=== PATIENT | female | born 1955 | race Caucasian/White ===

== ENCOUNTER 2018-01-21 17:24 | Outpatient (REF) | payer OTHER, SELFPAY ==
[2018-01-21 18:05] LABS: Abs Immature Grans 0.02 k/cumm (0.0-0.09); Absolute Basophil Count 0.03 k/cumm (0.0-0.2); Absolute Eosinophil Count 0.48 k/cumm (0.0-0.7); Absolute Lymphocyte Count 2.14 k/cumm (1.2-3.4); Absolute Monocyte Count 0.67 k/cumm (0.11-0.7); Absolute Neutrophil Count 4.22 k/cumm (1.2-6.7); Basophils % 0.4; Eosinophils % 6.3; HGB 13.6 g/dL (12.0-15.5); Immature Grans % 0.3; Lymphocytes % 28.3; Mean Corp. HGB Concentration 32.4 g/dL (32.0-36.0); Mean Corpuscular Hemoglobin 29.4 pg (27.0-33.0); Mean Corpuscular Volume 90.7 fL (80-95); Mean Platelet Volume 12.5 fL (8.0-11.0); Monocytes % 8.9; Neutrophils % 55.8; Platelet Count 335 x1000/uL (130-400); RBC 4.63 m/cumm (4.00-5.20); RBC Distribution Width 15.7 % (11.7-14.6); White Blood Cell Count 7.56 k/cumm (4.4-10.8)
[2018-01-21 18:38] LABS: ALT 24 U/L (12-78); AST 22 U/L (15-37); Albumin 3.6 g/dL (3.4-5.0); Alkaline Phosphatase 137 U/L (46-116); Anion Gap 9.3 mmol/L (3-11); BUN 13 mg/dL (7-18); Bilirubin, Total 0.4 mg/dL (0.2-1.0); CO2 26.7 mmol/L (21.0-32.0); Calcium 8.8 mg/dL (8.5-10.1); Chloride 105 mmol/L (98-107); Estimated GFR 56.37 (mL/min/1.73m2); Glucose 105 mg/dL (70-100); Potassium 4.5 mmol/L (3.5-5.1); Sodium 141 mmol/L (136-145); Total Protein 7.7 g/dL (6.4-8.2)
[2018-01-21 18:40] LABS: D-Dimer 698 ng/mlFEU (<500)
[2018-01-21 18:43] LABS: Bilirubin Negative (Negative); Blood Negative (Negative); Clarity Clear; Glucose Negative (Negative); Ketones Negative (Negative); Leukocyte Esterase Negative (Negative); Nitrite Negative (Negative); Specific Gravity 1.015 (1.005-1.025); pH 6.5 (5-8)
== END 2018-01-21 17:44 ==
LOC: NCHCO 17:24
PROVIDERS: PCP Family Medicine; Visit Provider Family Medicine
DX: R07.89 Other chest pain (principal)
CPT/HCPCS: 80053; 81003; 85025; 85379

== ENCOUNTER 2018-01-21 19:38 | Emergency (ER) | payer OTHER, SELFPAY ==
[2018-01-21 19:54] VITALS: BP 137/77; PULSE 77; RESP 18; TEMP 36.6; O2SAT 93
--- NOTE | 2018-01-21 20:39 | DI.CT_ITS ---
SYMPTOMS/DIAGNOSIS: SHORTNESS OF BREATH, RIGHT-SIDED PLEURITIC PAIN, RECENT TRAUMA PE CT OF THE CHEST: CT angiography was performed with multi slice acquisition and multi planar and 3D reconstruction. The study was carried out with intravenous administration of 85 cc of Omnipaque 350. 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 There are degenerative changes and scoliosis in the spine. Note is made of fractures of the 5th, 6th and 7th lateral ribs. The fractures are not displaced. Hypoventilation of the lungs is demonstrated. There is scarring and atelectasis involving the lung bases. There is no focal consolidation. There is no pleural effusion or pneumothorax. There are no suspicious pulmonary nodules. The central airways appear patent and of normal caliber. The thyroid gland is unremarkable. There is no evident axillary adenopathy. There is no mediastinal adenopathy or hilar adenopathy. Evaluation of the pulmonary arteries in multiple planes shows no evidence of PE. The aorta is of normal caliber with no evidence of an aneurysm or dissection. There is no evidence for an aortic injury. The heart is normal. There is a small hiatus hernia. 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 SUMMARY: Nondisplaced fractures of the right 5th, 6th and 7th ribs. No evidence of a pulmonary contusion or pneumothorax. No evidence of PE.
--- NOTE | 2018-01-21 20:40 | W.ED.GENAD ---
Discharge Plan Disposition Patient Disposition: HOME Condition: Fair Discharge Details Chief Complaint: Trauma Clinical Impression: Rib fractures Primary Care Provider: Yariel Hackett ED Provider: Sraa Echeverria Home Meds and New Rx's Prescriptions: New oxycodone 5 mg capsule 5 mg PO Q6H Qty: 7 RF: 0 Continue omeprazole [Prilosec] 40 MG capsule,delayed release(DR/EC) 40 mg PO DAILY RF: 0 clotrimazole-betamethasone [Lotrisone] 45 GM cream 1 raymundo Topical BID Qty: 1 RF: 1 ibuprofen 800 MG tablet 800 mg PO TID RF: 0 folic acid 1 MG tablet 1 mg PO DAILY RF: 0 citalopram 20 MG tablet 20 mg PO DAILY RF: 0 cholecalciferol (vitamin D3) [Vitamin D3] 2,000 UNIT capsule 2 cap PO DAILY RF: 0 cyanocobalamin (vitamin B-12) [Vitamin B-12] 500 MCG tablet 500 mcg PO DAILY RF: 0 indomethacin 25 MG capsule 25 mg PO PRN PRNRF: 0 Discharge Instructions Instructions: Rib Fracture (ED) Additional Instructions: Encourage hydration. Tylenol and/or ibuprofen as needed for discomfort. You may augment with the oxycodone as prescribed. Please take this only as prescribed keep this in a safe place. Do not take the Tylenol 3. Please use incentive spirometer as advised by Dr. Hackett, and routinely encourage deep breathing to help prevent pneumonia. If you develop shortness of breath, difficulty breathing, fever/chills or other new/worsening symptoms please seek care urgently once again. Otherwise, please follow-up with primary care next week Referrals: Yariel Hackett [Primary Care Provider] - Medical Decision Making Patient 62-year-old female presenting today with chief complaint of right anterior chest wall pain. I was contacted by Dr. Hackett prior to her arrival. He advised that the patient had fallen from a bread Saturday night. When she woke on the floor she had severe right anterior chest wall discomfort. She was evaluated at that time in [facility] emergency department at which time chest x-ray was obtained advised no acute abnormalities were noted. Reports the patient followed up with him today in the office. He was concerned, as the patient has history of DVT, that her shortness of breath and pleuritic chest pain may have been secondary to PE not simply from her fall. He obtain baseline laboratory evaluation including a d-dimer which was noted to be elevated at 698. Patient is endorsing shortness of breath. Reports that this primarily associated with pain with any type of inspiration. She denies any fevers or chills. Reports that she had a mild cough that began prior to her fall. This been nonproductive. Was given an incentive spirometer by primary care as well as a prescription for Tylenol 3. States she took a Tylenol with codeine this evening and is not yet had resolution of her discomfort. She appears comfortable on exam. Lungs are clear. No acute distress. O2 slightly low at 93%. She is not tachycardic. Kidney function allows for CT with contrast, will obtain imaging to evaluate for possible PE. CT reviewed by radiologist. Significant for degenerative change and scoliosis of the spine. There are fractures to the fifth, sixth and seventh lateral ribs. They are not significantly displaced. No other definite rib fracture seen. Lung lomeli are hypoinflated. There is scarring and atelectasis at the lung bases. No focal area of consolidation. No pleural effusion. No pneumothorax. No suspicious pulmonary nodule is central airways are normal caliber. Thyroid gland is unremarkable. No axillary adenopathy. No mediastinal adenopathy. No hilar adenopathy. Interrogation of the pulmonary arteries in multiple planes showed no evidence of pulmonary embolism. Aorta is normal caliber with no evidence of aneurysm or dissection. No evidence of aortic injury. Heart is normal size. There is a small hiatal hernia. There are changes of gastric bypass procedure. Discussed findings with the patient. We discussed the risks associated with rib fractures and, in particular discussed risk associated with continued shallow breathing and risk of developing pneumonia. She was given an incentive spirometer and instruction on how to use this by her primary care. Encouraged that she begin using this. Patient reports that the Tylenol 3 is not been working well for her. We will transition her to oxycodone. Advised that she not take this with the Tylenol No. 3. Advised that she may take Tylenol and/or ibuprofen in addition to the oxycodone. Discussed safety usage with patient and her , she signed narcotic form. Encourage hydration. Advised follow-up with primary care. She was given strict return precautions. All of her questions and concerns were addressed, she is in agreement with this plan. HPI General Mode of arrival: ambulatory. Date/Time Provider Initiated Documentation: 01/21/18 20:00. Information obtained by: patient and family. History of Present Illness 62 year old F presents to the emergency department with the chief complaint of right sided anterior rib pain, described as severe, with intensity rated at 10. Quality is described as sharp, and is localized to the chest. Patient reports no radiation. Patient started experiencing this hour(s) (3) and it has been constant. Immobilization improves symptom(s), Movement worsens symptoms (coughing much worse) . Patient notes cough (states that she had mild nonproductive cough prior to her fall), rash (has rash under the right breast which she reports waxes and wanes, responds well to Lotrisone) and shortness of breath; denies fever/chills, headaches, loss of appetite, nausea/vomiting, syncope and weakness. Patient did receive the following treatments prior to arrival, other (tylenol #3) Related Data Home Medications Medication Instructions Recorded Confirmed clotrimazole-betamethasone 1 raymundo TOPICAL BID #1 tube 09/02/13 [Lotrisone] omeprazole [Prilosec] 40 mg PO DAILY 09/02/13 09/11/14 citalopram 20 mg PO DAILY 10/26/13 09/11/14 folic acid 1 mg PO DAILY 10/26/13 09/11/14 ibuprofen 800 mg PO TID 10/26/13 09/11/14 cholecalciferol (vitamin D3) 2 cap PO DAILY 10/30/13 09/11/14 [Vitamin D3] cyanocobalamin (vitamin B-12) 500 mcg PO DAILY 09/11/14 09/11/14 [Vitamin B-12] indomethacin 25 mg PO PRN PRN 09/11/14 09/11/14 oxycodone 5 mg PO Q6H #7 cap 01/21/18 Previous Rx's Medication Instructions Recorded oxycodone 5 mg PO Q6H #7 cap 01/21/18 Allergies Allergy/AdvReac Type Severity Reaction Status Date / Time [facility] And Derivatives Allergy Intermediate Rash, Unverified 09/11/14 14:02 blister diazepam [From Valium] AdvReac Intermediate Increased Unverified 09/11/14 14:02 anxiety General Stated Complaint: Trauma RONNA: 3 Review of Systems Constitutional Reports as per HPI, Denies chills, Denies fever(s), Denies headache(s), Denies poor appetite and Denies weakness Eyes Denies change in vision ENT Denies headache(s) Cardiovascular Reports as per HPI, Reports chest pain (right anterior CP, pleuritic in nature), Denies claudication, Reports dyspnea and Reports dyspnea on exertion Respiratory Reports as per HPI, Reports cough, Denies hemoptysis, Reports pain on inspiration, Reports pain with cough, Reports dyspnea, Reports dyspnea on exertion, Denies stridor and Denies wheezing Gastrointestinal Denies abdominal pain, Denies nausea and Denies vomiting Musculoskeletal Reports as per HPI Integumentary/Breasts Reports as per HPI and Reports rash (under right breast) Neurologic Denies headache(s) and Denies weakness Allergic/Immunologic Denies wheezing PFSH Family History Other Diabetes Heart disease Medical History Acid reflux disease Anxiety disorder Deep vein blood clot of right lower extremity Fx wrist Gall stones Kidney calculi Morbid obesity Social History Smoking/Tobacco Use Status: Never Surgical History Cholecystectomy Gastric Bypass Reduction mammoplasty Rotator Cuff Repair Exam Const General: cooperative, healthy appearing, uncomfortable (patient appears uncomfortable, is on her left side), no acute distress, well developed and well groomed Nutritional Appearance: well nourished and overweight Orientation: alert and awake [facility] Head: normal to inspection and normocephalic Ears: hearing grossly normal bilaterally Mouth: oral mucosae normal Eyes General: appearance normal, both eyes and all related structures Chest Chest: no crepitus, localized rib tenderness with anteroposterior compression (right anterior rib pain with palpation under the right breast), no masses and tenderness rib Resp Effort & Inspection: normal respiratory effort, able to speak in complete sentences and no respiratory distress Auscultation: clear to auscultation bilaterally, no rales, no rhonchi and no wheezes Cardio Rate: regular rate Rhythm: regular rhythm Heart Sounds: S1 normal and S2 normal GI Inspection: normal to inspection Palpation: soft, not rigid and nontender Auscultation: normal bowel sounds Skin General skin exam: no ecchymosis Rashes: rashes noted (erythematous rash consistent with tinea under the right breast) Trauma: no lacerations or abrasions Wounds: no wounds Neuro General: alert, awake and oriented x3 Cranial Nerves: CN's II-XI intact bilaterally Cognition: normal cognition Speech: speech normal Gait: normal gait Extrem General: no pedal edema, no calf tenderness and normal gait Psych Appearance: grossly normal and well kempt Mental Status: mental status grossly normal Speech and Movement: speech and movement normal Course Vital Signs Temperature 36.6 C 01/21/18 19:54 Pulse 77 01/21/18 19:54 Respiratory Rate 18 01/21/18 19:54 Blood Pressure 137/77 01/21/18 19:54 Pulse Oximetry 93 L 01/21/18 19:54 Temperature 36.6 C 01/21/18 19:54 Temperature Source Temporal Artery Scan 01/21/18 19:54 Pulse 77 01/21/18 19:54 Respiratory Rate 18 01/21/18 19:54 Respiratory Effort 01/21/18 19:58 Respiratory Depth Normal 01/21/18 19:58 Blood Pressure 137/77 01/21/18 19:54 Blood Pressure Position Sitting 01/21/18 19:54 Pulse Oximetry 93 L 01/21/18 19:54 Oxygen Delivery Method Room Air 01/21/18 19:54 Oxygen Flow Rate 0 01/21/18 19:54 Pain Level 10 01/21/18 19:54
[2018-01-21] MEDS: Normal Saline 1,000 ML 1000 ML IV (20:48)
[2018-01-21] MEDS: Omnipaque 350 MG/ML 100 ML BTL IV (20:56)
--- NOTE | 2018-01-21 21:48 | DI.VRAD_ITS ---
EXAM: CT Angiography Chest With Intravenous Contrast EXAM DATE/TIME: 01/21/2018 8:40 PM CLINICAL HISTORY: 62 years old, female; Signs and symptoms; Other: SOB, right sided pleuritic pain, recent trauma, ; patient HX: PT stated fall of bed and landed on the right anterior . TECHNIQUE: Axial computed tomographic angiography images of the chest with intravenous contrast using CT angiography protocol. All CT scans at this facility use at least one of these dose optimization techniques: automated exposure control; mA and/or kV adjustment per patient size (includes targeted exams where dose is matched to clinical indication); or iterative reconstruction. Coronal and sagittal reformatted images were created and reviewed. MIP reconstructed images were created and reviewed. CONTRAST: 85 ml of omnipaque 350 administered intravenously. COMPARISON: No relevant prior studies available. FINDINGS: There is artifact from patient's shoulder replacement. There are degenerative changes and scoliosis of the spine. There are fractures of the fifth, sixth and seventh lateral ribs. They are not significantly displaced. No other definite rib fractures are seen. Please note the reconstructed images are MIPs which makes evaluation more difficult. The lung lomeli are hypoventilated. There is scarring and atelectasis within the lung bases. There is no focal consolidation. There is no pleural effusion. There is no pneumothorax. There are no suspicious pulmonary nodules. The central airways are normal in caliber. The thyroid gland is unremarkable. There is no axillary adenopathy. There is no mediastinal adenopathy. There is no hilar adenopathy. Interrogation of the pulmonary arteries in multiple planes shows no evidence for pulmonary embolism. The aorta is normal in caliber with no evidence for aneurysm or dissection. There is no evidence for aortic injury. The heart is normal in size. There is a small hiatal. There are changes of gastric bypass procedure. IMPRESSION: 1. Nondisplaced fractures involving the right fifth, sixth and seventh lateral ribs. 2. No evidence for pulmonary contusion. No pneumothorax. 3. No evidence for pulmonary embolism. Dictated and Authenticated by: Bobo Estrada MD. Ordering:BISHOP PARRY MD
--- NOTE | 2018-01-21 22:05 | ED.GENADUL_ITS ---
Discharge Plan Disposition Patient Disposition: HOME Condition: Fair Discharge Details Chief Complaint: Trauma Clinical Impression: Rib fractures Primary Care Provider: Yariel Hackett ED Provider: Sara Echeverria Home Meds and New Rx's Prescriptions: New oxycodone 5 mg capsule 5 mg PO Q6H Qty: 7 RF: 0 Continue omeprazole [Prilosec] 40 MG capsule,delayed release(DR/EC) 40 mg PO DAILY RF: 0 clotrimazole-betamethasone [Lotrisone] 45 GM cream 1 raymundo Topical BID Qty: 1 RF: 1 ibuprofen 800 MG tablet 800 mg PO TID RF: 0 folic acid 1 MG tablet 1 mg PO DAILY RF: 0 citalopram 20 MG tablet 20 mg PO DAILY RF: 0 cholecalciferol (vitamin D3) [Vitamin D3] 2,000 UNIT capsule 2 cap PO DAILY RF: 0 cyanocobalamin (vitamin B-12) [Vitamin B-12] 500 MCG tablet 500 mcg PO DAILY RF: 0 indomethacin 25 MG capsule 25 mg PO PRN PRNRF: 0 Discharge Instructions Instructions: Rib Fracture (ED) Additional Instructions: Encourage hydration. Tylenol and/or ibuprofen as needed for discomfort. You may augment with the oxycodone as prescribed. Please take this only as prescribed keep this in a safe place. Do not take the Tylenol 3. Please use incentive spirometer as advised by Dr. Hackett, and routinely encourage deep breathing to help prevent pneumonia. If you develop shortness of breath, difficulty breathing, fever/chills or other new/worsening symptoms please seek care urgently once again. Otherwise, please follow-up with primary care next week Referrals: Yariel Hackett [Primary Care Provider] - Medical Decision Making Patient 62-year-old female presenting today with chief complaint of right anterior chest wall pain. I was contacted by Dr. Hackett prior to her arrival. He advised that the patient had fallen from a bread Saturday night. When she woke on the floor she had severe right anterior chest wall discomfort. She was evaluated at that time in [place] emergency department at which time chest x- ray was obtained advised no acute abnormalities were noted. Reports the patient followed up with him today in the office. He was concerned, as the patient has history of DVT, that her shortness of breath and pleuritic chest pain may have been secondary to PE not simply from her fall. He obtain baseline laboratory evaluation including a d-dimer which was noted to be elevated at 698. Patient is endorsing shortness of breath. Reports that this primarily associated with pain with any type of inspiration. She denies any fevers or chills. Reports that she had a mild cough that began prior to her fall. This been nonproductive. Was given an incentive spirometer by primary care as well as a prescription for Tylenol 3. States she took a Tylenol with codeine this evening and is not yet had resolution of her discomfort. She appears comfortable on exam. Lungs are clear. No acute distress. O2 slightly low at 93%. She is not tachycardic. Kidney function allows for CT with contrast, will obtain imaging to evaluate for possible PE. CT reviewed by radiologist. Significant for degenerative change and scoliosis of the spine. There are fractures to the fifth, sixth and seventh lateral ribs. They are not significantly displaced. No other definite rib fracture seen. Lung lomeli are hypoinflated. There is scarring and atelectasis at the lung bases. No focal area of consolidation. No pleural effusion. No pneumothorax. No suspicious pulmonary nodule is central airways are normal caliber. Thyroid gland is unremarkable. No axillary adenopathy. No mediastinal adenopathy. No hilar adenopathy. Interrogation of the pulmonary arteries in multiple planes showed no evidence of pulmonary embolism. Aorta is normal caliber with no evidence of aneurysm or dissection. No evidence of aortic injury. Heart is normal size. There is a small hiatal hernia. There are changes of gastric bypass procedure. Discussed findings with the patient. We discussed the risks associated with rib fractures and, in particular discussed risk associated with continued shallow breathing and risk of developing pneumonia. She was given an incentive spirometer and instruction on how to use this by her primary care. Encouraged that she begin using this. Patient reports that the Tylenol 3 is not been working well for her. We will transition her to oxycodone. Advised that she not take this with the Tylenol No. 3. Advised that she may take Tylenol and/or ibuprofen in addition to the oxycodone. Discussed safety usage with patient and her , she signed narcotic form. Encourage hydration. Advised follow-up with primary care. She was given strict return precautions. All of her questions and concerns were addressed, she is in agreement with this plan. HPI General Mode of arrival: ambulatory . Date/Time Provider Initiated Documentation: 01/21/18 20:00 . Information obtained by: patient and family . History of Present Illness 62 year old F presents to the emergency department with the chief complaint of right sided anterior rib pain, described as severe, with intensity rated at 10. Quality is described as sharp, and is localized to the chest. Patient reports no radiation. Patient started experiencing this hour(s) (3) and it has been constant. Immobilization improves symptom(s), Movement worsens symptoms (coughing much worse) . Patient notes cough (states that she had mild nonproductive cough prior to her fall), rash (has rash under the right breast which she reports waxes and wanes, responds well to Lotrisone) and shortness of breath; denies fever/chills, headaches, loss of appetite, nausea/ vomiting, syncope and weakness. Patient did receive the following treatments prior to arrival, other (tylenol #3) Related Data Home Medications Medication Instructions Recorded Confirmed clotrimazole-betamethasone 1 raymundo TOPICAL BID #1 tube 09/02/13 [Lotrisone] omeprazole [Prilosec] 40 mg PO DAILY 09/02/13 09/11/14 citalopram 20 mg PO DAILY 10/26/13 09/11/14 folic acid 1 mg PO DAILY 10/26/13 09/11/14 ibuprofen 800 mg PO TID 10/26/13 09/11/14 cholecalciferol (vitamin D3) 2 cap PO DAILY 10/30/13 09/11/14 [Vitamin D3] cyanocobalamin (vitamin B-12) 500 mcg PO DAILY 09/11/14 09/11/14 [Vitamin B-12] indomethacin 25 mg PO PRN PRN 09/11/14 09/11/14 oxycodone 5 mg PO Q6H #7 cap 01/21/18 Previous Rx's Medication Instructions Recorded oxycodone 5 mg PO Q6H #7 cap 01/21/18 Allergies Allergy/AdvReac Type Severity Reaction Status Date / Time [facility] And Derivatives Allergy Intermediate Rash, Unverified 09/11/14 14:02 blister diazepam [From Valium] AdvReac Intermediate Increased Unverified 09/11/14 14:02 anxiety General Stated Complaint: Trauma RONNA: 3 Review of Systems Constitutional Reports as per HPI, Denies chills, Denies fever(s), Denies headache(s), Denies poor appetite and Denies weakness Eyes Denies change in vision ENT Denies headache(s) Cardiovascular Reports as per HPI, Reports chest pain (right anterior CP, pleuritic in nature) , Denies claudication, Reports dyspnea and Reports dyspnea on exertion Respiratory Reports as per HPI, Reports cough, Denies hemoptysis, Reports pain on inspiration, Reports pain with cough, Reports dyspnea, Reports dyspnea on exertion, Denies stridor and Denies wheezing Gastrointestinal Denies abdominal pain, Denies nausea and Denies vomiting Musculoskeletal Reports as per HPI Integumentary/Breasts Reports as per HPI and Reports rash (under right breast) Neurologic Denies headache(s) and Denies weakness Allergic/Immunologic Denies wheezing PFSH Family History Other Diabetes Heart disease Medical History Acid reflux disease Anxiety disorder Deep vein blood clot of right lower extremity Fx wrist Gall stones Kidney calculi Morbid obesity Social History Smoking/Tobacco Use Status: Never Surgical History Cholecystectomy Gastric Bypass Reduction mammoplasty Rotator Cuff Repair Exam Const General: cooperative, healthy appearing, uncomfortable (patient appears uncomfortable, is on her left side), no acute distress, well developed and well groomed Nutritional Appearance: well nourished and overweight Orientation: alert and awake [facility] Head: normal to inspection and normocephalic Ears: hearing grossly normal bilaterally Mouth: oral mucosae normal Eyes General: appearance normal, both eyes and all related structures Chest Chest: no crepitus, localized rib tenderness with anteroposterior compression ( right anterior rib pain with palpation under the right breast), no masses and tenderness rib Resp Effort & Inspection: normal respiratory effort, able to speak in complete sentences and no respiratory distress Auscultation: clear to auscultation bilaterally, no rales, no rhonchi and no wheezes Cardio Rate: regular rate Rhythm: regular rhythm Heart Sounds: S1 normal and S2 normal GI Inspection: normal to inspection Palpation: soft, not rigid and nontender Auscultation: normal bowel sounds Skin General skin exam: no ecchymosis Rashes: rashes noted (erythematous rash consistent with tinea under the right breast) Trauma: no lacerations or abrasions Wounds: no wounds Neuro General: alert, awake and oriented x3 Cranial Nerves: CN's II-XI intact bilaterally Cognition: normal cognition Speech: speech normal Gait: normal gait Extrem General: no pedal edema, no calf tenderness and normal gait Psych Appearance: grossly normal and well kempt Mental Status: mental status grossly normal Speech and Movement: speech and movement normal Course Vital Signs Temperature 36.6 C 01/21/18 19:54 Pulse 77 01/21/18 19:54 Respiratory Rate 18 01/21/18 19:54 Blood Pressure 137/77 01/21/18 19:54 Pulse Oximetry 93 L 01/21/18 19:54 Temperature 36.6 C 01/21/18 19:54 Temperature Source Temporal Artery Scan 01/21/18 19:54 Pulse 77 01/21/18 19:54 Respiratory Rate 18 01/21/18 19:54 Respiratory Effort 01/21/18 19:58 Respiratory Depth Normal 01/21/18 19:58 Blood Pressure 137/77 01/21/18 19:54 Blood Pressure Position Sitting 01/21/18 19:54 Pulse Oximetry 93 L 01/21/18 19:54 Oxygen Delivery Method Room Air 01/21/18 19:54 Oxygen Flow Rate 0 01/21/18 19:54 Pain Level 10 01/21/18 19:54
[2018-01-21] MEDS: oxyCODONE 5 MG TAB PO (22:24)
[2018-01-21] MEDS: oxyCODONE 5 MG TAB 15 MG PO (22:24)
[2018-01-21 22:30] VITALS: BP 137/77; PULSE 77; RESP 18; TEMP 36.6; O2SAT 93
== END 2018-01-21 22:39 | disposition home or self-care (01) ==
PROVIDERS: Emergency Provider Physician Assistant; PCP Family Medicine
DX: S22.41XA Multiple fractures of ribs, right side, initial encounter for closed fracture (principal); W06.XXXA Fall from bed, initial encounter
CPT/HCPCS: 71275; 96360; 99285; 99284; J3490

== ENCOUNTER 2018-06-11 10:40 | Outpatient (CLI) | payer OTHER, SELFPAY ==
[2018-06-11 13:08] LABS: Anion Gap 7.3 mmol/L (3-11); BUN 14 mg/dL (7-18); CO2 28.7 mmol/L (21.0-32.0); CREATININE 0.91 mg/dL (0.55-1.02); Calcium 9.2 mg/dL (8.5-10.1); Chloride 106 mmol/L (98-107); Glucose 89 mg/dL (70-100); Magnesium 2.1 mg/dL (1.8-2.4); Potassium 4.8 mmol/L (3.5-5.1); Sodium 142 mmol/L (136-145); Vitamin B12 166 pg/mL (193-986)
== END 2018-06-11 11:00 ==
PROVIDERS: PCP Family Medicine; Visit Provider Family Medicine
DX: I10 Essential (primary) hypertension (principal); E61.9 Deficiency of nutrient element, unspecified
CPT/HCPCS: 36415; 80048; 82607; 83735

== ENCOUNTER 2018-11-24 18:49 | Outpatient (REF) | payer OTHER, SELFPAY ==
[2018-11-24 19:17] LABS: Iron 76 ug/dL (50-175); Total Iron Binding Capacity 312 ug/dL (250-450); Transferrin Sat 24 % (15-50)
[2018-11-24 19:45] LABS: Vitamin D 25 Total 32.8 ng/ml (30-100)
[2018-11-24 19:48] LABS: TSH (W/Ref FT4) 1.43 uIU/mL (0.36-3.74); Vitamin B12 1857 pg/mL (193-986)
== END 2018-11-24 19:09 ==
LOC: NCHCN 18:49
PROVIDERS: PCP Family Medicine; Visit Provider Family Medicine
DX: E53.8 Deficiency of other specified B group vitamins (principal); E03.9 Hypothyroidism, unspecified; E61.9 Deficiency of nutrient element, unspecified; E55.9 Vitamin D deficiency, unspecified
CPT/HCPCS: 82306; 82607; 83540; 83550; 84443

== ENCOUNTER 2018-12-30 00:48 | Outpatient (CLI) | payer OTHER, SELFPAY ==
--- NOTE | 2018-12-30 13:00 | DI.MAMMO_ITS ---
EXAM: MG MAMMO SCREENING CLINICAL HISTORY: SCREENING Z12.39. TECHNIQUE: Mammograms were interpreted according to the usual protocol including computer analysis w [employer] CAD system, tomosynthesis and C-view imaging. COMPARISON: No exams were available for comparison FINDINGS: The breast tissue is of moderate radiodensity. There is no mass. There are no suspicious calcificatio ns and there has been no significant interval change when compared with prior images. IMPRESSION: No evidence of malignancy, category 1, yearly screening mammography is recommended. BI-RADS category B. BI-RADS Cat 1 - Negative Breast Density - Category B - Scattered areas of fibroglandular density
== END 2018-12-30 01:08 ==
PROVIDERS: PCP Family Medicine; Visit Provider Family Medicine
DX: Z12.31 Encounter for screening mammogram for malignant neoplasm of breast (principal)
CPT/HCPCS: 77063; 77067

== ENCOUNTER 2019-03-13 11:52 | Outpatient (CLI) | payer OTHER, SELFPAY ==
--- NOTE | 2019-03-13 12:01 | DI.RAD_ITS ---
EXAM: XR WRIST RT COMPLETE INDICATION: RT WRIST PAIN, M25.531. COMPARISON: No exams were available for comparison TECHNIQUE: 2D digital imaging was performed. FINDINGS: No acute fracture or dislocation is present. There are degenerative changes seen at the 1st carpomet acarpal joint. The soft tissues are unremarkable. There is atherosclerosis present. IMPRESSION: No acute fracture or dislocation.
== END 2019-03-13 12:12 ==
PROVIDERS: PCP Family Medicine; Visit Provider Nurse Practitioner Family
DX: M25.531 Pain in right wrist (principal); M18.11 Unilateral primary osteoarthritis of first carpometacarpal joint, right hand
CPT/HCPCS: 73110

== ENCOUNTER 2019-06-01 08:40 | Outpatient (REF) | payer OTHER, SELFPAY ==
[2019-06-01 12:04] LABS: ALT 20 U/L (14-59); AST 17 U/L (15-37); Albumin 3.6 g/dL (3.4-5.0); Alkaline Phosphatase 113 U/L (46-116); Anion Gap 10.2 mmol/L (3-11); BUN 15 mg/dL (7-18); Bilirubin, Total 0.5 mg/dL (0.2-1.0); CO2 24.8 mmol/L (21.0-32.0); CREATININE 0.86 mg/dL (0.55-1.02); Chloride 109 mmol/L (98-107); Glucose 96 mg/dL (74-106); Potassium 4.6 mmol/L (3.5-5.1); Sodium 144 mmol/L (136-145); Total Protein 6.5 g/dL (6.4-8.2); Vitamin B12 343 pg/mL (193-986)
== END 2019-06-01 09:00 ==
LOC: NCHCN 08:40
PROVIDERS: PCP Family Medicine; Visit Provider Family Medicine
DX: I10 Essential (primary) hypertension (principal); E53.8 Deficiency of other specified B group vitamins; R74.8 Abnormal levels of other serum enzymes
CPT/HCPCS: 80053; 82607

== ENCOUNTER 2019-08-11 14:09 | Outpatient (REF) | payer OTHER, SELFPAY ==
[2019-08-12 13:11] LABS: COVID-19 RT-PCR UVMMC Result Negative (Negative)
== END 2019-08-11 14:29 ==
LOC: NCHCN 14:09
PROVIDERS: PCP Family Medicine; Visit Provider Physician Assistant
DX: R05 Cough (principal)
CPT/HCPCS: U0003

== ENCOUNTER 2019-11-16 11:06 | Day surgery (SDC) | payer OTHER, SELFPAY ==
--- NOTE | 2019-11-16 06:55 | W.COLOREPORT ---
Date of service: 11/16/19 Time of Service: 14:15 Colonoscopy Report Date of procedure: 11/16/19 Pre-op diagnosis general: Colon Cancer Screening Post-op diagnosis procedure note: same Procedure: Colonoscopy Surgeon: Jadyn Najera Anesthesia proc note operative: other (General/ ASA 2/ Camilo Sparks, SUGAR) Estimated blood loss (mL): 0 Pathology: none sent Complications: None Disposition: same day Indications: 64-year-old female who is seen today for a colonoscopy. Her last colonoscopy was in 2012. Unfortunately I do not have the report. She has a PMHx significant for Gastric bypass and mild aortic stenosis. She is active hunting, fishing, walking and has no chest pain or SOB. Risks, benefits and complications have been reviewed. Complications include but are not limited to bleeding, pain, perforation, missed small lesion/polyp, sore throat, aspiration and adverse reaction to the medications. Questions were entertained and answered to their satisfaction and they wished to proceed. No guarantees were given or implied. Prep: Miralax/Dulcolax Procedure Start Time: 14:15 Procedure End Time: 14:35 Retraction Time: 13 minutes Findings: Normal colon Procedure Description: After informed consent was obtained the patient was taken to the procedure room and placed in a left decubitous position. Monitors were applied and a time out was done. The patients name, date of , procedure, allergies to medications and metal in their body was reviewed. The patient was then sedated. Once sedated and comfortable a rectal exam was done. External exam was normal. Internal exam revealed a normal sphincter tone and no palpable masses. The scope was then introduced and retro-flexed. No internal hemorrhoids were identified. The scope was then advanced to the cecum without difficulty. The ileocecal valve and appendiceal orifice were identified. The prep was adequate. The scope was then slowly retracted over 13 minutes back into the rectum. There were no polyps and no diverticula. The scope was removed and the patient was woken up and taken back to Same day surgery in stable condition. The patient tolerated the procedure well and there were no immediate complications. Follow up: The patient should follow up in 10 years unless they develop changes in bowel habits or other new gastrointestinal complaints.
--- NOTE | 2019-11-16 06:56 | W.PM.DSUDISC ---
Discharge Plan Disposition Patient Disposition: HOME Condition: Good Discharge Details Reason For Visit: Colonoscopy Attending Provider: Jadyn Najera Primary Care Provider: Yariel Hackett Home Meds and New Rx's Prescriptions: Continued omeprazole [Prilosec] 40 MG capsule,delayed release(DR/EC) 40 mg PO DAILY RF: 0 clotrimazole-betamethasone [Lotrisone] 45 GM cream 1 raymundo Topical BID Qty: 1 RF: 1 ferrous sulfate 325 mg (65 mg iron) tablet 325 mg PO DAILY RF: 0 ketoconazole 2 % cream 1 applic TP BID RF: 0 melatonin 5 mg capsule 5 mg PO HS PRNRF: 0 clotrimazole-betamethasone 1-0.05 % cream 1 applic TP BID RF: 0 levothyroxine 75 mcg capsule 75 mcg PO DAILY RF: 0 escitalopram oxalate 20 mg tablet 20 mg PO DAILY RF: 0 nystatin 100,000 unit/gram powder 1 applic TP TID RF: 0 ibuprofen 800 MG tablet 800 mg PO TID RF: 0 cholecalciferol (vitamin D3) [Vitamin D3] 2,000 UNIT capsule 2 cap PO DAILY RF: 0 cyanocobalamin (vitamin B-12) [Vitamin B-12] 500 MCG tablet 500 mcg PO DAILY RF: 0 Discontinued bisacodyl [Dulcolax (bisacodyl)] 5 mg tablet,delayed release (DR/EC) 5 mg PO ONCE Qty: 4 RF: 0 polyethylene glycol 3350 17 gram powder in packet 255 g PO DAILY Qty: 15 RF: 0 Discharge Instructions Additional Instructions: Findings: Normal colon Follow up: 10 years Please call if you develop: fevers >101.5 Nausea or Vomiting Abdominal pain that is not transient DAY SURGERY UNIT POST ENDOSCOPY INSTRUCTIONS 1. Because there will be medication in your system for the next 24 hours, you may feel a little sleepy. Your coordination will be affected. Therefore: a. Do not drive or operate dangerous equipment for 24 hours. b. Do not drink alcohol beverages for 24 hours (not even beer). c. Plan to go home and rest for the day. 2. Generally there are no restrictions on your activity after a day or so has gone by, but you may feel a bit fatigued for a few days. 3 After you arrive home you may have a light meal and return to a normal diet as you can tolerate it without feeling sick to your stomach. 4. After surgery, you may feel pain or discomfort. This should be only transient, but if it persists please contact your doctor. 5. If there are any questions regarding the findings of your procedure, please feel free to contact your doctor. 6. If you are unable to contact your doctor with a problem, contact the hospital at [phone]. 7. Continue all your regular medications unless directed otherwise. I understand the above instructions and have no questions. Signature of Patient or Responsible Adult Escort Date/Time Name of Responsible Adult Escort Signature of Nurse Date/Time Activity:: Activity as Tolerated Diet:: As Tolerated Discharge Orders Discharge Orders: Discharge Order (Routine); Ordered 11/16/19 Ordered By: Jadyn Najera
[2019-11-16 11:20] VITALS: BP 156/86; PULSE 62; RESP 18; TEMP 36.3; O2SAT 98
[2019-11-16] MEDS: Lactated Ringers 1,000 ML 80 ML IV (11:59)
[2019-11-16 15:10] VITALS: BP 129/76; PULSE 68; RESP 18; TEMP 36.5; O2SAT 96
== END 2019-11-16 16:02 | disposition home or self-care (01) ==
PROVIDERS: PCP Family Medicine; Visit Provider Surgery
PROC: 0DJD8ZZ Inspection of Lower Intestinal Tract, Via Natural or Artificial Opening Endoscopic (ICD-10-PCS; CPT 45378; principal; 2019-11-16 12:45)
DX: Z12.11 Encounter for screening for malignant neoplasm of colon (principal); Z98.84 Bariatric surgery status; I35.0 Nonrheumatic aortic (valve) stenosis
CPT/HCPCS: 45378; J2001

== ENCOUNTER 2019-12-15 13:07 | Outpatient (REF) | payer OTHER, SELFPAY ==
[2019-12-15 15:38] LABS: HCT 38.8 % (36.0-46.0); HGB 12.4 g/dL (11.2-15.7); MCH 30.6 pg (27.0-33.0); MCV 95.8 fL (80-95); MPV 14.2 fL (8.0-11.0); Platelet Count 271 10^3/uL (130-400); RBC 4.05 10^6/uL (3.93-5.22); RDW 13.2 % (11.7-14.6); RDW-SD 47.1 fL; WBC 6.73 10^3/uL (4.4-10.8)
[2019-12-15 16:26] LABS: Iron 101 ug/dL (50-170); Total Iron Binding Capacity 291 ug/dL (250-450); Transferrin Sat 35 % (15-50)
[2019-12-15 16:36] LABS: Hemoglobin A1C 5.6 % (<5.7)
[2019-12-15 16:43] LABS: ALT 35 U/L (14-59); AST 19 U/L (15-37); Albumin 3.5 g/dL (3.4-5.0); Alkaline Phosphatase 112 U/L (46-116); Anion Gap 9.5 mmol/L (3-11); BUN 14 mg/dL (7-18); Bilirubin, Total 0.4 mg/dL (0.2-1.0); CO2 25.5 mmol/L (21.0-32.0); CREATININE 1.04 mg/dL (0.55-1.02); Calcium 8.8 mg/dL (8.5-10.1); Chloride 102 mmol/L (98-107); Estimated GFR 53.52 (mL/min/1.73m2); Glucose 87 mg/dL (74-106); Potassium 5.1 mmol/L (3.5-5.1); Sodium 137 mmol/L (136-145); TSH (W/Ref FT4) 0.66 uIU/mL (0.36-3.74); Total Protein 6.4 g/dL (6.4-8.2)
[2019-12-15 17:20] LABS: Calculated LDL 181 mg/dL (<100); Cholesterol 279 mg/dL (<200); HDL Cholesterol 69 mg/dL (40-60); Triglyceride 149 mg/dL (<150); Vitamin B12 346 pg/mL (193-986)
[2019-12-17 07:06] LABS: Vitamin D 25 Total 26.5 ng/ml (30-100)
== END 2019-12-15 13:27 ==
LOC: NCHCN 13:07
PROVIDERS: PCP Family Medicine; Visit Provider Family Medicine
DX: E55.9 Vitamin D deficiency, unspecified (principal); E53.8 Deficiency of other specified B group vitamins; E03.9 Hypothyroidism, unspecified; R73.09 Other abnormal glucose; E61.9 Deficiency of nutrient element, unspecified; R74.8 Abnormal levels of other serum enzymes; I10 Essential (primary) hypertension; Z00.00 Encounter for general adult medical examination without abnormal findings
CPT/HCPCS: 80053; 80061; 82306; 85027; 82607; 83036; 83540; 83550; 84443

== ENCOUNTER 2020-01-04 09:24 | Outpatient (REF) | payer OTHER, SELFPAY ==
--- NOTE | 2020-01-04 08:45 | PAPFT_PTH ---
PATIENT: Tamia Casarez LOC: [facility] U#:[id number] AGE/SX: 64/F ROOM: RE01/04/[address]: Izabella Saucedo NP : [id number] BED: DIS: 01/04/2020 SPEC #: [id number] RECD: 01/04/20 13:06 STATUS: BUNNY RESarah #: [id number] TONY: 01/04/20 08:[address]: Izabella Saucedo NP DEPT: [facility] Cytology RECD BY: Jenelle Bennett ENTERED: 01/04/20 13:06 SP TYPE: PAPFT OTHR DR: Yariel Hackett Tissues: 1 - CX/ENDOCX FOR PAP SMEARS Procedures: PAP THIN PREP/UVM Screening HPV DNA PROBE Comments: [id number]
== END 2020-01-04 09:44 ==
LOC: LBN 09:24
PROVIDERS: PCP Family Medicine; Visit Provider Nurse Practitioner Women's Health
DX: R87.616 Satisfactory cervical smear but lacking transformation zone (principal); Z11.51 Encounter for screening for human papillomavirus (HPV)
CPT/HCPCS: 88142; 87624

== ENCOUNTER 2020-04-05 02:34 | Outpatient (CLI) | payer OTHER, SELFPAY ==
--- NOTE | 2020-04-05 08:17 | DI.MAMMO_ITS ---
EXAM: MAMMO SCREENING CLINICAL HISTORY: screening, H/O BREAST REDUCTION SURGERY BILSARAH,Z12.39 TECHNIQUE: Mammograms were interpreted according to the usual protocol including computer analysis w [employer] CAD system, tomosynthesis and C-view imaging. COMPARISON: 2013 through 2018 FINDINGS: The breasts are composed of scattered fibroglandular densities, Breast Density category B. No suspicious masses or suspicious microcalcifications are seen. Vascular calcifications are inciden tally noted. No skin thickening or abnormal axillary lymph nodes are seen. There has been no significant change from prior exams. IMPRESSION: BI-RADS Category 1, Negative mammogram Yearly screening mammography is recommended. Breast Density - Category B, scattered fibroglandular densities. A negative radiographic report should not delay biopsy if a dominant or clinically suspicious mass is present. Up to ten percent of cancers are not identified on mammography. A negative report may reinforce clinical impression. Adenosis and dense breasts may obscure an underlying neoplasm. False positive reports average 6 to 10%. Patient will receive a letter notifying them of these results.
== END 2020-04-05 02:54 ==
PROVIDERS: PCP Family Medicine; Visit Provider Nurse Practitioner Women's Health
DX: Z12.31 Encounter for screening mammogram for malignant neoplasm of breast (principal)
CPT/HCPCS: 77063; 77067

== ENCOUNTER 2020-06-11 22:12 | Emergency (ER) | payer OTHER, SELFPAY ==
--- NOTE | 2020-06-11 21:57 | ED.GENADUL_ITS ---
Discharge Plan Disposition Patient Disposition: HOME Condition: Good Discharge Details Clinical Impression: Contusion of multiple sites, Closed head injury, Fall at home Primary Care Provider: Yariel Hackett ED Provider: Ilan Patrick Harbinger Meds and New Rx's Prescriptions: Continued estradiol 0.01 % (0.1 mg/gram) cream 1 g vaginal DAILY Qty: 42.5 RF: 3 omeprazole [Prilosec] 40 MG capsule,delayed release(DR/EC) 40 mg PO DAILY RF: 0 ferrous sulfate 325 mg (65 mg iron) tablet 325 mg PO DAILY RF: 0 ketoconazole 2 % cream 1 applic TP BID RF: 0 melatonin 5 mg capsule 5 mg PO HS PRNRF: 0 clotrimazole-betamethasone 1-0.05 % cream 1 applic TP BID RF: 0 levothyroxine 75 mcg capsule 75 mcg PO DAILY RF: 0 escitalopram oxalate 20 mg tablet 20 mg PO DAILY RF: 0 nystatin 100,000 unit/gram powder 1 applic TP TID RF: 0 ibuprofen 800 MG tablet 800 mg PO TID RF: 0 cholecalciferol (vitamin D3) [Vitamin D3] 2,000 UNIT capsule 2 cap PO DAILY RF: 0 Discharge Instructions Instructions: Head Injury (ED), Contusion in Adults (ED) Additional Instructions: Imaging tonight negative for traumatic injury or fractures. Take it easy the rest of the weekend, activity as tolerated. Tylenol as needed for pain. Ice on and off to the extremity areas that were injured. Follow-up with primary care 1 to 2 weeks if not doing better. Return to ED if worsening headache, neurologic change, difficulty breathing, persistent vomiting, other concerns. Referrals: Yariel Hackett [Primary Care Provider] - Medical Decision Making Patient status post fall at home. Injury to left side of her body. Loss of consciousness after the event. GCS of 15 with normal neurologic exam now. No midline cervical spine tenderness but complains of left neck pain. Vital signs are good. Plan CT head and neck. X-ray left forearm, left hip/pelvis, left knee. CT head and cervical spine negative for traumatic injury. X-ray is also negative for traumatic injury/fracture. Collar removed. Patient given Tylenol. She will be discharged home to continue Tylenol or Motrin as needed for pain. Activity as tolerated over the weekend. Follow-up with primary care 1 to 2 weeks if not getting better. Return to ED if any significant changes, specifically worsening headache, mental status change, other concerns. HPI General Mode of arrival: EMS . Date/Time Provider Initiated Documentation: 06/11/20 22:12 . Limitations to Documentation: no limitations . Information obtained by: patient, EMS and RN notes reviewed . HPI Narrative: Patient presents to ED by ambulance status post fall at home. Patient tripped on an uneven step in her house falling and striking left side of her head on the door jam. She had a brief loss of consciousness after striking her head. She is awake and alert now. She complains of left head and neck pain as well as left forearm, left hip, left knee pain. She denies any difficulty breathing. She denies chest pain, back pain, abdominal pain. She denies any nausea vomiting. It was a mechanical trip and fall with loss of consciousness after the event. There was no syncope. She has no numbness or weakness currently. She is transported in a collar. Related Data Home Medications Medication Instructions Recorded Confirmed omeprazole [Prilosec] 40 mg PO DAILY 09/02/13 06/11/20 ibuprofen 800 mg PO TID 10/26/13 06/11/20 cholecalciferol (vitamin D3) 2 cap PO DAILY 10/30/13 06/11/20 [Vitamin D3] clotrimazole-betamethasone 1 1 applic TP BID 10/05/19 03/14/20 %-0.05 % topical cream escitalopram oxalate 20 mg tablet 20 mg PO DAILY 10/05/19 03/14/20 ferrous sulfate 325 mg (65 mg 325 mg PO DAILY 10/05/19 06/11/20 iron) tablet ketoconazole 2 % topical cream 1 applic TP BID 10/05/19 03/14/20 levothyroxine 75 mcg capsule 75 mcg PO DAILY 10/05/19 06/11/20 melatonin 5 mg capsule 5 mg PO HS PRN cap 10/05/19 06/11/20 nystatin 100,000 unit/gram topical 1 applic TP TID 10/05/19 03/14/20 powder estradiol 1 g VAGINAL DAILY #42.5 g 01/04/20 06/11/20 Previous Rx's Medication Instructions Recorded estradiol 1 g VAGINAL DAILY #42.5 g 01/04/20 Allergies Allergy/AdvReac Type Severity Reaction Status Date / Time Brecon And Derivatives Allergy Intermediate Rash, Unverified 03/14/20 09:58 blister diazepam [From Valium] AdvReac Intermediate Increased Unverified 03/14/20 09:58 anxiety General RONNA: 3 Review of Systems Narrative: As documented in HPI otherwise negative as below. Const: no fever, chills, weakness Resp: no cough, SOB, pleuritic pain CV: no CP, diaphoresis, edema, syncope GI: no abdominal pain, nausea, vomiting, diarrhea Neuro: no numbness, focal weakness, confusion PFSH Medical History Acid reflux disease Anemia Anxiety disorder Aortic stenosis Atrophic vaginitis Chest pain Pt. states this was due to anxiety Deep vein blood clot of right lower extremity 2008 following R leg trauma Dermatitis Elevated alkaline phosphatase level Fx wrist R x 2 2012 and 2013 Gall stones surgery 1999 HTN (hypertension) Hypothyroidism Kidney calculi passed 2009 Left eye pain Morbid obesity lifelong with surgery Prediabetes pt. denies this Shingles September 2019, had occular weeping, and pain. Upper respiratory infection Vitamin B12 deficiency Surgical History Cholecystectomy 2000 Gastric Bypass 2009 and 2012 (revision for stricture) History of knee replacement procedure of right knee Reduction mammoplasty Bilateral 2013 Rotator Cuff Repair Bilateral 2008/2009/2011 S/P colonoscopy 2013- ? polyp Family History Other Diabetes Heart disease Social History Smoking/Tobacco Use Status: Never Smoking risk assessment performed?: Yes Alcohol Intake: never Drug use: Never Substance use type: does not use Do you feel safe at home: Yes Do you feel safe in your relationship?: Yes Female Reproductive History Menstrual Menopause type: natural (2012) History History 2 Para 2 Hx # Term Pregnancies Multiple births Hx # Pregnancies Ectopic pregnancies AB induced Hx Number of Living Children AB spontaneous Exam Narrative Exam Narrative: Const: Obese female in NAD. HEENT: NC/AT. Normal facial exam. Eyes: PERRL and EOMI. Neck: Trachea midline. Collar on. No midline tenderness. Lungs: Normal respiratory effort. Lungs are clear. No chest wall tenderness. Cor: RRR with murmur. Good distal pulses. GI: Soft. NT/ND. No guarding or rebound. Back: No midline spine tenderness. Pelvis: Stable no tenderness. Neuro: GCS 15. A+O x 3. Normal speech, mentation. Cranial nerves II - XII grossly intact. No gross motor or sensory deficit. Ext: Bruising noted left mid forearm and left lateral knee. No obvious deformity. Some discomfort with range of motion of left knee. Mild tenderness left forearm, left hip, left knee. Skin: Warm and dry with abrasions but no lacs.
--- NOTE | 2020-06-11 22:00 | DI.RAD_ITS ---
EXAM: XR KNEE LT 1V CLINICAL HISTORY: trauma. TECHNIQUE: 2D digital imaging was performed. COMPARISON: No exams were available for comparison FINDINGS: This is a limited examination of the left knee with a single AP view. BONES: No acute fracture is present. No bony destructive lesion is seen. JOINTS: There is a left total knee replacement. The patella appears laterally located and a dislocat ion cannot be excluded on this limited examination. SOFT TISSUE: Normal. IMPRESSION: Cannot exclude lateral dislocation of the patella on this single limited examination. DATA REPOSITORY: RADIATION DOSE DELIVERED:
--- NOTE | 2020-06-11 22:00 | DI.RAD_ITS ---
EXAM: XR HIP LT COMPLETE AP PELVIS CLINICAL HISTORY: trauma. TECHNIQUE: 2D digital imaging was performed. COMPARISON: No exams were available for comparison FINDINGS: BONES: No acute fracture is present. No bony destructive lesion is seen. JOINTS: No dislocation present. SOFT TISSUE: Normal. IMPRESSION: No acute fracture or dislocation. DATA REPOSITORY: RADIATION DOSE DELIVERED:
--- NOTE | 2020-06-11 22:00 | DI.RAD_ITS ---
EXAM: XR FOREARM LT CLINICAL HISTORY: trauma. TECHNIQUE: 2D digital imaging was performed. COMPARISON: No exams were available for comparison FINDINGS: BONES: No acute fracture is present. No bony destructive lesion is seen. Visualized portion of elbow and wrist joints are unremarkable. SOFT TISSUE: Normal. IMPRESSION: No acute fracture or dislocation. DATA REPOSITORY: RADIATION DOSE DELIVERED:
--- NOTE | 2020-06-11 22:00 | DI.CT_ITS ---
EXAM: CT HEAD CERVICAL SPINE WO CLINICAL HISTORY: trauma. TECHNIQUE: Imaging Protocol: Axial computed tomography images with coronal and sagittal reformatted images were created and reviewed COMPARISON: No exams were available for comparison FINDINGS: CT Head: Ventricles and Extra axial spaces: Normal in size and morphology for the patient's age. Hemorrhage: None. Cerebral parenchyma: No acute territorial infarct. Unremarkable white matter. Midline shift: None. Brainstem/Cerebellum: Normal. Calvarium: Normal. Visualized Paranasal sinuses/Mastoids: Clear. Soft Tissues: Unremarkable. CT Cervical Spine: Bones: No acute fracture or subluxation. Multilevel degenerative changes are seen in the cervical spi ne. Soft Tissues: Unremarkable. Lung Apices: Clear. IMPRESSION: 1. No acute intracranial process. 2. No acute fracture or subluxation in the cervical spine. RADIATION DOSE DELIVERED: 1,505.79mGy.cm Total DLP DATA REPOSITORY: All CT scans at this facility are submitted to the National Radiology Data Registry (NRDR) Dose Index Registry (DIR) with the [employer] (A[employer]). RADIATION OPTIMIZATION: All CT scans at this facility use at least one of these dose optimization te chniques: automated exposure control; mA and/or kV adjustment per patient size (includes targeted exa ms where dose is matched to clinical indication); or iterative reconstruction.
[2020-06-11 22:08] VITALS: BP 117/57; PULSE 65; RESP 18; TEMP 36.5; O2SAT 99
--- NOTE | 2020-06-11 23:15 | DI.RAD_ITS ---
EXAM: XR KNEE LT 3V AP,LAT,KRZYSZTOF CLINICAL HISTORY: trauma. TECHNIQUE: 2D digital imaging was performed. COMPARISON: CR,XR XR KNEE LT 1V from 06/11/2020 FINDINGS: BONES: No acute fracture is present. No bony destructive lesion is seen. JOINTS: There is a left total knee replacement which appears unremarkable. No joint effusion is seen . No dislocation. SOFT TISSUE: Vascular calcifications are seen in the soft tissues. IMPRESSION: No acute abnormality. DATA REPOSITORY: RADIATION DOSE DELIVERED:
--- NOTE | 2020-06-11 23:20 | DI.VRAD_ITS ---
PROCEDURE INFORMATION: Exam: CT Head Without Contrast Exam date and time: 06/11/2020 10:15 PM Age: 65 years old Clinical indication: Injury or trauma; Fall TECHNIQUE: Imaging protocol: Computed tomography of the head without contrast. COMPARISON: No relevant prior studies available. FINDINGS: Brain: Normal. No hemorrhage. Unremarkable white matter. No mass effect. Cerebral ventricles: No ventriculomegaly. Bones/joints: Unremarkable. No acute fracture. Paranasal sinuses: Visualized sinuses are unremarkable. No fluid levels. Mastoid air cells: Visualized mastoid air cells are well aerated. Soft tissues: Unremarkable. IMPRESSION: No acute intracranial abnormality. PROCEDURE INFORMATION: Exam: CT Cervical Spine Without Contrast Exam date and time: 06/11/2020 10:15 PM Age: 65 years old Clinical indication: Injury or trauma; Fall TECHNIQUE: Imaging protocol: Computed tomography images of the cervical spine without contrast. COMPARISON: No relevant prior studies available. FINDINGS: Vertebrae: No acute fracture. Normal alignment. Multilevel degenerative disk disease and facet arthropathy with neuroforaminal and canal stenosis.. Soft tissues: Unremarkable. Lungs: Lung apices are normal. IMPRESSION: No acute findings. Dictated and Authenticated by: Venkat Marroquin MD. Ordering:KARYN Talavera MD
--- NOTE | 2020-06-11 23:23 | DI.VRAD_ITS ---
PROCEDURE INFORMATION: Exam: XR Left Hip with Pelvis when Performed Exam date and time: 06/11/2020 10:15 PM Age: 65 years old Clinical indication: Injury or trauma; Fall; Blunt trauma (contusions or hematomas); Left; Hip TECHNIQUE: Imaging protocol: XR Left hip with pelvis when performed. Views: 2 or 3 views. COMPARISON: No relevant prior studies available. FINDINGS: Bones/joints: Unremarkable. No acute fracture. Soft tissues: Unremarkable. IMPRESSION: No acute findings. Dictated and Authenticated by: Venkat Marroquin MD. Ordering:KARYN Talavera MD
--- NOTE | 2020-06-11 23:24 | DI.VRAD_ITS ---
PROCEDURE INFORMATION: Exam: XR Left Knee Exam date and time: 06/11/2020 10:15 PM Age: 65 years old Clinical indication: Injury or trauma; Fall; Blunt trauma; Knee; Left; Prior surgery TECHNIQUE: Imaging protocol: XR Left knee. Views: 1 or 2 views. COMPARISON: No relevant prior studies available. FINDINGS: Bones/joints: Total knee replacement with intact hardware. Cannot exclude lateral dislocation of the patella on limited single view. No acute fracture. Soft tissues: Normal. IMPRESSION: Cannot exclude lateral dislocation of the patella on limited single view. Dictated and Authenticated by: Venkat Marroquin MD. Ordering:KARYN Talavera MD
--- NOTE | 2020-06-11 23:24 | DI.VRAD_ITS ---
PROCEDURE INFORMATION: Exam: XR Left Forearm Exam date and time: 06/11/2020 11:12 PM Age: 65 years old Clinical indication: Injury or trauma; Fall; Blunt trauma (contusions or hematomas); Arm, lower; Left TECHNIQUE: Imaging protocol: XR Left forearm. Views: 2 views. COMPARISON: No relevant prior studies available. FINDINGS: Bones/joints: Normal. Soft tissues: Normal. IMPRESSION: No acute findings. Dictated and Authenticated by: Venkat Marroquin MD. Ordering:KARYN Talavera MD
--- NOTE | 2020-06-11 23:40 | DI.VRAD_ITS ---
PROCEDURE INFORMATION: Exam: XR Left Knee Exam date and time: 06/11/2020 11:34 PM Age: 65 years old Clinical indication: Injury or trauma; Fall; Blunt trauma; Knee; Left; Prior surgery TECHNIQUE: Imaging protocol: XR Left knee. Views: 3 views. COMPARISON: CR XR KNEE LT 1V 06/11/2020 11:04 PM FINDINGS: Bones/joints: Total knee replacement with intact hardware. No acute fracture. Soft tissues: Normal. Vasculature: Atherosclerotic calcifications. IMPRESSION: No acute finding. Dictated and Authenticated by: Venkat Marroquin MD. Ordering:KARYN Talavera MD
[2020-06-11] MEDS: Acetaminophen 500 MG TAB 1000 MG PO (23:54)
[2020-06-12 00:37] VITALS: BP 117/57; PULSE 65; RESP 18; TEMP 36.5; O2SAT 99
== END 2020-06-12 00:40 | disposition home or self-care (01) ==
PROVIDERS: Emergency Provider Emergency Medicine; PCP Family Medicine
DX: S06.899A Other specified intracranial injury with loss of consciousness of unspecified duration, initial encounter (principal); S50.12XA Contusion of left forearm, initial encounter; S80.02XA Contusion of left knee, initial encounter; S70.02XA Contusion of left hip, initial encounter; S30.0XXA Contusion of lower back and pelvis, initial encounter; M54.2 Cervicalgia; W10.8XXA Fall (on) (from) other stairs and steps, initial encounter; R40.2412 Glasgow coma scale score 13-15, at arrival to emergency department
CPT/HCPCS: 73562; 99284; 70450; 72125; 73090; 73502; 73560

== ENCOUNTER 2020-11-04 18:37 | Outpatient (CLI) | payer OTHER, SELFPAY ==
--- NOTE | 2020-11-04 19:14 | DI.RAD_ITS ---
Exam(s) XR HIP LT COMPLETE AP PELVIS EXAM: XR HIP LT COMPLETE AP PELVIS CLINICAL HISTORY: HIP PAIN, LEFT TECHNIQUE: COMPARISON: CR,XR XR HIP LT COMPLETE AP PELVIS from 06/11/2020 CR,XR XR LUMBAR SPINE COMPLETE from 11/04/2020 FINDINGS: Three views were obtained. No evidence of acute fracture or dislocation. Mild degenerative changes of both hips noted. IMPRESSION: RADIATION DOSE DELIVERED: Total DLP
--- NOTE | 2020-11-04 19:17 | DI.RAD_ITS ---
Exam(s) XR LUMBAR SPINE COMPLETE EXAM: XR LUMBAR SPINE COMPLETE CLINICAL HISTORY: LOW BACK PAIN TECHNIQUE: COMPARISON: No exams were available for comparison FINDINGS: Five views were obtained. There is a moderate left convex lumbar scoliosis. There are moderate dege nerative changes of the SI joints bilaterally. There is mild loss of disc height in the lower lumbar spine and moderate loss of disc height in the lower thoracic and upper lumbar spine. There are prom inent hypertrophic facet joint changes and endplate changes. There is a mild pseudo spondylolisthesi s of L4 on L5. There is no evidence of compression fracture. No spondylolysis or spondylolisthesis. IMPRESSION: Degenerative changes as described above. RADIATION DOSE DELIVERED: Total DLP
--- NOTE | 2020-11-04 19:49 | DI.VRAD_ITS ---
PROCEDURE INFORMATION: Exam: XR Left Hip Exam date and time: 11/04/2020 7:14 PM Age: 65 years old Clinical indication: Other: Hip pain, left TECHNIQUE: Imaging protocol: XR Left hip. Views: 2 or 3 views hip with pelvis when performed. COMPARISON: CR XR HIP LT COMPLETE AP PELVIS 06/11/2020 11:02 PM FINDINGS: Bones/joints: Unremarkable. No acute fracture. Mild degenerative changes in the hips, SI joints, and lower lumbar spine. Soft tissues: Unremarkable. IMPRESSION: No acute findings. Dictated and Authenticated by: Garrett Ho MD. Ordering:MILY Flores MD
--- NOTE | 2020-11-04 19:50 | DI.VRAD_ITS ---
PROCEDURE INFORMATION: Exam: XR Lumbosacral Spine Exam date and time: 11/04/2020 7:04 PM Age: 65 years old Clinical indication: Other: Low back pain TECHNIQUE: Imaging protocol: XR of the lumbosacral spine. Views: 4 or 5 views. COMPARISON: CR XR HIP LT COMPLETE AP PELVIS 11/04/2020 7:07 PM FINDINGS: Bones/joints: Mild left apex scoliosis. Vertebral body heights are maintained. Mild anterolisthesis of L4 on L5. Slight posterior offset at L1-L2. [id number] multilevel degenerative disc changes are seen and moderate lower lumbar facet arthropathy is seen on the oblique and lateral views. Mild degenerative changes in the bilateral SI joints. Soft tissues: Unremarkable. IMPRESSION: Moderate multilevel degenerative spondylopathy Dictated and Authenticated by: Garrett Ho MD. Ordering:MILY Flores MD
== END 2020-11-04 18:57 ==
PROVIDERS: PCP Family Medicine; Visit Provider Physician Assistant Medical
DX: M48.8X7 Other specified spondylopathies, lumbosacral region (principal); M25.552 Pain in left hip; M47.816 Spondylosis without myelopathy or radiculopathy, lumbar region
CPT/HCPCS: 72110; 73502

== ENCOUNTER 2020-12-27 12:22 | Outpatient (REF) | payer OTHER, SELFPAY ==
[2020-12-27 15:19] LABS: HCT 40.7 % (36.0-46.0); HGB 12.8 g/dL (11.2-15.7); MCH 29.4 pg (27.0-33.0); MCHC 31.4 % (32.0-36.0); MCV 93.3 fL (80-95); Platelet Count 322 10^3/uL (130-400); RBC 4.36 10^6/uL (3.93-5.22); RDW 13.2 % (11.7-14.6); RDW-SD 45.1 fL; WBC 5.32 10^3/uL (4.4-10.8)
[2020-12-27 17:34] LABS: Iron 82 ug/dL (50-170); Total Iron Binding Capacity 322 ug/dL (250-450); Transferrin Sat 25 % (15-50)
[2020-12-27 18:01] LABS: ALT 33 U/L (14-59); AST 27 U/L (15-37); Albumin 3.8 g/dL (3.4-5.0); Alkaline Phosphatase 128 U/L (46-116); Anion Gap 8.6 mmol/L (3-11); BUN 18 mg/dL (7-18); Bilirubin, Total 0.4 mg/dL (0.2-1.0); CO2 27.4 mmol/L (21.0-32.0); CREATININE 1.2 mg/dL (0.55-1.02); Calcium 9.1 mg/dL (8.5-10.1); Calculated LDL 172 mg/dL (<100); Chloride 104 mmol/L (98-107); Cholesterol 272 mg/dL (<200); Estimated GFR 45.23 (mL/min/1.73m2); Glucose 89 mg/dL (74-106); HDL Cholesterol 84 mg/dL (40-60); Potassium 4.9 mmol/L (3.5-5.1); Sodium 140 mmol/L (136-145); TSH (W/Ref FT4) 3.54 uIU/mL (0.36-3.74); Total Protein 7.3 g/dL (6.4-8.2); Triglyceride 82 mg/dL (<150); Vitamin B12 245 pg/mL (193-986)
[2020-12-27 20:45] LABS: Vitamin D 25 Total 31.2 ng/mL (30-100)
== END 2020-12-27 12:23 | disposition home or self-care (01) ==
LOC: LBN 12:22
PROVIDERS: PCP Family Medicine; Visit Provider Family Medicine
DX: I10 Essential (primary) hypertension (principal); R74.8 Abnormal levels of other serum enzymes; Z98.84 Bariatric surgery status; E53.8 Deficiency of other specified B group vitamins; E03.9 Hypothyroidism, unspecified; E55.9 Vitamin D deficiency, unspecified; Z00.00 Encounter for general adult medical examination without abnormal findings
CPT/HCPCS: 80053; 80061; 82306; 85027; 82607; 83540; 83550; 84443

== ENCOUNTER 2021-02-14 13:10 | Emergency (ER) | payer MEDICARE, OTHER, SELFPAY ==
[2021-02-14] VITALS (40 sets, daily range): BP systolic 97–146; BP diastolic 43–74; PULSE 70–78; RESP 11–21; TEMP 36.8; O2SAT 95–100
--- NOTE | 2021-02-14 13:00 | RT.EKG_ITS ---
APPROVED REPORT Exam: Resting ECG Reason for Exam: dizzy Patient Location: E HR:75 bpm ECG Measurements Heart Rate 75 AXIS NV 159 P 31 QRSd 85 QRS 13 QT 397 T 34 QTc 443 Conclusion Sinus rhythm...normal P axis, V-rate 60- 99
--- NOTE | 2021-02-14 13:22 | ED.GENADUL_ITS ---
Discharge Plan Disposition Patient Disposition: HOME Condition: Stable Discharge Details Clinical Impression: Dizziness, Lightheadedness, Shortness of breath Primary Care Provider: Yariel Hackett ED Provider: Venkat Saucedo Home Meds and New Rx's Prescriptions: New meclizine 25 mg tablet 25 mg PO TID PRN (Reason: dizziness) Qty: 30 RF: 0 Continued omeprazole [Prilosec] 40 MG capsule,delayed release(DR/EC) 40 mg PO DAILY RF: 0 ferrous sulfate 325 mg (65 mg iron) tablet 325 mg PO DAILY RF: 0 ketoconazole 2 % cream 1 applic TP BID RF: 0 melatonin 5 mg capsule 5 mg PO HS PRNRF: 0 clotrimazole-betamethasone 1-0.05 % cream 1 applic TP BID RF: 0 levothyroxine 75 mcg capsule 75 mcg PO DAILY RF: 0 escitalopram oxalate 20 mg tablet 20 mg PO DAILY RF: 0 nystatin 100,000 unit/gram powder 1 applic TP TID RF: 0 ibuprofen 800 MG tablet 800 mg PO TID RF: 0 cholecalciferol (vitamin D3) [Vitamin D3] 2,000 UNIT capsule 2 cap PO DAILY RF: 0 amitriptyline 50 mg tablet RF: 0 Discharge Instructions Instructions: Vertigo (ED), Dizziness (ED) Additional Instructions: your blood work and xray did not show concerning findings, this was likely vertigo or possible orthostatic hypotension follow up with your primary care provider within 1 week if you feel more ill, have worsening difficulty breathing or chest pain return to the emergency department Medical Decision Making 66 yo female comes in with feeling dizzy and lightheaded. She states she had been feeling well when around 1230 and felt both lightheaded and the room was spinning. Denies falling or loc, sat back down and symptoms improved but still states she feels lightheaded. She denies chest pain, headache, fevers, chills, abdominal pain. She has noted some shortness of breath when she takes deep breaths in. She is in no distress on exam. She has normal tm's, eomi, perrl, soft nontender abdomen. SHe has no focal motor or sensation deficits, and does have reassuring hints exam with very mild horizontal nystagmus in both eyes when looking to the left. Her symptoms seem most consistent with peripheral vertigo and no findings to suggest central vertigo. She is in sinus rhythm, and given her symptoms occurred when standing up could have orthostasis. Will evaluate for anemia, electrolyte abnormalities and reassess. Will also treat with meclizine. No hypoxia or tachycardia or evidence of dvt on exam so doubt PE. pt feels much better and is asymptomatic now which makes me feel this was likely peripheral vertigo and likely bppv. Labs and cxr unremarkable, will obtain delta troponin pt stable and repeat troponin unremarkable, she feels well enough for d/c and discussed following up with pcp and return precautions given Differential Diagnosis Differential Diagnosis: orthostasis, bppv, anemia, electrolyte abnormality Medical Records Medical records reviewed: Yes I reviewed the patient's medical records. Imaging Data Radiologic Study: Attestation: I personally reviewed and interpreted this imaging study as follows: Imaging: X-Ray Radiologist's impression: Patient Name: Tamia Casarez #: [id number]: ER Ordering Provider: Venkat Saucedo M.D. : [facility] ER Primary Care Provider: Guille Hackett of Exam: 02/14/21Sex: F Admission Date: 02/14/21 : 1955 Age: 66 Exam(s) XR CHEST 2V PA LATERAL EXAM: XR CHEST 2V PA LATERAL CLINICAL HISTORY: shortness of breath TECHNIQUE: 2D digital imaging was performed of the chest. Two images were obtained. PA and lateral views were obtained. COMPARISON: No exams were available for comparison FINDINGS: Low lung volumes. MEDIASTINUM: Normal. HEART: Normal. PULMONARY VASCULATURE: Atherosclerosis. LUNGS: Scarring or atelectasis in the left lung base. No focal consolidating infiltrates. PLEURAL SPACE: No pleural effusion or pneumothorax. BONE:Within normal limits for the patient's age. Total reverse right shoulder replacement. OTHER FINDINGS:Normal. IMPRESSION: No acute pulmonary findings. Lab Data Lab results reviewed: Yes I reviewed the patient's lab results. ECG Data Attestation: I personally reviewed and interpreted this ECG (s) as follows: Prior ECG tracings: not available for review Interpretation: sinus rhythm, rate of75, no acute st t wave ischemic findings HPI General Mode of arrival: wheelchair . Date/Time Provider Initiated Documentation: 02/14/21 13:13 . Limitations to Documentation: no limitations . Information obtained by: patient . History of Present Illness 66 year old F presents to the emergency department with the chief complaint of dizzy, described as moderate, Patient started experiencing this hour(s) (1) and it has been constant. No relieving factors improve symptom(s), No exacerbating factors reported . Patient notes shortness of breath. Patient did receive the following treatments prior to arrival, none Related Data Home Medications Medication Instructions Recorded Confirmed omeprazole [Prilosec] 40 mg PO DAILY 09/02/13 02/14/21 ibuprofen 800 mg PO TID 10/26/13 02/14/21 cholecalciferol (vitamin D3) 2 cap PO DAILY 10/30/13 02/14/21 [Vitamin D3] clotrimazole-betamethasone 1 1 applic TP BID 10/05/19 02/14/21 %-0.05 % topical cream escitalopram oxalate 20 mg tablet 20 mg PO DAILY 10/05/19 02/14/21 ferrous sulfate 325 mg (65 mg 325 mg PO DAILY 10/05/19 02/14/21 iron) tablet ketoconazole 2 % topical cream 1 applic TP BID 10/05/19 02/14/21 levothyroxine 75 mcg capsule 75 mcg PO DAILY 10/05/19 02/14/21 melatonin 5 mg capsule 5 mg PO HS PRN cap 10/05/19 02/14/21 nystatin 100,000 unit/gram topical 1 applic TP TID 10/05/19 02/14/21 powder amitriptyline 02/14/21 meclizine 25 mg PO TID PRN #30 tab 02/14/21 Previous Rx's Medication Instructions Recorded meclizine 25 mg PO TID PRN #30 tab 02/14/21 Allergies Allergy/AdvReac Type Severity Reaction Status Date / Time Mccone And Derivatives Allergy Intermediate Rash, Unverified 02/14/21 13:21 blister diazepam [From Valium] AdvReac Intermediate Increased Unverified 02/14/21 13:21 anxiety General Stated Complaint: Dizzy/Sync RONNA: 2 Review of Systems All systems reviewed & are unremarkable except as noted in HPI and below Constitutional Constitutional: Denies chills, Denies fever(s) and Denies weakness Cardiovascular Cardiovascular: Denies chest pain Respiratory Respiratory: Denies cough Gastrointestinal Gastrointestinal: Denies abdominal pain, Denies nausea and Denies vomiting Musculoskeletal Musculoskeletal: Denies joint swelling Neurologic Neurologic: Denies weakness Psychiatric Psychiatric: Denies depression [facility] Medical History Acid reflux disease Anemia Anxiety disorder Aortic stenosis Atrophic vaginitis Chest pain Pt. states this was due to anxiety Deep vein blood clot of right lower extremity 2008 following R leg trauma Dermatitis Elevated alkaline phosphatase level Fx wrist R x 2 2012 and 2013 Gall stones surgery 1999 HTN (hypertension) Hypothyroidism Kidney calculi passed 2009 Left eye pain Morbid obesity lifelong with surgery Prediabetes pt. denies this Shingles September 2019, had occular weeping, and pain. Upper respiratory infection Vitamin B12 deficiency Surgical History Cholecystectomy 2000 Gastric Bypass 2009 and 2012 (revision for stricture) History of knee replacement procedure of right knee Reduction mammoplasty Bilateral 2013 Rotator Cuff Repair Bilateral S/P colonoscopy 2012- ? polyp Family History Other Diabetes Heart disease Social History Smoking/Tobacco Use Status: Never Smoking risk assessment performed?: Yes Alcohol Intake: never Drug use: Never Substance use type: does not use Do you feel safe at home: Yes Do you feel safe in your relationship?: Yes Female Reproductive History Menstrual Menopause type: natural (2012) History History 2 Para 2 Hx # Term Pregnancies Multiple births Hx # Pregnancies Ectopic pregnancies AB induced Hx Number of Living Children AB spontaneous Exam Const General: no acute distress Orientation: alert HENMT Head: normal to inspection Ears: external ears normal General nose exam: external nose normal Mouth: moist mucous membranes Eyes General: appearance normal, both eyes and all related structures Neck Neck: normal visual inspection Resp Effort & Inspection: normal respiratory effort and able to speak in complete sentences Cardio Rate: regular rate Skin General skin exam: no rashes or lesions noted Neuro General: patient alert and patient oriented x3 Extrem General: normal to inspection Psych Mental Status: mental status grossly normal Course Vital Signs Vital signs: Vital Signs Temperature 36.8 C 02/14/21 13:15 Pulse 77 02/14/21 13:15 Respiratory Rate 16 02/14/21 13:15 Blood Pressure 107/53 L 02/14/21 13:15 Pulse Oximetry 97 02/14/21 13:15 Temperature 36.8 C 02/14/21 13:15 Temperature Source Temporal Artery Scan 02/14/21 13:15 Pulse 77 02/14/21 13:15 Respiratory Rate 16 02/14/21 13:15 Respiratory Effort Non-Labored 02/14/21 13:19 Blood Pressure 107/53 L 02/14/21 13:15 Pulse Oximetry 97 02/14/21 13:15 Oxygen Delivery Method Room Air 02/14/21 13:15 Oxygen Flow Rate 0 02/14/21 13:15 Pain Level 0 02/14/21 13:15
--- NOTE | 2021-02-14 13:30 | DI.RAD_ITS ---
Exam(s) XR CHEST 2V PA LATERAL EXAM: XR CHEST 2V PA LATERAL CLINICAL HISTORY: shortness of breath TECHNIQUE: 2D digital imaging was performed of the chest. Two images were obtained. PA and lateral views were obtained. COMPARISON: No exams were available for comparison FINDINGS: Low lung volumes. MEDIASTINUM: Normal. HEART: Normal. PULMONARY VASCULATURE: Atherosclerosis. LUNGS: Scarring or atelectasis in the left lung base. No focal consolidating infiltrates. PLEURAL SPACE: No pleural effusion or pneumothorax. BONE:Within normal limits for the patient's age. Total reverse right shoulder replacement. OTHER FINDINGS:Normal. IMPRESSION: No acute pulmonary findings. DATA REPOSITORY: RADIATION DOSE DELIVERED:
[2021-02-14] MEDS: Normal Saline 1,000 ML 1000 ML IV (13:31)
[2021-02-14] MEDS: Meclizine 25 MG TAB PO (13:34)
[2021-02-14 13:46] LABS: Abs Immature Grans 0.02 10^3/uL (0.0-0.06); Absolute Basophil Count 0.04 10^3/uL (0.0-0.2); Absolute Eosinophil Count 0.43 10^3/uL (0.0-0.7); Absolute Lymphocyte Count 2.14 10^3/uL (1.2-3.4); Absolute Monocyte Count 0.74 10^3/uL (0.1-0.8); Absolute Neutrophil Count 3.45 10^3/uL (1.2-6.7); BE (Venous) 1 mmol/L (-2-3); Basophils % 0.6; Eosinophils % 6.3; HCO3 (Venous) 26 mmol/L (23-28); HCT 40.1 % (36.0-46.0); HGB 12.7 g/dL (11.2-15.7); Immature Grans % 0.3; Lymphocytes % 31.4; MCH 29.9 pg (27.0-33.0); MCHC 31.7 % (32.0-36.0); MCV 94.4 fL (80-95); MPV 12.5 fL (8.0-11.0); Monocytes % 10.9; Neutrophils % 50.5; Nucleated RBC 0 %; O2 Sat (Venous) 81 %; Platelet Count 321 10^3/uL (130-400); RBC 4.25 10^6/uL (3.93-5.22); RDW 13.3 % (11.7-14.6); RDW-SD 46.5 fL; TCO2 (Venous) 23 mmol/L (24-29); WBC 6.82 10^3/uL (4.4-10.8); pCO2 (Venous) 43 mmHg (41-51); pH (Venous) 7.39 (7.31-7.41); pO2 (Venous) 44 mmHg
[2021-02-14 14:12] LABS: AST 22 U/L (15-37); Albumin 3.5 g/dL (3.4-5.0); Alkaline Phosphatase 127 U/L (46-116); Anion Gap 6.9 mmol/L (3-11); BUN 18 mg/dL (7-18); Bilirubin, Total 0.4 mg/dL (0.2-1.0); CO2 28.1 mmol/L (21.0-32.0); Calcium 8.8 mg/dL (8.5-10.1); Chloride 107 mmol/L (98-107); Estimated GFR 55.64 (mL/min/1.73m2); Glucose 78 mg/dL (74-106); Potassium 4.4 mmol/L (3.5-5.1); Sodium 142 mmol/L (136-145); Total Protein 7.1 g/dL (6.4-8.2)
[2021-02-14 14:13] LABS: ALT 28 U/L (14-59)
[2021-02-14 14:25] LABS: Magnesium 2.6 mg/dL (1.8-2.4); NT-proBNP 43 pg/mL (<300); TSH (W/Ref FT4) 3.49 uIU/mL (0.36-3.74); Troponin I < 0.05 ng/mL (<0.06)
[2021-02-14 17:12] LABS: Troponin I < 0.05 ng/mL (<0.06)
== END 2021-02-14 18:05 | disposition home or self-care (01) ==
PROVIDERS: Emergency Provider Emergency Medicine; PCP Family Medicine
DX: R42 Dizziness and giddiness (principal); R06.02 Shortness of breath; E03.9 Hypothyroidism, unspecified
CPT/HCPCS: 36415; 80053; 82805; 93005; 96360; 99284; 71046; 81003; 81015; 83735; 83880; 84443; 84484; 85025; 93010

== ENCOUNTER 2021-03-01 01:35 | Outpatient (CLI) | payer MEDICARE, OTHER, SELFPAY ==
--- NOTE | 2021-03-01 15:01 | DI.US_ITS ---
APPROVED REPORT EXAM: Comprehensive 2D, Doppler, and color-flow Echocardiogram Patient Location: [facility] Boss: Charlotte Gerard RDCS (AE) Indications: Aortic stenosis, SANTIAGO Other Information Study Quality: Fair. Technically limited study due to body habitus. Conclusion Mild concentric left ventricular hypertrophy. Normal left ventricular chamber size. Estimated eject ion fraction is 55 to 60%. Wall motion is normal Normal right ventricular size and systolic function Both atria are normal in size Aortic valve is trileaflet and sclerotic. There is mild aortic stenosis with a peak gradient of 31, mean of 18 mmHg. Calculated aortic valve area is 1.35 cm??. There is no aortic regurgitation Structurally normal mitral valve with mild regurgitation Normal tricuspid valve with trace regurgitation. Estimated right ventricular systolic pressure is 26 mmHg Wall motion Left Ventricle The left ventricle is normal size. The left ventricular systolic function is normal. The left ventric ular ejection fraction is within the normal range. Mild concentric left ventricular hypertrophy. Ther e is normal LV segmental wall motion. There is no ventricular septal defect visualized. LVEF is 57%. Right Ventricle The right ventricle is normal size. The right ventricular systolic function is normal. The RVSP is 26 .2_ mmHg. Atria The left atrium size is normal. The right atrium size is normal. The interatrial septum is intact wit h no evidence for an atrial septal defect. Aortic Valve Aortic valve is calcified. Mild aortic stenosis. Peak aortic valve gradient is 31.6mmHg. Highest mean aortic valve gradient is 18.0mmHg. Calculated ELIZABETH by the continuity equation is 1.36_cm2. No aortic regurgitation is present. Mitral Valve The mitral valve is normal in structure. No evidence of mitral valve stenosis. Mild mitral regurgitat ion. Tricuspid Valve The tricuspid valve is normal in structure. There is no tricuspid valve stenosis. Trace tricuspid reg urgitation. Pulmonic Valve Pulmonic valve is not well visualized. There is no pulmonic valvular stenosis. There is no pulmonic v alvular regurgitation. Great Vessels The aortic root is normal in size. The ascending aorta is normal in size. Aortic arch is normal in ca liber. IVC is normal in size and collapses >50% with inspiration. Pericardium There is no pericardial effusion. 2D Dimensions IVSD d PLAX 1.20 cm F: 0.6-1.0 LV Vol A2C d MOD 88.0 mL LVPW d PLAX 1.20 cm F: 0.6 - 1.0 LV Vol A4C d MOD 88.9 mL LVID d PLAX 4.10 cm F: 3.8 - 5.2 LA vol/ BSA A2C s A-L 30.9 mL/m2 LVDs 2.80 cm F: 2.2 - 3.5 LA vol/ BSA A4C s A-L 29.7 mL/m2 Ao Root d 2.76 cm F: 2.7 - 3.3 LA Vol/ BSA Biplane s A-L 30.6 mL/m2 RA Area A4C 8.90 cm2 LA Area A4C s MOD 18.49 cm2 RA Vol/ BSA A4C s A-L 11.2 mL/m2 LA Area A2C s MOD 19.08 cm2 Ao Asc Diam d 3.33 cm F: 2.3 - 3.1 LV EF A4C MOD 57.2 % LV EF Teichholz 59.7 % LV EF A2C MOD 56.8 % LVEF (Cadena's) 57.36 % F: 54 - 74 LV EF Biplane MOD 57.4 % LV Volume 69.51 mL F: 46 - 106 SV 51.93 mL LV Volume Index 37.37 mL/m2 F: 29 - 61 SV Index 27.82 mL/m2 LV Vol Biplane MOD 90.5 mL FS 31.35 % M-Mode TAPSE 2.16 cm (M/F) >1.7 LV Diastology MV E' medial 0.073 (>0.07 m/s) E/A Ratio 1.1 LV E/e MED 13.85 (<14) MV E Vmax 1.02 (0.4-1.3 m/s) MV E' lateral 0.075 (>0.1 m/s) MV A Vmax 0.95 (0.4-1.3 m/s) LV E/e LAT 13.50 (<14) MV E/A Ratio 1.06 MV E/E' medial 13.87 MV E/E' lateral 13.51 Aortic Valve LVOT Area 3.72 cm2 AoV Area Vmax 1.36 cm2 LVOT Vmax 1.03 m/s AoV Area/ BSA (Vmax) 0.73 cm2/m2 LVOT Mean Christian. 0.63 m/s ELIZABETH Mean Christian. 1.19 cm2 LVOT Peak Grad 4.2 mmHg ELIZABETH Mean Christian. Index 0.64 cm2/m2 LVOT Mean Grad 1.9 mmHg LVOT VTI 0.223 m LVOT Diam s 2.15 cm AoV Vmax 2.81 m/s Velocity Ratio 0.36 AoV Mean Christian. 1.96 m/s AoV Peak Grad 31.6 mmHg LVOT SV 82.88 mL AoV Mean Grad 18.0 mmHg AoV VTI 0.675 m AoV Area VTI 1.23 cm2 AoV Area/ BSA (VTI) 0.66 cm/m2 Mitral Valve MV DT 202 (160-240 msec) MV PHT 58 msec MV Area PHT 3.76 cm2 MV VTI 0.373 m MV Area VTI 2.22 (4.0-6.0 cm2) Pulmonary Valve PV Vmax 0.90 (0.5-1.5 m/s) RVOT Peak Gr. 2.16 mmHg PV Peak Grad 3.2 mmHg RVOT Mean Gr. 0.95 mmHg PV Mean Grad 1.7 mmHg RVOT VTI 0.152 m PV VTI 0.190 m RVOT Vmax 0.73 m/s Tricuspid Valve TR Peak Grad 23.1 mmHg TR Vmax 2.41 m/s RA Pressure 3.00 mmHg RVSP (TR) 26.2 mmHg
== END 2021-03-01 01:55 ==
PROVIDERS: PCP Family Medicine; Visit Provider Family Medicine
DX: R06.09 Other forms of dyspnea (principal); R93.9 Diagnostic imaging inconclusive due to excess body fat of patient; I08.0 Rheumatic disorders of both mitral and aortic valves
CPT/HCPCS: 93306

== ENCOUNTER 2021-04-06 02:08 | Outpatient (CLI) | payer MEDICARE, OTHER, SELFPAY ==
--- NOTE | 2021-04-06 09:32 | DI.MAMMO_ITS ---
Exam(s) MAMMO SCREENING EXAM: MAMMO SCREENING CLINICAL HISTORY: SCREENING, ADULT PREVENTATIVE CARE,Z00.00. TECHNIQUE: Bilateral full field digital CC and MLO mammographic images were obtained with 3D tomosyn thesis and utilizing computer aided detection (CAD). COMPARISON: Prior mammograms dating back to 2013, the most recent being March 2020. FINDINGS: There are no new spiculated masses nor malignant appearing microcalcification groups. There is no significant architectural distortion nor skin thickening-retraction. IMPRESSION: No radiographic evidence of malignancy. BI-RADS Category 1 - Negative Breast Density - Category B - Scattered areas of fibroglandular density Breast density Category C or D implies that the patient has dense breast tissue. Dense breast tissue can make it harder to find cancer on a mammogram. Dense breast tissue is also associated with an incr eased risk of breast cancer. This information about the result of the mammogram report was provided to the patient to raise their awareness. Use this report when you speak with the patient about their risks for breast cancer, which includes their family history. At that time, you may recommend additional screening tests (Ultrasoun d or MRI) as these tests may add significant information. A negative radiographic report should not delay biopsy if a dominant or clinically suspicious mass is present. Up to ten percent of cancers are not identified on mammography. A negative report may reinforce clinical impression. Adenosis and dense breasts may obscure an underlying neoplasm. False positive reports average 6 to 10%. Patient will receive a letter notifying them of these results.
--- NOTE | 2021-04-06 09:58 | DI.DEXA_ITS ---
Exam(s) XR DEXA BONE DENSITY W/WO HAILEY EXAM: XR DEXA BONE DENSITY W/WO HAILEY CLINICAL HISTORY: OSTEOPOROSIS, M81.0 TECHNIQUE: Routine DEXA evaluation of the lumbar spine, hip, or forearm. COMPARISON: Prior DEXA scan 2013 FINDINGS: Performed on a [facility] unit. Lateral image: No compression fracture evident. Lumbar Spine total T-score: -2.2. Prior 2014 reading was -1.5 Hip total T-score:-3.7. Prior 2014 reading was -3.1 Independent reading at the level of the femoral neck yields at T-score of -4.1. Forearm total T-score: -3.8 IMPRESSION: Bone mineral density measures in the osteoporosis range. Fracture risk is high. Note: Any spine fracture indicates 5x risk for subsequent spine fracture and 2x risk for subsequent h ip fracture. World Health Organization criteria for BMD interpretation classify patients: Normal...... T- Score at or above -1.0 Osteopenic... T- Score between -1.0 and -2.5 Osteoporosis... T-Score at or below -2.5
== END 2021-04-06 02:28 ==
PROVIDERS: PCP Family Medicine; Visit Provider Family Medicine
DX: M81.0 Age-related osteoporosis without current pathological fracture (principal); Z12.31 Encounter for screening mammogram for malignant neoplasm of breast; Z13.820 Encounter for screening for osteoporosis
CPT/HCPCS: 77063; 77067; 77080

== ENCOUNTER 2021-05-17 00:45 | Outpatient (RCR) | payer MEDICARE, OTHER, SELFPAY ==
[2021-05-17] MEDS: ZOLEDRONIC ACID/MANNITOL/WATER 5 MG/100 ML BTL 300 MG IVPB (07:45)
[2021-05-17] MEDS: Normal Saline Flush 10 ML SYR IVP (07:45)
== END 2021-06-05 23:59 | disposition home or self-care (01) ==
LOC: INF 00:45
PROVIDERS: PCP Family Medicine; Visit Provider Nurse Practitioner Acute Care
DX: M81.0 Age-related osteoporosis without current pathological fracture (principal); M19.011 Primary osteoarthritis, right shoulder
CPT/HCPCS: 96365; J3489

== ENCOUNTER 2021-06-10 09:31 | Emergency (ER) | payer MEDICARE, OTHER, SELFPAY ==
[2021-06-10 09:34] VITALS: BP 148/83; PULSE 79; TEMP 36.5; O2SAT 99
--- NOTE | 2021-06-10 09:45 | DI.RAD_ITS ---
Exam(s) XR FOREARM LT EXAM: XR FOREARM LT CLINICAL HISTORY: dog bite TECHNIQUE: COMPARISON: CR XR DEXA BONE DENSITY W/WO HAILEY from 04/06/2021 FINDINGS: Two views were obtained. There is a soft tissue defect over the mid forearm. There is no underlying fracture or foreign body. IMPRESSION: RADIATION DOSE DELIVERED: Total DLP
--- NOTE | 2021-06-10 09:50 | ED.GENADUL_ITS ---
Discharge Plan Disposition Patient Disposition: HOME Condition: Stable Discharge Details Clinical Impression: Dog bite of arm Primary Care Provider: Yariel Hackett ED Provider: Jose F Palafox Home Meds and New Rx's Prescriptions: New amoxicillin-pot clavulanate 875-125 mg tablet 1 tab PO BID Qty: 10 0RF Continued omeprazole [Prilosec] 40 MG capsule,delayed release(DR/EC) 40 mg PO DAILY 0RF ferrous sulfate 325 mg (65 mg iron) tablet 325 mg PO DAILY 0RF ketoconazole 2 % cream 1 applic TP BID 0RF melatonin 5 mg capsule 5 mg PO HS PRN0RF clotrimazole-betamethasone 1-0.05 % cream 1 applic TP BID 0RF levothyroxine 75 mcg capsule 75 mcg PO DAILY 0RF escitalopram oxalate 20 mg tablet 20 mg PO DAILY 0RF nystatin 100,000 unit/gram powder 1 applic TP TID 0RF ibuprofen 800 MG tablet 800 mg PO TID 0RF cholecalciferol (vitamin D3) [Vitamin D3] 2,000 UNIT capsule 2 cap PO DAILY 0RF amitriptyline 50 mg tablet 50 mg PO DAILY 0RF Label Comments: TAKE 1 TABLET BY MOUTH AT BEDTIME FOR PAIN OR SLEEP meclizine 25 mg tablet 25 mg PO TID PRN (Reason: dizziness) Qty: 30 0RF Discharge Instructions Instructions: Animal Bite (ED) Additional Instructions: Please continue to monitor your wounds and return immediately for any signs of infection. Please take [id number] acetaminophen or ibuprofen as needed for discomfort if you have any new or worsening symptoms feel free to return to emergency department for reassessment otherwise follow-up with your primary care provider if not improving in the next week. Referrals: Yariel Hackett [Primary Care Provider] - (If not improving please call primary care provider's office for reassessment of your forearm pain.) Discharge Data Discharge Date/Time-TO BE ENTERED AT DEPARTURE: 06/10/21 11:25 Medical Decision Making Patient presenting the emergency department for chief complaint of dog bite to the left upper extremity. She reports that she was attempting to break her dog from fighting with another dog when it bit her left forearm. Patient denies any other injury or trauma. Physical exam shows 3 puncture wounds to left proximal forearm. Patient does have limited movement of forearm specifically in rotational movement so plan to perform radiological imaging for evaluation of acute fracture. Patient is extremely tearful and upset about the event with having significant amount of pain so we will treat pain pending imaging results. Tetanus was updated given last tetanus was 8 years ago and given deep puncture wounds will start patient on Augmentin. Radiological imaging negative for any acute fracture. Steri-Strip was placed over largest puncture with loose approximation. After discussion of diagnosis and plan of care patient has no further needs, questions, or concerns and states clear understanding to return to the emergency department for any worsening symptoms. Patient was given a sling for comfort did discuss range of motion activities and removal of sling multiple times daily to prevent complications of over use of sling. HPI General Mode of arrival: ambulatory . Date/Time Provider Initiated Documentation: 06/10/21 09:39 . Limitations to Documentation: no limitations . Information obtained by: patient . History of Present Illness 66 year old F presents to the emergency department with the chief complaint of Dog bite, described as severe, with intensity rated at 10. Quality is described as aching and sharp, and is localized to the left and upper extremity. Patient reports no radiation. Patient started experiencing this minute(s) (30) and it has been constant. improves with No relieving factors improve symptom(s), Movement worsens symptoms . Patient notes no other symptoms.. Patient did receive the following treatments prior to arrival, none Related Data Home Medications Medication Instructions Recorded Confirmed omeprazole 40 mg capsule,delayed 40 mg PO DAILY 09/02/13 06/10/21 release (Prilosec) ibuprofen 800 mg tablet 800 mg PO TID 10/26/13 06/10/21 cholecalciferol (vitamin D3) 50 2 cap PO DAILY 10/30/13 06/10/21 mcg (2,000 unit) capsule (Vitamin D3) clotrimazole-betamethasone 1 1 applic TP BID 10/05/19 06/10/21 %-0.05 % topical cream escitalopram oxalate 20 mg tablet 20 mg PO DAILY 10/05/19 06/10/21 ferrous sulfate 325 mg (65 mg 325 mg PO DAILY 10/05/19 06/10/21 iron) tablet ketoconazole 2 % topical cream 1 applic TP BID 10/05/19 06/10/21 levothyroxine 75 mcg capsule 75 mcg PO DAILY 10/05/19 06/10/21 melatonin 5 mg capsule 5 mg PO HS PRN cap 10/05/19 06/10/21 nystatin 100,000 unit/gram topical 1 applic TP TID 10/05/19 06/10/21 powder amitriptyline 50 mg tablet 50 mg PO DAILY 02/14/21 06/10/21 meclizine 25 mg tablet 25 mg PO TID PRN #30 tab 02/14/21 06/10/21 amoxicillin 875 mg-potassium 1 tab PO BID #10 tab 06/10/21 clavulanate 125 mg tablet Previous Rx's Medication Instructions Recorded meclizine 25 mg tablet 25 mg PO TID PRN #30 tab 02/14/21 amoxicillin 875 mg-potassium 1 tab PO BID #10 tab 06/10/21 clavulanate 125 mg tablet Allergies Allergy/AdvReac Type Severity Reaction Status Date / Time [place] And Derivatives Allergy Intermediate Rash, Unverified 06/10/21 09:38 blister diazepam [From Valium] AdvReac Intermediate Increased Unverified 06/10/21 09:38 anxiety General Stated Complaint: AnimalBite RONNA: 3 Review of Systems Narrative: 6 systems reviewed and are negative except as documented below Musculoskeletal Musculoskeletal: Reports as per HPI and Reports limited range of motion (Left forearm) Integumentary/Breasts Skin/Breast: Reports as per HPI and Reports wounds (To left forearm) PFSH All Active Problems (Updated 06/10/21 @ 11:01 by Jose F Palafox NP) Contusion of multiple sites (Acute) Closed head injury (Acute) Fall at home (Acute) Dizziness (Acute) Lightheadedness (Acute) Shortness of breath (Acute) Dog bite of arm (Acute) Atrophic vaginitis (Acute) Screening for colon cancer (Acute) Elevated alkaline phosphatase level (Acute) Dermatitis (Acute) HTN (hypertension) (Chronic) Aortic stenosis (Chronic) Vitamin B12 deficiency (Acute) Prediabetes (Acute) pt. denies this Left eye pain (Acute) Chest pain (Acute) Pt. states this was due to anxiety Medical History Acid reflux disease Anemia Anxiety disorder Deep vein blood clot of right lower extremity 2008 following R leg trauma Fx wrist R x 2 2012 and 2013 Gall stones surgery 1999 Hypothyroidism Kidney calculi passed 2009 Morbid obesity lifelong with surgery Shingles September 2019, had occular weeping, and pain. Upper respiratory infection Surgical History Cholecystectomy 2000 Gastric Bypass 2009 and 2012 (revision for stricture) History of knee replacement procedure of right knee Reduction mammoplasty Bilateral 2013 Rotator Cuff Repair Bilateral /2011 S/P colonoscopy 2013- ? polyp Family History Other Diabetes Heart disease Social History Smoking/Tobacco Use Status: Never Smoking risk assessment performed?: Yes Alcohol Intake: never Drug use: Never Substance use type: does not use Do you feel safe at home: Yes Do you feel safe in your relationship?: Yes Female Reproductive History Menstrual Menopause type: natural (2012) History History 2 Para 2 Hx # Term Pregnancies Multiple births Hx # Pregnancies Ectopic pregnancies AB induced Hx Number of Living Children AB spontaneous Exam Const General: cooperative and no acute distress Orientation: alert, awake and oriented x3 Limitations: mental status not altered Resp Effort & Inspection: normal respiratory effort and able to speak in complete se ntences Cardio Rate: regular rate Rhythm: regular rhythm Pulses: radial pulses present Neuro General: patient alert, patient awake, patient oriented x3, gait normal, tone normal, moves all extremities and normal light touch, pain and propioception Extrem General: normal exam except as noted Left upper extremity: elbow/forearm Details: abnormal ROM Details: pain with active ROM, pain with passive ROM and with range as follows (Limited rotation), penetrating wound (3 puncture wounds to proximal forearm) and distal pulses intact Elbow/forearm/wrist images: 1. puncture wound 2. puncture wound 3. puncture wound Course Vital Signs Vital signs: Vital Signs Temperature 36.5 C 06/10/21 09:34 Pulse 79 06/10/21 09:34 Blood Pressure 148/83 H 06/10/21 09:34 Pulse Oximetry 99 06/10/21 09:34 Temperature 36.5 C 06/10/21 09:34 Temperature Source Oral 06/10/21 09:34 Pulse 79 06/10/21 09:34 Respiratory Effort 06/10/21 09:40 Blood Pressure 148/83 H 06/10/21 09:34 Blood Pressure Position Supine 06/10/21 09:34 Pulse Oximetry 99 06/10/21 09:34 Oxygen Delivery Method Room Air 06/10/21 09:34 Oxygen Flow Rate 0 06/10/21 09:34 Pain Level 10 06/10/21 09:34
[2021-06-10] MEDS: Tetanus & Diphtheria Tox,ADULT 0.5 ML VIAL IM (09:58)
[2021-06-10] MEDS: Amoxicillin 875/Clav. 125 TAB PO (09:58)
[2021-06-10] MEDS: HYDROcodone 5/Acetaminophen 325 TAB PO (09:58)
--- NOTE | 2021-06-10 10:13 | NUR.NOTE ---
Nursing Note: 1012 Spoke with [facility] officer Emre Tilley, he was given the pt phone number and will contact today. Form faxed to [facility] Clenelly Molina
--- NOTE | 2021-06-10 10:35 | DI.VRAD_ITS ---
PROCEDURE INFORMATION: Exam: XR Left Forearm Exam date and time: 06/10/2021 9:50 AM Age: 66 years old Clinical indication: Pain and injury or trauma; Other: Dog bite; Puncture; Arm, lower; Left; Lower or forearm; Injury date: Today TECHNIQUE: Imaging protocol: XR Left forearm. Views: 2 views. COMPARISON: CR XR FOREARM LT 06/11/2020 11:11 PM FINDINGS: Bones/joints: No fracture is identified in the left radius or ulna. Soft tissues: Foci of soft tissue emphysema are noted along the dorsal medial aspect of the mid forearm consistent with the given history of puncture injury. There is no radiopaque foreign body. IMPRESSION: No fracture or radiopaque foreign body in the left forearm. Dictated and Authenticated by: Floridalma Rodriguez MD. Ordering:DAMARI Kohler MD
== END 2021-06-10 11:25 | disposition home or self-care (01) ==
PROVIDERS: Emergency Provider Nurse Practitioner Family; PCP Family Medicine
DX: S51.852A Open bite of left forearm, initial encounter (principal); W54.0XXA Bitten by dog, initial encounter
CPT/HCPCS: 90471; 99284; 73090; 99283

== ENCOUNTER 2021-09-08 11:40 | Inpatient (IN) | payer MEDICARE, OTHER, SELFPAY ==
[2021-09-08] VITALS (140 sets, daily range): BP systolic 83–128; BP diastolic 52–78; PULSE 70–113; RESP 12–25; TEMP 35.9–36.7; O2SAT 80–100
--- NOTE | 2021-09-08 11:30 | RT.EKG_ITS ---
APPROVED REPORT Exam: Resting ECG Reason for Exam: overdose Patient Location: E HR:107 bpm ECG Measurements Heart Rate 107 AXIS AK 149 P 21 QRSd 102 QRS 3 QT 366 T 28 QTc 489 Conclusion Sinus tachycardia...rate> 99 Low voltage, precordial leads...precordial leads <1.0mV
[2021-09-08 12:00] LABS: Source Nasal/Nares
--- NOTE | 2021-09-08 12:08 | W.ED.GENAD ---
Discharge Plan Disposition Patient Disposition: [facility] INPATIENT Condition: Critical Discharge Details Chief Complaint: OD/Poison Clinical Impression: Overdose Primary Care Provider: Yariel Hackett ED Provider: Venkat Saucedo Home Meds and New Rx's Prescriptions: No Action omeprazole [Prilosec] 40 MG capsule,delayed release(DR/EC) 40 mg PO DAILY ferrous sulfate 325 mg (65 mg iron) tablet 325 mg PO DAILY ketoconazole 2 % cream 1 applic TP BID melatonin 5 mg capsule 5 mg PO HS PRN clotrimazole-betamethasone 1-0.05 % cream 1 applic TP BID levothyroxine 75 mcg capsule 75 mcg PO DAILY escitalopram oxalate 20 mg tablet 20 mg PO DAILY nystatin 100,000 unit/gram powder 1 applic TP TID ibuprofen 800 MG tablet 800 mg PO TID cholecalciferol (vitamin D3) [Vitamin D3] 2,000 UNIT capsule 2 cap PO DAILY amitriptyline 50 mg tablet 50 mg PO DAILY Label Comments: TAKE 1 TABLET BY MOUTH AT BEDTIME FOR PAIN OR SLEEP meclizine 25 mg tablet 25 mg PO TID PRN (Reason: dizziness) Qty: 30 0RF amoxicillin-pot clavulanate 875-125 mg tablet 1 tab PO BID Qty: 10 0RF Medical Decision Making 66 yo female comes in with ems after ingesting an unknown amount of her amitriptyline. Her daughter apparently called ems when she found she had taken medicaitons to try and harm herself. It is unclear how much of the medicine and which medicine she took though per ems daughter is concerned she took over 40 of her amitriptyline. She arrives hypoxic and drowsy, 80% on room air and on 4L NC increases to the mid 90's. She will awaken to voice but can only answer yes or no to most questions and has slurred speech. Does not answer when asked what she took, and when asked if she was trying to kill herself she shrugs her shoulders. She is moving all extremities, no signs of trauma. Her ekg shows a qrs of 102 so will provide sodium bicarb and evaluate for coingestants. sHe is too drowsy to safely take activated charcoal and it is unclear if she has taken the medicine within an hour. She is currently protecting her airway so do not feel intubation currently indicated. shortly after initial assessment patient became more drowsy and eventually had a gcs of 3 and had snoring respirations. Given concern for maintaining airway she was intubated (no sedation given with paraytic given how sedate she already was). No complications, grade 1 view with size 4 cmac blade. pt's at bedside and he was the one with her not her daughter. HE states they have had unfortunate life events in the past year. They lost a daughter in February and then became homeless 3 days ago and have been living out of their car. HE states she has been depressed then took a bunch of medicine to try and harm herself. Pt still stable on the vent, awaiting call back from hospitalist about admission. Did review the case with poison control who agreed with sodium bicarb and no other formal recs. Differential Diagnosis Differential Diagnosis: overdose, tca overdose Imaging Data Radiologic Study: Attestation: I personally reviewed and interpreted this imaging study as follows: Imaging: X-Ray My impression: no acute findings first xray Radiologic Study #2: Attestation: I personally reviewed and interpreted this imaging study as follows: Imaging: X-Ray My impression: 2nd xray other than ET tube and OG tube no changes Radiologist's impression: Exam(s) XR PORTABLE CHEST AP EXAM:? XR PORTABLE CHEST AP CLINICAL HISTORY:? post intubation TECHNIQUE:? 2D digital imaging was performed of the chest. One image was obtained.? An AP view was obtained. COMPARISON:? CR XR PORTABLE CHEST AP from 09/08/2021 FINDINGS: There are low lung volumes.? MEDIASTINUM: Normal.? HEART: Normal. PULMONARY VASCULATURE: Normal. LUNGS: There has been an improvement in the atelectasis in the lung bases.? No focal consolidating infiltrates. ? PLEURAL SPACE: No pleural effusion or pneumothorax. BONE:Within normal limits for the patient's age. OTHER FINDINGS:There has been interval placement of a endotracheal tube.? The tip is 1.4 cm above the dominga.? The nasogastric tube tip is seen below the hemidiaphragms in the stomach. ? IMPRESSION: 1. Interval placement of an ET tube.? The tip is 1.4 cm above the dominga.? Consider retraction of the ET tube. 2. The nasogastric tube tip is seen below the hemidiaphragms in the stomach.? It is in good position. Lab Data Lab results reviewed: Yes I reviewed the patient's lab results. ECG Data Attestation: I personally reviewed and interpreted this ECG (s) as follows: Prior ECG tracings: not available for review Interpretation: sinus tachycardia, rate of 107, qrs 102 2nd ekg sinus tachycardia rate of 100, qrs 98 HPI General Mode of arrival: EMS. Date/Time Provider Initiated Documentation: 09/08/21 11:48. Information obtained by: patient and EMS. History of Present Illness 66 year old F presents to the emergency department with the chief complaint of overdose, described as moderate, Patient started experiencing this unknown and it has been constant. No relieving factors improve symptom(s), No exacerbating factors reported . Patient did receive the following treatments prior to arrival, none Related Data Home Medications Medication Instructions Recorded Confirmed omeprazole 40 mg capsule,delayed 40 mg PO DAILY 09/02/13 06/10/21 release (Prilosec) ibuprofen 800 mg tablet 800 mg PO TID 10/26/13 06/10/21 cholecalciferol (vitamin D3) 50 2 cap PO DAILY 10/30/13 06/10/21 mcg (2,000 unit) capsule (Vitamin D3) clotrimazole-betamethasone 1 1 applic topical BID 10/05/19 06/10/21 %-0.05 % topical cream escitalopram oxalate 20 mg tablet 20 mg PO DAILY 10/05/19 06/10/21 ferrous sulfate 325 mg (65 mg 325 mg PO DAILY 10/05/19 06/10/21 iron) tablet ketoconazole 2 % topical cream 1 applic topical BID 10/05/19 06/10/21 levothyroxine 75 mcg capsule 75 mcg PO DAILY 10/05/19 06/10/21 melatonin 5 mg capsule 5 mg PO HS PRN 10/05/19 06/10/21 nystatin 100,000 unit/gram topical 1 applic topical TID 10/05/19 06/10/21 powder amitriptyline 50 mg tablet 50 mg PO DAILY 02/14/21 06/10/21 meclizine 25 mg tablet 25 mg PO TID PRN dizziness #30 tabs 02/14/21 06/10/21 amoxicillin 875 mg-potassium 1 tab PO BID #10 tabs 06/10/21 clavulanate 125 mg tablet Previous Rx's Medication Instructions Recorded meclizine 25 mg tablet 25 mg PO TID PRN dizziness #30 tabs 02/14/21 amoxicillin 875 mg-potassium 1 tab PO BID #10 tabs 06/10/21 clavulanate 125 mg tablet Allergies Allergy/AdvReac Type Severity Reaction Status Date / Time [place] And Derivatives Allergy Intermediate Rash, Unverified 06/10/21 09:38 blister diazepam [From Valium] AdvReac Intermediate Increased Unverified 06/10/21 09:38 anxiety General Stated Complaint: OD/Poison RONNA: 2 Review of Systems All systems reviewed & are unremarkable except as noted in HPI and below Constitutional Constitutional: Denies chills and Denies fever(s) Cardiovascular Cardiovascular: Denies chest pain and Denies dyspnea Respiratory Respiratory: Denies cough and Denies dyspnea Gastrointestinal Gastrointestinal: Denies abdominal pain and Denies vomiting Psychiatric Psychiatric: Denies depression Allergic/Immunologic Allergic/Immunologic: Denies urticaria PFSH All Active Problems (Updated 09/08/21 @ 14:27 by Venkat Saucedo MD) Contusion of multiple sites (Acute) Closed head injury (Acute) Fall at home (Acute) Dizziness (Acute) Lightheadedness (Acute) Shortness of breath (Acute) Overdose (Acute) Atrophic vaginitis (Acute) Screening for colon cancer (Acute) Elevated alkaline phosphatase level (Acute) Dermatitis (Acute) HTN (hypertension) (Chronic) Aortic stenosis (Chronic) Vitamin B12 deficiency (Acute) Prediabetes (Acute) pt. denies this Left eye pain (Acute) Chest pain (Acute) Pt. states this was due to anxiety Medical History Acid reflux disease Anemia Anxiety disorder Deep vein blood clot of right lower extremity 2008 following R leg trauma Fx wrist R x 2 2012 and 2013 Gall stones surgery 1999 Hypothyroidism Kidney calculi passed 2009 Morbid obesity lifelong with surgery Shingles September 2019, had occular weeping, and pain. Upper respiratory infection Surgical History Cholecystectomy 2000 Gastric Bypass 2009 and 2012 (revision for stricture) History of knee replacement procedure of right knee Reduction mammoplasty Bilateral 2013 Rotator Cuff Repair Bilateral 2008/2009/2011 S/P colonoscopy 2013- ? polyp Family History Other Diabetes Heart disease Social History Smoking/Tobacco Use Status: Never Smoking risk assessment performed?: Yes Alcohol Intake: never Drug use: Never Substance use type: does not use Do you feel safe at home: Yes Do you feel safe in your relationship?: Yes Female Reproductive History Menstrual Menopause type: natural (2012) History History 2 Para 2 Hx # Term Pregnancies Multiple births Hx # Pregnancies Ectopic pregnancies AB induced Hx Number of Living Children AB spontaneous Exam Const General: other (patient drowsy, will awaken to voice ahs slurred speech) HENMT Head: normal to inspection Ears: external ears normal General nose exam: external nose normal Mouth: moist mucous membranes Eyes General: appearance normal, both eyes and all related structures Neck Neck: normal visual inspection Resp Effort & Inspection: normal respiratory effort and able to speak in complete sentences Cardio Rate: regular rate Skin General skin exam: no rashes or lesions noted Neuro General: patient oriented x3 Extrem General: normal to inspection Course Vital Signs Vital signs: Vital Signs Temperature 36.7 C 09/08/21 11:45 Pulse 107 H 09/08/21 11:45 Respiratory Rate 22 09/08/21 11:45 Blood Pressure 122/72 09/08/21 11:45 Pulse Oximetry 80 L 09/08/21 11:45 Temperature 36.7 C 09/08/21 11:45 Temperature Source Tympanic 09/08/21 11:45 Pulse 107 H 09/08/21 11:45 Respiratory Rate 22 09/08/21 11:45 Respiratory Effort 09/08/21 11:45 Blood Pressure 122/72 09/08/21 11:45 Blood Pressure Position Supine 09/08/21 11:45 Pulse Oximetry 80 L 09/08/21 11:45 Oxygen Delivery Method Room Air 09/08/21 11:45 Oxygen Flow Rate 0 09/08/21 11:45 Pain Level 0 09/08/21 11:45 Lab/Test Results Lab/Test Results: Laboratory Tests Range/Units 09/08/21 11:55 COVID-19 Source Nasal/Nares Procedures Intubation Time out performed: Yes sedative: none (patient sedated with meds she overdosed on) paralytic: Rocuronium Mg Given: 120 Laryngoscope: other (size 4 cmac) ET Tube Size: 7.5 ET Tube Uncuffed: No Tube Secured Depth (cm): 22 Tube Secured Location: lips Critical Care Time Critical Care Time Critical Care Time: Yes Total Critical Care Time: 60 (minuntes) Attestation: time spent on lab review, frequent reassessmentts and hemodynamic monitoring in a patient with overdose requiring intubation and potential to deteriorate at any time
[2021-09-08] MEDS: Sodium Bicarbonate 50 MEQ/50 ML SYR 100 MEQ IVP (12:11)
--- NOTE | 2021-09-08 12:15 | DI.RAD_ITS ---
Exam(s) XR PORTABLE CHEST AP EXAM: XR PORTABLE CHEST AP CLINICAL HISTORY: overdose, hypoxia TECHNIQUE: 2D digital imaging was performed of the chest. One image was obtained. An AP view was ob tained. COMPARISON: CR XR CHEST 2V PA LATERAL from 02/14/2021 FINDINGS: There are low lung volumes. MEDIASTINUM: Normal. HEART: Normal. PULMONARY VASCULATURE: There is crowding of the pulmonary vasculature which may be due to low lung vo lumes. LUNGS: Linear atelectasis is seen in the lung bases, left greater than right. No focal consolidating infiltrates are seen. PLEURAL SPACE: No pleural effusion or pneumothorax. BONE:Within normal limits for the patient's age. Patient has a right shoulder replacement. OTHER FINDINGS:Normal. IMPRESSION: 1. Exam limited by low lung volumes. 2. Plate atelectasis in the lung bases. DATA REPOSITORY: RADIATION DOSE DELIVERED:
--- NOTE | 2021-09-08 12:15 | RT.EKG_ITS ---
APPROVED REPORT Exam: Resting ECG Reason for Exam: overdose Patient Location: E HR:100 bpm ECG Measurements Heart Rate 100 AXIS AR 162 P 52 QRSd 98 QRS 3 QT 388 T 28 QTc 499 Conclusion Sinus tachycardia...rate> 99 Low voltage, precordial leads...precordial leads <1.0mV
[2021-09-08 12:18] LABS: Abs Immature Grans 0.03 10^3/uL (0.0-0.06); Absolute Basophil Count 0.02 10^3/uL (0.0-0.2); Absolute Eosinophil Count 0.37 10^3/uL (0.0-0.7); Absolute Monocyte Count 0.48 10^3/uL (0.1-0.8); Absolute Neutrophil Count 3.48 10^3/uL (1.2-6.7); Basophils % 0.3; Eosinophils % 6.4; HCT 37.1 % (36.0-46.0); HGB 11.8 g/dL (11.2-15.7); Immature Grans % 0.5; Lymphocytes % 24.2; MCH 29.7 pg (27.0-33.0); MCHC 31.8 % (32.0-36.0); MCV 94 fL (80-95); MPV 12.8 fL (8.0-11.0); Monocytes % 8.3; Neutrophils % 60.3; Platelet Count 245 10^3/uL (130-400); RBC 3.97 10^6/uL (3.93-5.22); RDW 13.2 % (11.7-14.6); RDW-SD 45.2 fL; WBC 5.78 10^3/uL (4.4-10.8)
[2021-09-08 12:46] LABS: Salicylate < 2.8 mg/dL (<2.8)
[2021-09-08] MEDS: Rocuronium 50 MG/5 ML SYR 120 MG IVP (12:46)
[2021-09-08 12:47] LABS: Bilirubin Small (Negative); Blood Negative (Negative); Clarity Clear (Clear); Glucose Negative (Negative); Ketones Trace mg/dL (Negative); Leukocyte Esterase Negative (Negative); Nitrite Negative (Negative); Specific Gravity >= 1.030 (1.005-1.025)
[2021-09-08 12:49] LABS: Acetaminophen < 2 ug/mL (10-30)
[2021-09-08 12:50] LABS: ALT 24 U/L (14-59); AST 27 U/L (15-37); Albumin 3.3 g/dL (3.4-5.0); Alkaline Phosphatase 91 U/L (46-116); Anion Gap 7.6 mmol/L (3-11); BUN 19 mg/dL (7-18); Bilirubin, Total 0.7 mg/dL (0.2-1.0); CO2 25.4 mmol/L (21.0-32.0); Calcium 8.4 mg/dL (8.5-10.1); Chloride 107 mmol/L (98-107); Estimated GFR 55.64 (mL/min/1.73m2); Glucose 109 mg/dL (74-106); Potassium 3.5 mmol/L (3.5-5.1); Sodium 140 mmol/L (136-145); TSH (W/Ref FT4) 3.02 uIU/mL (0.36-3.74); Total Protein 6.8 g/dL (6.4-8.2)
[2021-09-08] MEDS: SODIUM BICARBONATE 150 MEQ in DEXTROSE 5%-WATER 850 ML 250 MEQ IV ×3 (12:51→22:49)
[2021-09-08 12:53] LABS: COVID-19 PCR Negative (Negative)
[2021-09-08 12:53] LABS: ETHANOL BLOOD < 3.0 mg/dL (<10)
[2021-09-08] MEDS: PROPOFOL 1,000 MG/100 ML BTL 2.958 MG IVPB (12:59)
--- NOTE | 2021-09-08 13:00 | DI.RAD_ITS ---
Exam(s) XR PORTABLE CHEST AP EXAM: XR PORTABLE CHEST AP CLINICAL HISTORY: post intubation TECHNIQUE: 2D digital imaging was performed of the chest. One image was obtained. An AP view was ob tained. COMPARISON: CR XR PORTABLE CHEST AP from 09/08/2021 FINDINGS: There are low lung volumes. MEDIASTINUM: Normal. HEART: Normal. PULMONARY VASCULATURE: Normal. LUNGS: There has been an improvement in the atelectasis in the lung bases. No focal consolidating in filtrates. PLEURAL SPACE: No pleural effusion or pneumothorax. BONE:Within normal limits for the patient's age. OTHER FINDINGS:There has been interval placement of a endotracheal tube. The tip is 1.4 cm above the dominga. The nasogastric tube tip is seen below the hemidiaphragms in the stomach. IMPRESSION: 1. Interval placement of an ET tube. The tip is 1.4 cm above the dominga. Consider retraction of the ET tube. 2. The nasogastric tube tip is seen below the hemidiaphragms in the stomach. It is in good position. DATA REPOSITORY: RADIATION DOSE DELIVERED:
--- OUTSIDE RECORDS SUMMARY | 2021-09-08 13:16 | XMS_ITS ---
:1955 Author Care Team Providers Name Role Phone DR. JAGRUTI BADILLO Primary Care Provider [phone] DR. JAGRUTI BADILLO Referring Provider [phone] Allergies Code Code System Name Reaction Severity Status Onset 3322 RxNorm Diazepam ? ? Active ? 20231008 RxNorm Valium ? ? Active ? Medications Name Status Start Date Stop Date ? ? Calcium 500 Completed ? 01/12/2019 ONE CAPSULE PO TWICE DAILY Centrum Silver Women 8 mg iron-400 mcg-300 mcg tablet Completed ? 01/12/2019 Take 1 tablet every day by oral route. cephalexin 500 mg capsule Completed ? 2016 Take 1 capsule 3 times a day by oral route with meals. citalopram 40 mg tablet Completed ? 10/18/19 18 escitalopram 20 mg tablet Active ? Not av ailable Take 1 tablet every day by oral route. ferrous gluconate 325 mg (27 mg iron) tablet Active ? Not available Take 1 tablet every day by oral route. furosemide 20 mg tablet Active ? Not avai lable Take 1 tablet every day by oral route. ibuprofen 200 mg capsule Completed ? 019 Take 2 capsules every day by oral route as needed. ketoconazole 2 % topical cream Active ? N ot available APPLY TO THE AFFECTED AREA(S) BY TOPICAL ROUTE ONCE DAILY levothyroxine 100 mcg tablet Completed ? Take 1 tablet every day by oral route. levothyroxine 75 mcg tablet Active ? Not available Take 1 tablet every day by oral route. Lotrisone 1 %-0.05 % topical cream Active ? Not available APPLY TO THE AFFECTED AND SURROUNDING A REAS OF SKIN BY TOPICAL ROUTE 2 TIMES PER DAY IN THE MORNING AND EVENING FOR 2 WEEKS MaxFe (folate-docusate) Completed ? 01/13/20 19 one tab po daily melatonin 5 mg tablet Completed ? 01/12/2019 Take 1 tablet every day by oral route at bedtime. morphine ER 30 mg tablet,extended release Completed ? 01/12/2019 outside provider nystatin Active ? Not available POWDER APPLY THREE TIMES DAILY omeprazole 40 mg capsule,delayed release Active ? Not available Take 1 capsule every day by oral route. oxycodone 5 mg tablet Completed ? 01/12/2019 outside provider tramadol 50 mg tablet Completed ? 01/12/2019 outside provider Tylenol-Codeine Completed ? 01/12/2019 outside provider Vitamin B-12 1,000 mcg tablet Completed ? Take 1 tablet every day by oral route. Vitamin C 500 mg chewable tablet Completed ? 01/12/2019 Take 1 tablet every day by oral route. Vitamin D3 Completed ? 10/17/2017 one tab po twice daily Vitamin D3 50 mcg (2,000 unit) capsule Active ? Not available Take 1 capsule every day by oral route. Problems Name Status Onset Date Source ? Hypothyroidism Active 12/15/2015 ? Vitamin D Deficiency Active 12/15/2015 ? Deficiency of Micronutrients Active 12/15/2015 ? Morbid Obesity Active 12/15/2015 ? Anemia Active 12/15/2015 ? Anxiety Active 12/15/2015 ? Depressive Disorder Active 12/15/2015 ? Gastroesophageal Reflux Disease Active 12/15/2015 ? Kidney Stone Active 12/15/2015 ? Arthritis Active 12/15/2015 ? Chronic Back Pain Active 12/15/2015 ? Foot Pain Active 12/15/2015 ? Pain in Toe Active 12/15/2015 ? Osteoporosis Active 12/15/2015 ? Pain Active 12/15/2015 ? Heartburn Active 12/15/2015 ? Bunion Active 12/15/2015 ? Dermal Cellular Nevus Active 04/30/2018 ? Hypertensive Disorder Active 04/30/2018 ? Aortic Valve Stenosis Active 04/30/2018 ? Chronic Dermatitis Active 04/30/2018 ? Osteoarthritis Active 04/30/2018 ? Tailor's Bunion Active 04/30/2018 ? Plantar Fasciitis Active 04/30/2018 ? Lightheadedness Active 04/30/2018 ? Osteophyte of Bone Active 04/30/2018 ? Knee Pain Active 04/30/2018 ? Notes: blood clots Procedures Date Name Performed by ? ? Foot Surgery Information not avai lable Notes: bunion ? Shoulder Surgery Information not avai lable Notes: rotator cuff ? Gastric Bypass for Obesity Information n ot available 05/20/2018 XR, Foot, 3 or More View [facility] (Internal) [address] [place] [address] (Work Place) Results Lab Results None recorded. Past Encounters None recorded. Social History Tobacco Smoking Status Never Smoker Vaccine List Vaccine Type influenza, injectable, quadrivalent 12/06/2014 Tdap 10/06/2013 zoster, unspecified formulation 01/26/2016 Plan of Care Reminders Provider Appointments None recorded. ? ? Lab None recorded. ? ? Referral None recorded. ? ? Procedures None recorded. ? ? Surgeries None recorded. ? ? Imaging None recorded. ? ? Vitals 03/11/2019 01:15PM ACUTE Height Weight BMI Blood Pressure 152.4 cm 86.18 kg 37.1 kg/m2 124/62 mm[Hg] 02/09/2019 01:45PM FOLLOW UP Height Weight BMI Blood Pressure 152.4 cm 86.18 kg 37.1 kg/m2 126/68 mm[Hg] 01/26/2019 02:30PM PODIATRY IN-OFFICE PROCEDURE Height Weight BMI Blood Pressure 152.4 cm 86.18 kg 37.1 kg/m2 132/70 mm[Hg] 01/12/2019 01:00PM Foot Care Height Weight BMI Blood Pressure 152.4 cm 86.18 kg 37.1 kg/m2 128/68 mm[Hg] 05/20/2018 02:00PM FOLLOW UP Height Weight BMI Blood Pressure 152.4 cm 86.18 kg 37.1 kg/m2 124/76 mm[Hg] 12/03/2017 09:30AM FOLLOW UP Height Weight BMI Blood Pressure 152.4 cm 86.18 kg 37.1 kg/m2 128/72 mm[Hg] 10/17/2017 01:45PM ACUTE Height Weight BMI Blood Pressure 152.4 cm 86.18 kg 37.1 kg/m2 136/74 mm[Hg] 07/05/2016 02:00PM FOLLOW UP Height Weight BMI Blood Pressure 152.4 cm 96.16 kg 41.4 kg/m2 138/70 mm[Hg] 05/28/2016 01:45PM FOLLOW UP Height Weight BMI Blood Pressure 152.4 cm 96.16 kg 41.4 kg/m2 140/80 mm[Hg] 05/10/2016 10:45AM FOLLOW UP Weight Blood Pressure 97.52 kg 118/62 mm[Hg] 12/15/2015 03:15PM FOLLOW UP Weight Blood Pressure 97.52 kg 122/72 mm[Hg]
[2021-09-08] MEDS: fentaNYL 1,000 MCG in Normal Saline 80 ML 9.86 MCG IV (13:22)
[2021-09-08 14:08] LABS: BE 2 mmol/L (-2-3); HCO3 28 mmol/L (22-26); pCO2 50 mmHg (35-45); pH 7.36 (7.35-7.45); pO2 97 mmHg (80-105); sO2 97 % (95-98); tCO2 26 mmol/L (23-27)
[2021-09-08 14:12] LABS: Site Right Radial
[2021-09-08 14:13] LABS: FIO2 40 %
[2021-09-08] MEDS: Normal Saline 1,000 ML 1000 ML IV (14:26)
[2021-09-08 15:11] LABS: BE (Venous) 5 mmol/L (-2-3); HCO3 (Venous) 30 mmol/L (23-28); O2 Sat (Venous) 90 %; TCO2 (Venous) 28 mmol/L (24-29); pCO2 (Venous) 50 mmHg (41-51); pH (Venous) 7.38 (7.31-7.41); pO2 (Venous) 58 mmHg
[2021-09-08 15:26] LABS: BE 4 mmol/L (-2-3); HCO3 29 mmol/L (22-26); pCO2 48 mmHg (35-45); pH 7.39 (7.35-7.45); pO2 98 mmHg (80-105); sO2 98 % (95-98); tCO2 27 mmol/L (23-27)
[2021-09-08 15:32] LABS: FIO2 40 %; Site Right Radial
--- NOTE | 2021-09-08 16:18 | HPE_ITS ---
Date of service: 09/08/21 Time of Service: 15:19 Assessment and Plan Assessment and plan (1) Poisoning by tricyclic antidepressant, intentional self-harm: Status: Acute Assessment and plan: Exact quantity of her Elavil is unknown. Apparently the bottle was for 90 tablets and it was estimated that she took about half the bottle and they were 50 mg tablets. Poison control has been notified and is assisting in management of the case. Patient will be monitored for seizures and cardiac arrhythmias. We will monitor for prolongation of her QRS interval. As the patient presented too late for gastric charcoal lavage the patient is now being alkalinized to enhance elimination and prevent complications. Patient's airway will be protected with intubation and mechanical ventilation. We will monitor her ABG every 1-2 hours with a goal to get her pH between 7.45 and 7.50 and repeat serial EKGs and telemetry monitoring. Once she has been alkalinized for few hours we will start to wean a bicarbonate drip by 25% every hour watching for any worsening of her QRS interval or development of any cardiac arrhythmias or seizures. Seizure should be managed with benzodiazepines. For this reason prop ofol was changed to midazolam. I have written for as needed IV Ativan. If she has no seizures or any arrhythmias overnight then we will plan for extubation in the morning as long as she is hemodynamically stable and stable from a respiratory standpoint. As her intubation was uncomplicated there was no antecedent history of emesis I am not anticipating a prolonged course on the ventilator and expect an uneventful extubation tomorrow morning. Critical care time spent interviewing and examining the patient, reviewing studies, discussing case with patient's nurse and consulting physicians was 60 minutes (2) Drug overdose, intentional: Status: Acute Assessment and plan: Her indicated that she may have also ingested several of his gabapentin along with her Elavil which probably contributed to her sedation on arrival. (3) Suicidal behavior with attempted self-injury: Status: Acute Assessment and plan: When patient is extubated and medically stable we will request mental health consultation (4) Acute respiratory failure with hypoxemia: Status: Acute Assessment and plan: Intubation mechanical ventilatory support as listed above. Monitor pH and PCO2 and SPO2 (5) Metabolic encephalopathy: Status: Acute Assessment and plan: Secondary to polypharmacy overdose. No history of head trauma although does give a history of the she has had problems with orthostatic dizziness prior to the overdose and has had history of falls but no head injuries or episodes of loss of consciousness. (6) Depression: Status: Chronic Assessment and plan: Mental health consultation once she is medically stable History of Present Illness History of Present Illness Chief Complaint: depression, suicide attempt, TCA overdose, resp failure Narrative: 66 female with a history of depression was brought in via EMS after an ingestion of an unknown amount of amitriptyline. It was estimated that she took over 40 tablets of amitriptyline 50 mg each. The patient and her recently were evicted from her property where they were staying. They previously had been renting with her landlord raise the rent to the point where they could no longer afford it. Patient has been depressed lately since losing her stepchild to heart attack last February. Patient and her have been trying to get some of their possessions from the property where they were evicted including pets. She and her were driving to meet the [employer] equipment operator at the property to retrieve some of their belongings when the patient became despondent and took a handful of her pills. called EMS and on arrival she present emergency department lethargic with slurred speech and was hypoxic with O2 saturation of 80% on room air which came up into the mid 90s on 4 L nasal cannula. She was only able to answer yes or no to the ER physician's questions and while in the emergency department she became more somnolent and eventually was unresponsive with sonorous respirations with a Stefany Coma Scale of 3. He did not find a visible trauma on her and then promptly intubated her with paralytics but no sedation as the patient was already sedated. He indicated that there was no complications with intubation. EKG on admission showed a QRS interval of 102 ms and therefore she was given sodium bicarb and at 100 mill equivalents IV push and started on a bicarbonate drip at 37.5 mill equivalents an hour. He reviewed the case with poison control who agreed with administration of sodium bicarbonate and supportive care with airway management and ventilation. Per her she has had no previous attempts at suicide although she has been depressed for the last several months and is talked about not wanting to live. Her comorbidities include obesity (BMI 41.9), depression, hypothyroidism, orthostatic hypotension, essential hypertension, prediabetes, her denies any history of coronary artery disease or stroke or myocardial infarction or CHF or chronic respiratory issues such as COPD or asthma. In the emergency room the patient was mildly hypotensive with systolic blood pressures running in the mid 80s to above 90s and diastolic readings in the mid 50s to high 50s. Patient was given a bolus of IV fluids at 1000 cc of normal saline in the emergency department. After intubation she was put on a propofol and fentanyl drip and came up to the intensive care unit on a fentanyl drip at 1 mcg/kg/min and a propofol drip has been started in the emergency department at 5 mcg/kg/min. However the propofol drip was discontinued per my orders prior to arrival to the intensive care unit. Shortly after arriving to the intensive care unit she developed hypotension with systolic pressures in the 70s and diastolic pressures in the 40s necessitating discontinuation of the fentanyl drip and another bolus of normal saline 1000 mL. She was also given an additional bolus of sodium bicarb at 150 mill equivalents IV push. After the fluid bolus and the bicarbonate and discontinuation of the fentanyl her blood p ressures came up into the 110s to 120s. I had been prepared to put in a central line and start her on norepinephrine drip but this was not necessary after the above measures were taken. ABG had been obtained after intubation and her pH was 7.36 and her PCO2 was 50 and her PO2 was 97. That was on assist-control at a rate of 16 breaths/min and tidal volume of 300 mL and 5 cm of PEEP. After I received her in the intensive care unit we got another blood gas at 1515 this afternoon her pH to come up to 7.39 and her PCO2 was 48 and her PO2 was 98. About 1/2-hour after the additional bicarbonate bolus no ABG was obtained and her pH was up to 7.44 and her PCO2 was 56 and her PO2 was 76 however it was felt this was a mixed venous and arterial gas as a sample was contaminated. Patient will be maintained on mechanical ventilatory support overnight and we will continue to alkalinize her blood with a goal of pH of 7.45-7.50 we will continue to monitor her QRS interval. Once she has been adequately alkalinized and the QRS remains normalized we can begin to cut down her bicarbonate drip by 25% each hour over 4-hour period and monitor her QRS interval and her blood pressures. If she has no widening of her QRS interval with discontinuation of the bicarbonate drip and I think we can wean her sedation and extubate her in the morning. Review of Systems Unobtainable due to endotracheal tube and Unobtainable due to mental status PFSH All Active Problems (Updated 09/08/21 @ 19:47 by Km Gupta) Poisoning by tricyclic antidepressant, intentional self-harm (Acute) Depression (Chronic) Metabolic encephalopathy (Acute) Acute respiratory failure with hypoxemia (Acute) Drug overdose, intentional (Acute) Suicidal behavior with attempted self-injury (Acute) Contusion of multiple sites (Acute) Closed head injury (Acute) Fall at home (Acute) Dizziness (Acute) Lightheadedness (Acute) Shortness of breath (Acute) Overdose (Acute) Atrophic vaginitis (Acute) Screening for colon cancer (Acute) Elevated alkaline phosphatase level (Acute) Dermatitis (Acute) HTN (hypertension) (Chronic) Aortic stenosis (Chronic) Vitamin B12 deficiency (Acute) Prediabetes (Acute) pt. denies this Left eye pain (Acute) Chest pain (Acute) Pt. states this was due to anxiety Medical History (Updated 09/08/21 @ 19:47 by Km Gupta) Acid reflux disease Anemia Anxiety disorder Deep vein blood clot of right lower extremity 2008 following R leg trauma Fx wrist R x 2 2012 and 2013 Gall stones surgery 1999 Hypothyroidism Kidney calculi passed 2009 Morbid obesity lifelong with surgery Shingles September 2019, had occular weeping, and pain. Surgical History (Updated 09/08/21 @ 19:34 by Km Gupta) Cholecystectomy 2000 Gastric Bypass 2009 and 2012 (revision for stricture) History of total knee arthroplasty bilateral Reduction mammoplasty Bilateral 2013 Rotator Cuff Repair Bilateral 2008/2009/2011 S/P colonoscopy 2012- ? polyp Family History Other Diabetes Heart disease Social History Smoking/Tobacco Use Status: Never Smoking risk assessment performed?: Yes Alcohol Intake: never Drug use: Never Substance use type: does not use Do you feel safe at home: Yes Do you feel safe in your relationship?: Yes Female Reproductive History Menstrual Menopause type: natural (2013) History History 2 Para 2 Hx # Term Pregnancies Multiple births Hx # Pregnancies Ectopic pregnancies AB induced Hx Number of Living Children AB spontaneous Meds Allergies and Home Medications Allergies Allergy/AdvReac Type Severity Reaction Status Date / Time [place] And Derivatives Allergy Intermediate Rash, Unverified 09/08/21 14:47 blister diazepam [From Valium] AdvReac Intermediate Increased Unverified 09/08/21 14:47 anxiety Home Medications Medication Instructions Recorded Confirmed Type omeprazole 40 mg capsule,delayed 40 mg PO DAILY 09/02/13 09/08/21 History release (Prilosec) cholecalciferol (vitamin D3) 50 1 cap PO DAILY 10/30/13 09/08/21 History mcg (2,000 unit) capsule (Vitamin D3) clotrimazole-betamethasone 1 1 applic topical TID PRN 10/05/19 09/08/21 History %-0.05 % topical cream escitalopram oxalate 20 mg tablet 20 mg PO DAILY 10/05/19 09/08/21 History ferrous sulfate 325 mg (65 mg 325 mg PO DAILY 10/05/19 09/08/21 History iron) tablet ketoconazole 2 % topical cream 1 applic topical BID 10/05/19 09/08/21 History levothyroxine 75 mcg capsule 75 mcg PO DAILY 10/05/19 09/08/21 History melatonin 5 mg capsule 5 mg PO HS PRN 10/05/19 09/08/21 History nystatin 100,000 unit/gram topical 1 applic topical TID 10/05/19 09/08/21 History powder amitriptyline 50 mg tablet 50 mg PO DAILY 02/14/21 09/08/21 History meclizine 25 mg tablet 25 mg PO TID PRN dizziness #30 tabs 02/14/21 09/08/21 Rx amoxicillin 875 mg-potassium 1 tab PO BID #10 tabs 06/10/21 09/08/21 Rx clavulanate 125 mg tablet Exam Narrative Exam Narrative: Morbidly obese white female who is sedated intubated and on mechanical ventilation. HEENT there is no facial asymmetry pupils are midpoint with mild reaction to direct and consensual light. No epistaxis no facial trauma. Limited exam of her oropharynx is obscured by her endotracheal tube and I do not see any lacerations of her tongue or lips. Neck is supple no overt JVD normal carotid pulses no thyromegaly no surgical scars. Lungs are clear to auscultation Heart is regular rate and rhythm with a soft systolic murmur at the left lower sternal border no thrill heave gallop or rub. Murmur is grade 2/6 Abdomen is obese soft and nontender nondistended she has surgical scars from previous gastric bypass no palpable masses or bruits Extremities she has an abrasion over her left kneecap with scabbing and skin but no open sores no discharge. Otherwise her legs look symmetrical there is no Swelling she has normal pedal pulses good capillary refill. Neuro exam she is sedated but after we discontinue the fentanyl drip she started grimacing and alarming the ventilator. She is not following commands but she is withdrawing her arms to stimulation. After removal sedation she was a GCS 7. Results Imaging Chest x-ray: image reviewed (ET tube was pulled back to 21 cm at the teeth after review of her chest x-ray.) EKG: image reviewed (ECG from 11:52 AM demonstrates sinus tachycardia rate 107 bpm QTC 489 ms, QRS interval in some leads appears to be almost 100 ms, either leads appears to be 80 ms) Labs Result diagrams: 09/08/21 12:10 09/08/21 12:10 Labs: Laboratory Results - last 24 hr 09/08/21 09/08/21 09/08/21 11:55 12:10 12:10 WBC RBC Hgb Hct MCV MCH MCHC RDW Plt Count MPV Immature Gran % Neutrophils % Lymphocytes % Monocytes % Eosinophils % Basophils % Nucleated RBC % Absolute Neutrophils Absolute Lymphocytes Absolute Monocytes Absolute Eosinophils Absolute Basophils ABG Sample Site ABG pH ABG pCO2 ABG pO2 ABG HCO3 ABG Total CO2 ABG O2 Saturation ABG Base Excess VBG pH VBG pCO2 VBG pO2 VBG HCO3 VBG Total CO2 VBG O2 Saturation VBG Base Excess Oxygen Liter Flow FiO2 Sodium 140 Potassium 3.5 Chloride 107 Carbon Dioxide 25.4 Anion Gap 7.6 BUN 19 H Creatinine 1.0 Estimated GFR/1.73 m2 55.64 Glucose 109 H Calcium 8.4 L Total Bilirubin 0.7 AST 27 ALT 24 Alkaline Phosphatase 91 Total Protein 6.8 Albumin 3.3 L TSH 3.02 Urine Color Urine Clarity Urine pH Ur Specific [place] Urine Protein Urine Ketones Urine Blood Urine Nitrite Urine Bilirubin Urine Urobilinogen Ur Leukocyte Esterase Urine Glucose Salicylates < 2.8 Acetaminophen Cancelled < 2 Ethyl Alcohol < 3.0 COVID-19 Source Nasal/Nares SARS-CoV-2 (PCR) Negative 09/08/21 09/08/21 09/08/21 12:10 12:10 12:35 WBC 5.78 RBC 3.97 Hgb 11.8 Hct 37.1 MCV 94 MCH 29.7 MCHC 31.8 L RDW 13.2 Plt Count 245 MPV 12.8 H Immature Gran % 0.5 Neutrophils % 60.3 Lymphocytes % 24.2 Monocytes % 8.3 Eosinophils % 6.4 Basophils % 0.3 Nucleated RBC % 0.0 Absolute Neutrophils 3.48 Absolute Lymphocytes 1.40 Absolute Monocytes 0.48 Absolute Eosinophils 0.37 Absolute Basophils 0.02 ABG Sample Site ABG pH ABG pCO2 ABG pO2 ABG HCO3 ABG Total CO2 ABG O2 Saturation ABG Base Excess VBG pH VBG pCO2 VBG pO2 VBG HCO3 VBG Total CO2 VBG O2 Saturation VBG Base Excess Oxygen Liter Flow FiO2 Sodium Potassium Chloride Carbon Dioxide Anion Gap BUN Creatinine Estimated GFR/1.73 m2 Glucose Calcium Total Bilirubin AST ALT Alkaline Phosphatase Total Protein Albumin TSH Cancelled Urine Color Yellow Urine Clarity Clear Urine pH 6.0 Ur Specific [place] >= 1.030 H Urine Protein Negative Urine Ketones Trace H Urine Blood Negative Urine Nitrite Negative Urine Bilirubin Small H Urine Urobilinogen 1.0 H Ur Leukocyte Esterase Negative Urine Glucose Negative Salicylates Acetaminophen Ethyl Alcohol COVID-19 Source SARS-CoV-2 (PCR) 09/08/21 09/08/21 09/08/21 14:05 15:01 15:15 WBC RBC Hgb Hct MCV MCH MCHC RDW Plt Count MPV Immature Gran % Neutrophils % Lymphocytes % Monocytes % Eosinophils % Basophils % Nucleated RBC % Absolute Neutrophils Absolute Lymphocytes Absolute Monocytes Absolute Eosinophils Absolute Basophils ABG Sample Site Right Radial Right Radial ABG pH 7.36 7.39 ABG pCO2 50 H 48 H ABG pO2 97 98 ABG HCO3 28 H 29 H ABG Total CO2 26 27 ABG O2 Saturation 97 98 ABG Base Excess 2 4 H VBG pH 7.38 VBG pCO2 50 VBG pO2 58 VBG HCO3 30 H VBG Total CO2 28 VBG O2 Saturation 90 VBG Base Excess 5 H Oxygen Liter Flow VC/AC/VT300/R16/P5 FiO2 40 40 Sodium Potassium Chloride Carbon Dioxide Anion Gap BUN Creatinine Estimated GFR/1.73 m2 Glucose Calcium Total Bilirubin AST ALT Alkaline Phosphatase Total Protein Albumin TSH Urine Color Urine Clarity Urine pH Ur Specific [place] Urine Protein Urine Ketones Urine Blood Urine Nitrite Urine Bilirubin Urine Urobilinogen Ur Leukocyte Esterase Urine Glucose Salicylates Acetaminophen Ethyl Alcohol COVID-19 Source SARS-CoV-2 (PCR) Last Vital Signs Temp 36.0 C L 09/08/21 15:35 Pulse 73 09/08/21 15:35 Resp 16 09/08/21 15:35 BP 102/62 09/08/21 15:35 Pulse Ox 97 09/08/21 15:35
[2021-09-08] MEDS: Sodium Bicarbonate 50 MEQ/50 ML SYR 150 MEQ IVP (16:58)
[2021-09-08] MEDS: Pantoprazole 40 MG VIAL IVP (17:10)
[2021-09-08] MEDS: Enoxaparin 40 MG/0.4 ML SYR SC (17:11)
[2021-09-08] MEDS: MIDAZOLAM 50 MG in Normal Saline 90 ML IV (17:18)
[2021-09-08] MEDS: Normal Saline Flush 10 ML SYR IVP (17:38)
[2021-09-08 17:42] LABS: BE 14 mmol/L (-2-3); HCO3 38 mmol/L (22-26); pCO2 56 mmHg (35-45); pH 7.44 (7.35-7.45); pO2 76 mmHg (80-105); sO2 96 % (95-98); tCO2 35 mmol/L (23-27)
[2021-09-08 17:46] LABS: FIO2 35 %; Site Right Radial
--- NOTE | 2021-09-08 18:15 | RT.EKG_ITS ---
APPROVED REPORT Exam: Resting ECG Reason for Exam: elavil overdose Patient Location: I HR:74 bpm ECG Measurements Heart Rate 74 AXIS WY 187 P 24 QRSd 99 QRS 6 QT 454 T 46 QTc 504 Conclusion Sinus rhythm...normal P axis, V-rate 50- 99 Borderline T abnormalities, anterior leads...T flat or neg, V2-V4 Prolonged QT interval...QTc >500mS
--- NOTE | 2021-09-08 19:56 | NUR.NOTE ---
Nursing Note: paged RT for outstanding EKG order that was scheduled at 1825. and new pending order for ABG for 1999.
[2021-09-08 20:12] LABS: Anion Gap 2.1 mmol/L (3-11); BUN 16 mg/dL (7-18); CO2 36.9 mmol/L (21.0-32.0); CREATININE 0.8 mg/dL (0.55-1.02); Chloride 108 mmol/L (98-107); Glucose 127 mg/dL (74-106); Sodium 147 mmol/L (136-145)
[2021-09-08 20:15] LABS: Potassium 2.7 mmol/L (3.5-5.1)
[2021-09-08] MEDS: POTASSIUM CHLORIDE/0.45% NACL 1,000 ML 100 MEQ IV (20:25)
[2021-09-08] MEDS: POTASSIUM CHLORIDE 10 MEQ/100 ML BAG 100 MEQ IVPB (20:59)
[2021-09-08 21:00] LABS: Magnesium 2.1 mg/dL (1.8-2.4)
--- NOTE | 2021-09-08 21:13 | NUR.NOTE ---
paged RT for the 2nd time for ABG. Nursing Note:
[2021-09-08 21:50] LABS: BE (Venous) 14 mmol/L (-2-3); HCO3 (Venous) 39 mmol/L (23-28); O2 Sat (Venous) 83 %; TCO2 (Venous) 36 mmol/L (24-29); pCO2 (Venous) 59 mmHg (41-51); pH (Venous) 7.43 (7.31-7.41); pO2 (Venous) 47 mmHg
--- NOTE | 2021-09-08 21:50 | NUR.NOTE ---
This RN was unable to reach RT. Order for ABG was changed to VBG. MD is notified.Nursing Note:
[2021-09-09] VITALS (163 sets, daily range): BP systolic 79–132; BP diastolic 42–86; PULSE 59–96; RESP 12–23; TEMP 36.5–36.6; O2SAT 94–99
--- NOTE | 2021-09-09 | RT.EKG_ITS ---
APPROVED REPORT Exam: Resting ECG Reason for Exam: QRS Patient Location: I HR:69 bpm ECG Measurements Heart Rate 69 AXIS MT 176 P 2 QRSd 93 QRS 11 QT 464 T 53 QTc 497 Conclusion Sinus rhythm...normal P axis, V-rate 50- 99 Low voltage, precordial leads...precordial leads <1.0mV Borderline prolonged QT interval...QTc >485mS
[2021-09-09 00:27] LABS: BE (Venous) 13 mmol/L (-2-3); HCO3 (Venous) 38 mmol/L (23-28); O2 Sat (Venous) 85 %; TCO2 (Venous) 35 mmol/L (24-29); pCO2 (Venous) 60 mmHg (41-51); pH (Venous) 7.41 (7.31-7.41); pO2 (Venous) 48 mmHg
[2021-09-09 00:38] LABS: Anion Gap 3.6 mmol/L (3-11); BUN 16 mg/dL (7-18); CO2 36.4 mmol/L (21.0-32.0); CREATININE 0.8 mg/dL (0.55-1.02); Calcium 6.8 mg/dL (8.5-10.1); Chloride 106 mmol/L (98-107); Glucose 107 mg/dL (74-106); Sodium 146 mmol/L (136-145)
[2021-09-09 00:43] LABS: Potassium 2.7 mmol/L (3.5-5.1)
[2021-09-09] MEDS: POTASSIUM CHLORIDE 10 MEQ/100 ML BAG 100 MEQ IVPB ×4 (01:19→05:42)
--- NOTE | 2021-09-09 02:01 | NUR.NOTE ---
Levophed started at 0200. Pt's BP has been steadily trending down. Monitoring closely.Nursing Note:
[2021-09-09] MEDS: SODIUM BICARBONATE 150 MEQ in DEXTROSE 5%-WATER 850 ML 250 MEQ IV (03:00)
[2021-09-09 03:22] LABS: BE (Venous) 14 mmol/L (-2-3); HCO3 (Venous) 39 mmol/L (23-28); O2 Sat (Venous) 78 %; TCO2 (Venous) 36 mmol/L (24-29); pCO2 (Venous) 60 mmHg (41-51); pH (Venous) 7.42 (7.31-7.41); pO2 (Venous) 42 mmHg
[2021-09-09 03:33] LABS: Anion Gap 2.3 mmol/L (3-11); BUN 14 mg/dL (7-18); CO2 37.7 mmol/L (21.0-32.0); CREATININE 0.8 mg/dL (0.55-1.02); Calcium 6.8 mg/dL (8.5-10.1); Chloride 105 mmol/L (98-107); Glucose 122 mg/dL (74-106); Sodium 145 mmol/L (136-145)
[2021-09-09 03:36] LABS: Potassium 2.9 mmol/L (3.5-5.1)
[2021-09-09 05:44] LABS: HCO3 (Venous) 39 mmol/L (23-28); O2 Sat (Venous) 89 %; TCO2 (Venous) 35 mmol/L (24-29); pCO2 (Venous) 52 mmHg (41-51); pH (Venous) 7.48 (7.31-7.41); pO2 (Venous) 51 mmHg
[2021-09-09 05:58] LABS: BE (Venous) > 15 mmol/L (-2-3)
[2021-09-09 06:07] LABS: Abs Immature Grans 0.02 10^3/uL (0.0-0.06); Absolute Basophil Count 0.02 10^3/uL (0.0-0.2); Absolute Eosinophil Count 0.15 10^3/uL (0.0-0.7); Absolute Lymphocyte Count 0.86 10^3/uL (1.2-3.4); Absolute Monocyte Count 0.61 10^3/uL (0.1-0.8); Absolute Neutrophil Count 4.76 10^3/uL (1.2-6.7); Basophils % 0.3; Eosinophils % 2.3; HCT 33.1 % (36.0-46.0); HGB 10.7 g/dL (11.2-15.7); Immature Grans % 0.3; Lymphocytes % 13.4; MCH 30.1 pg (27.0-33.0); MCHC 32.3 % (32.0-36.0); MCV 93 fL (80-95); Monocytes % 9.5; Neutrophils % 74.2; RBC 3.56 10^6/uL (3.93-5.22); RDW 13.3 % (11.7-14.6); RDW-SD 45.6 fL; WBC 6.42 10^3/uL (4.4-10.8)
[2021-09-09 06:08] LABS: Anion Gap 4.8 mmol/L (3-11); BUN 13 mg/dL (7-18); CO2 35.2 mmol/L (21.0-32.0); CREATININE 0.8 mg/dL (0.55-1.02); Calcium 6.9 mg/dL (8.5-10.1); Chloride 103 mmol/L (98-107); Glucose 138 mg/dL (74-106); Sodium 143 mmol/L (136-145)
[2021-09-09 06:12] LABS: ALT 24 U/L (14-59); AST 35 U/L (15-37); Albumin 2.6 g/dL (3.4-5.0); Alkaline Phosphatase 76 U/L (46-116); Anion Gap 3.6 mmol/L (3-11); BUN 12 mg/dL (7-18); Bilirubin, Total 0.5 mg/dL (0.2-1.0); CO2 36.4 mmol/L (21.0-32.0); CREATININE 0.8 mg/dL (0.55-1.02); Calcium 6.8 mg/dL (8.5-10.1); Chloride 103 mmol/L (98-107); Glucose 136 mg/dL (74-106); Potassium 3.1 mmol/L (3.5-5.1); Sodium 143 mmol/L (136-145); Total Protein 5.5 g/dL (6.4-8.2)
[2021-09-09] MEDS: POTASSIUM CHLORIDE/0.45% NACL 1,000 ML 100 MEQ IV (06:25)
--- NOTE | 2021-09-09 07:15 | RT.EKG_ITS ---
APPROVED REPORT Exam: Resting ECG Reason for Exam: evaluate for QRS Patient Location: I HR:71 bpm ECG Measurements Heart Rate 71 AXIS DE 176 P -2 QRSd 95 QRS 7 QT 445 T 36 QTc 484 Conclusion Sinus rhythm...normal P axis, V-rate 50- 99 Low voltage, precordial leads...precordial leads <1.0mV
[2021-09-09] MEDS: SODIUM BICARBONATE 150 MEQ in DEXTROSE 5%-WATER 850 ML 188 MEQ IV (07:40)
[2021-09-09] MEDS: dexmedeTOMidine IN 0.9 % NACL 400 MCG/100 ML BTL 11.375 MCG IVPB (07:59)
[2021-09-09] MEDS: POTASSIUM CHLORIDE 20 MEQ/100 ML BAG 50 MEQ IVPB ×2 (08:16→11:13)
--- NOTE | 2021-09-09 08:22 | PDOC.CMIN ---
- If Service Date Differs Date of service: 09/09/21 Time of Service: 08:22 Care Management Initial Assess REASON FOR HOSPITALIZATION:: Overedose PAST MEDICAL HISTORY/PAST SURGICAL HISTORY:: Medical History (Updated 09/08/21 @ 19:47 by Km Gupta). Acid reflux disease. Anemia. Anxiety disorder. Deep vein blood clot of right lower extremity. 2008 following R leg trauma. Fx wrist. R x 2 2012 and 2013. Gall stones. surgery 1999. Hypothyroidism. Kidney calculi. passed 2009. Morbid obesity. lifelong with surgery . Shingles. September 2019, had occular weeping, and pain. Surgical History (Updated 09/08/21 @ 19:34 by Km Gupta). Cholecystectomy. 2000. Gastric Bypass. 2009 and 2012 (revision for stricture). History of total knee arthroplasty. bilateral. Reduction mammoplasty. Bilateral 2012. Rotator Cuff Repair. Bilateral . S/P colonoscopy. 2013- ? polyp PREVIOUS FUNCTIONAL STATUS/SOCIAL/FAMILY SUPPORTS:: Patient and recently evicted from their home (rental) and are currently homeless.They have been living in a car with their 5 dogs for the past 3 days. 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 Tamia is independent at baseline. CURRENT FUNCTIONAL STATUS:: Tamia took an intentional overdose of Elavil and Gabapentin yesterday. This was witnessed by her . She was brought to the ED by EMS and was intubated in the ED. She was extubated this morning and is now alert and oriented and verbalizing that she wishes to leave the hospital. She was seen by Gracie [facility] crisis screener, and refuses inpatient psychiatric admission. Dr. Gupta is completing Emergence Evaluation paperwork and a CPSO has been ordered. ADVANCE DIRECTIVES:: none on file Has patient been provided with info about the portal/API?: Yes Did the patient sign up for the portal?: Yes (previously) CODE STATUS:: Full Code INSURANCE COVERAGE / FINANCIAL ISSUES:: Medicare CURRENT HOME/COMMUNITY SERVICES/EQUIPMENT:: none PRIMARY CARE PHYSICIAN:: Yariel Hackett POTENTIAL DISCHARGE NEEDS:: follow up with PCP and Mental health PATIENT/FAMILY EDUCATION NEEDS:: Review of discharge instructions, medications, limitations, follow up plan; discuss Ask Me Three TRANSPORTATION:: to be determined by disposition PLAN:: Tamia will likely require inpatient psychiatric treatment following an intentional overdose of medication. She was extubated this mornming and is now alert and oriented and verbalizing that she wants to leave. She was seen by [facility] crisis screener Gracie and has refused voluntary psychiatric hospitalization.Paperwork is being completed for Emergency Evaluation and a CPSO has been ordered.
--- NOTE | 2021-09-09 08:30 | DI.RAD_ITS ---
Exam(s) XR PORTABLE CHEST AP EXAM: XR PORTABLE CHEST AP CLINICAL HISTORY: resp. failure. TECHNIQUE: 2D digital imaging was performed. COMPARISON: CR XR PORTABLE CHEST AP from 09/08/2021 FINDINGS: Single AP portable view. The patient has been extubated. Poor inspiration effort. There are persistent infiltrates in both lung bases. Elevation left hemidi aphragm is again noted. Heart size unchanged in the mediastinum is not widened. A reverse right chaparro ulder prosthesis is again noted. IMPRESSION: Patient extubated poor lung volumes. Persistent infiltrates in both lung bases. DATA REPOSITORY: RADIATION DOSE DELIVERED: All CT scans at this facility use at least one of these dose optimization techniques: automated exposure control; mA and/or kV adjustment per patient size (includes targeted e xams where dose is matched to clinical indication); or iterative reconstruction.
--- NOTE | 2021-09-09 08:32 | PGE_ITS ---
Date of Service Date of service: 09/09/21 Time of Service: 07:32 Assessment and Plan Assessment and plan (1) Acute respiratory failure with hypoxemia: Status: Acute Assessment and plan: patient was emergently intubated while in the ER yesterday after presenting w/ OD of elavil approximately 2 gm (40 x 50 mg) and several gabapentin. She has been stable from respiratory standpoint overnight and I expect that once her sedation has worn off she will be able to be extubated later this morning. Precedex was added earlier this morning at request of ICU nurse d/t patient was becoming more agitated while on midazolam and the goal was to wean and dc her midazolam. However w/ her BP running low and still on norepinephrine, I am asking nursing to wean off all sedatives and see if her BP and alertness improve enough to allow extubation. Critical care time spent interviewing and examining the patient, reviewing studies, discussing case with patient's nurse and consulting physicians was 30 minutes (2) Poisoning by tricyclic antidepressant, intentional self-harm: Status: Acute Assessment and plan: patient remains on sodium bicarbonate drip although the rate has been cut in half and she has had no arrhythmias overnight and EKG appears normal. I will have them dc the bicarbonate drip and monitor her QRS. (3) Drug overdose, intentional: Status: Acute (4) Suicidal behavior with attempted self-injury: Status: Acute Assessment and plan: consult mental health once she is extubated and medically stable (5) Metabolic encephalopathy: Status: Acute Assessment and plan: secondary to polypharmacy OD. no lateralizing signs of acute CVA (6) Depression: Status: Chronic Assessment and plan: needs mental health consult Subjective Subjective Interval history since last seen: Patient remains intubated and mechanically ventilated. She was started on norepinephrine drip last night for persistently low blood pressure readings in the low 80s. She remains on midazolam and sodium bicarbonate drip. Her blood finally alkalinized w/ VBG pH of 7.48 this morining. Her repeat EKG this morning QRS is 80 msec. QTC is 484. She is responsive and opens her eyes to her name. Exam Narrative Exam Narrative: Tamia is lightly sedated on midazolam and precedex. she opens her eyes to her name but not following commands Lungs: clear anteriorly although bases are diminished Heart: regular (tele: sinus rhythm; no reported arrhythmias overnight) Abdomen: obese, soft, nontender Extremities: warm, no edema or cyanosis. good capillary refill Neuro: still sedated but GCS 9 (E3,V1, M5) Objective Last Vital Signs Temp 36.6 C 09/09/21 08:21 Pulse 68 09/09/21 08:21 Resp 16 09/09/21 08:21 BP 108/66 09/09/21 08:21 Pulse Ox 99 09/09/21 08:21 Laboratory Results - last 24 hr 09/08/21 09/08/21 09/08/21 11:55 12:10 12:10 WBC RBC Hgb Hct MCV MCH MCHC RDW Plt Count MPV Immature Gran % Neutrophils % Lymphocytes % Monocytes % Eosinophils % Basophils % Nucleated RBC % Absolute Neutrophils Absolute Lymphocytes Absolute Monocytes Absolute Eosinophils Absolute Basophils ABG Sample Site ABG pH ABG pCO2 ABG pO2 ABG HCO3 ABG Total CO2 ABG O2 Saturation ABG Base Excess VBG pH VBG pCO2 VBG pO2 VBG HCO3 VBG Total CO2 VBG O2 Saturation VBG Base Excess Oxygen Liter Flow FiO2 Sodium 140 Potassium 3.5 Chloride 107 Carbon Dioxide 25.4 Anion Gap 7.6 BUN 19 H Creatinine 1.0 Estimated GFR/1.73 m2 55.64 Glucose 109 H Calcium 8.4 L Magnesium Total Bilirubin 0.7 AST 27 ALT 24 Alkaline Phosphatase 91 Total Protein 6.8 Albumin 3.3 L TSH 3.02 Urine Color Urine Clarity Urine pH Ur Specific [place] Urine Protein Urine Ketones Urine Blood Urine Nitrite Urine Bilirubin Urine Urobilinogen Ur Leukocyte Esterase Urine Glucose Salicylates < 2.8 Acetaminophen Cancelled < 2 Ethyl Alcohol < 3.0 COVID-19 Source Nasal/Nares SARS-CoV-2 (PCR) Negative 09/08/21 09/08/21 09/08/21 12:10 12:10 12:35 WBC 5.78 RBC 3.97 Hgb 11.8 Hct 37.1 MCV 94 MCH 29.7 MCHC 31.8 L RDW 13.2 Plt Count 245 MPV 12.8 H Immature Gran % 0.5 Neutrophils % 60.3 Lymphocytes % 24.2 Monocytes % 8.3 Eosinophils % 6.4 Basophils % 0.3 Nucleated RBC % 0.0 Absolute Neutrophils 3.48 Absolute Lymphocytes 1.40 Absolute Monocytes 0.48 Absolute Eosinophils 0.37 Absolute Basophils 0.02 ABG Sample Site ABG pH ABG pCO2 ABG pO2 ABG HCO3 ABG Total CO2 ABG O2 Saturation ABG Base Excess VBG pH VBG pCO2 VBG pO2 VBG HCO3 VBG Total CO2 VBG O2 Saturation VBG Base Excess Oxygen Liter Flow FiO2 Sodium Potassium Chloride Carbon Dioxide Anion Gap BUN Creatinine Estimated GFR/1.73 m2 Glucose Calcium Magnesium Total Bilirubin AST ALT Alkaline Phosphatase Total Protein Albumin TSH Cancelled Urine Color Yellow Urine Clarity Clear Urine pH 6.0 Ur Specific [place] >= 1.030 H Urine Protein Negative Urine Ketones Trace H Urine Blood Negative Urine Nitrite Negative Urine Bilirubin Small H Urine Urobilinogen 1.0 H Ur Leukocyte Esterase Negative Urine Glucose Negative Salicylates Acetaminophen Ethyl Alcohol COVID-19 Source SARS-CoV-2 (PCR) 09/08/21 09/08/21 09/08/21 14:05 15:01 15:15 WBC RBC Hgb Hct MCV MCH MCHC RDW Plt Count MPV Immature Gran % Neutrophils % Lymphocytes % Monocytes % Eosinophils % Basophils % Nucleated RBC % Absolute Neutrophils Absolute Lymphocytes Absolute Monocytes Absolute Eosinophils Absolute Basophils ABG Sample Site Right Radial Right Radial ABG pH 7.36 7.39 ABG pCO2 50 H 48 H ABG pO2 97 98 ABG HCO3 28 H 29 H ABG Total CO2 26 27 ABG O2 Saturation 97 98 ABG Base Excess 2 4 H VBG pH 7.38 VBG pCO2 50 VBG pO2 58 VBG HCO3 30 H VBG Total CO2 28 VBG O2 Saturation 90 VBG Base Excess 5 H Oxygen Liter Flow VC/AC/VT300/R16/P5 FiO2 40 40 Sodium Potassium Chloride Carbon Dioxide Anion Gap BUN Creatinine Estimated GFR/1.73 m2 Glucose Calcium Magnesium Total Bilirubin AST ALT Alkaline Phosphatase Total Protein Albumin TSH Urine Color Urine Clarity Urine pH Ur Specific [place] Urine Protein Urine Ketones Urine Blood Urine Nitrite Urine Bilirubin Urine Urobilinogen Ur Leukocyte Esterase Urine Glucose Salicylates Acetaminophen Ethyl Alcohol COVID-19 Source SARS-CoV-2 (PCR) 09/08/21 09/08/21 09/08/21 17:40 19:50 19:56 WBC RBC Hgb Hct MCV MCH MCHC RDW Plt Count MPV Immature Gran % Neutrophils % Lymphocytes % Monocytes % Eosinophils % Basophils % Nucleated RBC % Absolute Neutrophils Absolute Lymphocytes Absolute Monocytes Absolute Eosinophils Absolute Basophils ABG Sample Site Right Radial ABG pH 7.44 ABG pCO2 56 H ABG pO2 76 L ABG HCO3 38 H ABG Total CO2 35 H ABG O2 Saturation 96 ABG Base Excess 14 H VBG pH VBG pCO2 VBG pO2 VBG HCO3 VBG Total CO2 VBG O2 Saturation VBG Base Excess Oxygen Liter Flow VT300/R16/P5 FiO2 35 Sodium 147 H Potassium 2.7 L* Chloride 108 H Carbon Dioxide 36.9 H Anion Gap 2.1 L BUN 16 Creatinine 0.8 Estimated GFR/1.73 m2 >= 60.00 Glucose 127 H Calcium 7.0 L Magnesium 2.1 Total Bilirubin AST ALT Alkaline Phosphatase Total Protein Albumin TSH Urine Color Urine Clarity Urine pH Ur Specific [place] Urine Protein Urine Ketones Urine Blood Urine Nitrite Urine Bilirubin Urine Urobilinogen Ur Leukocyte Esterase Urine Glucose Salicylates Acetaminophen Ethyl Alcohol COVID-19 Source SARS-CoV-2 (PCR) 09/08/21 09/08/21 09/09/21 20:00 21:40 00:00 WBC RBC Hgb Hct MCV MCH MCHC RDW Plt Count MPV Immature Gran % Neutrophils % Lymphocytes % Monocytes % Eosinophils % Basophils % Nucleated RBC % Absolute Neutrophils Absolute Lymphocytes Absolute Monocytes Absolute Eosinophils Absolute Basophils ABG Sample Site Cancelled ABG pH Cancelled ABG pCO2 Cancelled ABG pO2 Cancelled ABG HCO3 Cancelled ABG Total CO2 Cancelled ABG O2 Saturation Cancelled ABG Base Excess Cancelled VBG pH 7.43 H VBG pCO2 59 H VBG pO2 47 VBG HCO3 39 H VBG Total CO2 36 H VBG O2 Saturation 83 VBG Base Excess 14 H Oxygen Liter Flow Cancelled FiO2 Cancelled Sodium Cancelled Potassium Cancelled Chloride Cancelled Carbon Dioxide Cancelled Anion Gap Cancelled BUN Cancelled Creatinine Cancelled Estimated GFR/1.73 m2 Cancelled Glucose Cancelled Calcium Cancelled Magnesium Total Bilirubin AST ALT Alkaline Phosphatase Total Protein Albumin TSH Urine Color Urine Clarity Urine pH Ur Specific [place] Urine Protein Urine Ketones Urine Blood Urine Nitrite Urine Bilirubin Urine Urobilinogen Ur Leukocyte Esterase Urine Glucose Salicylates Acetaminophen Ethyl Alcohol COVID-19 Source SARS-CoV-2 (PCR) 09/09/21 09/09/21 09/09/21 00:18 00:18 03:15 WBC RBC Hgb Hct MCV MCH MCHC RDW Plt Count MPV Immature Gran % Neutrophils % Lymphocytes % Monocytes % Eosinophils % Basophils % Nucleated RBC % Absolute Neutrophils Absolute Lymphocytes Absolute Monocytes Absolute Eosinophils Absolute Basophils ABG Sample Site ABG pH ABG pCO2 ABG pO2 ABG HCO3 ABG Total CO2 ABG O2 Saturation ABG Base Excess VBG pH 7.41 VBG pCO2 60 H VBG pO2 48 VBG HCO3 38 H VBG Total CO2 35 H VBG O2 Saturation 85 VBG Base Excess 13 H Oxygen Liter Flow FiO2 Sodium 146 H 145 Potassium 2.7 L* 2.9 L Chloride 106 105 Carbon Dioxide 36.4 H 37.7 H Anion Gap 3.6 2.3 L BUN 16 14 Creatinine 0.8 0.8 Estimated GFR/1.73 m2 >= 60.00 >= 60.00 Glucose 107 H 122 H Calcium 6.8 L 6.8 L Magnesium Total Bilirubin AST ALT Alkaline Phosphatase Total Protein Albumin TSH Urine Color Urine Clarity Urine pH Ur Specific [place] Urine Protein Urine Ketones Urine Blood Urine Nitrite Urine Bilirubin Urine Urobilinogen Ur Leukocyte Esterase Urine Glucose Salicylates Acetaminophen Ethyl Alcohol COVID-19 Source SARS-CoV-2 (PCR) 09/09/21 09/09/21 09/09/21 03:15 05:33 05:33 WBC RBC Hgb Hct MCV MCH MCHC RDW Plt Count MPV Immature Gran % Neutrophils % Lymphocytes % Monocytes % Eosinophils % Basophils % Nucleated RBC % Absolute Neutrophils Absolute Lymphocytes Absolute Monocytes Absolute Eosinophils Absolute Basophils ABG Sample Site ABG pH ABG pCO2 ABG pO2 ABG HCO3 ABG Total CO2 ABG O2 Saturation ABG Base Excess VBG pH 7.42 H VBG pCO2 60 H VBG pO2 42 VBG HCO3 39 H VBG Total CO2 36 H VBG O2 Saturation 78 VBG Base Excess 14 H Oxygen Liter Flow FiO2 Sodium 143 143 Potassium 3.0 L 3.1 L Chloride 103 103 Carbon Dioxide 35.2 H 36.4 H Anion Gap 4.8 3.6 BUN 13 12 Creatinine 0.8 0.8 Estimated GFR/1.73 m2 >= 60.00 >= 60.00 Glucose 138 H 136 H Calcium 6.9 L 6.8 L Magnesium Total Bilirubin 0.5 AST 35 ALT 24 Alkaline Phosphatase 76 Total Protein 5.5 L Albumin 2.6 L TSH Urine Color Urine Clarity Urine pH Ur Specific [place] Urine Protein Urine Ketones Urine Blood Urine Nitrite Urine Bilirubin Urine Urobilinogen Ur Leukocyte Esterase Urine Glucose Salicylates Acetaminophen Ethyl Alcohol COVID-19 Source SARS-CoV-2 (PCR) 09/09/21 09/09/21 05:33 05:33 WBC 6.42 RBC 3.56 L Hgb 10.7 L Hct 33.1 L MCV 93 MCH 30.1 MCHC 32.3 RDW 13.3 Plt Count MPV Immature Gran % 0.3 Neutrophils % 74.2 Lymphocytes % 13.4 Monocytes % 9.5 Eosinophils % 2.3 Basophils % 0.3 Nucleated RBC % 0.0 Absolute Neutrophils 4.76 Absolute Lymphocytes 0.86 L Absolute Monocytes 0.61 Absolute Eosinophils 0.15 Absolute Basophils 0.02 ABG Sample Site ABG pH ABG pCO2 ABG pO2 ABG HCO3 ABG Total CO2 ABG O2 Saturation ABG Base Excess VBG pH 7.48 H VBG pCO2 52 H VBG pO2 51 VBG HCO3 39 H VBG Total CO2 35 H VBG O2 Saturation 89 VBG Base Excess > 15 H Oxygen Liter Flow FiO2 Sodium Potassium Chloride Carbon Dioxide Anion Gap BUN Creatinine Estimated GFR/1.73 m2 Glucose Calcium Magnesium Total Bilirubin AST ALT Alkaline Phosphatase Total Protein Albumin TSH Urine Color Urine Clarity Urine pH Ur Specific [place] Urine Protein Urine Ketones Urine Blood Urine Nitrite Urine Bilirubin Urine Urobilinogen Ur Leukocyte Esterase Urine Glucose Salicylates Acetaminophen Ethyl Alcohol COVID-19 Source SARS-CoV-2 (PCR)
--- NOTE | 2021-09-09 11:46 | DI.VRAD_ITS ---
PROCEDURE INFORMATION: Exam: XR Chest Exam date and time: 09/09/2021 11:16 AM Age: 66 years old Clinical indication: Other: Respiratory failure TECHNIQUE: Imaging protocol: XR of the chest. Views: 1 view. COMPARISON: CR XR PORTABLE CHEST AP 09/08/2021 12:48 PM FINDINGS: Tubes, catheters and devices: Endotracheal tube and orogastric tube have been removed. Lungs: Reduced lung volumes bilaterally. Bibasilar atelectasis versus consolidation. Pleural spaces: Small bilateral pleural effusions. Heart/Mediastinum: The cardiac silhouette is enlarged. Bones/joints: Right shoulder arthroplasty. IMPRESSION: 1. Reduced lung volumes bilaterally, with persistent bibasilar atelectasis versus consolidation. 2. Support devices have been removed. Dictated and Authenticated by: Kuldip Erwin MD. Ordering:[facility] Candy Barbour MD
[2021-09-09 13:59] LABS: Anion Gap 3.3 mmol/L (3-11); BUN 8 mg/dL (7-18); CO2 34.7 mmol/L (21.0-32.0); CREATININE 0.7 mg/dL (0.55-1.02); Calcium 6.8 mg/dL (8.5-10.1); Chloride 104 mmol/L (98-107); Glucose 115 mg/dL (74-106); Potassium 3.3 mmol/L (3.5-5.1); Sodium 142 mmol/L (136-145)
--- NOTE | 2021-09-09 14:09 | PDOC.CMSAFE ---
- If Service Date Differs Date of service: 09/09/21 Time of Service: 14:09 Care Management Safety Plan Status: Interim - Reason for Wait Reason for Wait: Assessment/Screening Chief Complaint: Tamia is a 66 year old woman brought to the ED by EMS after taking an overdose of Elavil and Gabapentin, witnessed by her . Tamia has been depressed for some time. Her step daughter in February and she and her were evicted from their mobile home which was a rental property, 3 days ago. She and her have been living in a car with their 5 dogs. CM will respond to assess patient after patient has been medically cleared and assessed by screener. If screener deems patient meets criteria for psychiatric stabilization CM will facilitate interdepartmental huddle with [facility] screener for safety planning considerations and meet with patient to review [facility] policy and safety plan, establish individual wishes for treatment and maintain patient rights. In the interim; please note safety plan below to guide patient care while awaiting further assessment. SAFETY PLAN: 1. Will remain on suicide precautions and in paper clothes. 2. Will remain in room under direct supervision of one-on-one staff at all times provided by JULIA, COMPENSATION SPECIALIST climate change risk assessor. 3. May have paper cups, plates, finger foods as well as a cardboard spoon with which to eat meals. 4. Follow [facility] Management of the Admitted Behavioral Health Patient policy. 5. Personal care: Comfort bath system only at this time. 6. Bathroom privileges: in room without limitation on Med/Surg.and in ICU. 6. No personal belongings at this time; per RN discretion. 7. and children may visit. at nursing discretion. 8. Phone contact limited to legal contact, and children at this time. 9. Activities: Med/Surg: Television and remote available at RN discretion. May have soft items from activity cart. 10. Due to VOLUNTARY status, if patient wishes to leave [facility], staff will contact [facility] Crisis Screener ([phone]) and On-Call Granite Setter ([phone]) as soon as possible. In the event of elopement, notify [facility] Police ([phone]). If deemed appropriate for inpatient psychiatric care, safety plan will be established with patient, and care team, to adhere to patient goals, identify restrictions based on behavioral status, address nutrition, and determine allowed personal belongings, tools for hygiene and personal care. As well plan will
--- NOTE | 2021-09-09 15:50 | PDOC.MHCN ---
Date of service: 09/09/21 Time of Service: 15:00 Mental Health Crisis Note Presenting Issue How did you arrive at the ED and why did you come: Client was brought via [facility] after intentional overdose. Precipitating Factors Client denies SI/HI. Disposition BEHAVIOR: Hostile, agressive. EYE CONTACT: Minimal. MOOD: Client appears to be agitated. AFFECT: Congruent with mood. APPETITE: No changes. SLEEP(trouble falling/staying asleep: No changes. Plan Per Manisha, the physician will be filling out EE paperwork to keep the client on an involuntary hold as she presents a risk to self. Please page NK if you need assistance with EE paperwork. Please page once EE has been submitted, for an update. Signature Clinician's Name/Title: Mary Mckeon ESC
--- NOTE | 2021-09-09 17:18 | CMSP_ITS ---
- If Service Date Differs Date of service: 09/09/21 Time of Service: 17:18 Care Management Safety Plan Status: Involuntary Safety plan has been established to meet the needs of the patient, and consideration of the care team, to adhere to patient goals, identify restrictions based on behavioral status, address nutrition, and determine allowed personal belongings, tools for hygiene and personal care. Determine level of activity including ambulation, level of supervision, visitors, and determine privileges based on behaviors and level of engagement by pt. SAFETY PLAN: 1. Will remain on SI/HI precautions. In Paper Clothes if available. 2. Will remain in room under direct supervision of one-on-one staff at all times provided by CPSO; JULIA, SWITCHMAN SUPERVISOR corporate recruiter. 3. May have paper cups, plates, finger foods as well as a cardboard spoon 4. Follow [facility] Management of the Admitted Behavioral Health Patient policy. 5. Comfort bath system only. 6. No personal belongings 7. Visitors: none at this time 8. Activities: may watch tv and have coloring materials, word search and other puzzle books. 9. Bathroom privileges with supervision 10. Phone: None at this time 11. Due to INVOLUNTARY status, patient is being held at [facility] by the Department of Mental Health ([facility]) until 2nd certification by [facility] Psychiatrist can be performed (within 24 hours). Staff will provide de-escalation support (CPI) as needed. If patient wishes to leave [facility], staff will contact [facility] Crisis Screener ([phone]) and On-Call Poultry Barn Manager ([phone]) as soon as possible. In the event of elopement, notify [facility] Police ([phone]). Patient is currently involuntarily at [facility]. [facility] Frontline Cabinet Maker will continue seeking placement. Please contact the School Cleaner Poultry Barn Manager ([phone]) for any needed changes to Safety Plan. Safety plan has been provided to interdepartmental care team. Patient will be transported by [facility] at time of discharge.
[2021-09-09] MEDS: Normal Saline Flush 10 ML SYR IVP (17:39)
--- NOTE | 2021-09-09 20:50 | PDOC.MHCN ---
Date of service: 09/09/21 Time of Service: 19:45 Mental Health Crisis Note Presenting Issue How did you arrive at the ED and why did you come: The patient was admitted to [facility] ICU 09.08.21 for acute hypoxic respiratory failuer after suicide attempt involving intentional overdose of amytryptaline and her 's gabapentic. She is seen for [facility] screening today. Precipitating Factors Patient appeared lying down on hospital bed. Engagement was minimal, eye contact poor, speech abrupt with irriated tone. Mood reported as I'm stupid with depressed and blunted affect. No apparent delusions, hallucinations, or psychotic thought process noted. She reported feeling suicidal with initial plan of overdose which she followed through with on 09.08.21. She admitted to overdosing in order to end her life and stated Because everyone reminded me I'm a stupid asshole and that everything is my fault. No reported HI, intent or plan. Disposition BEHAVIOR: Cooperative but minimally engaged EYE CONTACT: Poor MOOD: I'm stupid. AFFECT: Depressed / blunted APPETITE: N/A SLEEP(trouble falling/staying asleep: N/A Plan The patient will be placed on involuntary status and be referred for psychiatric in-patient level of care pending psychiatrist consultation. She will be assessed twice per day until placement is secured or acuity level has decreased to where a safety plan for discharge can be considered. Physician certification and exhibit B (Completed by Dr. Gupta) has been faxed to [facility] and EE / [facility] paperwork has been forwarded. contract associate manager Manisha Pino has been updated and ICU charge nurse notified. Signature Clinician's Name/Title: Nemesio Quintero [facility] clinician / [facility]
[2021-09-10 05:00] VITALS: BP 121/60; PULSE 85; RESP 15; TEMP 36.6; O2SAT 92
[2021-09-10] MEDS: Levothyroxine 75 MCG TAB PO (06:14)
[2021-09-10 06:31] VITALS: BP 150/60; PULSE 85
[2021-09-10 06:32] VITALS: BP 121/60; PULSE 86
[2021-09-10] MEDS: Omeprazole 20 MG CAPCR 40 MG PO (07:44)
[2021-09-10] MEDS: Escitalopram 20 MG TAB PO (07:44)
[2021-09-10] MEDS: LORazepam 1 MG TAB 2 MG PO (08:16)
--- NOTE | 2021-09-10 09:35 | W.PM.PROGNOT ---
Date of Service Date of service: 09/10/21 Time of Service: 08:35 Assessment and Plan Assessment and plan (1) Poisoning by tricyclic antidepressant, intentional self-harm: Status: Acute Assessment and plan: she is medically stable and no longer needing medical treatment for her overdose but she does need an acute inpatient psychiatric stay and examination and initiation of antidepressants and possibly mood stabilizers. She is very reactive in her behavior. (2) Suicidal behavior with attempted self-injury: Status: Acute Assessment and plan: await results of secondary psychiatric certification (3) Depression: Status: Chronic Assessment and plan: needs mental health consult. I have not started any antidepressants yet. Subjective Subjective Interval history since last seen: Patient continues to expect that she is going home tomorrow. I explained to her that d/t her suicidal behavior, she has been placed on involuntary emergency psychiatric hospital stay and that a follow up psychiatric exam will determine when she can be released. I explained to her that her behavior was life threatening. She indicated that she does not care and that she intends to leave and go to work tomorrow. Exam Narrative Exam Narrative: Patient is defiant and exhibiting avoidance of the subject of her suicidal action. She prefers to change the subject and focus either on her need to get the rest of her belongings from the place where she and her were staying when they were evicted. She also focuses on her need to go to work and also her need to get her cat. She would not discuss w/ me her actions that led to her respiratory failure. Objective Last Vital Signs Temp 36.6 C 09/10/21 05:00 Pulse 85 09/10/21 05:00 Resp 15 09/10/21 05:00 BP 121/60 09/10/21 05:00 Pulse Ox 92 09/10/21 05:00 Laboratory Results - last 24 hr 09/09/21 13:46 Sodium 142 Potassium 3.3 L Chloride 104 Carbon Dioxide 34.7 H Anion Gap 3.3 BUN 8 Creatinine 0.7 Estimated GFR/1.73 m2 >= 60.00 Glucose 115 H Calcium 6.8 L
[2021-09-10] MEDS: Potassium Chloride 20 MEQ TABCR 40 MEQ PO (10:28)
[2021-09-10] MEDS: Torsemide 20 MG TAB PO (10:28)
--- NOTE | 2021-09-10 15:32 | CMSP_ITS ---
- If Service Date Differs Date of service: 09/10/21 Time of Service: 15:32 Care Management Safety Plan Status: Involuntary - Reason for Wait Reason for Wait: Inpatient Admission A safety huddle was held at noon today with Cheryl, nursing horticulture supervisor, LAWANDA Higuera, Anne Marie, [facility] crisis screener and Manisha BEARD. Tamia's Yariel had come to visit but the decision was made to continue the restriction of visitors and phone contact for today. These will be revisited during daily huddles. Safety plan has been established to meet the needs of the patient, and consideration of the care team, to adhere to patient goals, identify restrictions based on behavioral status, address nutrition, and determine allowed personal belongings, tools for hygiene and personal care. Determine level of activity including ambulation, level of supervision, visitors, and determine privileges based on behaviors and level of engagement by pt. SAFETY PLAN: 1. Will remain on SI/HI precautions. In Paper Clothes if available. 2. Will remain in room under direct supervision of one-on-one staff at all times provided by [employer]; MAURA DUMONT slug press operator. 3. May have paper cups, plates, finger foods as well as a cardboard spoon 4. Follow [facility] Management of the Admitted Behavioral Health Patient policy. 5. Comfort bath system only. 6. No personal belongings 7. Visitors: none at this time 8. Activities: may watch tv and have coloring materials, word search and other puzzle books. 9. Bathroom privileges with supervision 10. Phone: None at this time 11. Due to INVOLUNTARY status, patient is being held at [facility] by the Department of Mental Health ([facility]) until 2nd certification by [facility] Psychiatrist can be performed (within 24 hours). Staff will provide de-escalation support (CPI) as needed. If patient wishes to leave [facility], staff will contact [facility] Crisis Screener ([phone]) and On-Call Monument Setter Helper ([phone]) as soon as possible. In the event of elopement, notify [place] [employer] Police ([phone]). Patient is currently involuntarily at [facility]. [facility] Frontline Registered Nurse Renal will continue seeking placement. Please contact the Stoneworker Monument Setter Helper ([phone]) for any needed changes to Safety Plan. Safety plan has been provided to interdepartmental care team. Patient will be transported by [facility] at time of discharge.
--- NOTE | 2021-09-10 15:32 | PDOC.CMSAFE ---
- If Service Date Differs Date of service: 09/10/21 Time of Service: 15:32 Care Management Safety Plan Status: Involuntary - Reason for Wait Reason for Wait: Inpatient Admission A safety huddle was held at noon today with Cheryl, nursing supervisor microwave, LAWANDA Higuera, Anne Marie, [facility] crisis screener and Manisha BEARD. Tamia's Yariel had come to visit but the decision was made to continue the restriction of visitors and phone contact for today. These will be revisited during daily huddles. Safety plan has been established to meet the needs of the patient, and consideration of the care team, to adhere to patient goals, identify restrictions based on behavioral status, address nutrition, and determine allowed personal belongings, tools for hygiene and personal care. Determine level of activity including ambulation, level of supervision, visitors, and determine privileges based on behaviors and level of engagement by pt. SAFETY PLAN: 1. Will remain on SI/HI precautions. In Paper Clothes if available. 2. Will remain in room under direct supervision of one-on-one staff at all times provided by [employer]; MAURA DUMONT tender labor. 3. May have paper cups, plates, finger foods as well as a cardboard spoon 4. Follow [facility] Management of the Admitted Behavioral Health Patient policy. 5. Comfort bath system only. 6. No personal belongings 7. Visitors: none at this time 8. Activities: may watch tv and have coloring materials, word search and other puzzle books. 9. Bathroom privileges with supervision 10. Phone: None at this time 11. Due to INVOLUNTARY status, patient is being held at [facility] by the Department of Mental Health ([facility]) until 2nd certification by [facility] Psychiatrist can be performed (within 24 hours). Staff will provide de-escalation support (CPI) as needed. If patient wishes to leave [facility], staff will contact [facility] Crisis Screener ([phone]) and On-Call Regulatory Compliance Officer ([phone]) as soon as possible. In the event of elopement, notify [employer] Police ([phone]). Patient is currently involuntarily at [facility]. [facility] Frontline Speech Pathology Supervisor will continue seeking placement. Please contact the Crew Leader/Control Room Operator Regulatory Compliance Officer ([phone]) for any needed changes to Safety Plan. Safety plan has been provided to interdepartmental care team. Patient will be transported by [facility] at time of discharge.
--- NOTE | 2021-09-10 15:36 | CMPROGNOTE_ITS ---
- If Service Date Differs Date of service: 09/10/21 Time of Service: 15:36 Care Management Progress Note S/O:Tamia was sitting up in bed when CM met with her this afternoon. She was appropriate in interaction and was able to maintain eye contact. Tamia continues to appear teary and depressed at times. Her drove to the hospital this morning and met with the nursing playground supervisor. He verbalized wanting to visit his and admitted to being angry that he was not allowed to do so. It was explained to him that no one else will be allowed to visit either and that this is what her team has determined is in Tamia's best interest today. Tamia did ask KISHA to contact her employer, [employer], and inform them that she will be unable to work at this time as she is hospitalized. KISHA made the call and spoke with Naila who agreed to notify the appropriate people. Tamia also expressed concern about not having insurance. KISHA explained to her that she has Medicare Part A and that covers inpatient stays. CM will provide her with an [facility] Financial Assist packet as well to help defray any uncovered expenses. A: Tamia is a 66 year old woman admitted after taking an intentional overdose of medication which required overnight intubation. P: Tamia is in involuntary status awaiting an inpatient bed at a psychiatric hospital.
[2021-09-10] MEDS: Melatonin 3 MG TAB 6 MG PO (20:49)
[2021-09-10] MEDS: LORazepam 1 MG TAB PO (20:49)
[2021-09-11 05:30] VITALS: BP 107/60; PULSE 65; RESP 16; TEMP 36.7; O2SAT 94
[2021-09-11] MEDS: Omeprazole 20 MG CAPCR 40 MG PO (05:53)
[2021-09-11] MEDS: Levothyroxine 75 MCG TAB PO (05:53)
[2021-09-11 05:59] VITALS: BP 107/64; PULSE 79
[2021-09-11 06:31] LABS: Anion Gap 1.2 mmol/L (3-11); BUN 8 mg/dL (7-18); CO2 29.8 mmol/L (21.0-32.0); Calcium 8.2 mg/dL (8.5-10.1); Chloride 105 mmol/L (98-107); Estimated GFR 55.64 (mL/min/1.73m2); Glucose 86 mg/dL (74-106); Magnesium 2.2 mg/dL (1.8-2.4); Sodium 136 mmol/L (136-145)
[2021-09-11] MEDS: Escitalopram 20 MG TAB PO (08:01)
[2021-09-11 08:29] VITALS: BP 99/60; PULSE 94
[2021-09-11 08:30] VITALS: PULSE 95; RESP 18; TEMP 37.2; O2SAT 95
--- NOTE | 2021-09-11 09:30 | PDOC.CMSAFE ---
- If Service Date Differs Date of service: 09/11/21 Time of Service: 09:30 Care Management Safety Plan Status: Involuntary - Reason for Wait Reason for Wait: Inpatient Admission Tamia's Yariel had come to visit but the decision was made to continue the restriction of visitors and phone contact for today. These will be revisited during daily huddles. Safety plan has been established to meet the needs of the patient, and consideration of the care team, to adhere to patient goals, identify restrictions based on behavioral status, address nutrition, and determine allowed personal belongings, tools for hygiene and personal care. Determine level of activity including ambulation, level of supervision, visitors, and determine privileges based on behaviors and level of engagement by pt. SAFETY PLAN: 1. Will remain on SI/HI precautions. In Paper Clothes if available. 2. Will remain in room under direct supervision of one-on-one staff at all times provided by [employer]; JULIA, [employer] fabric worker supervisor. 3. May have paper cups, plates, finger foods as well as a cardboard spoon 4. Follow [facility] Management of the Admitted Behavioral Health Patient policy. 5. Comfort bath system only. 6. No personal belongings at this time. 7. Visitors: none at this time 8. Activities: may watch tv and have coloring materials, word search and other puzzle books. 9. Bathroom privileges available in room without restriction. 10. Phone: Limited to legal contact at this time. 11. Due to INVOLUNTARY status, patient is being held at [facility] by the Department of Mental Health ([facility]) until 2nd certification by [facility] Psychiatrist can be performed (within 24 hours). Staff will provide de-escalation support (CPI) as needed. If patient wishes to leave [facility], staff will contact [facility] Crisis Screener ([phone]) and On-Call Organ Grinder ([phone]) as soon as possible. In the event of elopement, notify [place] [employer] ([phone]). Patient is currently involuntarily at [facility]. [facility] Frontline Photography Coordinator will continue seeking placement. Please contact the Weaver Hand Loom Organ Grinder ([phone]) for any needed changes to Safety Plan. Safety plan has been provided to interdepartmental care team. Patient will be transported by [employer] at time of discharge.
--- NOTE | 2021-09-11 13:34 | PGE_ITS ---
Date of Service Date of service: 09/11/21 Time of Service: 12:34 Assessment and Plan Assessment and plan (1) Depression: Status: Chronic Assessment and plan: I have not started the patient on any mood stabilizers or antidepressants at this point. I will defer to [facility] clinicians to initiate this. (2) Poisoning by tricyclic antidepressant, intentional self-harm: Status: Acute Assessment and plan: Patient is medically stable from her intentional overdose. From mental health standpoint she seems to be more forward and oriented and goal oriented and is denying any suicidal intentions at this point. I agree with Gracie from [facility] that I think the patient could be safely follow-up as an outpatient as long she is willing to check in with them and be accountable Subjective Subjective Interval history since last seen: Patient is calmer today, cooperative, she seems more future oriented, looking forward to building a modular home w/ her in [place], [place] on property that they are aquiring from [facility]. She has indicated that she acted in a rash, impulsive moment when she took the overdose. She is agreeable to following up w/ [facility] for counseling. I called emergency services at [facility] and spoke w/ Gracie after Gracie interviewed the patient but before I could assess the patient. I have called [facility] emergency services and spoke w/ another person who took my information and would relay to Gracie that I think that patient is no longer suicidal and seems more inciteful and has a better plan for deaing w/ her stressors. Exam Narrative Exam Narrative: Shanelle is calm relaxed cooperative. She seems more future oriented and more insightful into her situation. She seems to be well versed in her 's problems as well as the issues between her and her children. She and her have a plan for moving forward with relocating to [facility]. Shanelle is agreeable to follow-up with [facility] human services for further psychological counseling. Patient denies any suicidal thoughts or intentions and she was able to give me some specific plans about how she would deal with future stressors or her current stressors including calling her counselor at [facility], calling her primary care provider, coming to the hospital. Minor stressors she has some stress relaxation techniques that she would try including meditation and walking. Objective Last Vital Signs Temp 37.2 C 09/11/21 08:30 Pulse 95 H 09/11/21 08:30 Resp 18 09/11/21 08:30 BP 99/60 L 09/11/21 08:29 Pulse Ox 95 09/11/21 08:30 Laboratory Results - last 24 hr 09/11/21 05:51 Sodium 136 Potassium 3.0 L Chloride 105 Carbon Dioxide 29.8 Anion Gap 1.2 L BUN 8 Creatinine 1.0 Estimated GFR/1.73 m2 55.64 Glucose 86 Calcium 8.2 L Magnesium 2.2
[2021-09-11] MEDS: Potassium Chloride 20 MEQ TABCR 40 MEQ PO (13:54)
--- NOTE | 2021-09-11 14:35 | PDOC.CMPRO ---
- If Service Date Differs Date of service: 09/11/21 Time of Service: 14:35 Care Management Progress Note CM called [facility] to inquire as to 2nd Certification status due to lack of documentation. [facility] reported having no record of the client, stating this is why we encourage everyone to call to notify. CM gathered EE paperwork, collected MD signatures and re-submitted to [facility]. CM provided education to RN, and [facility] re: patient not currently being held involuntarily as paperwork was not received, and 2nd cert was not completed within timed window. met with Tamia and Gracie [facility] crisis screener. reported feeling that Tamia no longer met criteria for emergency examination as she was future focused, expressing remorse and reviewed additional options when struggling including outreaching for support and calling [facility]. MD reported he would discharge Tamia home at her request once [facility] safety plan was in place. KISHA notified AXEL Barbour of above who reported he would discuss with Gracie. KISHA received call from LAWANDA Barbour in the ICU who reported Tamia was calling her and leaving. KISHA advised Km to have Tamia complete an AMA form in the event she leaves prior to safety planning with [facility]. KISHA notified of the above.
--- NOTE | 2021-09-11 19:21 | W.PM.DS.N ---
Date of service: 09/11/21 Time of Service: 18:21 DS: Diagnosis Discharge Diagnosis (1) Depression: Status: Chronic (2) Poisoning by tricyclic antidepressant, intentional self-harm: Status: Acute Discharge Plan Disposition Patient Disposition: AGAINST MEDICAL ADVICE Condition: Improving Discharge Details Reason For Visit: Overdose, Respiratory Failure Admit Date/Time: 09/08/21 14:20 Admit Provider: Km Gupta Attending Provider: Km Gupta Primary Care Provider: Yariel [facility] Course Hospital Course: 66 yr old female w/ hx of depression took an overdose of an unspecificed amount of her amitriptyline and her 's gabapentin and was brought by EMS to the emergency room at [facility] obtunded and hypoxic. She became unresponsive while in the emergency room and necessitated emergergent intubation and mechanical ventilation. Poison control was contacted and due to the potential lethal dose of amitriptyline she was believed to have ingested (approximately 40 tabs of 50 mg each) she was given boluses of sodium bicarbonate and put on a contnuous sodium bicarbonate drip to alkalinize her blood. Patient did not have any seizures nor any arrhythmias and she was successfully extubated the next morning. DARSHANA mental health evaluation was requested. Because the patient threatened to leave the hospital against medical advise on the day of her extubation and because she was still expressing intentions of completing suicide, an EE evaluation was performed and she was kept hospitalized involuntarily. DARSHANA finally evaluated her via telehealth visit on 09/11 and they deemed her safe to be released into the community. Gracie ARNDTCalvin indicated that she was coming to the hospital to meet the patient in person and draw up an agreed upon safety plan for discharge into the community. Unfortunately the patient left the hospital against advise. I was not made aware of this until after the patient left the hospital. It is my understanding that nursing notified care managers and also notified DARSHANA of the patient's departure. At the time of my evaluation of the patient earlier in the day of 09/11 it was my impression that the patient understood that her behavior was impulsive and irrational and she was expressing more constructive and postive ways to deal with her social problems and stressors. She gave me constructive answers as to how she would deal with her stressors in the future and she was no longer expressing thoughts or intentions of suicide. Home Meds and New Rx's Prescriptions: No Action omeprazole [Prilosec] 40 MG capsule,delayed release(DR/EC) 40 mg PO DAILY ferrous sulfate 325 mg (65 mg iron) tablet 325 mg PO DAILY ketoconazole 2 % cream 1 applic TP BID melatonin 5 mg capsule 5 mg PO HS PRN clotrimazole-betamethasone 1-0.05 % cream 1 applic TP TID PRN levothyroxine 75 mcg capsule 75 mcg PO DAILY escitalopram oxalate 20 mg tablet 20 mg PO DAILY nystatin 100,000 unit/gram powder 1 applic TP TID cholecalciferol (vitamin D3) [Vitamin D3] 2,000 UNIT capsule 1 cap PO DAILY amitriptyline 50 mg tablet 50 mg PO DAILY Label Comments: TAKE 1 TABLET BY MOUTH AT BEDTIME FOR PAIN OR SLEEP meclizine 25 mg tablet 25 mg PO TID PRN (Reason: dizziness) Qty: 30 0RF amoxicillin-pot clavulanate 875-125 mg tablet 1 tab PO BID Qty: 10 0RF Discharge Instructions Activity:: Activity as Tolerated Equipment/Supplies:: No Equipment Needed Diet:: Normal Diet Discharge Orders Discharge Orders: Discharge Order (Routine); Ordered 09/11/21 Ordered By: Km Gupta Discharge Data Discharge Date/Time-TO BE ENTERED AT DEPARTURE: 09/11/21 15:09 DS: Summary Time Spent with Patient providing and/or coordinating discharge services: Less than 30 minutes Status at Discharge Functional status at discharge: independent ambulation Overall status at discharge: patient is back to baseline Mental Status: mental status grossly normal Speech and Movement: speech and movement normal Mood: congruent mood Affect: normal affect Exam Psych Mental Status: mental status grossly normal Speech and Movement: speech and movement normal Mood: congruent mood Affect: normal affect DS: Data Vitals/I&O Vitals and I&O: Vital Signs Temperature 37.2 C 09/11/21 08:30 Temperature Source Temporal Artery Scan 09/11/21 08:30 Pulse 95 H 09/11/21 08:30 Pulse Rhythm Regular 09/11/21 08:31 Pulse 75 09/09/21 14:31 Respiratory Rate 18 09/11/21 08:30 Respiratory Effort 09/11/21 08:31 Respiratory Depth Normal 09/11/21 08:31 Respiratory Pattern Normal 09/11/21 08:31 Blood Pressure 99/60 L 09/11/21 08:29 Blood Pressure Mean 70 09/11/21 08:29 Blood Pressure Position Supine 09/09/21 12:00 Pulse Oximetry 95 09/11/21 08:30 Respiratory End-tidal CO2 45 09/09/21 07:10 Oxygen Delivery Method Room Air 09/11/21 08:30 Oxygen Flow Rate 0 09/11/21 08:30 Fraction of Inspired Oxygen (FIO2) 35 09/09/21 08:21 Pain Level 0 09/09/21 12:00 Comment 09/10/21 19:25 Intake & Output 09/10/21 09/11/21 09/11/21 23:59 11:59 23:59 Intake Total 1000 / 1000 300 / 540 240 / 540 Output Total 2450 / 3300 500 / 500 Balance -1450 / -2300 -200 / 40 240 / 40 Intake: IV 200 / 200 Oral 800 / 800 300 / 540 240 / 540 Output: Urine 2450 / 3300 500 / 500 Other: Urine Color Yellow Urine Appearance Clear Clear Urine Odor None Voiding Methods Bedside Commode Data Completed and Pending Labs on day of discharge: Labs from last 24 hours 09/11/21 09/11/21 16:00 05:51 Sodium 136 Potassium Cancelled 3.0 L Chloride 105 Carbon Dioxide 29.8 Anion Gap 1.2 L BUN 8 Creatinine 1.0 Estimated GFR/1.73 m2 55.64 Glucose 86 Calcium 8.2 L Magnesium 2.2 PFSH All Active Problems (Updated 09/08/21 @ 19:47 by Km Gupta) Poisoning by tricyclic antidepressant, intentional self-harm (Acute) Depression (Chronic) Metabolic encephalopathy (Acute) Acute respiratory failure with hypoxemia (Acute) Drug overdose, intentional (Acute) Suicidal behavior with attempted self-injury (Acute) Contusion of multiple sites (Acute) Closed head injury (Acute) Fall at home (Acute) Dizziness (Acute) Lightheadedness (Acute) Shortness of breath (Acute) Overdose (Acute) Atrophic vaginitis (Acute) Screening for colon cancer (Acute) Elevated alkaline phosphatase level (Acute) Dermatitis (Acute) HTN (hypertension) (Chronic) Aortic stenosis (Chronic) Vitamin B12 deficiency (Acute) Prediabetes (Acute) pt. denies this Left eye pain (Acute) Chest pain (Acute) Pt. states this was due to anxiety Medical History (Updated 09/08/21 @ 19:47 by Km Gupta) Acid reflux disease Anemia Anxiety disorder Deep vein blood clot of right lower extremity 2008 following R leg trauma Fx wrist R x 2 2012 and 2013 Gall stones surgery 1999 Hypothyroidism Kidney calculi passed 2009 Morbid obesity lifelong with surgery Shingles September 2019, had occular weeping, and pain. Surgical History (Updated 09/08/21 @ 19:34 by Km Gupta) Cholecystectomy 2000 Gastric Bypass 2009 and 2012 (revision for stricture) History of total knee arthroplasty bilateral Reduction mammoplasty Bilateral 2013 Rotator Cuff Repair Bilateral 2008/2009/2011 S/P colonoscopy 2013- ? polyp Family History Other Diabetes Heart disease Social History Smoking/Tobacco Use Status: Never Smoking risk assessment performed?: Yes Alcohol Intake: never Drug use: Never Substance use type: does not use Do you feel safe at home: Yes Do you feel safe in your relationship?: Yes Female Reproductive History Menstrual Menopause type: natural (2012) History History 2 Para 2 Hx # Term Pregnancies Multiple births Hx # Pregnancies Ectopic pregnancies AB induced Hx Number of Living Children AB spontaneous
== END 2021-09-11 15:09 | disposition left against medical advice (07) | DRG 917 ==
LOC: ER 14:27 → ICU 15:31
PROVIDERS: Family Medicine; Admitting Provider Internal Medicine; Emergency Provider Emergency Medicine; PCP Family Medicine; Visit Provider Internal Medicine
DX: T43.012A Poisoning by tricyclic antidepressants, intentional self-harm, initial encounter (principal); G93.41 Metabolic encephalopathy; Z68.42 Body mass index [BMI] 45.0-49.9, adult; J96.01 Acute respiratory failure with hypoxia; F32.9 Major depressive disorder, single episode, unspecified; E66.01 Morbid (severe) obesity due to excess calories; Z59.02 Unsheltered homelessness; R40.2432 Glasgow coma scale score 3-8, at arrival to emergency department; I10 Essential (primary) hypertension; I35.0 Nonrheumatic aortic (valve) stenosis; E53.8 Deficiency of other specified B group vitamins; R73.03 Prediabetes; Z98.84 Bariatric surgery status; Z96.651 Presence of right artificial knee joint; I95.1 Orthostatic hypotension; E03.9 Hypothyroidism, unspecified
CPT/HCPCS: 36415; 80048; 80053; 82805; 87635; 93005; J1650; 36600; 71045; 80320; 80329; 81003; 83735; 84132; 84443; 85025; 93010; 94002; 94003; 99231; 99238; 99291; J3010; J3480; J3490; J7060

== ENCOUNTER 2021-09-24 12:03 | Emergency (ER) | payer MEDICARE, OTHER, SELFPAY ==
[2021-09-24] VITALS (45 sets, daily range): BP systolic 121–146; BP diastolic 69–87; PULSE 84–94; RESP 11–21; TEMP 36.5; O2SAT 91–97
--- NOTE | 2021-09-24 12:00 | RT.EKG_ITS ---
APPROVED REPORT Exam: Resting ECG Reason for Exam: shortness of breath Patient Location: E HR:91 bpm ECG Measurements Heart Rate 91 AXIS AR 145 P 39 QRSd 92 QRS 10 QT 388 T 17 QTc 478 Conclusion Sinus rhythm...normal P axis, V-rate 60- 99
--- NOTE | 2021-09-24 12:30 | DI.CT_ITS ---
Exam(s) CT CHEST PE CTA EXAM: CT CHEST PE CTA CLINICAL HISTORY: dyspnea on exertion, sob. TECHNIQUE: Imaging Protocol: Axial CT angiography was performed with multi-slice acquisition and mu lti-planar reconstructions as well as axial, coronal and sagittal MIP reconstructions. CONTRAST MATERIAL: Intravenous: Omnipaque 350 Contrast volume:100 ml FINDINGS: Pulmonary Arteries: There are multiple bilateral pulmonary artery filling defects in both upper and l ower lobes consistent with emboli. No saddle embolus. The emboli extend to the level of the main p ulmonary artery on the right side. Tracheobronchial tree: Patent where visualized. Mediastinum and Keily: No dominant adenopathy or fluid collection. Pulmonary parenchyma: Atelectasis or scarring at the lung bases. Dependent changes. Scattered perip heral ground-glass opacities could represent early infarct versus inflammation. Clinical correlation is recommended. No consolidation or dominant measurable mass. Pleura: No effusion or pneumothorax. Heart: There is dilatation of the right ventricle compared to left consistent with right heart strain . There is no reflux into the IVC. The right atrium appears enlarged which was seen on the previous exam. Coronary artery calcifications are seen. Small hiatal hernia. Suture material at fundus. Aorta: Thoracic aorta non-dilated. Atherosclerotic changes. No aneurysm. No dissection. Upper abdomen: Status post cholecystectomy. Bones: Left shoulder prosthesis. Degenerative changes in the thoracic spine. IMPRESSION: Bilateral upper and lower lobe pulmonary emboli with large clot burden and evidence of right ventricu lar strain. RADIATION DOSE DELIVERED: 620.48mGy.cm Total DLP DATA REPOSITORY: All CT scans at this facility are submitted to the National Radiology Data Registry (NRDR) Dose Index Registry (DIR) with the [employer] (ACR). RADIATION OPTIMIZATION: All CT scans at this facility use at least one of these dose optimization te chniques: automated exposure control; mA and/or kV adjustment per patient size (includes targeted exa ms where dose is matched to clinical indication); or iterative reconstruction.
--- NOTE | 2021-09-24 12:40 | W.ED.GENAD ---
Discharge Plan Disposition Patient Disposition: [facility] Condition: Critical Discharge Details Clinical Impression: Acute pulmonary embolism, SARS-CoV-2 positive, Elevated troponin Primary Care Provider: Yariel Hackett ED Provider: Kalyan Perry Home Meds and New Rx's Prescriptions: No Action omeprazole [Prilosec] 40 MG capsule,delayed release(DR/EC) 40 mg PO DAILY ferrous sulfate 325 mg (65 mg iron) tablet 325 mg PO DAILY ketoconazole 2 % cream 1 applic TP BID melatonin 5 mg capsule 5 mg PO HS PRN clotrimazole-betamethasone 1-0.05 % cream 1 applic TP TID PRN levothyroxine 75 mcg capsule 75 mcg PO DAILY escitalopram oxalate 20 mg tablet 20 mg PO DAILY nystatin 100,000 unit/gram powder 1 applic TP TID cholecalciferol (vitamin D3) [Vitamin D3] 2,000 UNIT capsule 1 cap PO DAILY amitriptyline 50 mg tablet 50 mg PO DAILY Label Comments: TAKE 1 TABLET BY MOUTH AT BEDTIME FOR PAIN OR SLEEP meclizine 25 mg tablet 25 mg PO TID PRN (Reason: dizziness) Qty: 30 0RF amoxicillin-pot clavulanate 875-125 mg tablet 1 tab PO BID Qty: 10 0RF Discharge Data Discharge Date/Time-TO BE ENTERED AT DEPARTURE: 09/24/21 17:17 Medical Decision Making 1245 --66-year-old female with history of aortic stenosis and hypertension, here with shortness of breath and dyspnea on exertion, progressive for the past 1 week with associated left lower extremity swelling. Patient saturating in low to mid 90s on room air. Lungs clear to auscultation. Concern for acute pulmonary embolism versus CHF. Plan to obtain CTA of the chest and will check troponin and BNP. EKG was reviewed and interpreted by me: Sinus rhythm 91 bpm, normal axis, no STEMI, nondiagnostic, please see report. -- Labs reviewed and significant elevation of troponin and BNP. 1430 --CT of the chest was interpreted by radiology: Acute segmental and subsegmental pulmonary emboli throughout both lungs. Right heart enlargement with elevated RV?LV ratio 2.1 consistent with right heart strain. 5 mm some solid nodule left upper lobe and 4 mm some solid nodule right upper lobe. Will initiate treatment with Lovenox 100U SC. Patient reassessed remains hemodynamically stable and saturating in the mid to upper 90s on room air with no respiratory distress. I called [facility] transfer center and requested transfer for higher level of care. -- Will give remdesivir 200mg IV. 1514 -- I spoke with Dr. Villanueva, on-call [facility] cardiology, discussed ED presentation course including diagnostics. She will accept patient in transfer on behalf of Dr. Nj for consideration for invasive interventional procedure. Patient does consent to this procedure. Lab Data Lab results reviewed: Yes I reviewed the patient's lab results. Labs: Laboratory Tests Range/Units 09/24/21 09/24/21 09/24/21 12:25 12:25 12:42 WBC (4.4-10.8) 10^3/uL 8.19 RBC (3.93-5.22) 10^6/uL 4.58 Hgb (11.2-15.7) g/dL 13.6 Hct (36.0-46.0) % 42.1 MCV (80-95) fL 92 MCH (27.0-33.0) pg 29.7 MCHC (32.0-36.0) % 32.3 RDW (11.7-14.6) % 13.2 Plt Count (130-400) 10^3/uL 280 MPV (8.0-11.0) fL 13.0 H Immature Gran % 0.9 Neutrophils % 63.0 Lymphocytes % 23.1 Monocytes % 9.3 Eosinophils % 3.3 Basophils % 0.4 Nucleated RBC % (0.0-0.3) % 0.0 Absolute Neutrophils (1.2-6.7) 10^3/uL 5.17 Absolute Lymphocytes (1.2-3.4) 10^3/uL 1.89 Absolute Monocytes (0.1-0.8) 10^3/uL 0.76 Absolute Eosinophils (0.0-0.7) 10^3/uL 0.27 Absolute Basophils (0.0-0.2) 10^3/uL 0.03 Sodium (136-145) mmol/L 144 Potassium (3.5-5.1) mmol/L 3.7 Chloride (98-107) mmol/L 107 Carbon Dioxide (21.0-32.0) mmol/L 25.4 Anion Gap (3-11) mmol/L 11.6 H BUN (7-18) mg/dL 15 Creatinine (0.55-1.02) mg/dL 1.0 Estimated GFR/1.73 m2 (mL/min/1.73m2) 55.64 Glucose (74-106) mg/dL 94 Calcium (8.5-10.1) mg/dL 9.0 Magnesium (1.8-2.4) mg/dL 2.2 Total Bilirubin (0.2-1.0) mg/dL 0.6 AST (15-37) U/L 28 ALT (14-59) U/L 23 Alkaline Phosphatase (46-116) U/L 101 Troponin I (<or=60) ng/L 1371 H* NT-Pro-B Natriuret Pep (<300) pg/mL 1264 H Total Protein (6.4-8.2) g/dL 7.3 Albumin (3.4-5.0) g/dL 3.6 COVID-19 Source Nasal/Nares SARS-CoV-2 (PCR) (Negative) POSITIVE A* HPI General Mode of arrival: ambulatory. Date/Time Provider Initiated Documentation: 09/24/21 12:26. Limitations to Documentation: no limitations. Information obtained by: patient. HPI Narrative: 66-year-old female with history of hypertension, aortic stenosis, depression, presents with chief complaint of shortness of breath. Patient notes progressive shortness of breath over the past week. She notes that she feels short of breath with any exertion. Symptoms now moderate to severe, worse with exertion. No associated chest pain. She does have associated left lower extremity swelling. She denies swelling in the right lower extremity. No orthopnea. No calf pain. Related Data Home Medications Medication Instructions Recorded Confirmed omeprazole 40 mg capsule,delayed 40 mg PO DAILY 09/02/13 09/24/21 release (Prilosec) cholecalciferol (vitamin D3) 50 1 cap PO DAILY 10/30/13 09/24/21 mcg (2,000 unit) capsule (Vitamin D3) clotrimazole-betamethasone 1 1 applic topical TID PRN 10/05/19 09/24/21 %-0.05 % topical cream escitalopram oxalate 20 mg tablet 20 mg PO DAILY 10/05/19 09/24/21 ferrous sulfate 325 mg (65 mg 325 mg PO DAILY 10/05/19 09/24/21 iron) tablet ketoconazole 2 % topical cream 1 applic topical BID 10/05/19 09/24/21 levothyroxine 75 mcg capsule 75 mcg PO DAILY 10/05/19 09/24/21 melatonin 5 mg capsule 5 mg PO HS PRN 10/05/19 09/24/21 nystatin 100,000 unit/gram topical 1 applic topical TID 10/05/19 09/24/21 powder amitriptyline 50 mg tablet 50 mg PO DAILY 02/14/21 09/24/21 meclizine 25 mg tablet 25 mg PO TID PRN dizziness #30 tabs 02/14/21 09/24/21 amoxicillin 875 mg-potassium 1 tab PO BID #10 tabs 06/10/21 09/24/21 clavulanate 125 mg tablet Previous Rx's Medication Instructions Recorded meclizine 25 mg tablet 25 mg PO TID PRN dizziness #30 tabs 02/14/21 amoxicillin 875 mg-potassium 1 tab PO BID #10 tabs 06/10/21 clavulanate 125 mg tablet Allergies Allergy/AdvReac Type Severity Reaction Status Date / Time Farber And Derivatives Allergy Intermediate Rash, Unverified 09/24/21 14:38 blister diazepam [From Valium] AdvReac Intermediate Increased Unverified 09/24/21 14:38 anxiety General Stated Complaint: SOB RONNA: 3 Review of Systems All systems reviewed & are unremarkable except as noted in HPI and below Constitutional Constitutional: Denies fever(s) Cardiovascular Cardiovascular: Denies chest pain and Reports dyspnea Respiratory Respiratory: Reports as per HPI, Reports cough and Reports dyspnea PFSH All Active Problems (Updated 09/25/21 @ 00:04 by SANTO GARCIA) Acute pulmonary embolism (Acute) SARS-CoV-2 positive (Acute) Elevated troponin (Acute) Depression (Chronic) Contusion of multiple sites (Acute) Closed head injury (Acute) Fall at home (Acute) Dizziness (Acute) Lightheadedness (Acute) Shortness of breath (Acute) Atrophic vaginitis (Acute) Screening for colon cancer (Acute) Elevated alkaline phosphatase level (Acute) Dermatitis (Acute) HTN (hypertension) (Chronic) Aortic stenosis (Chronic) Vitamin B12 deficiency (Acute) Prediabetes (Acute) pt. denies this Left eye pain (Acute) Chest pain (Acute) Pt. states this was due to anxiety Medical History Acid reflux disease Anemia Anxiety disorder Deep vein blood clot of right lower extremity 2008 following R leg trauma Fx wrist R x 2 2012 and 2013 Gall stones surgery 1999 Hypothyroidism Kidney calculi passed 2009 Morbid obesity lifelong with surgery Shingles September 2019, had occular weeping, and pain. Surgical History Cholecystectomy 2000 Gastric Bypass 2009 and 2012 (revision for stricture) History of total knee arthroplasty bilateral Reduction mammoplasty Bilateral 2013 Rotator Cuff Repair Bilateral 2008/2009/2011 S/P colonoscopy 2013- ? polyp Family History Other Diabetes Heart disease Social History Smoking/Tobacco Use Status: Never Smoking risk assessment performed?: Yes Alcohol Intake: never Drug use: Never Substance use type: does not use Do you feel safe at home: Yes Do you feel safe in your relationship?: Yes Female Reproductive History Menstrual Menopause type: natural (2012) History History 2 Para 2 Hx # Term Pregnancies Multiple births Hx # Pregnancies Ectopic pregnancies AB induced Hx Number of Living Children AB spontaneous Exam Const General: cooperative and no acute distress Orientation: alert and awake HENMT Mouth: moist mucous membranes Eyes Conjunctivae: normal conjunctivae Sclera: normal sclerae Neck Neck: trachea midline and supple Resp Effort & Inspection: no respiratory distress and tachypneic Auscultation: clear to auscultation bilaterally, no rales, no rhonchi and no wheezes Cardio Rate: regular rate and not tachycardic Rhythm: regular rhythm GI Palpation: soft, not firm, no guarding, no masses, not rigid and nontender Skin General skin exam: no rashes or lesions noted Neuro General: patient alert, patient awake and tone normal Cognition: normal cognition Extrem General: no calf tenderness and edema Laterality: left (1+, no pitting ankle to lower leg) Psych Appearance: grossly normal Mental Status: mental status grossly normal Speech and Movement: speech and movement normal Course Vital Signs Vital signs: Vital Signs Temperature 36.5 C 09/24/21 12:20 Pulse 91 H 09/24/21 12:20 Respiratory Rate 09/24/21 12:20 Blood Pressure 125/77 09/24/21 12:20 Pulse Oximetry 96 09/24/21 12:20 Temperature 36.5 C 09/24/21 12:20 Temperature Source Oral 09/24/21 12:20 Pulse 91 H 09/24/21 12:20 Respiratory Rate 16 09/24/21 12:28 Respiratory Effort Short of Breath 09/24/21 12:28 Respiratory Depth Normal 09/24/21 12:28 Respiratory Pattern Normal 09/24/21 12:28 Blood Pressure 125/77 09/24/21 12:20 Blood Pressure Position Sitting 09/24/21 12:20 Pulse Oximetry 96 09/24/21 12:20 Oxygen Delivery Method Room Air 09/24/21 12:20 Oxygen Flow Rate 0 09/24/21 12:20 Pain Level 0 09/24/21 12:20 Critical Care Time Critical Care Time Critical Care Time: Yes Total Critical Care Time: 65 Attestation: I spent greater than 65 minutes addressing this patient's immediate life threats. Please see MDM section of note. This time was spent engaged in work directly related to the patient's care, exclusive of separate procedures, and failure to initiate these interventions would have likely resulted in clinically significant or life threatening deterioration in the patient's condition.
[2021-09-24 12:49] LABS: Source Nasal/Nares
[2021-09-24 12:50] LABS: Abs Immature Grans 0.07 10^3/uL (0.0-0.06); Absolute Basophil Count 0.03 10^3/uL (0.0-0.2); Absolute Eosinophil Count 0.27 10^3/uL (0.0-0.7); Absolute Lymphocyte Count 1.89 10^3/uL (1.2-3.4); Absolute Monocyte Count 0.76 10^3/uL (0.1-0.8); Absolute Neutrophil Count 5.17 10^3/uL (1.2-6.7); Basophils % 0.4; Eosinophils % 3.3; HCT 42.1 % (36.0-46.0); HGB 13.6 g/dL (11.2-15.7); Immature Grans % 0.9; Lymphocytes % 23.1; MCH 29.7 pg (27.0-33.0); MCHC 32.3 % (32.0-36.0); MCV 92 fL (80-95); Monocytes % 9.3; Platelet Count 280 10^3/uL (130-400); RBC 4.58 10^6/uL (3.93-5.22); RDW 13.2 % (11.7-14.6); RDW-SD 45.1 fL; WBC 8.19 10^3/uL (4.4-10.8)
[2021-09-24 13:13] LABS: ALT 23 U/L (14-59); AST 28 U/L (15-37); Albumin 3.6 g/dL (3.4-5.0); Alkaline Phosphatase 101 U/L (46-116); Anion Gap 11.6 mmol/L (3-11); BUN 15 mg/dL (7-18); Bilirubin, Total 0.6 mg/dL (0.2-1.0); CO2 25.4 mmol/L (21.0-32.0); Chloride 107 mmol/L (98-107); Estimated GFR 55.64 (mL/min/1.73m2); Glucose 94 mg/dL (74-106); Magnesium 2.2 mg/dL (1.8-2.4); NT-proBNP 1264 pg/mL (<300); Potassium 3.7 mmol/L (3.5-5.1); Sodium 144 mmol/L (136-145); Total Protein 7.3 g/dL (6.4-8.2)
[2021-09-24 13:15] LABS: Troponin I 1371 ng/L (<or=60)
[2021-09-24] MEDS: Omnipaque 350 MG/ML 100 ML BTL IJ (13:49)
[2021-09-24 13:50] LABS: COVID-19 PCR POSITIVE (Negative)
[2021-09-24] MEDS: Normal Saline Flush 10 ML SYR IVP (13:51)
--- NOTE | 2021-09-24 14:21 | DI.VRAD_ITS ---
Addendum created by Pravin Law MD on 09/24/2021 2:21:06 PM EDT: THIS REPORT CONTAINS FINDINGS THAT MAY BE CRITICAL TO PATIENT CARE. The findings were verbally communicated via telephone conference with DANETTE Senior at 2:20 PM EDT on 09/24/2021. The findings were acknowledged and understood. Initial report created on 09/24/2021 2:20:48 PM EDT: PROCEDURE INFORMATION: Exam: CTA Chest With Contrast Exam date and time: 09/24/2021 1:39 PM Age: 66 years old Clinical indication: Other: Dyspnea on exertion, SOB, pui TECHNIQUE: Imaging protocol: Computed tomographic angiography of the chest with contrast. 3D rendering (Not supervised by radiologist): MIP and/or 3D reconstructed images were created by the technologist. Radiation optimization: All CT scans at this facility use at least one of these dose optimization techniques: automated exposure control; mA and/or kV adjustment per patient size (includes targeted exams where dose is matched to clinical indication); or iterative reconstruction. Contrast material: OMNIPAQUE 350; Contrast volume: 100 ml; Contrast route: INTRAVENOUS (IV); COMPARISON: CT Private^PE (Adult) 01/21/2018 8:50 PM FINDINGS: Pulmonary arteries: See Lungs finding. Aorta: Aorta demonstrates mild atherosclerotic calcification. Lungs: Acute segmental and subsegmental pulmonary emboli throughout both lungs. 5 mm subsolid nodule left upper lobe series 5, image 21. 4 mm subsolid nodule right upper lobe series 5, image 20. Pleural spaces: Unremarkable. No pneumothorax. No pleural effusion. Heart: Right heart enlargement with elevated RV/LV ratio 2.1 consistent with right heart strain. Correlate clinically. Coronary artery calcifications. Lymph nodes: Unremarkable. No enlarged lymph nodes. Diaphragm: Small hiatal hernia. Gallbladder and bile ducts: Gallbladder surgically absent. Bones/joints: Previous right shoulder replacement. Soft tissues: Unremarkable. IMPRESSION: 1. Acute segmental and subsegmental pulmonary emboli throughout both lungs. 2. Right heart enlargement with elevated RV/LV ratio 2.1 consistent with right heart strain. 3. 5 mm subsolid nodule left upper lobe series 5, image 21. 4 mm subsolid nodule right upper lobe series 5, image 20. Dictated and Authenticated by: Pravin Law MD. Ordering:DEBBI Biggs MD
[2021-09-24] MEDS: Enoxaparin 100 MG/ML SYR SC (14:26)
[2021-09-24] MEDS: REMDESIVIR 200 MG in Normal Saline 250 ML 250 MG IVPB (15:20)
== END 2021-09-24 17:17 | disposition short-term general hospital (02) ==
PROVIDERS: Emergency Provider Student in an Organized Health Care Education/Training Program; PCP Family Medicine
DX: I26.93 Single subsegmental thrombotic pulmonary embolism without acute cor pulmonale (principal); U07.1 COVID-19; R79.89 Other specified abnormal findings of blood chemistry
CPT/HCPCS: 36415; 71275; 80053; 87635; 93005; 96365; 96372; 99291; 83735; 83880; 84484; 85025; 93010; J0248; J1650; J3490

== ENCOUNTER 2022-06-13 02:36 | Outpatient (RCR) | payer MEDICARE, SELFPAY ==
[2022-06-13] MEDS: ZOLEDRONIC ACID/MANNITOL/WATER 5 MG/100 ML BTL 300 MG IVPB (13:25)
[2022-06-13] MEDS: Normal Saline Flush 10 ML SYR IVP (13:28)
== END 2022-07-06 23:59 | disposition home or self-care (01) ==
LOC: INF 02:36
PROVIDERS: PCP Family Medicine; Visit Provider Family Medicine
DX: M81.0 Age-related osteoporosis without current pathological fracture (principal)
CPT/HCPCS: 96365; J3489

== ENCOUNTER 2022-10-23 17:05 | Outpatient (REF) | payer MEDICARE, SELFPAY ==
[2022-10-23 19:47] LABS: Vitamin D 25 Total 19.9 ng/mL (30-100)
[2022-10-23 19:55] LABS: ALT 34 U/L (14-59); AST 32 U/L (15-37); Albumin 3.6 g/dL (3.4-5.0); Alkaline Phosphatase 78 U/L (46-116); Anion Gap 10.7 mmol/L (3-11); BUN 15 mg/dL (7-18); Bilirubin, Total 0.4 mg/dL (0.2-1.0); CO2 24.3 mmol/L (21.0-32.0); Calcium 8.7 mg/dL (8.5-10.1); Chloride 109 mmol/L (98-107); Estimated GFR 62.13 (mL/min/1.73m2); Glucose 87 mg/dL (74-106); Potassium 4.5 mmol/L (3.5-5.1); Sodium 144 mmol/L (136-145); TSH 6.68 uIU/mL (0.36-3.74); Total Protein 6.6 g/dL (6.4-8.2); Vitamin B12 202 pg/mL (193-986)
== END 2022-10-23 17:06 | disposition home or self-care (01) ==
LOC: NCHCN 17:05
PROVIDERS: PCP Family Medicine; Visit Provider Family Medicine
DX: E03.9 Hypothyroidism, unspecified (principal); E55.9 Vitamin D deficiency, unspecified
CPT/HCPCS: 80053; 82306; 82607; 84443

== ENCOUNTER 2023-03-08 15:47 | Outpatient (REF) | payer MEDICARE, SELFPAY ==
[2023-03-08 15:41] LABS: Calculated LDL 144 mg/dL (<100); Cholesterol 245 mg/dL (<200); HDL Cholesterol 80 mg/dL (40-60); Triglyceride 108 mg/dL (<150); Vitamin B12 696 pg/mL (193-986)
[2023-03-08 15:50] LABS: Vitamin D 25 Total 24.7 ng/mL (30-100)
== END 2023-03-08 15:48 | disposition home or self-care (01) ==
LOC: NCHCN 15:47
PROVIDERS: PCP Family Medicine; Visit Provider Family Medicine
DX: E78.5 Hyperlipidemia, unspecified (principal); E03.9 Hypothyroidism, unspecified; E55.9 Vitamin D deficiency, unspecified; E53.8 Deficiency of other specified B group vitamins
CPT/HCPCS: 80061; 82306; 82607; 84443

== ENCOUNTER 2023-06-18 04:00 | Outpatient (RCR) | payer SELFPAY ==
[2023-06-18] MEDS: Normal Saline Flush 10 ML SYR IVP (10:20)
[2023-06-18] MEDS: ZOLEDRONIC ACID/MANNITOL/WATER 5 MG/100 ML BTL 300 MG IVPB (10:20)
== END 2023-07-07 23:59 | disposition home or self-care (01) ==
LOC: INF 04:00
PROVIDERS: PCP Family Medicine; Visit Provider Nurse Practitioner Acute Care
DX: M81.0 Age-related osteoporosis without current pathological fracture (principal)
CPT/HCPCS: 96365; J3489

== ENCOUNTER 2023-09-11 18:08 | Outpatient (REF) | payer SELFPAY ==
[2023-09-11 19:49] LABS: Abs Immature Grans 0.02 10^3/uL (0.0-0.06); Absolute Basophil Count 0.04 10^3/uL (0.0-0.2); Absolute Eosinophil Count 0.29 10^3/uL (0.0-0.7); Absolute Neutrophil Count 2.32 10^3/uL (1.2-6.7); Basophils % 0.8 %; Eosinophils % 5.6 %; HCT 38.6 % (36.0-46.0); Immature Grans % 0.4 %; Lymphocytes % 38.7 %; MCH 29.6 pg (27.0-33.0); MCHC 31.1 % (32.0-36.0); MCV 95 fL (80-95); Monocytes % 9.7 %; Neutrophils % 44.8 %; Platelet Count 264 10^3/uL (130-400); RBC 4.06 10^6/uL (3.93-5.22); RDW 13.2 % (11.7-14.6); RDW-SD 46.7 fL; WBC 5.17 10^3/uL (4.4-10.8)
[2023-09-11 19:58] LABS: ALT 26 U/L (14-59); AST 20 U/L (15-37); Albumin 3.5 g/dL (3.4-5.0); Alkaline Phosphatase 71 U/L (46-116); Anion Gap 7.9 mmol/L (3-11); BUN 14 mg/dL (7-18); Bilirubin, Total 0.5 mg/dL (0.2-1.0); CO2 28.1 mmol/L (21.0-32.0); CREATININE 0.8 mg/dL (0.55-1.02); Calcium 8.6 mg/dL (8.5-10.1); Chloride 108 mmol/L (98-107); Estimated GFR 80.71 (mL/min/1.73m2); Glucose 90 mg/dL (74-106); NT-proBNP 206 pg/mL (<300); Potassium 4.7 mmol/L (3.5-5.1); Sodium 144 mmol/L (136-145); TSH (W/Ref FT4) 2.54 uIU/mL (0.36-3.74); Total Protein 6.4 g/dL (6.4-8.2)
[2023-09-11 20:47] LABS: Vitamin B12 887 pg/mL (193-986)
== END 2023-09-11 18:09 | disposition home or self-care (01) ==
LOC: NCHCN 18:08
PROVIDERS: PCP Family Medicine; Visit Provider Student in an Organized Health Care Education/Training Program
DX: R06.09 Other forms of dyspnea (principal); E03.9 Hypothyroidism, unspecified; Z98.84 Bariatric surgery status
CPT/HCPCS: 80053; 82607; 83880; 84443; 85025

== ENCOUNTER 2024-01-09 00:56 | Outpatient (CLI) | payer SELFPAY ==
--- OUTSIDE RECORDS SUMMARY | 2023-11-14 01:01 | XMS_ITS | Encounter Summary ---
Author Organization [facility] [place] [address] Care Team Providers Care E Mail System Administrator Name Role Phone Yariel Hackett MD Primary Care Provider [phone] Encounter Details Date Type Department Care Team (Late st Contact Info) Description 10/02/2021 [place] [address] Krishna Roca MD [facility] CARDIOVASCULAR SURGERY [place] [id number] Social History Tobacco Use Types Packs/Day Years Used Date Smoking Tobacco: Never Smokeless Tobacco: Never Sex and Gender Information Value Date Recorded Sex Assigned at Not on file Gender Identity Not on file Sexual Orientation Not on file documented as of this encounter Plan of Treatment Not on file documented as of this encounter Visit Diagnoses Not on filedocumented in this encounter Additional Health Concerns Infection Onset Date Last Indicated Resolved Time COVID-19 Comment:Date of symptom onset: Date of positive test: 09/24/2021 Estimated date patient will be eligible for precaution removal: 10/05/2021 09/24/2021 09/24/2021 10/15/2021 8:09 PM E DT documented as of this encounter Care Teams E Mail System Administrator Relationship Specialty Start Date End Date Yariel Hackett MD [address] [place] [address] [place] [address] PCP - General 08/21/16 documented as of this encounter
--- OUTSIDE RECORDS SUMMARY | 2023-11-14 01:01 | XMS_ITS | Encounter Summary ---
Author Organization [facility] Address [facility] [place] [address] [place] [address] Care Team Providers Care Communications Intern Name Role Phone Yariel Hackett MD Primary Care Provider [phone] Reason for Visit * Reason Onset Date Comments Medication Change/management 10/02/2021 diamond dian Encounter Details Date Type Department Care Team (Late st Contact Info) Description 10/02/2021 Telephone [place] [phone] Krishna Roca MD [facility] [place] [address] Medication Change/management (eliquis) Social History Tobacco Use Types Packs/Day Years [...] documented as of this encounter Care Teams Communications Intern Relationship Specialty Start Date End Date Yariel Hackett MD [address] [place] [address] [place] [id number] PCP - General 08/21/16 documented as of this encounter
--- OUTSIDE RECORDS SUMMARY | 2023-11-14 01:01 | XMS_ITS | Clinical Summary ---
Author Organization [facility] Address [facility] [place] [address] Care Team Providers Care Medical Device Sales Consultant Name Role Phone Yariel Hackett MD Primary Care Provider [phone] Allergies Active Allergy Reactions Criticality Noted Date Comments Diazepam 10/18/2016 Hyper active and anxious Medications Medication Sig Dispensed Refills Start Date End Date Status levothyroxine (SYNTHROID) 75 mcg Tablet take 1 tablet by mouth once daily 0 10/04/2016 Active escitalopram (LEXAPRO) 20 mg Tablet Take 20 mg by mouth daily. Active nystatin (MYCOSTATIN) Powder Apply topically as needed. Active amitriptyline (Elavil) 25 mg Tablet 25 mg nightly. 10/15/2020 Active cholecalciferol, Vitamin D3, 50 mcg (2,000 unit) Capsule Daily. Active omeprazole (PriLOSEC) 40 mg Capsule, Delayed Release(E.C.) 40 mg Daily. Active apixaban (Eliquis) 5 mg Tablet Take 1 tablet by mouth 2 times daily. TAKE 2 TABS TWICE DAILY X 7DAYS, THEN 1 TAB TWICE DAILY 208 tablet 10/02/2021 Active Active Problems Problem Noted Date Diagnosed Date Pulmonary embolism 09/24/2021 Lumbar spondylosis 03/14/2021 Sacroiliac joint dysfunction of both sides 01/02 Nevus 10/18/2016 Solar lentigo 10/18/2016 Social History Tobacco Use Types Packs/Day Years Used Date Smoking Tobacco: Never Smokeless Tobacco: Never Sex and Gender Information Value Date Recorded Sex Assigned at Not on file Gender Identity Not on file Sexual Orientation Not on file Last Filed Vital Signs Vital Sign Reading Time Taken Comments Blood Pressure 134/86 09/26/2021 8:33 AM EDT Pulse 77 09/26/2021 8:33 AM EDT Temperature 36.4 ??C (97.5 ??F) 09/26/2021 8:33 AM ED T Respiratory Rate 15 09/26/2021 8:33 AM EDT Oxygen Saturation 98% 09/26/2021 8:33 AM EDT Inhaled Oxygen Concentration - - Weight 92.3 kg (203 lb 6.4 oz) 09/26/2021 5:00 A M EDT Height 152.4 cm (5') 09/24/2021 7:45 PM EDT Body Mass Index 39.72 09/24/2021 7:45 PM EDT Plan of Treatment Health Maintenance Due Date Last Done Comments CT Colonography 1956 Colonoscopy 1956 Colorectal Cancer Screening 1956 FIT DNA 1956 FIT 1956 Sigmoidoscopy (10 year) with FIT yearly 1956 Sigmoidoscopy 1956 Hepatitis C Screening 01/30/1974 Lipid Screening 01/30/1974 Tdap adult 01/30/1975 Tetanus vaccine 01/30/1975 Breast Cancer Share Decision Needed 1996 Breast Cancer screening 1996 Zoster vaccine (1 of 2) 01/30/2006 Advance Directive 01/30/2011 Bone Density Scan 01/30/2021 Pneumoccocal Vaccine: 65+ (1 of 1 - PCV) 01/30/2021 Covid-19 Vaccine (1 - 2022- season) 2022 Influenza (Flu) vaccine (1 o f 1 - Influenza standard series) 12/08/2023 Diabetes Screening (HgbA1C o r Glucose) 09/26/2024 09/26/2021, 09/25/2021, 09/25/2021 Procedures Procedure Name Priority Date/Time Associated Diagnosis Comments BASIC METABOLIC PANEL Routine 09/26/2021 4:12 AM EDT from Last 3 Months or Most Recently Relevant to Health Maintenance Results * Basic Metabolic Panel (non-fasting) (09/26/2021 4:12 AM EDT) Glucose 100 65 - 199 mg/dL [facility] Comment:Diabetes: >=200 mg/d L plus symptoms Blood Urea Nitrogen 15 8 - 18 mg/dL [facility] Creatinine 0.71 0.70 - 1.20 mg/dL [facility] Sodium 139 135 - 145 mmol/L [facility] Potassium 3.7 3.5 - 5.0 mmol/L [facility] Comment: Please note: ??Patients with WBC >100,000 may have falsely elevated Potassium levels. ??For accurate Potassium quantification in these patients send serum separator tube (gold top) for subsequent determinations. ??Contact the Clinical Chemistry Laboratory if there are any questions. Chloride 105 98 - 107 mmol/L [facility] Carbon Dioxide 23 22 - 31 mmol/L [facility] Anion Gap 11 5 - 15 mmol/L [facility] Calcium 8.7 8.5 - 10.5 mg/dL [facility] Est Glomerular Filtration Rate 94 >=60 mL/min/1. 73 m?? [facility] Comment: This patient's estimated GFR was calculated using the 2020 CKD-EPI equation. The estimated GFR can vary from the measured GFR by up to 30% in the absence of rapidly changing kidney function. Assessment of the estimated GFR is not appropriate when creatinine concentrations are rapidly changing. For clinical situations in which a more precise estimate of GFR is necessary, consider alternative methods of GFR estimation such as a 24-hour urine creatinine clearance. Assignment of CKD stage 1-5 for patients with an eGFR near the transition point between stages may be based on clinical assessment of muscle mass and symptoms in addition to eGFR. Blood 09/26/2021 4:12 AM EDT 09/26/2021 4:46 AM EDT Narrative Resulting Agency Comment Spec In Lab Giovanny Nj MD CHEMISTRY ORDERABLES [facility] [place] [address] from Last 3 Months or Most Recently Relevant to Health Maintenance Advance Directives * Attempt Cardiopulmonary Resuscitation - Inpatient (Latest Code Status on File) Date Activated Date Inactivated Comments 09/24/2021 6:25 PM 09/26/2021 6:31 PM Question Answer Comments Code Status decision made by: Patient Care Teams Medical Device Sales Consultant Relationship Specialty Start Date End Date Yariel Hackett MD [facility] [place] [id number] PCP - General 08/21/16
--- OUTSIDE RECORDS SUMMARY | 2023-11-14 01:01 | XMS_ITS | Encounter Summary ---
Author Organization Formerly [facility] Address [facility] [place] [address] Care Team Providers Care Contact Lens Flashing Puncher Name Role Phone Yariel Hackett MD Primary Care Provider [phone] Encounter Details Date Type Department Care Team (Late st Contact Info) Description 10/02/2021 [place] [phone] Krishna Roca MD [facility] DR CARDIOVASCULAR [place] [address] Social History Tobacco Use Types Packs/Day Years Used Date Smoking Tobacco: Never Smokeless Tobacco: Never Sex and Gender Information Value Date Recorded Sex Assigned at Not on file Gender Identity Not on file Sexual Orientation Not on file documented as of this encounter Miscellaneous Notes * Telephone Encounter - Krishna Roca MD - 10/02/2021 11:43 AM EDT Brief telephone encounter: I was updated that patient did not oyster picker apixaban from [employer] due to expense. It was > $400per month. I sent Xarelto and similar andino. Discussed lovenox pricing with pharmacist and estimated at $80 per 100mg syringe (would need minimum 3-4d and is 94kg) and thus bridging to warfarin wouldalso be expensive for her. The best option (because she likely needs 3mo anticoagulation given provoked PE) would be to send apixaban to [facility] pharmacy for $75/month. She will need reloading. I attempted to call her and which multiple times went straight to voicemail both home and cell. I will reach out to nursing staff to continue trying to call. documented in this encounter Plan of Treatment Not on [...] documented as of this encounter Care Teams Contact Lens Flashing Puncher Relationship Specialty Start Date End Date Yariel Hackett MD [address] [place] [address] PCP - General 08/21/16 documented as of this encounter
--- OUTSIDE RECORDS SUMMARY | 2023-11-14 01:01 | XMS_ITS | Encounter Summary ---
[place] [address] Care Team Providers Care J2Ee Android Developer Name Role Phone Yariel Hackett MD Primary Care Provider Encounter Details Date Type Department Care Team (Late st Contact Info) Description 09/24/2021 External [place] [phone] Social History Tobacco Use Types Packs/Day Years Used Date Smoking Tobacco: Never Smokeless Tobacco: Never Sex and Gender Information Value Date Recorded Sex Assigned at Not on file Gender Identity Not on file Sexual Orientation Not on file documented as of this encounter Plan of Treatment Not on file documented as of this encounter Procedures Procedure Name Priority Date/Time Associated Diagnosis Comments ECG SCAN Routine 09/24/2021 documented in this encounter Results * Scan Doc: ECG (09/24/2021) Historical Provider MD VU MGR SCAN EX T ORDR/RSLT documented in this encounter Visit Diagnoses Not on filedocumented in this encounter Additional Health Concerns Infection Onset Date Last Indicated Resolved Time COVID-19 Comment:Date of symptom onset: Date of positive test: 09/24/2021 Estimated date patient will be eligible for precaution removal: 10/05/2021 09/24/2021 09/24/2021 10/15/2021 8:09 PM E DT documented as of this encounter Care Teams J2Ee Android Developer Relationship Specialty Start Date End Date Yariel Hackett MD [address] [place], [place] [address] [address] PCP - General 08/21/16 documented as of this encounter
--- OUTSIDE RECORDS SUMMARY | 2023-11-14 01:01 | XMS_ITS | Encounter Summary ---
Author Organization [facility] [place] [address] Care Team Providers Care Face Worker Name Role Phone Yariel Hackett MD Primary Care Provider [phone] Encounter Details Date Type Department Care Team (Late st Contact Info) Description 10/02/2021 [place] [address] Krishna Roca MD [facility] CARDIOVASCULAR SURGERY [place] [id number] Social History Tobacco Use Types Packs/Day Years [...] documented as of this encounter Care Teams Face Worker Relationship Specialty Start Date End Date Yariel Hackett MD [address] [place] [address] [place] [address] PCP - General 08/21/16 documented as of this encounter
--- OUTSIDE RECORDS SUMMARY | 2023-11-14 01:01 | XMS_ITS | Encounter Summary ---
Author Organization Formerly [facility] Address [facility] [place] [address] Care Team Providers Care Geriatric Assistant Name Role Phone Yariel Hackett MD Primary Care Provider Reason for Visit * Auth/Cert Specialty Diagnoses / Procedures Referred By Contac t Referred To Contact Diagnoses lumbar spondylosis excellent repsnse to MBB L3,4,5 bilateral Procedures PRO DSTR PARAVERTEBRAL FCT JNT NRVES LUMBAR OR SACRAL SINGLE PRO DSTR PARAVERTEBRAL FCT JNT NRVES LUMBAR OR SACRAL ADDL DESTRUCTI BY LYTIC AGENT, FACET JOINT NERVE(S); LUMBAR OR SACRAL, SNGL (WRVU 3.78) DESTRUCT BY LYTIC AGENT, FACET JNT NERVE(S), LUMBAR OR SACRAL, EA ADD (WRVU 1.16) Referral ID Status Reason Start Date Expiration Date Visits Re quested Visits Authorized [id number] 1 1 Encounter Details Date Type Department Care Team (Late st Contact Info) Description 05/23/2021 9:00 AM EST Ancillary Procedure [place] [address] Giovanny Isidro MD [facility] [place] [address] Social History Tobacco Use Types Packs/Day Years Used Date Smoking Tobacco: Never Smokeless Tobacco: Never Sex and Gender Information Value Date Recorded Sex Assigned at Not on file Gender Identity Not on file Sexual Orientation Not on file documented as of this encounter Plan of Treatment Not on file documented as of this encounter Procedures Procedure Name Priority Date/Time Associated Diagnosis Comments FILM LIBRARY STORAGE ONLY PAIN CLINIC C ARM Routine 05/23/2021 11:17 AM EST documented in this encounter Results * Film Library- Storage Only pain Clinic C-Arm (05/23/2021 11:17 AM EST) Narrative RAD - 05/23/2021 11:17 AM EST See PACS for result report. Giovanny Isidro MD IMG FILM LIBRARY ORD ERABLES Performing Organization Address City/State/[facility] Co de Phone Number [place], [place] documented in this encounter Visit Diagnoses Not on filedocumented in this encounter Care Teams Geriatric Assistant Relationship Specialty Start Date End Date Yariel Hackett MD [address] [place] [address] PCP - General 08/21/16 documented as of this encounter
--- OUTSIDE RECORDS SUMMARY | 2023-11-14 01:01 | XMS_ITS | Encounter Summary ---
Author Organization [facility] Address [facility] [place] [address] Care Team Providers Care Line Service Person Name Role Phone Yariel Hackett MD Primary Care Provider [phone] Encounter Details Date Type Department Care Team (Late st Contact Info) Description 09/24/2021 Telephone Cardiology at [address] [address] Doron Villanueva MD [facility] [place] [address] Social History Tobacco Use Types Packs/Day Years Used Date Smoking Tobacco: Never Smokeless Tobacco: Never Sex and Gender Information Value Date Recorded Sex Assigned at Not on file Gender Identity Not on file Sexual Orientation Not on file documented as of this encounter Miscellaneous Notes * Telephone Encounter - Doron Villanueva MD - 09/24/2021 3:02 PM EDT Telephone Triage Note Initial Contact Date: 09/24/2021 Initial Contact Time: 3 PM Referring Provider: Dr. Perry Patient Location: [facility] Presenting Symptoms per OSH: Mr. Casarez is a 66 y/o M w/ PMH HTN, aortic stenosis, recent suicide attempt via amitriptyline overdose who presents with progressive shortness of breath and dyspnea on exertion for 1 week with LLEswelling, found to have bilateral segmental and subsegmental PE. Afebrile, BP 125/77, HR 91, SpO2 93 - 96% on RA Pertinent Diagnostic Findings: - ECG: Sinus rhythm with anterior STD - Troponin I > 1370 - BNP 1264 - Covid positive - CTA PE shows bilateral segmental and subsegmental PE, RV:LV ratio 2.1 Plan: Mr. Casarez is a 66 y/o M w/ PMH HTN, aortic stenosis, recent suicide attempt via amitriptyline overdose who presents with submassive PE. Discussed options including anticoagulation alone versus transfer for consideration for catheter- based therapy. Discussed that catheter-cased therapy would not be expected to improve mortality but that it might lead to faster symptom resolution. Dr. Perry discussed this with patient and she is endorsing a will to live and receive aggressive treatment. - Anticoagulation: lovenox 1 mg/kg BID - Transfer to [facility] for consideration for catheter-based therapy, PE consult, TTE Above recommendations/plans are based on my conversation with the referring provider. I have not personally interviewed or examined this patient. Doron Villanueva MD Filter Tender PGY-4 [facility] documented in this encounter Plan of Treatment Not on file documented as of this encounter Visit Diagnoses Not on filedocumented in this encounter Care Teams Line Service Person Relationship Specialty Start Date End Date Yariel Hackett MD [address] [place] [address] [place] [address] PCP - General 08/21/16 documented as of this encounter
--- OUTSIDE RECORDS SUMMARY | 2023-11-14 01:01 | XMS_ITS | Encounter Summary ---
[place] [address] Care Team Providers Care Lacquer Machine Feeder Name Role Phone Yariel Hackett MD Primary Care Provider Encounter Details Date Type Department Care Team (Late st Contact Info) Description 09/24/2021 2:55 PM EDT Ancillary Procedure [place] [address] Yariel Hackett MD [address] [place] [address] [place] [address] Social History Tobacco Use Types Packs/Day Years [...] Associated Diagnosis Comments FILM LIBRARY STORAGE ONLY CT CHEST Routine 09/24/2021 2:50 PM EDT documented in this encounter Results * Film Library- Storage Only CT Chest (09/24/2021 2:50 PM EDT) Narrative EARLENE - 09/24/2021 2:50 PM EDT This exam is auto-finalizing. It's purpose is for storage only. Yariel Hackett MD [facility] FILM LIBRARY ORD ERABLES [place], [place] documented in this encounter Visit Diagnoses Not on filedocumented in this encounter Care Teams Lacquer Machine Feeder Relationship Specialty Start Date End Date Yariel Hackett MD [address] [place] [address] PCP - General 08/21/16 documented as of this encounter
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
--- OUTSIDE RECORDS SUMMARY | 2023-11-14 01:01 | XMS_ITS | Encounter Summary ---
[place] [address] Care Team Providers Care Desk Representative Name Role Phone Yariel Hackett MD Primary Care Provider [phone] Encounter Details Date Type Department Care Team (Late st Contact Info) Description 09/29/2021 Telephone [place] [phone] Peyton Roman, RN Social History Tobacco Use Types Packs/Day Years Used Date Smoking Tobacco: Never Smokeless Tobacco: Never Sex and Gender Information Value Date Recorded Sex Assigned at Not on file Gender Identity Not on file Sexual Orientation Not on file documented as of this encounter Miscellaneous Notes * Telephone Encounter - Peyton Roman RN - 09/29/2021 3:32 PM EDT This script writer accessed voice message from patient who states she has not obtained the eliquis as her insurance will not pay for it. This script writer will notify Dr. Sher. Patient wants to be called at [phone]. s/p admission 09/24/21-09/26/21 for bilateral segmental and subsegmental PE. documented in this encounter Plan of Treatment [...] documented as of this encounter Care Teams Desk Representative Relationship Specialty Start Date End Date Yariel Hackett MD [address] [place] [address] PCP - General 08/21/16 documented as of this encounter
--- OUTSIDE RECORDS SUMMARY | 2023-11-14 01:01 | XMS_ITS | Encounter Summary ---
Author Organization [facility] Address [facility] [place] [address] Care Team Providers Care Field Sales Trainer Name Role Phone Yariel Hackett MD Primary Care Provider [phone] Encounter Details Date Type Department Care Team (Late st Contact Info) Description 10/02/2021 [place] [address] Krishna Roca MD [facility] [place] [address] Social History Tobacco Use Types Packs/Day Years Used Date Smoking Tobacco: Never Smokeless Tobacco: Never Sex and Gender Information Value Date Recorded Sex Assigned at Not on file Gender Identity Not on file Sexual Orientation Not on file documented as of this encounter Miscellaneous Notes * Telephone Encounter - Krishna Roca MD - 10/02/2021 5:10 PM EDT Called Tamia and confirmed she has not been taking apixaban since discharge. She is agreeable to picking up at [facility] pharmacy for $75 per month and is in process of getting health insurance. She has been doing fine since leaving hospital, no SOB or chest pain. I educated her on the loading dosefor 7 days and then the maintenance dose for 3 months until f/u with Dr. Sher. She was agreeable and will let us know if there are any further issues. documented in this encounter Plan of Treatment [...] documented as of this encounter Care Teams Field Sales Trainer Relationship Specialty Start Date End Date Yariel Hackett MD [facility] [place] [phone] PCP - General 08/21/16 documented as of this encounter
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
--- OUTSIDE RECORDS SUMMARY | 2023-11-14 01:01 | XMS_ITS | Encounter Summary ---
Author Organization [facility] [place] [address] Care Team Providers Care Call Center Analyst Name Role Phone Yariel Hackett MD Primary Care Provider [phone] Reason for Visit * Auth/Cert Specialty Diagnoses / Procedures Referred By Contac t Referred To Contact Diagnoses Pulmonary embolism Covid positive/ PE's Procedures EMERGENCY IPI Giovanny Nj MD [facility] [place] [address] [place] [address] [facility] Referral ID Status Reason Start Date Expiration Date Visits Re quested Visits Authorized [id number] 1 1 Encounter Details Date Type Department Care Team (Latest Contact Info) Description 09/24/2021 6:09 PM EDT - 09/26/2021 4:29 PM EDT Hospital Encounter Card[facility] [place] [address] Giovanny Nj MD [facility] [place] [place] [address] [place] [address] Yen Dahl MD [facility] [place] [address] [place] [address] Pulmonary embolism, unspecified chronicity, unspecified pulmonary embolism type, unspecified whether acute cor pulmonale present Discharge Disposition: Home Social History Tobacco Use Types Packs/Day Years [...] Mass Index 39.72 09/24/2021 7:45 PM EDT documented in this encounter Discharge Summaries * Venkat Arauz MD - 09/26/2021 2:52 PM EDT Images from the original note were not included. Discharge Summary Patient Name: Tamia Casarez Patient Age: 66 y.o. Language: Swiss Race: White Ethnicity: Not nor Admit date: 09/24/2021 Discharge date and time: 09/26/2021 Attending Physician: Yen Dahl MD Discharge Physician: Yen Dahl MD ID: Tamia Casarez is a 66 y.o. female female COVID+??female??with a past medical history significant for HTN, aortic stenosis,??DVT RLE in 2008,??recent suicide attempt via amitriptyline overdose(09/11/21)??who presents with progressive SOB and SANTIAGO for the past week with LLE swelling found to have bilateral segmental and subsegmental PE at [facility]. Patient was found to have a DVT of her LLE. Patient determined not to be a candidate for EKOS intervention for PE and PE was managed with systemic anticoagulation. Follow-up Recommendations for Providers: Patient likely had a provoked DVT and PE due to COVID-19. She was started on apixaban initially with a week of 10 mg BID (09/25 - 10/02) followed by 5 mg BID for a 3 months course (10/02 - 01/02). Patient has follow up with Dr. Sher in vascular medicine to discuss if this should be continued going forward. Pending Studies and Lab Data: none The patient will need the following test completed on: 09/24/2021 1. Echocardiogram Transthoracic Diagnosis: Pulmonary embolism, unspecified chronicity, unspecified pulmonary embolism type, unspecified whether acute cor pulmonale present (I26.99) Authorizing Provider: Giovanny Nj MD Discharge Diagnoses (Hospital Problems) and Secondary Diagnoses (Chronic Problems): Active Hospital Problems Diagnosis ??? Pulmonary embolism Resolved Hospital Problems No resolved problems to display. Active Non-Hospital Problems Diagnosis ??? Lumbar spondylosis ??? Sacroiliac joint dysfunction of both sides ??? Nevus ??? Solar lentigo History of Presentation (per 09/24/2021 Admission H&P): Tamia Casarez is a 66 y.o. COVID+ female with a past medical history significant for HTN, aortic stenosis, DVT RLE in 2008, recent suicide attempt via amitriptyline overdose (09/11/21) who presentswith progressive SOB and SANTIAGO for the past week with LLE swelling found to have bilateral segmental and subsegmental PE at [facility]. ?? She arrived to [facility] earlier today HDS satting in low 90s on RA. Labs showed Troponin I elevation [id number] and proBNP to 1264. CTA of chest showed acute segmental and subsegmental PE throughout both lungs. R heart enlargement with elevated RV-LV ratio 2.1 consistent with RH strain. 5mm nodule in CHELITA and 4mm nodule in RUL were also seen on imaging. Pt was started on therapeutic lovenox (100mg subcutaneous at 226pm). Pt also found to be COVID+ and given remdesivir. ?? On interview she said last week she started to feel more easily winded which seemed to get worse asthe week went on. Symptoms are worst with activity. She is normally able to walk long distances (has 6 dogs), goes fishing, hunting, etc but this past week found that she would get SOB just getting into the car. She denies any chest pain. The only pertinent positive symptom is a raspy cough productive of slightly yellow sputum. She is covid vaccinated. 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 ?? OSH Data -Initial VS: T 36.6, HR 91, RR 19, BP 125/77, O2 96% -Labs: CE - TnI 1371 (<60) Chem - Cr 1.0, BUN 15, lytes wnl CBC: WBC 8.19, Hgb 13.6, Plt 280 -EKG: -Therapy: remdesivir, enoxaparin -Course: remains minimally symptomatic ?? Review of Systems (positives in bold) General: chills, fatigue, fever or night sweats Eye: blurry vision, double vision, loss of vision or photophobia HENT: headaches, sore throat or vertigo Heme/Lymph: Bleeding/bruising, blood clots, jaundice, pallor or swollen lymph nodes Resp: cough (for past week, productive of yellow sputum), hemoptysis, orthopnea, shortness of breath or wheezing Cardio: chest pain, dyspnea on exertion, edema, loss of consciousness, palpitations, paroxysmal nocturnal dyspnea or shortness of breath Gastro: abdominal pain, blood in stools, constipation, diarrhea, heartburn, hematemesis, melena or nausea/vomiting : dysuria, hematuria or urinary frequency/urgency MSK: joint pain, joint stiffness, joint swelling, muscle pain or muscular weakness Neuro:dizziness, gait disturbance, impaired coordination/balance, memory loss, numbness/tingling, seizures, speech problems, tremors or visual changes Derm: lumps or rash ?? Hospital Course: Tamia Casarez was admitted to the Hospital Medicine Service on 09/24/2021. The following issues were addressed and she was discharged on 09/26/2021. #Bilateral submassive PE, likely provoked by COVID #LLE, acute, occlusive deep venous thrombosis in the posterior tibial veins and one of the paired peroneal veins. #Tropinemia Patient was initiated on therapeutic enoxaparin. Patient had troponin obtained here which was 0.14,but was not trended as patient was asymptomatic. Patient's proBNP was elevated (1,615). This was presumed to be due to RH strain. Patient had a TTE (09/24), which showed EF 65% with no regional WMA, right ventricle is moderately dilated right ventricle and function mildlyy reduced. Álvarez's sign(apical sparing) was present. Moderate pulmonary artery hypertension was present. The pulmonary artery systolic pressure was elevated. Patient was found to have LLE DVT with Duplex ultrasound. Patient was fatigued with walking a short distance but did not desaturate. PE team was consulted and patient was not deemed an EKOS intervention candidate and anticoagulation was recommended, - apixaban 10 mg BID for 7 days (09/25 - 10/02) followed by 5 mg BID thereafter for minimum 3 months along with follow up with vascular medicine. Patient was stable for discharge. ?? #COVID (minimally symptomatic, inpatient, at risk for disease progression) Patient endorses being vaccinated with Pfizer X3 and was minimally symptomatic on presentation to OSH and throughout hospitalization at [facility]. She was treated with a remdesivir x3 days. (09/24-09/26) due to risk of progression given co morbidities. ?? #Frequent symptomatic hypoglycemia without known DM Patient had a Hgb A1c measured on 09/25 which was shown to be 5.4%. Glucose was found to be low 100s throughout hospitalization Procedures: Operations: * No surgery found * Important Studies and Lab Data: DISCHARGE BASIC LABS: Recent Labs 09/26/212 09/25/21432 WBC 6.7 6.9 HGB 12.5 13.4 HCT 38.1 38.9 PLATELET 264 267 Recent Labs 09/26/212 09/25/21432 NA 139 140 K 3.7 3.5 CL 105 106 CO2 23 22 BUN 15 12 CREATININE 0.71 0.74 MAGNESIUM 0.89 0.85 Recent Labs 09/26/212 09/25/21432 BILITOT 0.6 0.5 BILIDIR 0.1 0.1 AST 16 23 ALT 12 15 ALKPHOS 87 90 Recent Labs 09/25/21432 INR 1.1 OTHER [facility] LABS: Recent Labs 06/20/22 0433 HA1C 5.4 No results for input(s): TSH in the last 168 hours. No results for input(s): HDL, LDLCHOL, CHOLHDL, TRIG, CHLPL in the last 168 hours. Imaging TTE (09/26) [place] [address] [place] [address] Voice: Fax: ?? Echocardiogram Report ?? Name: TAMIA CASAREZ Study Date: 09/24/2021 09:44 PM HR: 90 : 1955 Height: 152 cm Age: 66 yrs Weight: 91 kg Gender: Female BSA: 1.9 m2 Performed By: Nemesio Barragan MD History: Pulmonary embolism Interpreting Fellow: Nemesio Barragan. Exam Location: [facility]. Interpretation Summary 1. Limited echocardiogram performed by on-call fellow to assess LV/RV function. 2. The right ventricle is moderately dilated and function is mildlyy reduced. Álvarez's sign (apical sparing) is present. Moderate pulmonary artery hypertension is present. The pulmonary artery systolic pressure is estimated to be 57 mmHg (assuming a right atrial pressure of 8 mmHg). 3. The left ventricle is normal in size and function. The left ventricular ejection fraction is estimated to be 65%. There are no regional wall motion abnormalities. 4. The atria are not well visualized. 5. The aortic valve appears tricuspid and is moderately thickened. There is mild aortic stenosis present (peak velocity 2.5 m/s). There is no aortic regurgitation. 6. There is moderate to severe tricuspid valve regurgitation likely due to annular dilation. 7. There is no prior study for comparison. ?? Left Ventricle Left ventricle is of normal size. Wall thickness is mildly increased. Left ventricular size and systolic function is normal. Left ventricular ejection fraction is estimated visually at 65%. There are no segmental wall motion abnormalities. ?? Right Ventricle Right ventricle is moderately dilated. Right ventricular systolic function is mildly decreased. The pulmonary artery systolic pressure is estimated at 57 mmHg. Álvarez's sign is present. ?? Left Atrium The left atrium is not well visualized. ?? Right Atrium The right atrium is not well visualized. ?? Aortic Valve The aortic valve is tricuspid. The aortic valve is moderately thickened. There is mild aortic stenosis. The peak instantaneous gradient across the aortic valve is 26 mmHg. The mean gradient across the aortic valve is 15 mmHg. The aortic valve area calculated using the continuity equation is 1.7 cm2. SVI 39.7. The dimensionless index is 0.51. There is no aortic regurgitation. ?? Mitral Valve The mitral valve is structurally and functionally normal. There is no mitral stenosis. There is trace mitral regurgitation. ?? Tricuspid Valve The tricuspid valve is structurally normal. There is severe tricuspid regurgitation. Tricuspid regurgitation may be due to annular dilatation. ?? Pulmonic Valve The pulmonic valve is not well visualized. ?? Great Arteries The aortic root is of normal size. No abnormalities are identified. The ascending aorta is not well visualized. ?? Venous Inferior vena cava is normal in size. Inferior vena cava collapse less than 50% with respiration. ?? Pericardium/Pleural The pericardium appears normal. ?? Hemodynamics The estimated right atrial pressure is 8mmHg. 2D Measurements Volumes IVSd: 1.3 cm SV(LVOT): 74.4 ml LVIDd: 3.2 cm LVPWd: 0.86 cm SI(LVOT): 39.7 ml/m2 LV mass(C)d: 97.5 grams ?? LV mass(C)dI: 52.1 grams/m2 Ao root diam: 3.3 cm Ao root diam index: 1.7 LVOT diam: 2.0 cm TAPSE_phl: 2.3 cm ?? Doppler Ao V2 VTI: 44.6 cm Ao valve max: 26.1 mmHg Ao valve mean: 14.9 mmHg ?? MV E max irene: 51.8 cm/sec MV A max irene: 103.6 cm/sec MV E/A: 0.50 ELIZABETH(I,D): 1.7 cm2 Dimensionless index Aov: 0.51 ?? I WMSI = 1.00 % Normal = 100 ?? Segments Size X - Cannot 2 - 4 - 1-2 small Interpret 1 - Normal Hypokinetic 3 - Akinetic Dyskinetic 3-5 moderate 5 - 6-14 large Aneurysmal 15-16 diffuse ?? duplex of Bilateral legs (09/25) Department: Vascular Surgery Lab Patient: [id number] (TAMIA CASAREZ) CPT: [id number] Referring Physician: YEN DAHL ?? Phone: Indications: PE, COVID-19, left lower extremity swelling, hx DVT, ? DVT ? Findings: ?? RIGHT: Patent common femoral vein and popliteal vein with spontaneous, respirophasic Doppler waveforms that respond normally to augmentation maneuvers. The common femoral vein, saphenofemoral junction, femoral vein through the thigh and popliteal vein are fully compressible. Patent posterior tibial and peroneal veins with no evidence of thrombus. ? LEFT: There is acute, occlusive deep venous thrombosis in the posterior tibial veins and one of the paired peroneal veins in the calf. ?? Patent common femoral vein and popliteal vein with spontaneous, respirophasic Doppler waveforms that respond normally to augmentation maneuvers. The common femoral vein, saphenofemoral junction, femoral vein through the thigh and popliteal vein are fully compressible. ? Interpretation: ?? RIGHT: ??No evidence of lower extremity deep venous thrombosis. ?? LEFT: Acute, occlusive deep venous thrombosis in the posterior tibial veins and one of the paired peroneal veins. No evidence of common femoral, femoral, or popliteal DVT. ? Comparison: ?? No previous study in our vascular lab database for comparison. ? Notification: ?? The care team was informed of these preliminary findings at patient's bedside. PE Consult (09/25) ?? [facility] [place] [address] [place] [address] ? INPATIENT CARDIOLOGY PULMONARY EMBOLISM CONSULT PROGRESS NOTE ? Date of Consultation: 09/25/2021 Admit Date: 09/24/2021 Place of Service: Cardiology Responsible Attending: Dr. Dahl ?? Hospital Day 1 day ?? Reason for Consult: Pulmonary emboli ?? Active Problems: Active Hospital Problems ?? Diagnosis ? Pulmonary embolism ? Resolved Hospital Problems No resolved problems to display. ? Patient ID: Tamia Casarez is a 66 y.o. female with a PMH HTN, mild aortic stenosis, prior RLE DVT (2008), recent suicide attempt via amitriptyline overdose who presents with newly diagnosed Covid-19 infection, acute LLE DVT and bilateral segmental and subsegmental PE. PE team consulted for consideration for advanced therapies. ?? Interval Events: - Patient anticoagulated with lovenox 1 mg/kg BID - TTE shows a moderately dilated RV with mildly reduced RV function - LE dopplers show acute LLE DVT in the posterior tibial veins and one of the paired peroneal veins. - Patient ambulated without hypoxia - Symptoms improving ? Past Medical History No past medical history on file. ?? Past Surgical History Past Surgical History: Procedure Laterality Date ??? PRO DSTR PARAVERTEBRAL FCT JNT NRVES LUMBAR OR SACRAL ADDL Bilateral 05/23/2021 ?? DESTRUCT BY LYTIC AGENT, FACET JNT NERVE(S), LUMBAR OR SACRAL, EA ADD (WRVU 1.16) performed by Giovanny Isidro MD at [facility] ??? PRO DSTR PARAVERTEBRAL FCT JNT NRVES LUMBAR OR SACRAL SINGLE Bilateral 05/23/2021 ?? DESTRUCTI BY LYTIC AGENT, FACET JOINT NERVE(S); LUMBAR OR SACRAL, SNGL (WRVU 3.78) performed by Giovanny Isidro MD at [facility] ??? PRO INJ PARAVERTEBRAL FACET JT W/IMAGE GUID, LUMBAR/SACRAL, 3RD OR ADDL LEVEL Bilateral 04/04/2021 ?? INJECTION, FACET JOINT, W\FLUORO, LUMBAR, 3RD LEVEL (WRVU 1) performed by Giovanny Isidro MD at [facility] ??? PRO INJECTION PV FACET JOINT LUMBAR/SACRAL SECOND LEVEL Bilateral 03/14/2021 ?? INJECTION, FACET JOINT, W\FLUORO, LUMBAR, 2ND LEVEL (WRVU 1) performed by Giovanny Isidro MD at [facility] ??? PRO INJECTION PV FACET JOINT LUMBAR/SACRAL SECOND LEVEL Bilateral 04/04/2021 ?? INJECTION, FACET JOINT, W\FLUORO, LUMBAR, 2ND LEVEL (WRVU 1) performed by Giovanny Isidro MD at [facility] ??? PRO INJECTION PV FACET JOINT LUMBAR/SACRAL SINGLE LEVEL Bilateral 03/14/2021 ?? INJECTION, FACET JOINT, W\FLUORO, LUMBAR, SINGLE (WRVU 1.52) performed by Giovanny Isidro MD at [facility] ??? PRO INJECTION PV FACET JOINT LUMBAR/SACRAL SINGLE LEVEL Bilateral 04/04/2021 ?? INJECTION, FACET JOINT, W\FLUORO, LUMBAR, SINGLE (WRVU 1.52) performed by Giovanny Isidro MD at [facility] ? Allergies Allergen Reactions ??? Valium [Diazepam] ? Hyper active and anxious ? Out-Patient Medications: Prescriptions Prior to Admission Medications Prior to Admission Medication Sig Dispense Refill Last Dose ??? celecoxib (CeleBREX) 100 mg Capsule 3 times daily. ? Past Month at Unknown time ??? meclizine (Antivert) 25 mg Tablet 3 times daily as needed. ? Past Month at Unknown time ??? amitriptyline (Elavil) 25 mg Tablet 25 mg nightly. ? Past Month at Unknown time ??? cholecalciferol, Vitamin D3, 50 mcg (2,000 unit) Capsule Daily. ? Past Month at Unknown time ??? omeprazole (PriLOSEC) 40 mg Capsule, Delayed Release(E.C.) 40 mg Daily. ? 09/23/2021 at Unknown time ??? ibuprofen (Motrin) 400 mg Tablet Take 400 mg by mouth every 6 hours as needed for Pain. ? Past Month at Unknown time ??? escitalopram (LEXAPRO) 20 mg Tablet Take 20 mg by mouth daily. ? Past Month at Unknown time ??? nystatin (MYCOSTATIN) Powder Apply topically as needed. ? Past Week at Unknown time ??? levothyroxine (SYNTHROID) 75 mcg Tablet take 1 tablet by mouth once daily ?? 0 09/23/2021 at Unknown time ??? UNABLE TO FIND daily. Med Name: iron tablet ? In-Patient Medications: ??? sodium chloride 0.9 % (flush) 5 mL Intravenous BID ??? enoxaparin 90 mg Subcutaneous 2 times per day ??? escitalopram 20 mg Oral Daily ??? cholecalciferol 2,000 Units Oral Daily ??? levothyroxine 75 mcg Oral Daily ??? pantoprazole EC 40 mg Oral Daily ??? remdesivir 100 mg Intravenous Q24H ? Family History: Family History No family history on file. ?? Social History: Social History ?? Socioeconomic History ??? Marital status: ? Spouse name: Not on file ??? Number [...] Social History Narrative ??? Not on file ?? Social Determinants of Health ?? Financial Resource Strain: Not on file Food Insecurity: Not on file Transportation Needs: Not on file Physical Activity: Not on file Housing Stability: Not on file ? Review of Systems: 11 point ROS is either negative or per HPI ?? Physical Exam: ?? Last value Range last 8 hrs Temperature Temp: 36.6 ??C (97.9 ??F) Temp: [36.6 ??C (97.9 ??F)] Heart Rate Heart Rate: 77 Heart Rate: [77-81] Blood Pressure BP: 131/77 BP: (131-146)/(77-90) Respiratory Rate Resp: 16 Resp: [15-18] SpO2 SpO2: 97 % SpO2: [94 %-98 %] ? Intake/Output Summary (Last 24 hours) at 09/25/2021 1517 Last data filed at 09/25/2021 1200 Gross per 24 hour Intake 0 ml Output 1175 ml Net -1175 ml ?? Wt & BMI By Encounter Date Flowsheet Row Admission (Current) from 09/24/2021 in [facility] Office Visit from 07/07/2021 in [facility] at [facility] Weight 92.5 kg (204 lb) 1 09/25/2021 0558 90.7 kg (200 lb) 1 07/07/2021 1135 ? Limited exam due to Covid-19 infection Comfortable, no apparent distress Breathing comfortably Asymmetric LE edema with 2+ LLE edema. Extremities are warm and well perfused ?? ECG 09/24/2021: Normal sinus rhythm ?? Echocardiogram 09/24/2021: ?? Interpretation Summary 1. Limited echocardiogram performed by on-call fellow to assess LV/RV function. 2. The right ventricle is moderately dilated and function is mildlyy reduced. Álvarez's sign (apical sparing) is present. Moderate pulmonary artery hypertension is present. The pulmonary artery systolic pressure is estimated to be 57 mmHg (assuming a right atrial pressure of 8 mmHg). 3. The left ventricle is normal in size and function. The left ventricular ejection fraction is estimated to be 65%. There are no regional wall motion abnormalities. 4. The atria are not well visualized. 5. The aortic valve appears tricuspid and is moderately thickened. There is mild aortic stenosis present (peak velocity 2.5 m/s). There is no aortic regurgitation. 6. There is moderate to severe tricuspid valve regurgitation likely due to annular dilation. 7. There is no prior study for comparison. ?? CTPA (from OSH on 09/24/21)?? - Acute segmental and subsegmental PE throughout both lungs. R heart enlargement with elevated RV-LV ratio 2.1 consistent with RH strain.? LE Dopplers 09/25/2021: ?? Interpretation: ?? RIGHT: ??No evidence of lower extremity deep venous thrombosis. ?? LEFT: Acute, occlusive deep venous thrombosis in the posterior tibial veins and one of the paired peroneal veins. No evidence of common femoral, femoral, or popliteal DVT. ? Recent Labs 09/25/21432 WBC 6.9 HGB 13.4 HCT 38.9 PLATELET 267 ?? Recent Labs 09/25/21432 NA 140 K 3.5 CL 106 CO2 22 BUN 12 CREATININE 0.74 ?? Recent Labs 09/25/21432 AST 23 ALT 15 ALKPHOS 90 BILITOT 0.5 BILIDIR 0.1 ?? Recent Labs 09/25/21432 CALCIUM 8.5 MAGNESIUM 0.85 ?? Recent Labs 09/25/21432 INR 1.1 PT 12.3 ?? Recent Labs 09/24/211917 TROPONINT 0.14* ?? ProBNP Date Value Ref Range Status 09/24/2021 1,615 (H) <=124 pg/mL Final ? Assessment/Recommendations: ?? Tamia Casarez is a 66 y.o. female with a PMH HTN, mild aortic stenosis, prior RLE DVT (2008), recent suicide attempt via amitriptyline overdose who presents with newly diagnosed Covid-19 infection, acute LLE DVT and submassive bilateral segmental and subsegmental PE. PE team consulted for consideration for advanced therapies. While patient has evidence of RV dysfunction on echocardiogram, hersymptoms are currently improving and she has not been hypoxic with exertion. Will defer catheter-directed therapies at this time. PE is likely provoked in the setting of Covid-19 infection, though a predisposition to clotting is not excluded in setting of family history of DVT/PE (patient's mother). ?? Recommendations: - No indication for catheter-directed therapies - Continue anticoagulation for at least 6 months. Can switch from lovenox to a apixaban (10 mg x7 days, then 5 mg BID thereafter) - Follow-up in PE clinic with Dr. Sher within 4 weeks ?? Case discussed with Dr. Braga. ? Doron Villanueva MD [employer], PGY-4 Pager [phone] ?? I have seen the patient in person and reviewed the fellow's above history and I agree with the details as written.?The assessment and plan were formulated in discussion with me and I agree with them as documented. Tamia ambulated within her room without hemodynamic instability. She was fatigued on exertion but not dyspneic. I reviewed her TTE with my partner Dr. Tony. RV is dilated throughwith mildly reduced systolic function. Given her clinical stability, recommend systemic oral anticoagulation alone. Follow-up in vascular medicine clinic post-discharge. ?? Venkat Braga MD Acute PE Service Pager [phone] Microbiology: Microbiology Results (Last 30 days) Procedure Component Value Units Date/Time COVID-19 PCR [[id number]] (Abnormal) Collected: 09/24/21 1840 Lab Status: Final result Specimen: Nasopharyngeal Swab Updated: 09/24/212131 SARS-CoV-2 RNA PCR Detected Comment: katharina holder 09/24/21 21:32 WS This result should be interpreted in combination with the clinical observations, patient history and epidemiological information. For testing of asymptomatic individuals, assay performance characteristics and clinical utility have not been evaluated. Testing for SARS-CoV-2 (Severe acute respiratory syndrome coronavirus 2, formerly known as 2019 novel coronavirus or 2019-nCoV) to aid in the diagnosis of COVID-19 is performed using the Simplexa COVID-19 Direct Assay by [employer] as authorized by the FDA issued Emergency Use Authorization (EUA). This assay is intended for In-vitro Diagnostic (IVD) use with nasopharyngeal swabs collected from individuals meeting the CDC criteria for testing. The assay is performed based on the instructions for use and additional guidance provided by the FDA. Testing is performed in the Microbiology Laboratory within the Department of Pathology and Laboratory Medicine at [facility], certified under the Clinical Laboratory Improvement Amendments of 1988 (CLIA), 42 U.S.C. section 263a, to perform high complexity tests. Assay performance has been verified according to clinical laboratory regulatory requirements. Test results are provided above. A result of Not Detected indicates that the viral RNA target is not present but does not preclude SARS-CoV-2 infection. False negative results may occur if a specimen is improperly collected, transported or handled; if amplification inhibitors are present; or if inadequate numbers of viral particles are present in the specimen. A result of Detected suggests a current or recent infection and the patient is presumed to be infected. Positive and negative predictive values for this test are highly dependent on disease prevalence. A result of Invalid indicates the inability to conclusively determine the presence or absence of SARS-CoV-2 RNA in the sample which can be due to a variety of factors. Recollection is recommended in the case of an invalid result. CDC COVID-19 criteria for testing on human specimens and clinical management guidance information are available at the CDC Coronavirus Disease 2019 (COVID-19) webpage under Information for Healthcare Professionals (https://www.cdc.gov/coronavirus/2019-ncov/hcp/index.html). Additional information about this and other EUA tests can be found in provider and patient fact sheets at the following FDA website: https://www.fda.gov/medical-devices/whcntbgezmg-tboawsd-4935-rfxgt-64-gylarolho- tkh-jupokujibduaub-jbeahdz-devices/nngol-xbnxpopslzs-sclj SARS-CoV-2 Source [facility] Discharge Conditions/Prognosis: Upon discharge the pt is hemodynamically stable, afebrile, fully ambulatory without requiring supplemental oxygen, holding down food/drink, and pain free controlled with stable oral regimen. Vital Signs: Last value Range last 24 hrs Temperature Temp: 36.4 ??C (97.5 ??F) Temp: [36.4 ??C (97.5 ??F)-36.8 ??C (98.2 ??F)] Heart Rate Heart Rate: 77 Heart Rate: [77-86] Blood Pressure BP: 134/86 BP: (134-144)/(70-86) Respiratory Rate Resp: 15 Resp: [15-16] SpO2 SpO2: 98 % SpO2: [95 %-98 %] Exam: Gen: NAD, resting comfortably??lying flat in bed.?? CV:??distant heart sounds,??RRR, S1S2,??systolic murmur throughout Pulm:??adequate??air movement, CTAB, no wheezing, crackles or rhonchi Abd: soft, NT/ND,??+BS Ext:??LLE slightly more swollen than RLE with 1+ pitting edema + calor relative to RLE. 2+ DP pulses bilaterally.?? Skin: warm and dry, no rash or petechiae Neuro: AOx3. no focal deficits grossly noted. CN II-XII intact Discharge to: home without services Discharge Medications: Your Medications New Medications Dose Details * apixaban 5 mg Tab Commonly known as: Eliquis Take 2 tablets by mouth 2 times daily. 10 mg Quantity: 22 tablet Refills: 0 * apixaban 5 mg Tab Commonly known as: Eliquis Take 1 tablet by mouth 2 times daily. Start taking on: October 02, 2021 5 mg Quantity: 180 tablet Refills: 0 * This list has 2 medication(s) that are the same as other medications prescribed for you. Read thedirections carefully, and ask your doctor or other care provider to review them with you. Continued medications, unchanged Dose Details amitriptyline 25 mg Tab Commonly known as: Elavil 25 mg nightly. 25 mg Refills: 0 cholecalciferol (Vitamin D3) 50 mcg (2,000 unit) Cap Daily. Refills: 0 escitalopram 20 mg Tab Commonly known as: Lexapro Take 20 mg by mouth daily. 20 mg Refills: 0 levothyroxine 75 mcg Tab Commonly known as: Synthroid take 1 tablet by mouth once daily Refills: 0 nystatin 100,000 unit/gram Powd Commonly known as: MYCOSTATIN Apply topically as needed. Refills: 0 omeprazole 40 mg Cpdr Commonly known as: PriLOSEC 40 mg Daily. 40 mg Refills: 0 STOPPED Medications celecoxib 100 mg Cap Commonly known as: CeleBREX ibuprofen 400 mg Tab Commonly known as: Motrin meclizine 25 mg Tab Commonly known as: Antivert UNABLE TO FIND Updated Allergies/ADRs: Allergies Allergen Reactions ??? Valium [Diazepam] Hyper active and anxious Instructions Given to Patient at Discharge: Patient Instructions Patient Instructions on Discharge to Home Why you were hospitalized - You were hospitalized for a pulmonary embolus which is otherwise known as a blood clot in the arteries of your lungs. You were started on blood thinning medications calledapixaban. You should take apixaban 10mg twice daily for 6 days, then switch to apixaban 5mg twice daily for a total of 3 months. We think the reason you had a blood clot may be related to COVID infection as it has been shown to increase risk of blood clots. You have a follow up visit on 10/[address] Sher. You should have a family member fish bait picker your prescriptions from the pharmacy. You were treated for COVID with remdesivir. Please quarantine at your house for 5 days in order to minimize the chance of spreading COVID to the community. Call your doctor or seek medical attention if you develop the following - chest pain, shortness of breath, feeling dizzy upon standing, passing out, diarrhea, constipation lasting longer than 2 days,fevers (temperature over 100.3), chills, abdominal pain, vomiting, difficulty or discomfort when urinating, bloody or black bowel movements, or any other acute or concerning symptom. Activity level - as tolerated Diet - as tolerated Driving - Please do not drive if you are feeling dizzy, have blurry vision, feel tired, or feel illin any way. Shower/Bath - as tolerated Wound Care - none Home Oxygen Therapy - none Other Important Instructions Follow-up Appointments Future Appointments Date Time Provider Department Center 10/30/2021 11:00 AM Chito Sher MD [facility] [place] [facility] Your Inpatient Medical Team at [facility] Name(s) of your inpatient provider(s): Dr. Dahl For questions regarding issues relating to your hospitalization on the Hospital Medicine Service, please contact your inpatient physician through the [facility] Director Fraud [phone]. Issues after hours and on weekends will be handled by the Hospitalist staff on-call. Your Primary Care Provider Yariel Hackett MD [phone] General Instructions None Future Appointments and Orders Future Appointments and Orders Future Appointments Provider Department Dept Phone 10/30/2021 11:00 AM Chito Sher MD Vascular Surgery at [facility] Arrive at: Cytogenetics Technologist Area Provider Contact Information: MD [address] / [place] [phone] Discharge References/Attachments: Discharge References/Attachments None documented in this encounter Discharge Instructions * Patient Instructions* Krishna Roca MD - 09/26/2021 11:30 AM EDT Patient Instructions on Discharge to Home Why you were hospitalized - You were hospitalized for a pulmonary embolus which is otherwise known as a blood clot in the arteries of your lungs. You were started on blood thinning medications calledapixaban. You should take apixaban 10mg twice daily for 6 days, then switch to apixaban 5mg twice daily for a total of 3 months. We think the reason you had a blood clot may be related to COVID infection as it has been shown to increase risk of blood clots. You have a follow up visit on 10/[address] Sher. You should have a family member fish bait picker your prescriptions from the pharmacy. You were treated for COVID with remdesivir. Please quarantine at your house for 5 days in order to minimize the chance of spreading COVID to the community. Call your doctor or seek medical attention if you develop the following - chest pain, shortness of breath, feeling dizzy upon standing, passing out, diarrhea, constipation lasting longer than 2 days,fevers (temperature over 100.3), chills, abdominal pain, vomiting, difficulty or discomfort when urinating, bloody or black bowel movements, or any other acute or concerning symptom. Activity level - as tolerated Diet - as tolerated Driving - Please do not drive if you are feeling dizzy, have blurry vision, feel tired, or feel illin any way. Shower/Bath - as tolerated Wound Care - none Home Oxygen Therapy - none Other Important Instructions Follow-up Appointments Future Appointments Date Time Provider Department Center 10/30/2021 11:00 AM Chito Sher MD [facility] [place] Your Inpatient Medical Team at [facility] Name(s) of your inpatient provider(s): Dr. Dahl For questions regarding issues relating to your hospitalization on the Hospital Medicine Service, please contact your inpatient physician through the [facility] Director Fraud [phone]. Issues after hours and on weekends will be handled by the Hospitalist staff on-call. Your Primary Care Provider Yariel Hackett MD [phone] documented in this encounter Medications at Time of Discharge Medication Sig Dispensed Refills Start Date End Date amitriptyline (Elavil) 25 mg Tablet 25 mg nightly. 10/15/2020 cholecalciferol, Vitamin D3, 50 mcg (2,000 unit) Capsule Daily. omeprazole (PriLOSEC) 40 mg Capsule, Delayed Release(E.C.) 40 mg Daily. escitalopram (LEXAPRO) 20 mg Tablet Take 20 mg by mouth daily. nystatin (MYCOSTATIN) Powder Apply topically as needed. levothyroxine (SYNTHROID) 75 mcg Tablet take 1 tablet by mouth once daily 0 10/04/2016 apixaban (Eliquis) 5 mg Tablet Take 2 tablets by mouth 2 times daily. 22 tablet 09/26/2021 10/02/2021 apixaban (Eliquis) 5 mg Tablet Take 1 tablet by mouth 2 times daily. 180 tablet 10/02/2021 10/02/2021 documented as of this encounter Progress Notes * Vida Canada, PT - 09/26/2021 1:47 PM EDT Physical Therapy Evaluation Patient profile: Tamia Casarez is a 66 y.o. female COVID+ female with a past medical history significant for HTN, aortic stenosis, DVT RLE in 2008, recent suicide attempt via amitriptyline overdose (09/11/21) who presents with progressive SOB and SANTIAGO for the past week with LLE swelling found to have bilateral segmental and subsegmental PE at [facility]. Patient determined not to be a candidate for EKOS and managed with systemic anticoagulation. 09/26: Home pending SW/PT/OT Patient with the following active problems: No past medical history on file. Past Surgical History: Procedure Laterality Date ??? PRO DSTR PARAVERTEBRAL FCT JNT NRVES LUMBAR OR SACRAL ADDL Bilateral 05/23/2021 DESTRUCT BY LYTIC AGENT, FACET JNT NERVE(S), LUMBAR OR SACRAL, EA ADD (WRVU 1.16) performed by Giovanny Isidro MD at [facility] ??? PRO DSTR PARAVERTEBRAL FCT JNT NRVES LUMBAR OR SACRAL SINGLE Bilateral 05/23/2021 DESTRUCTI BY LYTIC AGENT, FACET JOINT NERVE(S); LUMBAR OR SACRAL, SNGL (WRVU 3.78) performed by Giovanny Isidro MD at [facility] ??? PRO INJ PARAVERTEBRAL FACET JT W/IMAGE GUID, LUMBAR/SACRAL, 3RD OR ADDL LEVEL Bilateral 04/04/2021 INJECTION, FACET JOINT, W\FLUORO, LUMBAR, 3RD LEVEL (WRVU 1) performed by Giovanny Isidro MD at [facility] ??? PRO INJECTION PV FACET JOINT LUMBAR/SACRAL SECOND LEVEL Bilateral 03/14/2021 INJECTION, FACET JOINT, W\FLUORO, LUMBAR, 2ND LEVEL (WRVU 1) performed by Giovanny Isidro MD at [facility] ??? PRO INJECTION PV FACET JOINT LUMBAR/SACRAL SECOND LEVEL Bilateral 04/04/2021 INJECTION, FACET JOINT, W\FLUORO, LUMBAR, 2ND LEVEL (WRVU 1) performed by Giovanny Isidro MD at [facility] ??? PRO INJECTION PV FACET JOINT LUMBAR/SACRAL SINGLE LEVEL Bilateral 03/14/2021 INJECTION, FACET JOINT, W\FLUORO, LUMBAR, SINGLE (WRVU 1.52) performed by Giovanny Isidro MD at [facility] ??? PRO INJECTION PV FACET JOINT LUMBAR/SACRAL SINGLE LEVEL Bilateral 04/04/2021 INJECTION, FACET JOINT, W\FLUORO, LUMBAR, SINGLE (WRVU 1.52) performed by Giovanny Isidro MD at [facility] Social History: Pt lives with her in a 1 level home. 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 I hold onto furniture and herrera at home because of my darn knees. I have had them both replaced.?? Objective: Pt seen for evaluation today in the CSCU. EOB with OT at start of session. In chair at end of session; with call denis Pain: none reported Vital Signs: 83 bpm; 134/86; 98$% on Ra at rest; 94% with ambulation. Mental Status: alert, oriented to person, place, and time Bed Mobility: indep Transfers: Indep sit to stand transfer without a device. Indep sit to stand to/from toilet. Gait: Ambulated 20 ft in room without a device with close supervision; reaching for furniture for support. No LOB. Ambulated 20 ft in room with cane with supervision. No LOB. Ambulated 10 ft to the bathroom with cane, supervision. No LOB Stairs: Up and down step with rail x 3 times with close supervision Balance: fair; improved with cane. Education:Safety; pacing; PLB. Assessment: Tamia Casarez was seen today for physical therapy evaluation. Pt presents today with impaired activity tolerance, impaired balance and impaired gait from her baseline. Vitals stable today with all mobility on RA. Improved balance with cane for ambulation and pt agreeable to use caneupon d/c. She was able to ambulate in the room and perform stairs today and is safe for home d/c from a PT standpoint. Fitted and issued a cane. The pt would benefit from skilled therapy services while in the hospital to maximize functional abilities. Discharge Recommendations: Home with . Equipment needs: Fitted and issued cane Plan: D/c home once medically ready. Plan for d/c home today. 2017 PT Evaluation Code Rationale: ?? Diagnosis & Pertinent Co-Morbidities, personal factors, and present illness affecting Plan of Care: (see above); Additional personal factors or co- morbidities that impact plan: ?? Total # of Factors: 0 1-2 3+ x ?? Examination of body system impairments, functional limitations and behaviors, and/or participation restrictions. Addressing 1-2 elements Addressing 3 + elements x Addressing 4 + elements ?? Clinical presentation: See assessment above. Stable/Uncomplicated Evolving/Fluctuating Symptoms Unstable/Unpredictable x ?? Clinical decision making of moderate complexity based on pt's functional performance as outlinedin this evaluation. Time IN/OUT: 0679-1669 Total time: 25 mins ( eval) VIDA CANADA, PT Pager: [phone] Physical Therapy Inpatient Rehabilitation Department * Kendra Zavala I, OT - 09/26/2021 9:00 AM EDT Occupational Therapy Evaluation Patient profile: Per MD note: Tamia Casarez is a 66 y.o. female with a PMH HTN, mild aortic stenosis, prior RLE DVT (2008), recent suicide attempt via amitriptyline overdose who presents with newly diagnosed Covid-19 infection, acute LLE DVT and bilateral segmental and subsegmental PE. No past medical history on file. Past Surgical History: Procedure Laterality Date ??? PRO DSTR PARAVERTEBRAL FCT JNT NRVES LUMBAR OR SACRAL ADDL Bilateral 05/23/2021 DESTRUCT BY LYTIC AGENT, FACET JNT NERVE(S), LUMBAR OR SACRAL, EA ADD (WRVU 1.16) performed by Giovanny Isidro MD at [facility] ??? PRO DSTR PARAVERTEBRAL FCT JNT NRVES LUMBAR OR SACRAL SINGLE Bilateral 05/23/2021 DESTRUCTI BY LYTIC AGENT, FACET JOINT NERVE(S); LUMBAR OR SACRAL, SNGL (WRVU 3.78) performed by Giovanny Isidro MD at [facility] ??? PRO INJ PARAVERTEBRAL FACET JT W/IMAGE GUID, LUMBAR/SACRAL, 3RD OR ADDL LEVEL Bilateral 04/04/2021 INJECTION, FACET JOINT, W\FLUORO, LUMBAR, 3RD LEVEL (WRVU 1) performed by Giovanny Isidro MD at [facility] ??? PRO INJECTION PV FACET JOINT LUMBAR/SACRAL SECOND LEVEL Bilateral 03/14/2021 INJECTION, FACET JOINT, W\FLUORO, LUMBAR, 2ND LEVEL (WRVU 1) performed by Giovanny Isidro MD at [facility] ??? PRO INJECTION PV FACET JOINT LUMBAR/SACRAL SECOND LEVEL Bilateral 04/04/2021 INJECTION, FACET JOINT, W\FLUORO, LUMBAR, 2ND LEVEL (WRVU 1) performed by Giovanny Isidro MD at [facility] ??? PRO INJECTION PV FACET JOINT LUMBAR/SACRAL SINGLE LEVEL Bilateral 03/14/2021 INJECTION, FACET JOINT, W\FLUORO, LUMBAR, SINGLE (WRVU 1.52) performed by Giovanny Isidro MD at [facility] ??? 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 Objective: Seen today for OT evaluation. Cognitive Status/Behavior: ?? Behavior / Mood: alert and cooperative ?? Alert and oriented to: person, place, time and situation ?? Follows commands: 2 step and 100% of the time ?? Attention: WFL ?? Safety awareness: WFL Vision & Perception: ?? WNL/WFL ?? corrective lenses for reading Communication: WFL Range of motion, strength, coordination: Bilateral UEs are within functional limitations LE limitations: see PT note for further detail Sensation: numbness in LLE Activities of Daily Living: Self-feeding: independent Grooming: independent Dressing: pt able to don pants and socks EOB; supervision in standing; good standing balance Bathing: anticipate mod I Toileting: Transfer: supervision; reaching for environmental supports periodically Hygiene: anticipate independent Functional Mobility: Supine to sit: HOB elevated; supervision; use of bed rail Sit to stand: supervision Ambulation: ~10ft in room w sup/CGA no device; reaching for environmental supports periodically; performed steps w PT; see PT note for further detail Stand to sit: supervision Sit to supine: pt left in recliner w PT to finish up session Balance: Sitting balance: good Standing balance: fair Vitals: 100-107 bpm w activity; 97% spO2 w activity Pain: no report of pain Skin: intact that was observed Education: patient have been educated on Role of occupational therapy/rehabilitation, Transfers, Assistive device/technique, ADL, Breathing exercises, Positioning, Safety, Precautions/Protocol, Functional Mobility, Activity pacing/Energy conservation, Home Management, Balance, Recommendations and Discharge planning and verbalizes understanding. Patient status, treatment, and mobility recommendations discussed with nursing. Assessment: Pt has been seen for occupational therapy evaluation. Tamia Casarez presents with the following performance skill deficits and client factors: decreased activity tolerance, decreased strength and deconditioning. These performance deficits have led to activity limitations and participation restrictions in the following areas of occupation: dressing, bathing, toileting, transfers/mobility, home management and work. However, despite the deficits listed above pt demonstrates the ability to manage own needs. Pt mostly limited by deconditioning and decreased activity tolerance; educated pt on energy conservation and pacing techniques; pt agreeable. Anticipate that pt will return home once medically ready. Not further acute OT needs at this times. Do not anticipate further OT needs while hospitalized. Equipment Recommendations: Equipment Needs Upon Discharge (OT): None Anticipated Discharge Disposition (OT): home with supervision Other Recommendations: ?? Utilize upright chair position using bed features or transfer to recliner chair as appropriate with SBA cane, ambulate as tolerated ?? Encourage participation in ADL's by providing set up A on tray table and physical assist only asneeded Other Recommendations: No other consults recommended at this time Plan: OT: Therapy Frequency (OT): evaluation only Total Minutes, Occupational Therapy: 33 (1 low complexity eval ([id number])) OT Evaluation Code Rationale: ?? Diagnosis & Pertinent Co-Morbidities affecting Plan of Care: see PMHx ?? Occupational Profile & Client History: Brief Expanded Extensive x ?? Assessment of Occupational Performance: 1-3 performance deficits x 3-5 performance deficits 5 + performance deficits ?? Clinical Decision Making: Low Moderate High x Clinical decision making of low complexity using standardized patient assessment instrument and measurable assessment of functional outcome. Pager: [phone] Kendra Zavala OT 09/26/2021 Occupational Therapy Rehabilitation Department * Venkat Arauz MD - 09/26/2021 6:42 AM EDT Images from the original note were not included. Inpatient Cardiology Progress Note Patient info: Name: Tamia Casarez : 1955 PCP: Yariel Hackett MD PCP phone number: [phone] Date of Admission: 09/24/2021 ( Hospital Day 2 days ) Attending:Yen Dahl MD ID: Tamia Casarez is a 66 y.o. female COVID+ female with a past medical history significant forHTN, aortic stenosis, DVT RLE in 2008, recent suicide attempt via amitriptyline overdose (09/11/21) who presents with progressive SOB and SANTIAGO for the past week with LLE swelling found to have bilateralsegmental and subsegmental PE at [facility]. Hospital Day2 24 Hour Events/Subjective: - patient not EKOS candidate, transitioned to apixaban - on RA - was able to walk to the bathroom with assistance of without being SOB or fatigued - feels better, slept well (states that this is due to melatonin) - Pfizer vaccinated X3 -only has a raspy cough with some phlegm production (denies hemoptysis). Denies sore throat, myalgias - Denies fever, chills, chest pain, shortness of breath, abdominal pain, nausea, vomiting, diarrhea, constipation, dysuria, rash Objective: Vitals Last value Range last 24 hrs Temperature Temp: 36.8 ??C (98.2 ??F) Temp: [36.6 ??C (97.9 ??F)-36.8 ??C (98.2 ??F)] Heart Rate Heart Rate: 79 Heart Rate: [77-86] Blood Pressure BP: 142/70 BP: (131-146)/(70-90) Art Line BP BP (Arterial Line): -- MAP (NBP): [90 mmHg-105 mmHg] Respiratory Rate Resp: 16 Resp: [15-18] SpO2 SpO2: 95 % SpO2: [94 %-98 %] Oxygen Delivery Oxygen Therapy O2 Device: None (Room air) Intake/Output Summary (Last 24 hours) at 09/26/2021 0642 Last data filed at 09/26/2021 0000 Gross per 24 hour Intake 472 ml Output 625 ml Net -153 ml Admit wt: 91.4 kg Patient Vitals for the past 168 hrs: Weight 09/26/21 0500 92.3 kg (203 lb 6.4 oz) 09/25/21 0558 92.5 kg (204 lb) 09/24/21 1831 91.4 kg (201 lb 8 oz) Physical Exam: Gen: NAD, resting comfortably lying flat in bed. CV: distant heart sounds, RRR, S1S2, systolic murmur throughout Pulm: adequate air movement, CTAB, no wheezing, crackles or rhonchi Abd: soft, NT/ND, +BS Ext: LLE slightly more swollen than RLE with 1+ pitting edema + calor relative to RLE. 2+ DP pulsesbilaterally. Skin: warm and dry, no rash or petechiae Neuro: AOx3. no focal deficits grossly noted. CN II-XII intact Lines/Drains/Airways: Patient Lines/Drains/Airways Status Active Tubes/Lines/Drains Name Placement date Placement time Site Days Peripheral IV Line - Single Lumen 09/24/211899 median cubital vein (antecubital fossa), right 20 gauge 09/24/210 -- 2 Labs: Recent Labs 09/26/212 09/25/21 0433 WBC 6.7 6.9 HGB 12.5 13.4 HCT 38.1 38.9 PLATELET 264 267 MCV 90.1 89.8 Recent Labs 09/26/21 0412 09/25/21 0433 NA 139 140 CL 105 106 CO2 23 22 K 3.7 3.5 MAGNESIUM 0.89 0.85 CALCIUM 8.7 8.5 BUN 15 12 CREATININE 0.71 0.74 LFTs Recent Labs 09/26/21 0412 09/25/21 0433 PROT 6.0* 6.1 ALBUMIN 3.4 3.5 AST 16 23 ALT 12 15 ALKPHOS 87 90 BILITOT 0.6 0.5 BILIDIR 0.1 0.1 Coags Recent Labs 09/25/21 0433 INR 1.1 PT 12.3 Cardiac Enzymes Recent Labs 09/24/21 1918 TROPONINT 0.14* PROBNP 1,615* Endocrine No results for input(s): TSH, CORTISOL in the last 7068 hours. Invalid input(s): [id number] No results for input(s): POCGLU in the last 168 hours. Heme No results for input(s): LDH, HAPTOGLOBIN, URICACID in the last 168 hours. Microbiology: Microbiology Results (Last 30 days) Procedure Component Value Units Date/Time COVID-19 PCR [[id number]] (Abnormal) Collected: 09/24/21 1840 Lab Status: Final result Specimen: Nasopharyngeal Swab Updated: 09/24/212131 SARS-CoV-2 RNA PCR Detected Comment: katharina holder 09/24/21 21:32 WS This result should be interpreted in combination with the clinical observations, patient history and epidemiological information. For testing of asymptomatic individuals, assay performance characteristics and clinical utility have not been evaluated. Testing for SARS-CoV-2 (Severe acute respiratory syndrome coronavirus 2, formerly known as 2019 novel coronavirus or 2019-nCoV) to aid in the diagnosis of COVID-19 is performed using the Simplexa COVID-19 Direct Assay by [employer] as authorized by the FDA issued Emergency Use Authorization (EUA). This assay is intended for In-vitro Diagnostic (IVD) use with nasopharyngeal swabs collected from individuals meeting the CDC criteria for testing. The assay is performed based on the instructions for use and additional guidance provided by the FDA. Testing is performed in the Microbiology Laboratory within the Department of Pathology and Laboratory Medicine at [facility], certified under the Clinical Laboratory Improvement Amendments of 1988 (CLIA), 42 U.S.C. section 263a, to perform high complexity tests. Assay performance has been verified according to clinical laboratory regulatory requirements. Test results are provided above. A result of Not Detected indicates that the viral RNA target is not present but does not preclude SARS-CoV-2 infection. False negative results may occur if a specimen is improperly collected, transported or handled; if amplification inhibitors are present; or if inadequate numbers of viral particles are present in the specimen. A result of Detected suggests a current or recent infection and the patient is presumed to be infected. Positive and negative predictive values for this test are highly dependent on disease prevalence. A result of Invalid indicates the inability to conclusively determine the presence or absence of SARS-CoV-2 RNA in the sample which can be due to a variety of factors. Recollection is recommended in the case of an invalid result. CDC COVID-19 criteria for testing on human specimens and clinical management guidance information are available at the CDC Coronavirus Disease 2019 (COVID-19) webpage under Information for Healthcare Professionals (https://www.cdc.gov/coronavirus/2019-ncov/hcp/index.html). Additional information about this and other EUA tests can be found in provider and patient fact sheets at the following FDA website: https://www.fda.gov/medical-devices/vlnbwyfahqz-kulbuds-1096-tnthj-68-rljvpbolf- rnt-qrjolercxdixki-zegujof-devices/ptqfu-oybuodlbfxw-nxrg SARS-CoV-2 Source [facility] Swab Imaging: No results found for this visit on 09/24/21 (from the past 168 hour(s)). Medications Scheduled Meds: ??? apixaban 10 mg Oral BID Followed by ??? [START ON 10/02/2021] apixaban 5 mg Oral BID ??? melatonin 3 mg Oral Nightly ??? sodium chloride 0.9 % (flush) 5 mL Intravenous BID ??? escitalopram 20 mg Oral Daily ??? cholecalciferol 2,000 Units Oral Daily ??? levothyroxine 75 mcg Oral Daily ??? pantoprazole EC 40 mg Oral Daily ??? remdesivir 100 mg Intravenous Q24H Continuous Infusions: PRN Meds:.sodium chloride 0.9 % (flush), lidocaine, nitroGLYcerin, glucose 40% oral geL OR dextrose 10% OR glucagon, miconazole TTE (09/24) Interpretation Summary 1. Limited echocardiogram performed by on-call fellow to assess LV/RV function. 2. The right ventricle is moderately dilated and function is mildlyy reduced. Álvarez's sign (apical sparing) is present. Moderate pulmonary artery hypertension is present. The pulmonary artery systolic pressure is estimated to be 57 mmHg (assuming a right atrial pressure of 8 mmHg). 3. The left ventricle is normal in size and function. The left ventricular ejection fraction is estimated to be 65%. There are no regional wall motion abnormalities. 4. The atria are not well visualized. 5. The aortic valve appears tricuspid and is moderately thickened. There is mild aortic stenosis present (peak velocity 2.5 m/s). There is no aortic regurgitation. 6. There is moderate to severe tricuspid valve regurgitation likely due to annular dilation. 7. There is no prior study for comparison. DVT duplex (09/25) Interpretation: ?? RIGHT: ??No evidence of lower extremity deep venous thrombosis. ?? LEFT: Acute, occlusive deep venous thrombosis in the posterior tibial veins and one of the paired peroneal veins. No evidence of common femoral, femoral, or popliteal DVT. Assessment & Plan: Tamia L Berrelli is a 66 y.o. female COVID+ female with a past medical history significant for HTN, aortic stenosis, DVT RLE in 2008, recent suicide attempt via amitriptyline overdose (09/11/21) who presents with progressive SOB and SANTIAGO for the past week with LLE swelling found to have bilateral segmental and subsegmental PE at [facility]. Patient determined not to be a candidate for EKOS and managed with systemic anticoagulation. 09/26: Home pending SW/PT/OT #Bilateral submassive PE, likely provoked by COVID #LLE, acute, occlusive deep venous thrombosis in the posterior tibial veins and one of the paired peroneal veins. - 1x Troponin here 0.14 (09/25), at OSH Tropoinin-I 1371 - proBNP 1,615 - Telemetry - TTE (09/24) EF 65%, no regional WMA, right ventricle is moderately dilated and function is mildlyy reduced. Álvarez's sign (apical sparing) is present. Moderate pulmonary artery hypertension is present. The pulmonary artery systolic pressure is estimated to be 57 mmHg (assuming a right atrial pressure of 8 mmHg). - s/p therapeutic enoxaparin 1mg/kg BID (09/24 - 09/25) - apixaban 10 mg BID for 7 days (09/25 - 10/02) followed by 5 mg BID thereafter for minimum 3 months ?? #COVID (minimally symptomatic, inpatient, at risk for disease progression) - remdesivir 100mg x3 days. (09/24-09/26) - consider second read of CT chest ?? #Frequent symptomatic hypoglycemia without known DM - FSBG prn - Hgb A1c 5.4% (09/25) ?? #Home medications #Depression #Hypothyroidism - Continue home lexapro (she says she takes 40mg qd but this is a high dose, continuing at 20mg qd and can call her provider to confirm dosing) - Continue home levothyroxine - Continue home vitamin D ?? #Routine Diet: Cardiac diet DVT Prophylaxis: DOAC GI Prophylaxis: pantoprazole Code Status: Attempt Cardiopulmonary Resuscitation - Inpatient Dispo: Pending clinical course Venkat Arauz MD Internal Medicine, PGY-1 Cardiology, M1-S2(#[id number]) 09/26/21 Associated attestation - Yen Dahl MD - 09/26/2021 3:09 PM EDT I have seen and examined the patient, providing hardin components as outlined below. I have reviewed the resident???s above note; my evaluation of the patient is below: She has done well with a conservative approach to her pulmonary embolus. Heart rate blood pressure and oxygenation are all excellent. Functional capacity is improving. There are significant social issues that are a barrier to discharge. Medically however she certainly appears to be ready for outpatient management whenever the home safety arrangements can be implemented. * Venkat Braga MD - 09/25/2021 3:17 PM EDT Images from the original note were not included. [facility] [place] [address] [place] [address] INPATIENT CARDIOLOGY PULMONARY EMBOLISM CONSULT PROGRESS NOTE Date of Consultation: 09/25/2021 Admit Date: 09/24/2021 Place of Service: Cardiology Responsible Attending: Dr. Dahl Hospital Day 1 day Reason for Consult: Pulmonary emboli Active Problems: Active Hospital Problems Diagnosis ??? Pulmonary embolism Resolved Hospital Problems No resolved problems to display. Patient ID: Tamia Casarez is a 66 y.o. female with a PMH HTN, mild aortic stenosis, prior RLE DVT (2008), recent suicide attempt via amitriptyline overdose who presents with newly diagnosed Covid-19 infection, acute LLE DVT and bilateral segmental and subsegmental PE. PE team consulted for consideration for advanced therapies. Interval Events: - Patient anticoagulated with lovenox 1 mg/kg BID - TTE shows a moderately dilated RV with mildly reduced RV function - LE dopplers show acute LLE DVT in the posterior tibial veins and one of the paired peroneal veins. - Patient ambulated without hypoxia - Symptoms improving No past medical history on file. Past Surgical History: Procedure Laterality Date ??? PRO DSTR PARAVERTEBRAL FCT JNT NRVES LUMBAR OR SACRAL ADDL Bilateral 05/23/2021 DESTRUCT BY LYTIC AGENT, FACET JNT NERVE(S), LUMBAR OR SACRAL, EA ADD (WRVU 1.16) performed by Giovanny Isidro MD at [facility] PAIN [facility] ??? PRO DSTR PARAVERTEBRAL FCT JNT NRVES LUMBAR OR SACRAL SINGLE Bilateral 05/23/2021 DESTRUCTI BY LYTIC AGENT, FACET JOINT NERVE(S); LUMBAR OR SACRAL, SNGL (WRVU 3.78) performed by Giovanny Isidro MD at [facility] ??? PRO INJ PARAVERTEBRAL FACET JT W/IMAGE GUID, LUMBAR/SACRAL, 3RD OR ADDL LEVEL Bilateral 04/04/2021 INJECTION, FACET JOINT, W\FLUORO, LUMBAR, 3RD LEVEL (WRVU 1) performed by Giovanny Isidro MD at [facility] PAIN [facility]O ??? PRO INJECTION PV FACET JOINT LUMBAR/SACRAL SECOND LEVEL Bilateral 03/14/2021 INJECTION, FACET JOINT, W\FLUORO, LUMBAR, 2ND LEVEL (WRVU 1) performed by Giovanny Isidro MD at [facility] ??? PRO INJECTION PV FACET JOINT LUMBAR/SACRAL SECOND LEVEL Bilateral 04/04/2021 INJECTION, FACET JOINT, W\FLUORO, LUMBAR, 2ND LEVEL (WRVU 1) performed by Giovanny Isidro MD at [facility] ??? PRO INJECTION PV FACET JOINT LUMBAR/SACRAL SINGLE LEVEL Bilateral 03/14/2021 INJECTION, FACET JOINT, W\FLUORO, LUMBAR, SINGLE (WRVU 1.52) performed by Giovanny Isidro MD at [facility] ??? PRO INJECTION PV FACET JOINT LUMBAR/SACRAL SINGLE LEVEL Bilateral 04/04/2021 INJECTION, FACET JOINT, W\FLUORO, LUMBAR, SINGLE (WRVU 1.52) performed by Giovanny Isidro MD at [facility] PAIN [facility] Allergies Allergen Reactions ??? Valium [Diazepam] Hyper active and anxious Out-Patient Medications: Medications Prior to Admission Medication Sig Dispense Refill Last Dose ??? celecoxib (CeleBREX) 100 mg Capsule 3 times daily. Past Month at Unknown time ??? meclizine (Antivert) 25 mg Tablet 3 times daily as needed. Past Month at Unknown time ??? amitriptyline (Elavil) 25 mg Tablet 25 mg nightly. Past Month at Unknown time ??? cholecalciferol, Vitamin D3, 50 mcg (2,000 unit) Capsule Daily. Past Month at Unknown time ??? omeprazole (PriLOSEC) 40 mg Capsule, Delayed Release(E.C.) 40 mg Daily. 09/23/2021 at Unknown time ??? ibuprofen (Motrin) 400 mg Tablet Take 400 mg by mouth every 6 hours as needed for Pain. Past Month at Unknown time ??? escitalopram (LEXAPRO) 20 mg Tablet Take 20 mg by mouth daily. Past Month at Unknown time ??? nystatin (MYCOSTATIN) Powder Apply topically as needed. Past Week at Unknown time ??? levothyroxine (SYNTHROID) 75 mcg Tablet take 1 tablet by mouth once daily 0 09/23/2021 at Unknown time ??? UNABLE TO FIND daily. Med Name: iron tablet In-Patient Medications: ??? sodium chloride 0.9 % (flush) 5 mL Intravenous BID ??? enoxaparin 90 mg Subcutaneous 2 times per day ??? escitalopram 20 mg Oral Daily ??? cholecalciferol 2,000 Units Oral Daily ??? levothyroxine 75 mcg Oral Daily ??? pantoprazole EC 40 mg Oral Daily ??? remdesivir 100 mg Intravenous Q24H Family History: No family history on file. Social History: Social History Socioeconomic History ??? Marital status: [...] on file Housing Stability: Not on file Review of Systems: 11 point ROS is either negative or per HPI Physical Exam: Last value Range last 8 hrs Temperature Temp: 36.6 ??C (97.9 ??F) Temp: [36.6 ??C (97.9 ??F)] Heart Rate Heart Rate: 77 Heart Rate: [77-81] Blood Pressure BP: 131/77 BP: (131-146)/(77-90) Respiratory Rate Resp: 16 Resp: [15-18] SpO2 SpO2: 97 % SpO2: [94 %-98 %] Intake/Output Summary (Last 24 hours) at 09/25/2021 1517 Last data filed at 09/25/2021 1200 Gross per 24 hour Intake 0 ml Output 1175 ml Net -1175 ml Wt & BMI By Encounter Date Flowsheet Row Admission (Current) from 09/24/2021 in [facility] Office Visit from 07/07/2021 in [facility] Weight 92.5 kg (204 lb) 1 09/25/2021 0558 90.7 kg (200 lb) 1 07/07/2021 1135 Limited exam due to Covid-19 infection Comfortable, no apparent distress Breathing comfortably Asymmetric LE edema with 2+ LLE edema. Extremities are warm and well perfused ECG 09/24/2021: Normal sinus rhythm Echocardiogram 09/24/2021: Interpretation Summary 1. Limited echocardiogram performed by on-call fellow to assess LV/RV function. 2. The right ventricle is moderately dilated and function is mildlyy reduced. Álvarez's sign (apical sparing) is present. Moderate pulmonary artery hypertension is present. The pulmonary artery systolic pressure is estimated to be 57 mmHg (assuming a right atrial pressure of 8 mmHg). 3. The left ventricle is normal in size and function. The left ventricular ejection fraction is estimated to be 65%. There are no regional wall motion abnormalities. 4. The atria are not well visualized. 5. The aortic valve appears tricuspid and is moderately thickened. There is mild aortic stenosis present (peak velocity 2.5 m/s). There is no aortic regurgitation. 6. There is moderate to severe tricuspid valve regurgitation likely due to annular dilation. 7. There is no prior study for comparison. CTPA (from OSH on 09/24/21) - Acute segmental and subsegmental PE throughout both lungs. R heart enlargement with elevated RV-LV ratio 2.1 consistent with RH strain. ? LE Dopplers 09/25/2021: Interpretation: ?? RIGHT: ??No evidence of lower extremity deep venous thrombosis. ?? LEFT: Acute, occlusive deep venous thrombosis in the posterior tibial veins and one of the paired peroneal veins. No evidence of common femoral, femoral, or popliteal DVT. ?? Recent Labs 09/25/21 0433 WBC 6.9 HGB 13.4 HCT 38.9 PLATELET 267 Recent Labs 09/25/21 0433 NA 140 K 3.5 CL 106 CO2 22 BUN 12 CREATININE 0.74 Recent Labs 09/25/21432 AST 23 ALT 15 ALKPHOS 90 BILITOT 0.5 BILIDIR 0.1 Recent Labs 09/25/21 043 CALCIUM 8.5 MAGNESIUM 0.85 Recent Labs 09/25/21432 INR 1.1 PT 12.3 Recent Labs 09/24/21 1918 TROPONINT 0.14* ProBNP Date Value Ref Range Status 09/24/2021 1,615 (H) <=124 pg/mL Final Assessment/Recommendations: Tamia Casarez is a 66 y.o. female with a PMH HTN, mild aortic stenosis, prior RLE DVT (2008), recent suicide attempt via amitriptyline overdose who presents with newly diagnosed Covid-19 infection, acute LLE DVT and submassive bilateral segmental and subsegmental PE. PE team consulted for consideration for advanced therapies. While patient has evidence of RV dysfunction on echocardiogram, hersymptoms are currently improving and she has not been hypoxic with exertion. Will defer catheter-directed therapies at this time. PE is likely provoked in the setting of Covid-19 infection, though a predisposition to clotting is not excluded in setting of family history of DVT/PE (patient's mother). Recommendations: - No indication for catheter-directed therapies - Continue anticoagulation for at least 6 months. Can switch from lovenox to a apixaban (10 mg x7 days, then 5 mg BID thereafter) - Follow-up in PE clinic with Dr. Sher within 4 weeks Case discussed with Dr. Braga. Doron Villanueva MD [employer], PGY-4 Pager [phone] I have seen the patient in person and reviewed the fellow's above history and I agree with the details as written. The assessment and plan were formulated in discussion with me and I agree with them as documented. Tamia ambulated within her room without hemodynamic instability. She was fatigued onexertion but not dyspneic. I reviewed her TTE with my partner Dr. Tony. RV is dilated through withmildly reduced systolic function. Given her clinical stability, recommend systemic oral anticoagulation alone. Follow-up in vascular medicine clinic post-discharge. Venkat Braga MD Acute PE Service Pager [phone] * Venkat Arauz MD - 09/25/2021 7:12 AM EDT Images from the original note were not included. Inpatient Cardiology Progress Note Patient info: Name: Tamia Casarez : 1955 PCP: Yariel Hackett MD PCP phone number: [phone] Date of Admission: 09/24/2021 ( Hospital Day 1 day ) Attending:Yen Dahl MD ID: Tamia Casarez is a 66 y.o. female COVID+ female with a past medical history significant forHTN, aortic stenosis, DVT RLE in 2008, recent suicide attempt via amitriptyline overdose (09/11/21) who presents with progressive SOB and SANTIAGO for the past week with LLE swelling found to have bilateralsegmental and subsegmental PE at [facility]. Hospital Day1 24 Hour Events/Subjective: - patient does not feel SOB or chest pain currently at rest in bed, but walk test this morning as below Before walking BP 133/80 (93) HR 81 SpO2 94% and BP 146/90 (105) HR 81 SpO2 98% after completing the walk. She walked from the entrance door to the bathroom 1.5 before fatiguing. - patient endorses surgery to L knee 2 years ago - patient endorses a history of clots in her mother - denies fever, chills Objective: Vitals Last value Range last 24 hrs Temperature Temp: 36.5 ??C (97.7 ??F) Temp: [36.5 ??C (97.7 ??F)] Heart Rate Heart Rate: 88 Heart Rate: [84-88] Blood Pressure BP: 118/76 BP: (116-151)/(71-82) Art Line BP BP (Arterial Line): -- MAP (NBP): [85 mmHg-101 mmHg] Respiratory Rate Resp: 15 Resp: [15-17] SpO2 SpO2: 93 % SpO2: [92 %-100 %] Oxygen Delivery Oxygen Therapy O2 Device: None (Room air) Intake/Output Summary (Last 24 hours) at 09/25/2021 0713 Last data filed at 09/25/2021 0400 Gross per 24 hour Intake -- Output 875 ml Net -875 ml Admit wt: 91.4 kg Patient Vitals for the past 168 hrs: Weight 09/25/21 0558 92.5 kg (204 lb) 09/24/21 1831 91.4 kg (201 lb 8 oz) Physical Exam: Gen: NAD, resting comfortably lying flat in bed. CV: distant heart sounds, RRR, S1S2, systolic murmur throughout Pulm: adequate air movement, CTAB, no wheezing, crackles or rhonchi Abd: soft, NT/ND, hypoactive BS Ext: LLE slightly more swollen than RLE with 1+ pitting edema. 2+ DP pulses bilaterally. Skin: warm and dry, no rash or petechiae Neuro: AOx3. no focal deficits grossly noted. CN II-XII intact Lines/Drains/Airways: Patient Lines/Drains/Airways Status Active Tubes/Lines/Drains Name Placement date Placement time Site Days Peripheral IV Line - Single Lumen 09/24/211899 median cubital vein (antecubital fossa), right 20 gauge 09/24/211899 -- 1 Labs: Recent Labs 09/25/21432 WBC 6.9 HGB 13.4 HCT 38.9 PLATELET 267 MCV 89.8 Recent Labs 09/25/21432 NA 140 CL 106 CO2 22 K 3.5 MAGNESIUM 0.85 CALCIUM 8.5 BUN 12 CREATININE 0.74 LFTs Recent Labs 09/25/21432 PROT 6.1 ALBUMIN 3.5 AST 23 ALT 15 ALKPHOS 90 BILITOT 0.5 BILIDIR 0.1 Coags Recent Labs 09/25/21432 INR 1.1 PT 12.3 Cardiac Enzymes Recent Labs 09/24/211917 TROPONINT 0.14* PROBNP 1,615* Endocrine No results for input(s): TSH, CORTISOL in the last 7068 hours. Invalid input(s): [id number] No results for input(s): POCGLU in the last 168 hours. Heme No results for input(s): LDH, HAPTOGLOBIN, URICACID in the last 168 hours. Microbiology: Microbiology Results (Last 30 days) Procedure Component Value Units Date/Time COVID-19 PCR [[id number]] (Abnormal) Collected: 09/24/21 1840 Lab Status: Final result Specimen: Nasopharyngeal Swab Updated: 09/24/212131 SARS-CoV-2 RNA PCR Detected Comment: katharina holder 09/24/21 21:32 WS This result should be interpreted in combination with the clinical observations, patient history and epidemiological information. For testing of asymptomatic individuals, assay performance characteristics and clinical utility have not been evaluated. Testing for SARS-CoV-2 (Severe acute respiratory syndrome coronavirus 2, formerly known as 2019 novel coronavirus or 2019-nCoV) to aid in the diagnosis of COVID-19 is performed using the Simplexa COVID-19 Direct Assay by [employer] as authorized by the FDA issued Emergency Use Authorization (EUA). This assay is intended for In-vitro Diagnostic (IVD) use with nasopharyngeal swabs collected from individuals meeting the CDC criteria for testing. The assay is performed based on the instructions for use and additional guidance provided by the FDA. Testing is performed in the Microbiology Laboratory within the Department of Pathology and Laboratory Medicine at [facility], certified under the Clinical Laboratory Improvement Amendments of 1988 (CLIA), 42 U.S.C. section 263a, to perform high complexity tests. Assay performance has been verified according to clinical laboratory regulatory requirements. Test results are provided above. A result of Not Detected indicates that the viral RNA target is not present but does not preclude SARS-CoV-2 infection. False negative results may occur if a specimen is improperly collected, transported or handled; if amplification inhibitors are present; or if inadequate numbers of viral particles are present in the specimen. A result of Detected suggests a current or recent infection and the patient is presumed to be infected. Positive and negative predictive values for this test are highly dependent on disease prevalence. A result of Invalid indicates the inability to conclusively determine the presence or absence of SARS-CoV-2 RNA in the sample which can be due to a variety of factors. Recollection is recommended in the case of an invalid result. CDC COVID-19 criteria for testing on human specimens and clinical management guidance information are available at the CDC Coronavirus Disease 2019 (COVID-19) webpage under Information for Healthcare Professionals (https://www.cdc.gov/coronavirus/2019-ncov/hcp/index.html). Additional information about this and other EUA tests can be found in provider and patient fact sheets at the following FDA website: https://www.fda.gov/medical-devices/svklgpcnjwk-lorgupy-2531-aylts-13-rcgueziwg- efq-xatdmzfwqcemay-tgedyvk-devices/zsxxu-sepexpgopki-fgms SARS-CoV-2 Source [facility] Swab Imaging: No results found for this visit on 09/24/21 (from the past 168 hour(s)). Medications Scheduled Meds: ??? sodium chloride 0.9 % (flush) 5 mL Intravenous BID ??? enoxaparin 90 mg Subcutaneous 2 times per day ??? escitalopram 20 mg Oral Daily ??? cholecalciferol 2,000 Units Oral Daily ??? levothyroxine 75 mcg Oral Daily ??? pantoprazole EC 40 mg Oral Daily ??? remdesivir 100 mg Intravenous Q24H Continuous Infusions: PRN Meds:.sodium chloride 0.9 % (flush), lidocaine, nitroGLYcerin, glucose 40% oral geL OR dextrose 10% OR glucagon, miconazole TTE (09/24) Interpretation Summary 1. Limited echocardiogram performed by on-call fellow to assess LV/RV function. 2. The right ventricle is moderately dilated and function is mildlyy reduced. Álvarez's sign (apical sparing) is present. Moderate pulmonary artery hypertension is present. The pulmonary artery systolic pressure is estimated to be 57 mmHg (assuming a right atrial pressure of 8 mmHg). 3. The left ventricle is normal in size and function. The left ventricular ejection fraction is estimated to be 65%. There are no regional wall motion abnormalities. 4. The atria are not well visualized. 5. The aortic valve appears tricuspid and is moderately thickened. There is mild aortic stenosis present (peak velocity 2.5 m/s). There is no aortic regurgitation. 6. There is moderate to severe tricuspid valve regurgitation likely due to annular dilation. 7. There is no prior study for comparison. DVT duplex (09/25) Interpretation: ?? RIGHT: ??No evidence of lower extremity deep venous thrombosis. ?? LEFT: Acute, occlusive deep venous thrombosis in the posterior tibial veins and one of the paired peroneal veins. No evidence of common femoral, femoral, or popliteal DVT. Assessment & Plan: Tamia Casarez is a 66 y.o. female COVID+ female with a past medical history significant for HTN, aortic stenosis, DVT RLE in 2009, recent suicide attempt via amitriptyline overdose (09/11/21) who presents with progressive SOB and SANTIAGO for the past week with LLE swelling found to have bilateral segmental and subsegmental PE at [facility]. 09/25: Considering EKOS for PE with PE team. Continuing therapeutic enoxaparin. Has DVT that explains PE, but what provoked it is unclear. #Bilateral submassive PE, likely provoked by COVID #LLE, acute, occlusive deep venous thrombosis in the posterior tibial veins and one of the paired peroneal veins. - ECG on admission and daily - 1x Troponin here 0.14 (09/25), at OSH Tropoinin-I 1371 - Telemetry - Echo in AM - therapeutic enoxaparin 1mg/kg BID - NPO/IVF @[place] for potential procedure ?? #COVID (minimally symptomatic, inpatient, at risk for disease progression) - remdesivir 100mg x3 days. (09/24-09/26) - consider second read of CT chest ?? #Frequent symptomatic hypoglycemia without known DM - FSBG prn - Hgb A1c 5.4% (09/25) ?? #Home medications #Depression #Hypothyroidism - Continue home lexapro (she says she takes 40mg qd but this is a high dose, continuing at 20mg qd and can call her provider to confirm dosing) - Continue home levothyroxine - Continue home vitamin D ?? #Routine Diet: NPO diet (Give Meds) DVT Prophylaxis: LMWH therapeutic enoxaparin GI Prophylaxis: pantoprazole Code Status: Attempt Cardiopulmonary Resuscitation - Inpatient Dispo: Pending clinical course Venkat Arauz MD Internal Medicine, PGY-1 Cardiology, M1-S2(#[id number]) 09/25/21 Associated attestation - Yen Dahl MD - 09/25/2021 3:42 PM EDT I have seen and examined the patient, providing hardin components as outlined below. I have reviewed the resident???s above note; my evaluation of the patient is below: I have reviewed her care with Dr. Braga. He feels as though she is clinically stable and presents as a low to intermediate risk pulmonary embolus. He favors a conservative approach which I am in agreement with. We will transition her from heparin to Eliquis. If she remains stable, once her COVID isadequately treated and any other issues are resolved she may be discharged. documented in this encounter H&P Notes * Alva Vincent MD - 09/24/2021 6:11 PM EDT Images from the original note were not included. Cardiology Admission H&P Patient Name: Tamia Casarez Patient Age: 66 y.o. Admit date: 09/24/2021 Attending Physician: Giovanny Nj MD Problem List: Active Hospital Problems Diagnosis ??? Pulmonary embolism Resolved Hospital Problems No resolved problems to display. PCP: Yariel Hackett MD History of Present Illness (obtained from patient and eDH chart review): Tamia Casarez is a 66 y.o. COVID+ female with a past medical history significant for HTN, aortic stenosis, DVT RLE in 2008, recent suicide attempt via amitriptyline overdose (09/11/21) who presentswith progressive SOB and SANTIAGO for the past week with LLE swelling found to have bilateral segmental and subsegmental PE at [facility]. She arrived to [facility] earlier today HDS satting in low 90s on RA. Labs showed Troponin I elevation [id number] and proBNP to 1264. CTA of chest showed acute segmental and subsegmental PE throughout both lungs. R heart enlargement with elevated RV-LV ratio 2.1 consistent with RH strain. 5mm nodule in CHELITA and 4mm nodule in RUL were also seen on imaging. Pt was started on therapeutic lovenox (100mg subcutaneous at 226pm). Pt also found to be COVID+ and given remdesivir. On interview she said last week she started to feel more easily winded which seemed to get worse asthe week went on. Symptoms are worst with activity. She is normally able to walk long distances (has 6 dogs), goes fishing, hunting, etc but this past week found that she would get SOB just getting into the car. She denies any chest pain. The only pertinent positive symptom is a raspy cough productive of slightly yellow sputum. She is covid vaccinated. 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 OSH Data -Initial VS: T 36.6, HR 91, RR 19, BP 125/77, O2 96% -Labs: CE - TnI 1371 (<60) Chem - Cr 1.0, BUN 15, lytes wnl CBC: WBC 8.19, Hgb 13.6, Plt 280 -EKG: -Therapy: remdesivir, enoxaparin -Course: remains minimally symptomatic Review of Systems (positives in bold) General: chills, fatigue, fever or night sweats Eye: blurry vision, double vision, loss of vision or photophobia HENT: headaches, sore throat or vertigo Heme/Lymph: Bleeding/bruising, blood clots, jaundice, pallor or swollen lymph nodes Resp: cough (for past week, productive of yellow sputum), hemoptysis, orthopnea, shortness of breath or wheezing Cardio: chest pain, dyspnea on exertion, edema, loss of consciousness, palpitations, paroxysmal nocturnal dyspnea or shortness of breath Gastro: abdominal pain, blood in stools, constipation, diarrhea, heartburn, hematemesis, melena or nausea/vomiting : dysuria, hematuria or urinary frequency/urgency MSK: joint pain, joint stiffness, joint swelling, muscle pain or muscular weakness Neuro:dizziness, gait disturbance, impaired coordination/balance, memory loss, numbness/tingling, seizures, speech problems, tremors or visual changes Derm: lumps or rash No past medical history on file. Past Surgical History: Procedure Laterality Date ??? PRO DSTR PARAVERTEBRAL FCT JNT NRVES LUMBAR OR SACRAL ADDL Bilateral 05/23/2021 DESTRUCT BY LYTIC AGENT, FACET JNT NERVE(S), LUMBAR OR SACRAL, EA ADD (WRVU 1.16) performed by Giovanny Isidro MD at [facility] PAIN MGMT MSO ??? PRO DSTR PARAVERTEBRAL FCT JNT NRVES LUMBAR OR SACRAL SINGLE Bilateral 05/23/2021 DESTRUCTI BY LYTIC AGENT, FACET JOINT NERVE(S); LUMBAR OR SACRAL, SNGL (WRVU 3.78) performed by Giovanny Isidro MD at [facility] PAIN [facility]MT MSO ??? PRO INJ PARAVERTEBRAL FACET JT W/IMAGE GUID, LUMBAR/SACRAL, 3RD OR ADDL LEVEL Bilateral 04/04/2021 INJECTION, FACET JOINT, W\FLUORO, LUMBAR, 3RD LEVEL (WRVU 1) performed by Giovanny Isidro MD at [facility] PAIN MGMT MSO ??? PRO INJECTION PV FACET JOINT LUMBAR/SACRAL SECOND LEVEL Bilateral 03/14/2021 INJECTION, FACET JOINT, W\FLUORO, LUMBAR, 2ND LEVEL (WRVU 1) performed by Giovanny Isidro MD at [facility] PAIN [facility]MT MSO ??? PRO INJECTION PV FACET JOINT LUMBAR/SACRAL SECOND LEVEL Bilateral 04/04/2021 INJECTION, FACET JOINT, W\FLUORO, LUMBAR, 2ND LEVEL (WRVU 1) performed by Giovanny Isidro MD at [facility] PAIN MGMT MSO ??? PRO INJECTION PV FACET JOINT LUMBAR/SACRAL SINGLE LEVEL Bilateral 03/14/2021 INJECTION, FACET JOINT, W\FLUORO, LUMBAR, SINGLE (WRVU 1.52) performed by Giovanny Isidro MD at [facility] PAIN MGMT MSO ??? PRO INJECTION PV FACET JOINT LUMBAR/SACRAL SINGLE LEVEL Bilateral 04/04/2021 INJECTION, FACET JOINT, W\FLUORO, LUMBAR, SINGLE (WRVU 1.52) performed by Giovanny Isidro MD at [facility] PAIN MGMT MSO Allergies Allergen Reactions ??? Valium [Diazepam] Hyper active and anxious Medications Prior to Admission Medication Sig Dispense Refill Last Dose ??? celecoxib (CeleBREX) 100 mg Capsule 3 times daily. ??? meclizine (Antivert) 25 mg Tablet 3 times daily as needed. ??? UNABLE TO FIND daily. Med Name: iron tablet ??? amitriptyline (Elavil) 25 mg Tablet 25 mg nightly. ??? cholecalciferol, Vitamin D3, 50 mcg (2,000 unit) Capsule Daily. ??? omeprazole (PriLOSEC) 40 mg Capsule, Delayed Release(E.C.) 40 mg Daily. ??? ibuprofen (Motrin) 400 mg Tablet Take 400 mg by mouth every 6 hours as needed for Pain. ??? escitalopram (LEXAPRO) 20 mg Tablet Take 20 mg by mouth daily. ??? nystatin (MYCOSTATIN) Powder Apply topically as needed. ??? levothyroxine (SYNTHROID) 75 mcg Tablet take 1 tablet by mouth once daily 0 Social History Current;y homeless but all their stuff is in [place]. Recently bought a cabin and will be movingin the next week. Lives with her Yariel and step daughter's boyfriend Danny and his 2 dogs so they have 6 dogs at home. No etoh No tobacco No concern for remaining SI. She said she was extremely stressed because her has/had alcohol issues. Her tells me he is surrogate medical decision should she need it and not her children. Family History Says cardiac arrest runs in the family Mother from multiorgan failure 2/2 DM Father had a valve issue. 66yo brother has had 7 heart attacks. Brother w breast cancer 2/2 agent orange Another brother w bladder cancer. Brother and mother w LE DVTs provoked. Vital Signs Last value Range last 24 hrs Temperature Temp: 36.5 ??C (97.7 ??F) Temp: [36.5 ??C (97.7 ??F)] Heart rate Heart Rate: 86 Heart Rate: [86] Blood pressure BP: 151/82 BP: (151)/(82) Respiratory rate Resp: 17 Resp: [17] SpO2 SpO2: 95 % on RA SpO2: [95 %] Intake/Output Summary (Last 24 hours) at 09/24/2021 1902 Last data filed at 09/24/2021 1800 Gross per 24 hour Intake -- Output 600 ml Net -600 ml Physical Exam Gen: NAD, resting comfortably lying flat in bed. CV: distant heart sounds, RRR, S1S2, not able to auscultate murmur Pulm: adequate air movement, CTAB, no wheezing, crackles or rhonchi Abd: soft, NT/ND, hypoactive BS Ext: LLE slightly more swollen than RLE with 1+ pitting edema. 2+ DP pulses bilaterally. Skin: warm and dry, no rash or petechiae Neuro: AOx3. no focal deficits grossly noted. CN II-XII intact Labs No results for input(s): WBC, HGB, PLATELET in the last 168 hours. No results for input(s): NA, K, CL, CO2, BUN, CREATININE, GLUCOSE, CALCIUM, MAGNESIUM, PHOS in the last 168 hours. No results for input(s): PROT, ALBUMIN, BILITOT, BILIDIR, AST, ALT, ALKPHOS in the last 168 hours. No results for input(s): CK, TROPONINT in the last 168 hours. ECG: Imaging/Diagnostics No results found for this visit on 09/24/21. Assessment Ms. Casarez is a 66 y.o. female w/ above PMH who presents with submassive PE. Options discussed included anticoagulation alone versus transfer for consideration for catheter-based therapy. She is minimally symptomatic at rest but does report significantly reduced ET. Otherwise vital signs suggest she is lower risk w PESI of 61. Plan at this time is to continue therapeutic anticoagulation, order TTE, and continue discussing role of catheter-directed lysis. Plan: #Admit to Cardiology S2 (#2795) #Bilateral submassive PE, likely provoked by COVID - ECG on admission and daily - 1x Troponin check here - Telemetry - Echo in AM - Treatment enoxaparin 1mg/kg BID - NPO/IVF @[place] for potential procedure #COVID (minimally symptomatic, inpatient, at risk for disease progression) - remdesivir 100mg x3 days. (09/24-09/26) #Frequent symptomatic hypoglycemia without known DM - FSBG prn - Hgb A1c #Home medications #Depression #Hypothyroidism - Continue home lexapro (she says she takes 40mg qd but this is a high dose, continuing at 20mg qd and can call her provider to confirm dosing) - Continue home levothyroxine - Continue home vitamin D # FEN/PPX -Fluid/lytes: as needed for NPO status -Diet: NPO diet (Give Meds) -DVT ppx: therapeutic lovenox -GI ppx: pantoprazole Dispo: pending course Code Status: Attempt Cardiopulmonary Resuscitation - Inpatient Alva Vincent MD PGY-2, Internal Medicine Team Pager [phone] 09/24/2021 Associated attestation - Yen Dahl MD - 09/25/2021 12:33 PM EDT I have seen and examined the patient, providing hardin components as outlined below. I have reviewed the resident???s above note; my evaluation of the patient is below: This is a 66-year-old female with previous DVT who now presents with pulmonary embolus. Overall this is a moderate risk presentation with some favorable factors including her heart rate blood pressure and saturations and some high risk features including her RV/LV ratio on echo and CT scan. She is moderately short of breath. Dr. Braga has been consulted and he is evaluating the patient for advanced therapies. For now, she will continue on anticoagulation. documented in this encounter Miscellaneous Notes * Plan of Care - Brenna Pandya RN - 09/25/2021 5:28 PM EDT OUTCOME EVALUATION NOTE: OUTCOME SUMMARY: PT A+Ox4 and is SOB on exertion, but does not have an O2 requirement. Duplex study performed at bedside. PT in NSR/ST w/ rare ectopy 70s-100s. See tele report. VSS. See flowsheet. PLAN MOVING FORWARD: Med manage PE/DVT PT/OT consult Switch from lovenox to apixaban INDIVIDUALIZED FALL PREVENTION INTERVENTIONS: Patient-specific fall risk factors per assessment: [current deficits]: Gen weakness, tele,SpO2 Assistance [level of assistance required for transfers and ambulation]: IND Supervision [direct monitoring required during toileting and ADLs]: IND Surveillance [continuous indirect monitoring]: Rounds, tele/SpO2 Patient-specific fall prevention interventions for sensory deficits provided, if applicable: Bed in lowest position, call denis within reach, clutter free environment CARE PLAN GOAL OUTCOME EVALUATION: Ongoing * Initial Assessments - Jose Alberto Power MSW - 09/25/2021 3:01 PM EDT Office of Care Management Initial Assessment DEREK Vallejo reviewed record and discussed patient with Care Team. Source of Information: Team, bedside nurse, medical record, and Patient, Chart Review Introduced self/reviewed role; services accepted. Reason for Hospitalization: I was having a hard time breathing Covid Vaccination Status: 1st, 2nd & booster Last COVID test: Lab Results Component Value Date [id number] Detected (A) 09/24/2021 Past medical History: No past medical history on file. Hospitalizations Within the Past 30 Days: no previous admission in last 30 days Current Decision-Making Capacity: Self Advance Care Planning: Attempt Cardiopulmonary Resuscitation - Inpatient <no information> -Advanced Directive: No, need to discuss If AD's have not been completed would be surrogate decision maker per [place] surrogate decisionmaking law. (Only good for 180 days) Any patient receiving care at [facility] must abide by [place] law. The hierarchy for surrogate decision making is: (a) Patient???s spouse, or civil union partner or common law spouse unless there is a divorce proceeding, separation agreement, or restraining order limiting that person???s relationship with the patient. (b) Any adult son or daughter of the patient. (c) Either parent of the patient. (d) Any adult brother or sister of the patient. (e) Any adult grandchild of the patient. (f) Any grandparent of the patient. (g) Any adult aunt, uncle, niece, or nephew of the patient. (h) A close friend of the patient. (i) The agent with financial power of attorney recruiter or a conservator appointed in accordance with RSA 464-A. (j) The guardian of the patient???s estate. Current Coping/Education/Information Needs: Current Functional Ability: Independent Functional Status Prior to Admission: Prior ADLs & IADLs: Independent with all ADLs & IADLs Home Environment: Others in the home: spouse. Current Living Arrangements: other (see comments) ([place] [address] Accessibility Concerns: . Resource / Environmental Concerns: Resource/Environmental Concerns: none Current DME: none Home Address as: [address] [address] New address: [address] [place], [place] Social & Family Supports: All names listed below confirmed with patient as current and correct Extended Emergency Contact Information Primary Emergency Contact: Yariel Casarez Address: [address] [address] [place] Relation: Spouse Current Care Provided by: self Provides Primary Care For: no one Caregiver if needed: spouse Quality of Family relationships: supportive Community Resources being provided currently: none Behavioral Health History: Substance Use/Abuse : Social History Tobacco Use Smoking Status Never Smoker Smokeless Tobacco Never Used In the past year have you used an illegal drug or used a prescription medication for non-medical reaons?: No 0 No problems reported 1-2 Low level 3-5 Moderate level 6-8 Substantial level 9- 10 Severe level In the past year have you had 4 or more drinks a day containing alcohol?: No 0 to 7 points: Low risk 8 to 15 points: Medium risk 16 to 19 points: High risk 20 to 40 points: Addiction likely Other Pertinent/Service Specific Information: none Health/Prescription Coverage: Primary Insurance: MEDICARE Secondary Insurance: N/A Prescription Coverage: Yes Preferred Pharmacy: [id number] AT [address] [id number] [place] Status: Patient is a : No Primary Care Provider: Yariel Hackett MD [phone] Patient/Caregiver Goals of Treatment: Potential Needs for Transition of Care: none Agency Referrals: Transportation: no concerns Transportation Anticipated: family or friend will provide Concerns to be Addressed: no discharge needs identified Assessment: Patient is admitted to Cardiology service for sob Plan: home when stable A member of the Care Management team will continue to monitor progress, follow for continuity of care and assist with transition of care planning. DEREK Jones * Plan of Care - Sobeida Lord RN - 09/25/2021 3:51 AM EDT OUTCOME EVALUATION NOTE: OUTCOME SUMMARY: Pt A&O, no c/o pain, echo obtained, slept well between care, PLAN MOVING FORWARD: BLE Duplex study INDIVIDUALIZED FALL PREVENTION INTERVENTIONS: Patient-specific fall risk factors per assessment: [current deficits]: unfamiliar environment, generalized weakness Assistance [level of assistance required for transfers and ambulation]: st by Supervision [direct monitoring required during toileting and ADLs]: arms reach Surveillance [continuous indirect monitoring]: tele, pulse ox Patient-specific fall prevention interventions for sensory deficits provided, if applicable: call denis in reach, non skid socks when OOB, purposeful rounding performed CPG GOAL OUTCOME EVALUATION: * Consult Note - Venkat Braga MD - 09/24/2021 8:43 PM EDT Images from the original note were not included. ASAD-PE Consult Note Reason for Consultation: Submassive, Acute PE Requesting Provider: Kalyan Perry MD [address] [place] [address] [place] [id number] Patient Location: [place] [id number] HPI: Tamia Casarez is a 66 y.o. female with history of HTN, aortic stenosis, DVT RLE in 2008, recent suicide attempt via amitriptyline overdose (09/11/21) who presents with progressive SOB and SANTIAGO for the past week with LLE swelling found to have bilateral segmental and subsegmental PE at [facility]. She was transferred to [facility] due to her submassive PE and PE team subsequently consulted. Per primary team HPI: She arrived to [facility] earlier today HDS satting in low 90s on RA. Labs showed Troponin I elevation to 1371 and proBNP to 1264. CTA of chest showed acute segmental and subsegmental PE throughout both lungs. R heart enlargement with elevated RV-LV ratio 2.1 consistent with RH strain. 5mm nodule in CHELITA and 4mm nodule in RUL were also seen on imaging. Pt was started on therapeutic lovenox (100mg subcutaneous at 226pm). Pt also found to be COVID+ and given remdesivir. ?? On interview she said last week she started to feel more easily winded which seemed to get worse asthe week went on. Symptoms are worst with activity. She is normally able to walk long distances (has 6 dogs), goes fishing, hunting, etc but this past week found that she would get SOB just getting into the car. She denies any chest pain. The only pertinent positive symptom is a raspy cough productive of slightly yellow sputum. She is covid vaccinated. 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 - She denies any recent travel or prolonged immobilization. No recent weight loss or B symptoms. She notes that though she is minimally symptomatic when she is lying down flat, she experiences severedyspnea even with small exertional movements, including walking across her room to the bathroom. - She recently had a suicide attempt via amitriptyline overdose on 09/11/21 (no further details). Shenotes that her was blaming her for their homelessness. They currently live in their truck with 6 dogs as well. They are trying to acquire a cabin to live in. She does not feel suicidal anymore and endorses a willingness to want to get better. Past Medical History: HTN, aortic stenosis, DVT RLE in 2008, recent suicide attempt via amitriptyline overdose (09/11/21) ALLERGIES: Allergies Allergen Reactions ??? Valium [Diazepam] Hyper active and anxious PHYSICAL EXAM: Constitutional: In general, alert and oriented X 3 Vitals Flowsheet Row Admission (Current) from 09/24/2021 in [facility] Weight 91.4 kg (201 lb 8 oz) Temp 36.5 ??C (97.7 ??F) Temp src Oral Heart Rate 84 Heart Rate from SpO2 83 bpm Heart Rate Source Monitor Resp 15 BP 135/82 Patient Position Lying SpO2 100 % Gen: Older female in NAD, A&Ox3 HEENT: MMM, JVD poorly visualized due to habitus CV: RRR, no murmurs Lungs: CTAB no wrr Abd: Soft, non-tender Extrem: Warm, non-edematous DIAGNOSTIC TESTS: 1: CXR: CTPA (from OSH on 09/24/21) - no significant pulmonary pathology. 5mm nodule in CHELITA and 4mm nodule in RUL. 2: ECG: NSR at 84 bpm 3: CTA: CTPA (from OSH on 09/24/21) - Acute segmental and subsegmental PE throughout both lungs. R heart enlargement with elevated RV-LV ratio 2.1 consistent with RH strain. 4: Echo: Formal pending Bedside TTE (09/24/21) Interpretation Summary 1. Limited echocardiogram performed by on-call fellow to assess RV function. 2. The right ventricle is moderately dilated and function is moderately reduced. The right ventricular free wall appears akinetic. Álvarez's sign is present. Moderate pulmonary artery hypertension is present. The pulmonary artery systolic pressure is estimated to be 57 mmHg (assuming a right atrial pressure of 8 mmHg). 3. The left ventricle is normal in size and function. The left ventricular ejection fraction is estimated to be 65%. There are no regional wall motion abnormalities. 4. The atria are not well visualized. 5. The aortic valve appears tricuspid and is moderately thickened. There is mild aortic stenosis present. There is no aortic regurgitation. 6. There is severe tricuspid valve regurgitation likely due to annular dilation. 7. There is no prior study for comparison. 5: Biomarkers: Trop: 0.14 BNP: 1,615 6: LE duplex - pending sPESI (age > 80, history of CP disease, history of Ca, HR> 110 bpm; BP < 100 mm hg, O2 sat< 90%): 0 A/P: Tamia Casarez is a 66 y.o. female presents with a submassive, intermediate-high risk acutePE. Currently maintained on lovenox 1 mg/kg BID. RV:LV ratio approximately 2:1, troponin elevated to 0.14 and proBNP elevated to 1.6k. She is hemodynamically stable but is quite symptomatic with exertion. She does not appear to have significant pulmonary parenchymal disease due to her covid on her CT. Given her symptoms and moderately dilated and reduced RV function on her echocardiogram, she should be considered for advanced therapies. Her clot in the RPA > LPA but appears too distal for thrombectomy. She will be considered for EKOS in the AM. Please keep NPO at midnight. Recommendations: 1: Please order a bilateral LE duplex and formal echocardiogram 2: Continue lovenox 1 mg/kg BID 3: Keep NPO at midnight for possible advanced therapies in the AM ASA: 3: Patient with severe systemic disease Mallampati: III: only the base of the uvula can be seen Nemesio Barragan [employer] Usher, PGY5 [id number] I have seen the patient in person and reviewed the fellow's above history and I agree with the details as written. The assessment and plan were formulated in discussion with me and I agree with them as documented. Ms. Casarez is a very pleasant 66 year old female with multiple medical comorbidities and challenging psychosocial history, who is admitted to the cardiovascular medicine service for submassive pulmonary embolism. I reviewed her imaging and laboratory data in the context of her presenting symptomatology, and discussed her case at length with the technician semiconductor development fellow Dr. Barragan as well as myservice partner Dr. Dahl. She is hemodynamically stable at this time, although there is concern regarding her limited exertional capacity and significant symptoms induced even with limited ambulation. She does have an elevated troponin with evidence of right-heart strain on her CT. While she is COVID+, her pulmonary parenchyma appears relatively spared. At this time, I would favor a formal echocardiogram this morning to better assess her RV size/function. We will also plan to ambulate the patient in the room with subsequent surveillance of her hemodynamic response and symptomatology. If she is quite limited even with minimal exertion, as reported in the preceding days leading to admission, we may then opt for advanced therapies. Most of his PE burden is in the distal right main PA exten ding to the upper and lower branches with segmental and subsegmental involvement. Please keep npo for now. Venkat Braga MD Acute PE Service Vascular Medicine Pager [phone] documented in this encounter Plan of Treatment Not on file documented as of this encounter Procedures Procedure Name Priority Date/Time Associated Diagnosis Comments HEMOGRAM Routine 09/26/2021 4:12 AM EDT DIFFERENTIAL, AUTOMATED Routine 09/26/2021 4:12 AM EDT HC CBC,PLT & AUTO DIFF Routine 09/26/2021 4:12 AM EDT HC MAGNESIUM, SERUM Routine 09/26/2021 4 :12 AM EDT HEPATIC FUNCTION PANEL Routine 09/26/2021 4:12 AM EDT BASIC METABOLIC PANEL Routine 09/26/2021 4:12 AM EDT DUPLEX FOR DVT BILAT LEGS Routine 09/25/2021 9:12 PM EDT Pulmonary embolism, unspecified chronicity, unspecified pulmonary embolism type, unspecified whether acute cor pulmonale present HEMOGRAM Routine 09/25/2021 4:33 AM EDT DIFFERENTIAL, AUTOMATED Routine 09/25/2021 4:33 AM EDT HC PROTHROMBIN TIME Routine 09/25/2021 4 :33 AM EDT HC VENIPUNCTURE Routine 09/25/2021 4:33 AM EDT HC MAGNESIUM, SERUM Routine 09/25/2021 4 :33 AM EDT HC HEMOGLOBIN A1C Routine 09/25/2021 4:3 3 AM EDT HEPATIC FUNCTION PANEL Routine 09/25/2021 4:33 AM EDT BASIC METABOLIC PANEL Routine 09/25/2021 4:33 AM EDT HC TROPONIN T STAT 09/24/2021 7:18 PM EDT PRO-BRAIN NATRIURETIC PEPTIDE STAT 09/24/2021 7:18 PM EDT EKG 12-LEAD Routine 09/24/2021 6:41 PM EDT Pulmonary embolism, unspecified chronicity, unspecified pulmonary embolism type, unspecified whether acute cor pulmonale present RAPID COVID-19 PCR ([facility]) Routine 09/24/2021 6:40 PM EDT documented in this encounter Results * Differential, Automated (09/26/2021 4:12 AM EDT) Neutrophil % 58.9 % [facility] Neutrophil Absolute 3.94 1.70 - 6.10 x10(3)/[facility] Lymph % 23.5 % [facility] Lymphocytes Abs 1.6 0.9 - 3.2 x10(3)/[facility] Monocyte % 12.3 % [facility] Monocyte Abs 0.8 0.3 - 0.9 x10(3)/[facility] Eos % 4.6 % [facility] Eosinophils Abs 0.3 0.0 - 0.4 x10(3)/[facility] Basophil % 0.3 % [facility] Baso Absolute 0.0 0.0 - 0.1 x10(3)/[facility] Immature Gran % 0.40 % [facility] Comment: Immature granulocytes(IG's)percentage and absolute count will include metamyelocytes, myelocytes, and promyelocytes. Blood smears from CBCs yielding IG's will be scanned manually for concordance. If this scan disagrees with the automated IG or if promyelocytes are noted, a manual differential will be performed. Immature Gran Absolute 0.03 0.00 - 0.04 x10(3)/[facility] Blood 09/26/2021 4:12 AM EDT 09/26/2021 4:46 AM EDT Narrative Resulting Agency Comment Spec In Lab Alva Vincent MD HEMATOLOGY ORDERA BLES [facility] [place] [address] * (ABNORMAL) Hemogram (09/26/2021 4:12 AM EDT) White Blood Cell 6.7 4.0 - 9.5 x10(3)/ L [facility] Red Blood Cell 4.23 4.00 - 5.21 x10(6)/ L [facility] Hemoglobin 12.5 11.7 - 15.5 g/dL [facility] Hematocrit 38.1 35.7 - 45.8 % [facility] Mean Cell Volume 90.1 82.6 - 94.4 fL [facility] Mean Cell Hemoglobin 29.6 27.1 - 32.0 pg [facility] Mean Cell Hemoglobin Concentration 32.8 31.7 - 35.0 g/dL [facility] Platelet 264 145 - 357 x10(3)/ L [facility] RDW Standard Deviation 43.5 37.0 - 46.0 fL [facility] RDW coefficient of variation 13.2 11.5 - 14.1 % [facility] Mean Platelet Volume 13.3(H) 7.6 - 12.9 fL [facility] NRBC% auto 0.0 % [facility] NRBC Absolute 0.000 0.000 - 0.000 x10(3)/mc L [facility] Blood 09/26/2021 4:12 AM EDT 09/26/2021 4:46 AM EDT Narrative Resulting Agency Comment Spec In Lab Alva Vincent MD HEMATOLOGY ORDERA BLES Performing Organization Address [facility]/ZIP Co de Phone Number [facility] [place] [address] * (ABNORMAL) Hepatic Function Panel (09/26/2021 4:12 AM EDT) Protein, Total 6.0(L) 6.1 - 8.0 g/dL [facility] Albumin 3.4 3.2 - 5.2 g/dL [facility] Aspartate Aminotransferase 16 0 - 30 unit/L [facility] Alanine Aminotransferase 12 0 - 30 unit/L [facility] Alkaline Phosphatase 87 35 - 105 unit/L [facility] Bilirubin, Total 0.6 0.2 - 1.3 mg/dL [facility] Bilirubin, Direct 0.1 0.0 - 0.3 mg/dL [facility] Blood 09/26/2021 4:12 AM EDT 09/26/2021 4:46 AM EDT Narrative Resulting Agency Comment Spec In Lab Giovanny Nj MD CHEMISTRY ORDERABLES Performing Organization Address [facility]/ZIP Co de Phone Number [facility] [place] [address] * Magnesium (09/26/2021 4:12 AM EDT) Magnesium 0.89 0.69 - 1.07 mmol/L [facility] Blood 09/26/2021 4:12 AM EDT 09/26/2021 4:46 AM EDT Narrative Resulting Agency Comment Spec In Lab Giovanny Nj MD CHEMISTRY ORDERABLES [facility] [place] [address] * Basic Metabolic Panel (non-fasting) (09/26/2021 4:12 AM EDT) Glucose 100 65 - 199 mg/dL [facility] Comment:Diabetes: >=200 mg/d L plus symptoms Blood Urea Nitrogen 15 8 - 18 mg/dL [facility] Creatinine 0.71 0.70 - 1.20 mg/dL [facility] Sodium 139 135 - 145 mmol/L [facility] Potassium 3.7 3.5 - 5.0 mmol/L [facility] Comment: Please note: ??Patients with WBC >100,000 may have falsely elevated Potassium levels. ??For accurate Potassium quantification in these patients send serum separator tube (gold top) for subsequent determinations. ??Contact the Clinical Chemistry Laboratory if there are any questions. Chloride 105 98 - 107 mmol/L [facility] Carbon Dioxide 23 22 - 31 mmol/L [facility] Anion Gap 11 5 - 15 mmol/L [facility] Calcium 8.7 8.5 - 10.5 mg/dL [facility] Est Glomerular Filtration Rate 94 >=60 mL/min/1. 73 m?? [facility] Comment: This patient's estimated GFR was [...] In Lab Giovanny Nj MD CHEMISTRY ORDERABLES [facility] [place] [address] * Duplex Study for DVT, Bilat legs (09/25/2021 9:12 PM EDT) VB Text Report Department: Vascular Surgery Lab Patient: [id number] (TAMIA CASAREZ) CPT: [id number] Referring Physician: YEN DAHL ?? Phone: Indications: PE, COVID-19, left lower extremity swelling, hx DVT, ? DVT Findings: RIGHT: Patent common femoral vein and popliteal vein with spontaneous, respirophasic Doppler waveforms that respond normally to augmentation maneuvers. The common femoral vein, saphenofemoral junction, femoral vein through the thigh and popliteal vein are fully compressible. Patent posterior tibial and peroneal veins with no evidence of thrombus. LEFT: There is acute, occlusive deep venous thrombosis in the posterior tibial veins and one of the paired peroneal veins in the calf. Patent common femoral vein and popliteal vein with spontaneous, respirophasic Doppler waveforms that respond normally to augmentation maneuvers. The common femoral vein, saphenofemoral junction, femoral vein through the thigh and popliteal vein are fully compressible. Interpretation: RIGHT: ??No evidence of lower extremity deep venous thrombosis. LEFT: Acute, occlusive deep venous thrombosis in the posterior tibial veins and one of the paired peroneal veins. No evidence of common femoral, femoral, or popliteal DVT. Comparison: No previous study in our vascular lab database for comparison. Notification: The care team was informed of these preliminary findings at patient's bedside. Electronically Signed by: EVA DENG on 2021-09-27 09:02:38 AM VAS[facility] VB Text Report End of Report [facility] 09/25/2021 9:12 PM EDT Yen Dahl MD VASCULAR ORDERABLE S [facility] * Differential, Automated (09/25/2021 4:33 AM EDT) Neutrophil % 57.5 % [facility] Neutrophil Absolute 3.96 1.70 - 6.10 x10(3)/[facility] Lymph % 25.2 % [facility] Lymphocytes Abs 1.7 0.9 - 3.2 x10(3)/[facility] Monocyte % 12.3 % [facility] Monocyte Abs 0.8 0.3 - 0.9 x10(3)/[facility] Eos % 4.2 % [facility] Eosinophils Abs 0.3 0.0 - 0.4 x10(3)/[facility] Basophil % 0.4 % [facility] Baso Absolute 0.0 0.0 - 0.1 x10(3)/[facility] Immature Gran % 0.40 % [facility] Comment: Immature granulocytes(IG's)percentage and absolute count will include metamyelocytes, myelocytes, and promyelocytes. Blood smears from CBCs yielding IG's will be scanned manually for concordance. If this scan disagrees with the automated IG or if promyelocytes are noted, a manual differential will be performed. Immature Gran Absolute 0.03 0.00 - 0.04 x10(3)/[facility] Blood 09/25/2021 4:33 AM EDT 09/25/2021 4:51 AM EDT Narrative Resulting Agency Comment Spec In Lab Alva Vincent MD HEMATOLOGY ORDERA BLES Performing Organization Address City/[facility]/ZIP Co de Phone Number [facility] [place] [address] * (ABNORMAL) Hemogram (09/25/2021 4:33 AM EDT) [facility] White Blood Cell 6.9 4.0 - 9.5 x10(3)/ L [facility] Red Blood Cell 4.33 4.00 - 5.21 x10(6)/ L [facility] Hemoglobin 13.4 11.7 - 15.5 g/dL [facility] Hematocrit 38.9 35.7 - 45.8 % [facility] Mean Cell Volume 89.8 82.6 - 94.4 fL [facility] Mean Cell Hemoglobin 30.9 27.1 - 32.0 pg [facility] Mean Cell Hemoglobin Concentration 34.4 31.7 - 35.0 g/dL [facility] Platelet 267 145 - 357 x10(3)/[facility] LABORATORY RDW Standard Deviation 43.9 37.0 - 46.0 [facility] LABORAT[facility] RDW coefficient of variation 13.3 11.5 - 14.1 % [facility] Mean Platelet Volume 13.1(H) 7.6 - 12.9 fL [facility] NRBC% auto 0.0 % [facility] NRBC Absolute 0.000 0.000 - 0.000 x10(3)/[facility] LABORATORY Blood 09/25/2021 4:33 AM EDT 09/25/2021 4:51 AM EDT Narrative Resulting Agency Comment Spec In Lab Alva Vincent MD HEMATOLOGY ORDERA BLES [facility] [place] [address] * Hepatic Function Panel (09/25/2021 4:33 AM EDT) Pathologist [facility] Protein, Total 6.1 6.1 - 8.0 g/dL [facility] Albumin 3.5 3.2 - 5.2 g/dL [facility] Aspartate Aminotransferase 23 0 - 30 unit/L [facility] Alanine Aminotransferase 15 0 - 30 unit/L [facility] Alkaline Phosphatase 90 35 - 105 unit/L [facility] Bilirubin, Total 0.5 0.2 - 1.3 mg/dL [facility] Bilirubin, Direct 0.1 0.0 - 0.3 mg/dL [facility] Blood 09/25/2021 4:33 AM EDT 09/25/2021 4:51 AM EDT Narrative Resulting Agency Comment Spec In Lab Giovanny Nj MD CHEMISTRY ORDERABLES Performing Organization Address [facility] Co de Phone Number [facility] [place] [address] * Magnesium (09/25/2021 4:33 AM EDT) Magnesium 0.85 0.69 - 1.07 mmol/L [facility] Blood 09/25/2021 4:33 AM EDT 09/25/2021 4:51 AM EDT Narrative Resulting Agency Comment Spec In Lab Giovanny Nj MD CHEMISTRY ORDERABLES Performing Organization Address [facility] Co de Phone Number [facility] [place] [address] * Basic Metabolic Panel (non-fasting) (09/25/2021 4:33 AM EDT) Glucose 105 65 - 199 mg/dL [facility] Comment:Diabetes: >=200 mg/d L plus symptoms Blood Urea Nitrogen 12 8 - 18 mg/dL [facility] Creatinine 0.74 0.70 - 1.20 mg/dL [facility] Sodium 140 135 - 145 mmol/L [facility] Potassium 3.5 3.5 - 5.0 mmol/L [facility] Comment: Please note: ??Patients with WBC >100,000 may have falsely elevated Potassium levels. ??For accurate Potassium quantification in these patients send serum separator tube (gold top) for subsequent determinations. ??Contact the Clinical Chemistry Laboratory if there are any questions. Chloride 106 98 - 107 mmol/L [facility] Carbon Dioxide 22 22 - 31 mmol/L [facility] Anion Gap 12 5 - 15 mmol/L [facility] Calcium 8.5 8.5 - 10.5 mg/dL [facility] Est Glomerular Filtration Rate 90 >=60 mL/min/1. 73 m?? [facility] Comment: This patient's estimated GFR was [...] and symptoms in addition to eGFR. Blood 09/25/2021 4:33 AM EDT 09/25/2021 4:51 AM EDT Narrative Resulting Agency Comment Spec In Lab Giovanny Nj MD CHEMISTRY ORDERABLES [facility] [place] [address] * Hemoglobin A1c (09/25/2021 4:33 AM EDT) Hemoglobin A1c 5.4 4.3 - 5.6 % [facility] Comment: Reference Range: 4.3 - 5.6% 5.7 - 6.4% - Increased Risk of Developing Diabetes Mellitus >= 6.5% - Consistent with diagnosis of Diabetes Mellitus In the absence of hyperglycemia (i.e. plasma glucose > 200 mg/dL) or classic symptoms of hyperglycemia a repeat measurement of HbA1c should be performed on a separate sample to confirm the diagnosis. Diagnosis and Classification of Diabetes Mellitus, Diabetes Care 2013; 36: Suppl. 1, S67-74 Estimated Average Glucose 109 mg/dL [facility] Comment: eAG equivalents for HbA1c percentages: HbA1c(%) ?eAG(mg/dL) 6.0 ?126 6.5 ?140 7.0 ?154 7.5 ?169 8.0 ?183 8.5 ?197 9.0 ?212 9.5 ?226 10.0 ? 240 Limitations: The eAG calculation has not been validated on women, individuals below 18 years old and above 70 years old, and individuals with hemoglobinopathies. Additional resources are available on the ADA website. Edward DAVIS, Milton J, Obi R, et al. ??Translating the A1C assay into estimated average glucose values. ??Diabetes Care 2008:31(8):8395-8981. Blood 09/25/2021 4:33 AM EDT 09/25/2021 4:51 AM EDT Narrative Resulting Agency Comment Spec In Lab Giovanny Nj MD CHEMISTRY ORDERABLES [facility] [place] [address] * Prothrombin Time (09/25/2021 4:33 AM EDT) Prothrombin Time 12.3 9.4 - 12.5 sec [facility] International Normalization Ratio 1.1 [facility] Comment: An INR <2.0 indicates adequate procoagulant activity for hemostasis in most patients without underlying bleeding disorders, though the INR may not adequately reflect hemostatic capacity in patients with liver disease and synthetic impairment. The recommended target INR range for therapeutic anticoagulation is 2.0 ? 3.0 for most applications, though lower and higher ranges may be appropriate depending on clinical circumstances. Blood 09/25/2021 4:33 AM EDT 09/25/2021 4:51 AM EDT Narrative Resulting Agency Comment Spec In Lab Giovanny Nj MD HEMATOLOGY ORDERABLE S Performing Organization Address City/[facility]/ZIP Co de Phone Number [facility] [place] [address] * (ABNORMAL) pro-Brain Natriuretic Peptide (09/24/2021 7:18 PM EDT) NT-proBNP 1,615(H) <=124 pg/mL [facility] Blood Venous Draw / Unknown 09/24/2021 7:18 PM EDT 09/24/2021 7:27 PM EDT Narrative Resulting Agency Comment Spec In Lab Nemesio Barragan MD CHEMISTRY ORDERABLES Performing Organization Address [facility]/ZIP Co de Phone Number [facility] [place] [address] * (ABNORMAL) Troponin (09/24/2021 7:18 PM EDT) Troponin-T 0.14(H) 0.00 - 0.00 ng/mL [facility] Comment: The 99th percentile for Troponin T is less than 0.01 ng/mL, any detectable cTnT concentration using this assay should be considered elevated. According to the third universal definition of myocardial infarction the following criteria with a clinical presentation consistent with acute myocardial ischemia meets the diagnosis for a myocardial infarction ([place]). Detection of a rise and/or fall of cTnT, with at least one value greater than the 99th percentile (> or = 0.01) and with at least one of the following ?? Symptoms of ischemia ?? New or presumed new significant KO-arezjld-L wave (ST-T) changes or new left bundle branch block (LBBB) ?? Development of pathologic Q waves in the ECG ?? Imaging evidence of new loss of viable myocardium or new regional wall motion abnormality ?? Identification of an intracoronary thrombus by angiography or autopsy Samples for cTnT testing should be obtained serially upon first assessment and again 3 to 6 hours later. If the clinical suspicion is high and previous samples have been negative an additional sample may be indicated. Reference: Third [facility] Definition of Myocardial Infarction. Journal of the [place] [employer] 2012;60:1581-98 Blood 09/24/2021 7:18 PM EDT 09/24/2021 7:23 PM EDT Narrative Resulting Agency Comment Spec In Lab Giovanny Nj MD CHEMISTRY ORDERABLES Performing Organization Address [facility] Co de Phone Number [facility] [place] [address] * EKG 12 Lead (09/24/2021 6:41 PM EDT) Pathologist [facility] Ventricular rate 84 BPM MUSE SYSTEM Atrial Rate 84 BPM MUSE SYSTEM P-R Interval 154 ms MUSE SYSTEM QRS Duration 82 ms MUSE SYSTEM Q-T Interval 406 ms MUSE SYSTEM QTC Calculated (Bezet) 479 ms MUSE SYSTEM Calculated P [place] 18 degrees MUSE SYSTEM Calculated R [place] 8 degrees MUSE SYSTEM Calculated T [place] 12 degrees MUSE SYSTEM INTERPRETATION Normal sinus rhythm Normal ECG No previous ECGs available Confirmed by MD Rosalva, Ino ([id number]) on 09/26/2021 12:35:42 PM MUSE SYSTEM 09/24/2021 6:41 PM EDT 09/26/2021 12:35 PM EDT Giovanny Nj MD ECG ORDERABLES Performing Organization Address [facility] Co de Phone Number MUSE SYSTEM * (ABNORMAL) COVID-19 PCR (09/24/2021 6:40 PM EDT) Pathologist [facility] SARS-CoV-2 RNA (Rapid) Detected (A) Not Detected [facility] Comment: katharina holder 09/24/21 21:32 WS This result should be interpreted in combination with the clinical observations, patient history and epidemiological information. For testing of asymptomatic individuals, assay performance characteristics and clinical utility have not been evaluated. Testing for SARS-CoV-2 (Severe acute respiratory syndrome coronavirus 2, formerly known as 2019 novel coronavirus or 2019-nCoV) to aid in the diagnosis of COVID-19 is performed using the Simplexa COVID-19 Direct Assay by [employer] as authorized by the FDA issued Emergency Use Authorization (EUA). This assay is intended for In-vitro Diagnostic (IVD) use with nasopharyngeal swabs collected from individuals meeting the CDC criteria for testing. The assay is performed based on the instructions for use and additional guidance provided by the FDA. Testing is performed in the Microbiology Laboratory within the Department of Pathology and Laboratory Medicine at [facility], certified under the Clinical Laboratory Improvement Amendments of 1988 (CLIA), 42 U.S.C. section 263a, to perform high complexity tests. Assay performance has been verified according to clinical laboratory regulatory requirements. Test results are provided above. A result of Not Detected indicates that the viral RNA target is not present but does not preclude SARS-CoV-2 infection. False negative results may occur if a specimen is improperly collected, transported or handled; if amplification inhibitors are present; or if inadequate numbers of viral particles are present in the specimen. A result of Detected suggests a current or recent infection and the patient is presumed to be infected. Positive and negative predictive values for this test are highly dependent on disease prevalence. A result of Invalid indicates the inability to conclusively determine the presence or absence of SARS-CoV-2 RNA in the sample which can be due to a variety of factors. Recollection is recommended in the case of an invalid result. CDC COVID-19 criteria for testing on human specimens and clinical management guidance information are available at the CDC Coronavirus Disease 2019 (COVID-19) webpage under Information for Healthcare Professionals (https://www.cdc.gov/coronavirus/2019-ncov/hcp/index.html). Additional information about this and other EUA tests can be found in provider and patient fact sheets at the following FDA website: https://www.fda.gov/medical-devices/emvbytwlosf-oxkajwh-9551-fbfhx-64-eogbvtwvy- use-a uanbxinyuuxqy-iquaytm-czlxcql/oasog-foppbtnbeeh-sgra SARS-CoV-2 Source [facility] Swab [facility] Nasopharyngeal Swab 09/25/19 6:40 PM EDT 09/24/2021 7:24 PM EDT Comment:Symptoms->Surveillan ce Narrative Resulting Agency Comment Spec In Lab Giovanny Nj MD MICROBIOLOGY - GENER AL ORDERABLES [facility] [place] [address] documented in this encounter Visit Diagnoses Diagnosis Pulmonary embolism, unspecified chronicity, unspecified pulmonary embolism type, unspecified whether acute cor pulmonale present Pulmonary embolism Other pulmonary embolism and infarction documented in this encounter Admitting Diagnoses Diagnosis Pulmonary embolism Other pulmonary embolism and infarction documented in this encounter Administered Medications Inactive Administered Medications - up to 3 most recent administrations Medication Order MAR Action Action Date Dose Rate Site apixaban (Eliquis) tablet 10 mg 10 mg, Oral, 2 TIMES DAILY, 14 doses, First dose on Sat09/25/21 at 2100, Last dose on Sat10/02/21 at 0900, Anticoagulant, Routine, Restricted anticoagulant, choose the most appropriate response: Appoved indication of DVT and/or PE Given 09/26/2021 8:37 AM EDT 10 mg Given 09/25/2021 8:22 PM EDT 10 mg apixaban (Eliquis) tablet 5 mg 5 mg, Oral, 2 TIMES DAILY, First dose on Sat10/02/21 at 2100, Until Discontinued, Anticoagulant, Routine, Restricted anticoagulant, choose the most appropriate response: Appoved indication of DVT and/or PE cholecalciferol (Vitamin D3) tablet 2,000 Units 2,000 Units, Oral, DAILY, First dose on Sat09/25/21 at 0900, Until Discontinued, Routine Given 09/26/2021 8:38 AM EDT 2,000 Units Given 09/25/2021 8:38 AM EDT 2,000 Units dextrose 10% infusion 250 mL, at 1,000 mL/hr, Intravenous, EVERY 30 MIN PRN, Starting on Sat09/24/21 at 2015, Until Sat09/26/21 at 1831, For BG 50-70 mg/dL: Oral treatment preferred: If able to drink, give 120 mL Juice or Regular (not diet) soda OR If NPO, give 15 gram glucose 40% oral gel massaged into buccal mucosa OR if unconscious or uncooperative, give 25 gram (250 mL) Dextrose 10% IV over 15 minutes per protocol OR, if no IV access, 1 mg Glucagon IM. For BG less than 50 mg/dL: Oral treatment preferred: If able to drink, give 240 mL Juice or Regular (not diet) soda OR If NPO, give 30 gram glucose 40% oral gel massaged in buccal mucosa OR if unconscious or uncooperative, give 25 gram (250 mL) Dextrose 10% IV over 15 minutes per protocol OR, if no IV access, 1 mg Glucagon IM. Recheck BG in 30 minutes. May repeat juice/soda, gel, dextrose or glucagon once per episode. For persistent hypoglycemia, consider longer-acting treatment for the duration of the active insulin. enoxaparin (Lovenox) (100 mg/1 mL) subcutaneous injection 90 mg 90 mg, Subcutaneous, EVERY 12 HOURS SCHEDULED (2 times per day), First dose on Sat09/24/21 at 2100, Until Discontinued, Routine Given 09/25/2021 8:39 AM EDT 90 mg Given 09/24/2021 8:44 PM EDT 90 mg escitalopram (Lexapro) tablet 20 mg 20 mg, Oral, DAILY, First dose on Sat09/25/21 at 0900, Until Discontinued, Routine Given 09/26/2021 8:37 AM EDT 20 mg Given 09/25/2021 8:38 AM EDT 20 mg glucagon (Glucagen) (1 mg/mL) injection solution 1 mg 1 mg, Intramuscular, EVERY 30 MIN PRN, Starting on Sat09/24/21 at 2015, Until Sat09/26/21 at 1831, Low blood sugar, For BG 50-70 mg/dL: Oral treatment preferred: If able to drink, give 120 mL Juice or Regular (not diet) soda OR If NPO, give 15 gram glucose 40% oral gel massaged into buccal mucosa OR if unconscious or uncooperative, give 25 gram (250 mL) Dextrose 10% IV over 15 minutes per protocol OR, if no IV access, 1 mg Glucagon IM. For BG less than 50 mg/dL: Oral treatment preferred: If able to drink, give 240 mL Juice or Regular (not diet) soda OR If NPO, give 30 gram glucose 40% oral gel massaged in buccal mucosa OR if unconscious or uncooperative, give 25 gram (250 mL) Dextrose 10% IV over 15 minutes per protocol OR, if no IV access, 1 mg Glucagon IM. Recheck BG in 30 minutes. May repeat juice/soda, gel, dextrose or glucagon once per episode. For persistent hypoglycemia, consider longer-acting treatment for the duration of the active insulin., Routine glucose (Glutose) 40% oral geL 15-30 g of glucose, Buccal, EVERY 30 MIN PRN, Starting on Sat09/24/21 at 2015, Until Sat09/26/21 at 183, Low blood sugar, For BG 50-70 mg/dL: Oral treatment preferred: If able to drink, give 120 mL Juice or Regular (not diet) soda OR If NPO, give 15 gram glucose 40% oral gel massaged into buccal mucosa OR if unconscious or uncooperative, give 25 gram (250 mL) Dextrose 10% IV over 15 minutes per protocol OR, if no IV access, 1 mg Glucagon IM. For BG less than 50 mg/dL: Oral treatment preferred: If able to drink, give 240 mL Juice or Regular (not diet) soda OR If NPO, give 30 gram glucose 40% oral gel massaged in buccal mucosa OR if unconscious or uncooperative, give 25 gram (250 mL) Dextrose 10% IV over 15 minutes per protocol OR, if no IV access, 1 mg Glucagon IM. Recheck BG in 30 minutes. May repeat juice/soda, gel, dextrose or glucagon once per episode. For persistent hypoglycemia, consider longer-acting treatment for the duration of the active insulin. 1 tube of Glutose-15 contains 15 grams of glucose (net weight of tube = 37.5 grams.), Routine levothyroxine (Synthroid) tablet 75 mcg 75 mcg, Oral, DAILY, First dose on 09/25/21 at 0600, Until Discontinued, Routine Given 09/26/2021 6:09 AM EDT 75 mcg Given 09/25/2021 5:42 AM EDT 75 mcg lidocaine (Xylocaine) 1% (10 mg/mL) injection 3 mg 3 mg (0.3 mL), Subcutaneous, ONCE PRN, 1 dose, Starting on Sat09/24/21 at 1821, Until Sat09/26/21 at 1831, for discomfort with PIV insertion, Routine melatonin tablet 3 mg 3 mg, Oral, NIGHTLY, First dose on Sat09/25/21 at 2100, Until Discontinued, Routine Given 09/25/2021 8:22 PM EDT 3 mg nitroGLYcerin (Nitrostat) disintegrating tablet 0.4 mg 0.4 mg, Sublingual, EVERY 5 MIN PRN, Starting on Sat09/24/21 at 1821, Until Sat09/26/21 at 1831, Chest pain, May repeat every 5 minutes for a total of three doses. Notify provider if chest pain not relieved with nitroglycerin. Do not administer nitroglycerin if the patient has received or taken phosphodiesterase (PDE-5) inhibitors such as sildenafil, tadalafil or vardenafil within the last 24 to 72 hours., Routine pantoprazole EC (Protonix) tablet 40 mg 40 mg, Oral, DAILY, First dose on Sat09/25/21 at 0900, Until Discontinued Given 09/26/2021 8:37 AM EDT 40 mg Given 09/25/2021 8:38 AM EDT 40 mg potassium chloride ER (K-Dur/Klor-Con) tablet 40 mEq 40 mEq, Oral, ONCE, 1 dose, On Sat09/26/21 at 0745, 20 mEq tablet may be dissolved in water for administration, Routine Given 09/26/2021 8:37 AM EDT 40 mEq remdesivir (Veklury) 100 mg in sodium chloride 0.9% 270 mL infusion 100 mg, Intravenous, EVERY 24 HOURS, 2 doses, First dose on Sat09/25/21 at 0900, Last dose on Sat09/26/21 at 0900, Administer over 30 Minutes, Administer separately from other medications. After infusion complete, flush line with 30 mL NS at a rate of 200 mL/hr. New Bag 09/26/2021 8:42 AM EDT 100 mg 540 mL/ hr New Bag 09/25/2021 8:43 AM EDT 100 mg 540 mL/hr sodium chloride 0.9 % (flush) (BD PosiFlush Normal Saline 0.9) flush 5 mL 5 mL, Intravenous, 2 TIMES DAILY, First dose on Sat09/24/21 at 2100, Until Discontinued, Routine Given 09/26/2021 8:44 AM EDT 5 mLs Given 09/25/2021 8:22 PM EDT 5 mLs Given 09/25/2021 8:38 AM EDT 5 mLs sodium chloride 0.9 % (flush) (BD PosiFlush Normal Saline 0.9) flush 5-20 mL 5-20 mL, Intravenous, EVERY 1 MIN PRN, Starting on Sat09/24/21 at 1821, Until Sat09/26/21 at 1831, flush, Flush pertains to all indwelling lines. Flush per protocol found in the job aid using the link provided on this medication record., Routine documented in this encounter Active and Recently Administered Medications Times are shown in EDT. Scheduled Medication Order 09/24/2021 09/25/2021 09/26/2021 apixaban (Eliquis) tablet 10 mg(Linked Group 1) 10 mg, Oral, 2 TIMES DAILY, 14 doses, First dose on Sat09/25/21 at 2100, Last dose on Sat10/02/21 at 0900, Anticoagulant, Routine, Restricted anticoagulant, choose the most appropriate response: Appoved indication of DVT and/or PE 2021 (Given - Provider: Sobeida Lord RN) 0837 (Given - Provider: Brenna Pandya RN) apixaban (Eliquis) tablet 5 mg(Linked Group 1) 5 mg, Oral, 2 TIMES DAILY, First dose on Sat10/02/21 at 2100, Until Discontinued, Anticoagulant, Routine, Restricted anticoagulant, choose the most appropriate response: Appoved indication of DVT and/or PE cholecalciferol (Vitamin D3) tablet 2,000 Units 2,000 Units, Oral, DAILY, First dose on Sat09/25/21 at 0900, Until Discontinued, Routine 08 (Given - Provider: Brenna Pandya RN) 0838 (Given - Provider: Brenna Pandya RN) enoxaparin (Lovenox) (100 mg/1 mL) subcutaneous injection 90 mg (CANCELED) 90 mg, Subcutaneous, EVERY 12 HOURS SCHEDULED (2 times per day), First dose on Sat09/24/21 at 2100, Until Discontinued, Routine 2043 (Given - Provider: Sobeida Lord RN) 0839 (Given - Provider: Brenna Pandya RN) escitalopram (Lexapro) tablet 20 mg 20 mg, Oral, DAILY, First dose on Sat09/25/21 at 0900, Until Discontinued, Routine 0838 (Given - Provider: Brenna Pandya RN) 0837 (Given - Provider: Brenna Pandya RN) levothyroxine (Synthroid) tablet 75 mcg 75 mcg, Oral, DAILY, First dose on Sat09/25/21 at 0600, Until Discontinued, Routine 0542 (Given - Provider: Sobeida Lord, LAWANDA) 06 (Given - Provider: Sobeida Lord RN) melatonin tablet 3 mg 3 mg, Oral, NIGHTLY, First dose on Sat09/25/21 at 2100, Until Discontinued, Routine 2021 (Given - Provider: Sobeida Lord, LAWANDA) pantoprazole EC (Protonix) tablet 40 mg 40 mg, Oral, DAILY, First dose on Sat09/25/21 at 0900, Until Discontinued 0838 (Given - Provider: Brenna Pandya RN) 0837 (Given - Provider: Brenna Pandya RN) potassium chloride ER (K-Dur/Klor-Con) tablet 40 mEq (COMPLETED) 40 mEq, Oral, ONCE, 1 dose, On Sat09/26/21 at 0745, 20 mEq tablet may be dissolved in water for administration, Routine 0837 (Given - Provider: Brenna Pandya RN) remdesivir (Veklury) 100 mg in sodium chloride 0.9% 270 mL infusion (COMPLETED) 100 mg, Intravenous, EVERY 24 HOURS, 2 doses, First dose on Sat09/25/21 at 0900, Last dose on Sat09/26/21 at 0900, Administer over 30 Minutes, Administer separately from other medications. After infusion complete, flush line with 30 mL NS at a rate of 200 mL/hr. 0843 (New Bag - Provider: Brenna Pandya RN)0913 (Stopped - Provider: Brenna Pandya RN) 0842 (New Bag - Provider: Brenna Pandya RN)0912 (Stopped - Provider: Brenna Pandya RN) sodium chloride 0.9 % (flush) (BD PosiFlush Normal Saline 0.9) flush 5 mL 5 mL, Intravenous, 2 TIMES DAILY, First dose on Sat09/24/21 at 2100, Until Discontinued, Routine 2046 (Given - Provider: Sobeida Lord RN) 0838 (Given - Provider: Brenna Pandya, RN)2021 (Given - Provider: Sobeida Lord, LAWANDA) 0844 (Given - Provider: Brenna Pandya RN) PRN Medication Order 09/24/2021 09/25/2021 09/26/2021 dextrose 10% infusion(Linked Group 2) 250 mL, at 1,000 mL/hr, Intravenous, EVERY 30 MIN PRN, Starting on Sat09/24/21 at 2014, Until Sat09/26/21 at 1831, For BG 50-70 mg/dL: Oral treatment preferred: If able to drink, give 120 mL Juice or Regular (not diet) soda OR If NPO, give 15 gram glucose 40% oral gel massaged into buccal mucosa OR if unconscious or uncooperative, give 25 gram (250 mL) Dextrose 10% IV over 15 minutes per protocol OR, if no IV access, 1 mg Glucagon IM. For BG less than 50 mg/dL: Oral treatment preferred: If able to drink, give 240 mL Juice or Regular (not diet) soda OR If NPO, give 30 gram glucose 40% oral gel massaged in buccal mucosa OR if unconscious or uncooperative, give 25 gram (250 mL) Dextrose 10% IV over 15 minutes per protocol OR, if no IV access, 1 mg Glucagon IM. Recheck BG in 30 minutes. May repeat juice/soda, gel, dextrose or glucagon once per episode. For persistent hypoglycemia, consider longer-acting treatment for the duration of the active insulin. glucagon (Glucagen) (1 mg/mL) injection solution 1 mg(Linked Group 2) 1 mg, Intramuscular, EVERY 30 MIN PRN, Starting on Sat09/24/21 at 2014, Until Sat09/26/21 at 1831, Low blood sugar, For BG 50-70 mg/dL: Oral treatment preferred: If able to drink, give 120 mL Juice or Regular (not diet) soda OR If NPO, give 15 gram glucose 40% oral gel massaged into buccal mucosa OR if unconscious or uncooperative, give 25 gram (250 mL) Dextrose 10% IV over 15 minutes per protocol OR, if no IV access, 1 mg Glucagon IM. For BG less than 50 mg/dL: Oral treatment preferred: If able to drink, give 240 mL Juice or Regular (not diet) soda OR If NPO, give 30 gram glucose 40% oral gel massaged in buccal mucosa OR if unconscious or uncooperative, give 25 gram (250 mL) Dextrose 10% IV over 15 minutes per protocol OR, if no IV access, 1 mg Glucagon IM. Recheck BG in 30 minutes. May repeat juice/soda, gel, dextrose or glucagon once per episode. For persistent hypoglycemia, consider longer-acting treatment for the duration of the active insulin., Routine glucose (Glutose) 40% oral geL(Linked Group 2) 15-30 g of glucose, Buccal, EVERY 30 MIN PRN, Starting on Sat09/24/21 at 2015, Until Sat09/26/21 at 1831, Low blood sugar, For BG 50-70 mg/dL: Oral treatment preferred: If able to drink, give 120 mL Juice or Regular (not diet) soda OR If NPO, give 15 gram glucose 40% oral gel massaged into buccal mucosa OR if unconscious or uncooperative, give 25 gram (250 mL) Dextrose 10% IV over 15 minutes per protocol OR, if no IV access, 1 mg Glucagon IM. For BG less than 50 mg/dL: Oral treatment preferred: If able to drink, give 240 mL Juice or Regular (not diet) soda OR If NPO, give 30 gram glucose 40% oral gel massaged in buccal mucosa OR if unconscious or uncooperative, give 25 gram (250 mL) Dextrose 10% IV over 15 minutes per protocol OR, if no IV access, 1 mg Glucagon IM. Recheck BG in 30 minutes. May repeat juice/soda, gel, dextrose or glucagon once per episode. For persistent hypoglycemia, consider longer-acting treatment for the duration of the active insulin. 1 tube of Glutose-15 contains 15 grams of glucose (net weight of tube = 37.5 grams.), Routine lidocaine (Xylocaine) 1% (10 mg/mL) injection 3 mg 3 mg (0.3 mL), Subcutaneous, ONCE PRN, 1 dose, Starting on Sat09/24/21 at 1821, Until Sat09/26/21 at 1831, for discomfort with PIV insertion, Routine miconazole (Micotin) 2 % powder Topical (Top), DAILY PRN, Other, groin rash, Starting on Sat09/24/21 at 2019, Until Sat09/26/21 at 1831 nitroGLYcerin (Nitrostat) disintegrating tablet 0.4 mg 0.4 mg, Sublingual, EVERY 5 MIN PRN, Starting on Sat09/24/21 at 1821, Until Sat09/26/21 at 183, Chest pain, May repeat every 5 minutes for a total of three doses. Notify provider if chest pain not relieved with nitroglycerin. Do not administer nitroglycerin if the patient has received or taken phosphodiesterase (PDE-5) inhibitors such as sildenafil, tadalafil or vardenafil within the last 24 to 72 hours., Routine sodium chloride 0.9 % (flush) (BD PosiFlush Normal Saline 0.9) flush 5-20 mL 5-20 mL, Intravenous, EVERY 1 MIN PRN, Starting on Sat09/24/21 at 182, Until Sat09/26/21 at 183, flush, Flush pertains to all indwelling lines. Flush per protocol found in the job aid using the link provided on this medication record., Routine Linked Groups Order Group 1: apixaban (Eliquis) tablet 10 mgJump to med 10 mg, Oral, 2 TIMES DAILY, 14 doses, First dose on Sat09/25/21 at 2100, Last dose on Sat10/02/21 at 0900, Anticoagulant, Routine, Restricted anticoagulant, choose the most appropriate response: Appoved indication of DVT and/or PE Followed by apixaban (Eliquis) tablet 5 mgJump to med 5 mg, Oral, 2 TIMES DAILY, First dose on Sat10/02/21 at 2100, Until Discontinued, Anticoagulant, Routine, Restricted anticoagulant, choose the most appropriate response: Appoved indication of DVT and/or PE Group 2: glucose (Glutose) 40% oral geLJump to med 15-30 g of glucose, Buccal, EVERY 30 MIN PRN, Starting on Sat09/24/21 at 2015, Until Sat09/26/21 at 183, Low blood sugar, For BG 50-70 mg/dL: Oral treatment preferred: If able to drink, give 120 mL Juice or Regular (not diet) soda OR If NPO, give 15 gram glucose 40% oral gel massaged into buccal mucosa OR if unconscious or uncooperative, give 25 gram (250 mL) Dextrose 10% IV over 15 minutes per protocol OR, if no IV access, 1 mg Glucagon IM. For BG less than 50 mg/dL: Oral treatment preferred: If able to drink, give 240 mL Juice or Regular (not diet) soda OR If NPO, give 30 gram glucose 40% oral gel massaged in buccal mucosa OR if unconscious or uncooperative, give 25 gram (250 mL) Dextrose 10% IV over 15 minutes per protocol OR, if no IV access, 1 mg Glucagon IM. Recheck BG in 30 minutes. May repeat juice/soda, gel, dextrose or glucagon once per episode. For persistent hypoglycemia, consider longer-acting treatment for the duration of the active insulin. 1 tube of Glutose-15 contains 15 grams of glucose (net weight of tube = 37.5 grams.), Routine Or dextrose 10% infusionJump to med 250 mL, at 1,000 mL/hr, Intravenous, EVERY 30 MIN PRN, Starting on Sat09/24/21 at 2014, Until Sat09/26/21 at 1831, For BG 50-70 mg/dL: Oral treatment preferred: If able to drink, give 120 mL Juice or Regular (not diet) soda OR If NPO, give 15 gram glucose 40% oral gel massaged into buccal mucosa OR if unconscious or uncooperative, give 25 gram (250 mL) Dextrose 10% IV over 15 minutes per protocol OR, if no IV access, 1 mg Glucagon IM. For BG less than 50 mg/dL: Oral treatment preferred: If able to drink, give 240 mL Juice or Regular (not diet) soda OR If NPO, give 30 gram glucose 40% oral gel massaged in buccal mucosa OR if unconscious or uncooperative, give 25 gram (250 mL) Dextrose 10% IV over 15 minutes per protocol OR, if no IV access, 1 mg Glucagon IM. Recheck BG in 30 minutes. May repeat juice/soda, gel, dextrose or glucagon once per episode. For persistent hypoglycemia, consider longer-acting treatment for the duration of the active insulin. Or glucagon (Glucagen) (1 mg/mL) injection solution 1 mgJump to med 1 mg, Intramuscular, EVERY 30 MIN PRN, Starting on Sat09/24/21 at 2014, Until Sat09/26/21 at 1831, Low blood sugar, For BG 50-70 mg/dL: Oral treatment preferred: If able to drink, give 120 mL Juice or Regular (not diet) soda OR If NPO, give 15 gram glucose 40% oral gel massaged into buccal mucosa OR if unconscious or uncooperative, give 25 gram (250 mL) Dextrose 10% IV over 15 minutes per protocol OR, if no IV access, 1 mg Glucagon IM. For BG less than 50 mg/dL: Oral treatment preferred: If able to drink, give 240 mL Juice or Regular (not diet) soda OR If NPO, give 30 gram glucose 40% oral gel massaged in buccal mucosa OR if unconscious or uncooperative, give 25 gram (250 mL) Dextrose 10% IV over 15 minutes per protocol OR, if no IV access, 1 mg Glucagon IM. Recheck BG in 30 minutes. May repeat juice/soda, gel, dextrose or glucagon once per episode. For persistent hypoglycemia, consider longer-acting treatment for the duration of the active insulin., Routine documented in this encounter Additional Health Concerns Infection Onset Date Last Indicated Resolved Time COVID-19 Comment:Date of symptom onset: Date of positive test: 09/24/2021 Estimated date patient will be eligible for precaution removal: 10/05/2021 09/24/2021 09/24/2021 10/15/2021 8:09 PM E DT documented as of this encounter Care Teams Call Center Analyst Relationship Specialty Start Date End Date Yariel Hackett MD [address] [place] [address] PCP - General 08/21/16 documented as of this encounter
--- OUTSIDE RECORDS SUMMARY | 2023-11-14 01:02 | XMS_ITS | Encounter Summary ---
Author Organization [facility] Address [facility] [place] [address] Care Team Providers Care Tmr Teacher Name Role Phone Yariel Hackett MD Primary Care Provider [phone] Reason for Visit * Auth/Cert Specialty Diagnoses / Procedures Referred By Contac t Referred To Contact Diagnoses L4-L5 and L5-S1 spondylosis Procedures PRO INJ PARAVERTEBRAL FACET JT W/IMAGE GUID, LUMBAR/SACRAL, 3RD OR ADDL LEVEL PRO INJECTION PV FACET JOINT LUMBAR/SACRAL SINGLE LEVEL PRO INJECTION PV FACET JOINT LUMBAR/SACRAL SECOND LEVEL INJECTION, FACET JOINT, W\FLUORO, LUMBAR, 3RD LEVEL (WRVU 1) INJECTION, FACET JOINT, W\FLUORO, LUMBAR, SINGLE (WRVU 1.52) INJECTION, FACET JOINT, W\FLUORO, LUMBAR, 2ND LEVEL (WRVU 1) Referral ID Status Reason Start Date Expiration Date Visits Re quested Visits Authorized [id number] 1 Encounter Details Date Type Department Care Team (Late st Contact Info) Description 04/04/2021 10:00 AM EST Ancillary [place] [address] Giovanny Isidro MD [facility] [address] [place] [address] Social History Tobacco Use Types Packs/Day Years [...] STORAGE ONLY PAIN CLINIC C ARM Routine 04/04/2021 12:07 PM EST documented in this encounter Results * Film Library- Storage Only pain Clinic C-Arm (04/04/2021 12:07 PM EST) Narrative [facility] - 04/04/2021 12:07 PM EST See PACS for result report. Giovanny Isidro MD G FILM LIBRARY ORD ERABLES Performing Organization Address City/State/[facility] Co de Phone Number [place], [place] documented in this encounter Visit Diagnoses Not on filedocumented in this encounter Care Teams Tmr Teacher Relationship Specialty Start Date End Date Yariel Hackett MD [address] [place] [address] PCP - General 08/21/16 documented as of this encounter
--- OUTSIDE RECORDS SUMMARY | 2023-11-14 01:02 | XMS_ITS | Encounter Summary ---
[place] [address] Care Team Providers Care Button Sawyer Name Role Phone Yariel Hackett MD Primary Care Provider [phone] Reason for Visit * Reason Comments Skin Check Encounter Details Date Type Department Care Team (Late st Contact Info) Description 10/18/2016 9:45 AM EDT Office Visit Dermatology at [address] [id number] Charlie Mahoney MD [address] [facility], [place] [address] Nevus; Solar lentigo Social History Tobacco Use Types Packs/Day Years Used Date Smoking Tobacco: Never Sex and Gender Information Value Date Recorded Sex Assigned at Not on file Gender Identity Not on file Sexual Orientation Not on file documented as of this encounter Progress Notes * Charlie Mahoney MD - 10/18/2016 9:45 AM EDT PROBLEM: Skin check. 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 She and her now live in [place]. She was one of 9 children. Her father had a [employer] business. She is concerned about 2 lesions on her upper lip and 1 on her right cheek. She would also like me to check a lesion on her right arm. She is not aware of any past history of skin cancer or melanoma. Physical examination reveals a pleasant 61-year-old woman who has 2 actinics on the upper cutaneous lip and a number of solar lentigos present on both cheeks and along the jaw lines. There is no evidence of any malignant lesions. Examination of the head and the neck, the chest, the back, hands, arms, forearms is otherwise benign. She has a blue nevus on the right mid dorsal forearm. A/P: Benign skin examination. a. Patient reassured about today's benign skin examination. b. Recommend I see her again on a p.r.n. basis. c. Reinforced sun avoidance precautions. 2. Actinic keratoses upper cutaneous lip. a. LN2 x2 applied to 2 sites. Return to clinic here will be p.r.n. Cc: Yariel Hackett MD documented in this encounter Plan of Treatment Not on file documented as of this encounter Visit Diagnoses Diagnosis Nevus Benign neoplasm of skin, site unspecified Solar lentigo Other dyschromia documented in this encounter Care Teams Button Sawyer Relationship Specialty Start Date End Date Yariel Hackett MD [facility] [place] [address] PCP - General 08/21/16 documented as of this encounter
--- OUTSIDE RECORDS SUMMARY | 2023-11-14 01:02 | XMS_ITS | Encounter Summary ---
Author Organization Formerly [facility] [place] [address] Care Team Providers Care Broomcorn Scraper Name Role Phone Yariel Hackett MD Primary Care Provider [phone] Reason for Visit * Auth/Cert Specialty Diagnoses [...] Expiration Date Visits Re quested Visits Authorized [id number] 1 1 Encounter Details Date Type Department Care Team (Late st Contact Info) Description 04/04/2021 10:00 AM EST - 04/04/2021 10:45 AM EST [place] [address] [facility] [place] [address] INJECTION, FACET JOINT, W\FLUORO, LUMBAR, 3RD LEVEL (WRVU 1) Social History Tobacco Use Types Packs/Day Years Used Date Smoking Tobacco: Never Smokeless Tobacco: Never Sex and Gender Information Value Date Recorded Sex Assigned at Not on file Gender Identity Not on file Sexual Orientation Not on file documented as of this encounter Last Filed Vital Signs Vital Sign Reading Time Taken Comments Blood Pressure 136/89 04/04/2021 10:45 AM EST Pulse 69 04/04/2021 9:47 AM EST Temperature - - Respiratory Rate - - Oxygen Saturation 98% 04/04/2021 9:47 AM EST Inhaled Oxygen Concentration - - Weight 90.7 kg (200 lb) 04/04/2021 9:47 AM EST Height 152.4 cm (5') 04/04/2021 9:47 AM EST Body Mass Index 39.06 04/04/2021 9:47 AM EST documented in this encounter Discharge Instructions * Discharge Instructions* Denton Funk - 04/04/2021 11:21 AM EST Pain Management Center Discharge Instructions: You were seen today by Surgeon(s): Michael Hamilton MD Vrooman, Bruce M, MD The following was performed: Procedure(s) (LRB): INJECTION, FACET JOINT, W\FLUORO, LUMBAR, 3RD LEVEL (WRVU 1) (Bilateral) INJECTION, FACET JOINT, W\FLUORO, LUMBAR, SINGLE (WRVU 1.52) (Bilateral) INJECTION, FACET JOINT, W\FLUORO, LUMBAR, 2ND LEVEL (WRVU 1) (Bilateral) It is normal that the injection site will be sore for up to 48 hours. {CHECK BOX SELECTION:80861} You may also experience mild stiffness in the joint near the injection site. You may resume your normal activities: {Time; today/tomorrow:87108}. You may shower today. DO NOT tub bathe, use whirlpools, hot tubs or pool therapy for 2 days. RemoveBand-Aid(s) later today/tomorrow. Do not drive until tomorrow. Use caution walking/climbing stairs as you may be unsteady on your feet. You may use your usual medications, including pain medications, as directed, unless otherwise instructed. You may use an ice pack as needed for the first 24 hours, on for 20 minutes then off for 20 minutes. Do not apply heat today. {CHECK BOX SELECTION:36124} You received medication through an intravenous line to lessen the anxiety/pain of your procedure. DO NOT operate heavy or dangerous equipment/tools, or sign important papers today. Attempt to empty your bladder 4-6 hours after your procedure. {CHECK BOX SELECTION:94771} If you have diabetes, monitor your blood sugars frequently. If your blood sugar increases and is of concern, contact your Primary Care Provider. You received the following medications: Medications Given During Procedure Date/Time Order Dose Route Action 04/04/2021 1057 iohexoL (Omnipaque) (240 mg/mL) solution 2 mL Intra-articular Given 04/04/2021 1058 lidocaine (pf) (Xylocaine) (20 mg/mL) 2% injection 3 mL Other Given During regular business hours, please phone the Pain Management Center at with any questions or if the following or other troubling symptoms develop: 1) Prolonged dizziness or weakness (more than 1 day). 2) Localized swelling, redness or drainage at the injection site(s). 3) Temperature of 101 degrees that lasts for more than 4 hours. After 5 PM or on weekends, call and ask for Pain Clinic provider on-call. If you are unable to reach the Pain Management Center and have a complication, please call your Primary Care Provider or proceed to your local emergency department. Denton Funk Special instructions Pain Management Center Post -Procedure Pain Log Patient: Tamia Casarez [id number] It is important for you to keep track of your pain after your procedure that took place today. Thisinformation will help your Provider to determine how to help reduce your pain. Today you had a procedure for pain in your back. Your pain level before the procedure in this area was 4/10. Your pain level immediately after your procedure was 0/10. Time Pain Score # Comments % pain relief 1 hour 12:30pm 2 hours 1:30pm 3 hours 2:30pm 4 hours 3:30pm Please call the nurse in the Pain Management Center a day or two after your procedure and report the information above. She will assess your response to the procedure, and will recommend appropriate follow-up. documented in this encounter Medications at Time [...] tablet by mouth once daily 0 10/04/2016 celecoxib (CeleBREX) 100 mg Capsule 3 times daily. 02/23/2021 09/26/2021 meclizine (Antivert) 25 mg Tablet 3 times daily as needed. 02/14/2021 09/26/2021 UNABLE TO FIND daily. Med Name: iron tablet 09/26/2021 ibuprofen (Motrin) 400 mg Tablet Take 400 mg by mouth every 6 hours as needed for Pain. 09/26/2021 documented as of this encounter H&P Notes * Giovanny Isidro MD - 04/03/2021 3:29 PM EST Patient Name: Tamia Casarez Patient Age: 66 y.o. Birthdate: 1955 Admit date: 04/04/2021 Attending Physician: Giovanny Isidro MD PREPROCEDURE HISTORY AND PHYSICAL Date of Visit: April 04, 2021 Chief Complaint: Low back pain HPI: Tamia Casarez is a 66 y.o. female who presents today for bilateral lumbar L3, L4 medial branch blocks and L5 dorsal rami blocks under fluoroscopic guidance with a diagnosis of 1. Lumbar spondylosis resulting in symptoms of low back pain. The history is obtained from the patient, and I have reviewed medical records provided by the referring physician and located in the electronic medical record to fill in gaps in the patient's recollection of events, treatments and outcomes. LOCATION: right lumbar area and left lumbar area. PAIN LEVEL RIGHT LEFT KEMPS 5/10 5/10 AT REST 4/10 4/10 PAST MEDICAL HISTORY: No past medical history on file. There are no medical history contraindications to this procedure. PAST SURGICAL HISTORY: Past Surgical History: Procedure Laterality Date ??? PRO INJ, PARAVERTEBRAL FACET JT W/IMAGE GUID, LUMBAR/SACRAL, SINGLE LEVEL Bilateral 03/14/2021 INJECTION, FACET JOINT, W\FLUORO, LUMBAR, SINGLE (WRVU 1.52) performed by Giovanny Isidro MD at [facility] ??? PRO INJ, PARAVERTEBRAL FACET JT, W/IMAGE GUID, LUMBAR/SACRAL, SECOND LEVEL Bilateral 03/14/2021 INJECTION, FACET JOINT, W\FLUORO, LUMBAR, 2ND LEVEL (WRVU 1) performed by Giovanny Isidro MD at [facility] There are no past surgical contraindications to this procedure ALLERGIES: Valium [diazepam] There are no allergic contraindications to this procedure. MEDICATIONS: No current facility-administered medications for this encounter. There are no medication contraindications to this procedure. FAMILY HISTORY: No family history on file. SOCIAL HISTORY: Social History Socioeconomic History ??? Marital status: Spouse name: Not on file ??? Number of children: Not on file ??? Years of education: Not on file ??? Highest education level: Not on file Occupational History ??? Not on file Tobacco Use ??? Smoking status: Never Smoker ??? Smokeless tobacco: Never Used Substance and Sexual Activity ??? Alcohol use: [...] on file Housing Stability: Not on file There are no social history contraindications to this procedure. ROS: Review of Systems Constitutional: Negative for fever, chills, or recent infection. Respiratory: Negative for shortness of breath. Cardiovascular: Negative for chest pain. Musculoskeletal: Positive for low back pain. Psychiatric/Behavioral: Negative for agitation and behavioral problems. PHYSICAL EXAM: BP 145/84 (Patient Position: Sitting) Pulse 69 Ht 152.4 cm (5') Wt 90.7 kg (200 lb) SpO2 98% BMI 39.06 kg/m?? Physical Exam Constitutional: She appears well-developed and well-nourished. No distress. Cardiovascular: Normal heart rate. Pulmonary/Chest: Effort normal and breath sounds normal. Skin: She is not diaphoretic. This is no rash, apparent infection, or other abnormality to the areaof the proposed injection. There are no physical examination findings which would preclude this procedure. ASSESSMENT: 1. Lumbar spondylosis PLAN: Bilateral lumbar L3, L4 medial branch blocks and L5 dorsal rami blocks under fluoroscopic guidance.Proceed with procedure as planned. Thank you for the opportunity to participate in Tamia Casarez's care. Please feel free to contact me with any questions. Sincerely, Francisco Moore MD Pain Medicine Fellow I have seen and examined the patient and reviewed the fellow's above history and agree with the details as written. The assessment and plan were formulated in discussion with me, and I agree with them as documented. Giovanny Isidro MD, MS [employer] [address] [address] / [facility] documented in this encounter Miscellaneous Notes * Op Note - Giovanny Isidro MD - 04/04/2021 10:57 AM EST Pain Management Operative Note Patient Name: Tamia Casarez : [id number] MR#: [id number] Case Date: 04/04/2021 Surgeon: Surgeon(s) and Role: * Giovanny Isidro MD - Primary * Michael Hamilton MD - Fellow Present on Admission: ??? Lumbar spondylosis Postoperative diagnosis: same Procedure(s) (LRB): INJECTION, FACET JOINT, W\FLUORO, LUMBAR, 3RD LEVEL (WRVU 1) (Bilateral) INJECTION, FACET JOINT, W\FLUORO, LUMBAR, SINGLE (WRVU 1.52) (Bilateral) INJECTION, FACET JOINT, W\FLUORO, LUMBAR, 2ND LEVEL (WRVU 1) (Bilateral) PROCEDURE NOTE LUMBAR MEDIAL BRANCH DIAGNOSTIC BLOCKS Date of Service: 03/21/2021 Patient: Tamia Casarez Referring Physician: Yariel Hackett Md [address] [place] [address] Diagnosis: 1. Lumbar spondylosis Today's Operative Note Tamia Casarez was greeted by the nurse who verified the patients name and . Patient was thentaken to the fluoroscopy suite. Ms. Casarez was interviewed and the medical record was reviewed. There were no medical contraindications to performing the bilateral lumbar medial branch nerve blocks. I first had a talk with the patient and discussed the potential risks, benefits, side effects, and alternatives of this procedure including but not limited to increased pain from the procedure, no pain relief, nerve damage, infection, and bleeding. she comprehended my conversation and accepts the risks and understands the goals of this diagnostic procedure. All questions and concerns from the patient were addressed. After I was comfortable that the patient was fully informed about this procedure, the printed consent form was signed. Standard time-out procedure was performed Ms. Casarez was placed in the prone position on the fluoroscopy table and automated blood pressurecuff and pulse oximeter were applied. The anatomic target points of the segmental medial branches of bilaterally L3, L4 and L5- DRwere identified with fluoroscopy. Following thorough Chlorhexadine preparation of the skin and draping, a 22 gauge 3.5 spinal needle was placed under fluoroscopic guidance down on to the target point for each respective segmental medial branch.Position was confirmed Isaac/P, oblique and lateral views at 0.25 cc of Omnipaque-240 at each segmental nerve. At each level we injected 0.5ml of Lidocaine 2%. Ms. Casarez's vital signs were stable throughout the procedure and were as recorded in the docflowsheet by the nursing staff. Postoperatively, today patient demonstrates the following changes with hyperextension and with tenderness over the suspected joint(s). Provacative testing using the Terrell's facet loading test Right side Left side Directly before the block VAS (0-10) = 5 VAS (0-10) = 5 5 minutes after the block VAS (0-10) = 0 VAS (0-10) = 0 Percentage relief obtained with this diagnostic block 100% 100% Any improved physical functioning directly after the blocks? Improved lumbar extension and standing Next, she was asked to recordher percent pain relief and any changes in provocative maneuvers for the next 4 hours. She will report this information at the next business day to one of our nurses. Based on the medial branches blocked today, if the patient meets insurance criteria for radiofrequency, the treatment should result in the denervation of the bilaterally L4-L5 and L5-S1 facet joint nerves. We would expect to denervate a total of 4 facets during the radiofrequency ablation. Discharge plan:: She will call back with her 0-4 hour post-procedure pain scores. Michael Hamilton M.D. Pain Medicine Fellow [facility] I have seen and examined the patient and reviewed the fellow's above history and I agree with the details as written. I was the attending physician supervising the fellow in the above care and I was present with the fellow for the entire procedure. Giovanny Isidro MD, MS [employer] [facility] [address] [address] / [facility] CC: Yariel Hackett MD [address] [place] [address] [place] [address] documented in this encounter Plan of Treatment Not on file documented as of this encounter Procedures Procedure Name Priority Date/Time Associated Diagnosis Comments Injection Pv Facet Joint Lumbar/Sacral Second Level (61914) 04/04/2021 10:44 AM EST Lumbar spondylosis Injection Pv Facet Joint Lumbar/Sacral Single Level (02851) 04/04/2021 10:44 AM EST Lumbar spondylosis Inj//Paravertebral Facet Jt W/Image Guid, Lumbar/Sacral, 3Rd Or Addl Level (29838) 04/04/2021 10:44 AM EST Lumbar spondylosis INJECTION, FACET JOINT,W\FLUORO, LUMBAR, SINGLE Routine 04/04/2021 9:42 AM EST Lumbar spondylosis INJECTION, FACET JOINT,W\FLUORO, LUMBAR, 3RD LEVEL Routine 04/04/2021 9:42 AM EST Lumbar spondylosis INJECTION, FACET JOINT,W\FLUORO, LUMBAR, 2ND LEVEL Routine 04/04/2021 9:42 AM EST Lumbar spondylosis documented in this encounter Visit Diagnoses Diagnosis Lumbar spondylosis- Primary Lumbosacral spondylosis without myelopathy Lumbar spondylosis Lumbosacral spondylosis without myelopathy Lumbar spondylosis Lumbosacral spondylosis without myelopathy documented in this encounter Administered Medications Inactive Administered Medications - up to 3 most recent administrations Medication Order MAR Action Action Date Dose Rate Site iohexoL (Omnipaque) (240 mg/mL) solution ONCE PRN, Starting on e 04/04/21 at 1057, Until Tu04/04/21 at 1326, Intra-Operative (Intra-Procedure), Routine Given 04/04/2021 10:57 AM EST 2 mLs lidocaine (pf) (Xylocaine) (20 mg/mL) 2% injection ONCE PRN, Starting on 04/04/21 at 1058, Until Tu04/04/21 at 1326, Intra-Operative (Intra-Procedure), Routine Given 04/04/2021 10:58 AM EST 3 mLs documented in this encounter Active and Recently Administered Medications Times are shown in EST. PRN Medication Order 04/02/2021 04/03/2021 04/04/2021 iohexoL (Omnipaque) (240 mg/mL) solution (CANCELED) ONCE PRN, Starting on Tu04/04/21 at 1057, Until Sat04/04/21 at 1326, Intra-Operative (Intra-Procedure), Routine 1057 (Given - Provid er: Michael Hamilton MD - Comment: carolyn lumbar MBB) lidocaine (pf) (Xylocaine) (20 mg/mL) 2% injection (CANCELED) ONCE PRN, Starting on 04/04/21 at 1058, Until Tu04/04/21 at 1326, Intra-Operative (Intra-Procedure), Routine 1058 (Given - Provid er: Michael Hamilton MD - Comment: carolyn lumbar MBB) documented in this encounter Care Teams Broomcorn Scraper Relationship Specialty Start Date End Date Yariel Hackett MD [address] [place] [id number] PCP - General 08/21/16 documented as of this encounter
--- OUTSIDE RECORDS SUMMARY | 2023-11-14 01:02 | XMS_ITS | Encounter Summary ---
Author Organization [facility] Address [facility] [place] [address] Care Team Providers Care Plastics And Composites Inspector Name Role Phone Yariel Hackett MD Primary Care Provider [phone] Reason for Visit * Auth/Cert Specialty Diagnoses [...] Expiration Date Visits Re quested Visits Authorized [id number] 1 1 Encounter Details Date Type Department Care Team (Latest Contact Info) Description 05/23/2021 7:56 AM EST - 05/23/2021 10:07 AM [facility] Hospital [place] [address] Giovanny Isdiro MD [facility] [place] [address] Lumbar spondylosis Discharge Disposition: Home Social History Tobacco Use Types Packs/Day Years Used Date Smoking Tobacco: Never Smokeless Tobacco: Never Sex and Gender Information Value Date Recorded Sex Assigned at Not on file Gender Identity Not on file Sexual Orientation Not on file documented as of this encounter Last Filed Vital Signs Vital Sign Reading Time Taken Comments Blood Pressure 119/84 05/23/2021 9:30 AM EST Pulse 67 05/23/2021 8:09 AM EST Temperature - - Respiratory Rate 15 05/23/2021 9:40 AM EST Oxygen Saturation 95% 05/23/2021 9:30 AM EST Inhaled Oxygen Concentration - - Weight 90.7 kg (200 lb) 05/23/2021 8:09 AM EST Height 152.4 cm (5') 05/23/2021 8:09 AM EST Body Mass Index 39.06 05/23/2021 8:09 AM EST documented in this encounter Discharge Instructions * Discharge Instructions* Yareli Looney H - 05/23/2021 9:08 AM EST [facility] Discharge Instructions: You were seen today by Surgeon(s): Giovanny Isidro MD Carter, Zachary J, MD The following was performed: Procedure(s) (LRB): DESTRUCTI BY LYTIC AGENT, FACET JOINT NERVE(S); LUMBAR OR SACRAL, SNGL (WRVU 3.78) (Bilateral) DESTRUCT BY LYTIC AGENT, FACET JNT NERVE(S), LUMBAR OR SACRAL, EA ADD (WRVU 1.16) (Bilateral) It is normal that the injection site will be sore for up to 48 hours. [x] You may also experience mild stiffness in the joint near the injection site. You may resume your normal activities: tomorrow. You may shower today. DO NOT tub [...] 20 minutes. Do not apply heat today. [x] You received medication through an intravenous line to lessen the anxiety/pain of your procedure. DO NOT operate heavy or dangerous equipment/tools, or sign important papers today. Attempt to empty your bladder 4-6 hours after your procedure. [ ] If you have diabetes, monitor your blood sugars frequently. If your blood sugar increases and is of concern, contact your Primary Care Provider. You received the following medications: Medications Given During Procedure Date/Time Order Dose Route Action 05/23/2021 0940 lidocaine (pf) (Xylocaine) (10 mg/mL) 1% injection 3 mL Other Given 05/23/2021 0940 lidocaine (pf) (Xylocaine) (20 mg/mL) 2% injection 6 mL Other Given 05/23/2021 0939 methylPREDNISolone acetate (DEPO-Medrol) (40 mg/mL) injection 40 mg Intra-articularGiven 05/23/2021 0928 midazolam (pf) (Versed) (1 mg/mL) injection 1 mg Intravenous Given 05/23/2021 0923 midazolam (pf) (Versed) (1 mg/mL) injection 1 mg Intravenous Given During regular business hours, please phone [...] or proceed to your local emergency department. YARELI LOONEY Special instructions documented in this encounter Medications at Time [...] H&P Notes * Giovanny Isidro MD - 05/23/2021 10:07 AM EST Patient Name: Tamia Casarez Patient Age: 66 y.o. Birthdate: 1955 Admit date: 05/23/2021 Attending Physician: No att. providers found PREPROCEDURE HISTORY AND PHYSICAL Date of Visit: May 25, 2021 Chief Complaint: Low back pain HPI: Subjective Tamia Casarez is a 66 y.o. female who presents today for bilateral lumbar medial branch radiofrequency ablation. The history is obtained from the patient, and I have reviewed medical records provided by the referring physician and located in the electronic medical record to fill in gaps in the patient's recollection of events, treatments and outcomes. LOCATION: across the lower back. PAIN LEVEL AT REST 5/10 PAST MEDICAL HISTORY: No past medical history on file. PAST SURGICAL HISTORY: Past Surgical History: Procedure Laterality Date ??? PRO INJ PARAVERTEBRAL FACET JT W/IMAGE GUID, LUMBAR/SACRAL, 3RD OR ADDL LEVEL Bilateral 04/04/2021 INJECTION, FACET JOINT, W\FLUORO, LUMBAR, 3RD LEVEL (WRVU 1) performed by Giovanny Isidro MD at [facility] PAIN [facility] ??? PRO INJECTION PV FACET JOINT LUMBAR/SACRAL SECOND LEVEL Bilateral 03/14/2021 INJECTION, FACET JOINT, W\FLUORO, LUMBAR, 2ND LEVEL (WRVU 1) performed by Giovanny Isidro MD at [facility] PAIN [facility]MT [facility] ??? PRO INJECTION PV FACET JOINT LUMBAR/SACRAL SECOND LEVEL Bilateral 04/04/2021 INJECTION, FACET JOINT, W\FLUORO, LUMBAR, 2ND LEVEL (WRVU 1) performed by Giovanny Isidro MD at [facility] PAIN [facility]MT [facility]O ??? PRO INJECTION PV FACET JOINT LUMBAR/SACRAL SINGLE LEVEL Bilateral 03/14/2021 INJECTION, FACET JOINT, W\FLUORO, LUMBAR, SINGLE (WRVU 1.52) performed by Giovanny Isidro MD at [facility] PAIN MGMT MSO ??? PRO INJECTION PV FACET JOINT LUMBAR/SACRAL SINGLE LEVEL Bilateral 04/04/2021 INJECTION, FACET JOINT, W\FLUORO, LUMBAR, SINGLE (WRVU 1.52) performed by Giovanny Isidro MD at [facility] PAIN MGMT MSO ALLERGIES: Valium [diazepam] MEDICATIONS: Medications 05/23/21 0808 Medication Sig Taking? celecoxib (CeleBREX) 100 mg Capsule 3 times daily. Yes meclizine (Antivert) 25 mg Tablet 3 times daily as needed. Yes UNABLE TO FIND Med Name: iron tablet Yes amitriptyline (Elavil) 25 mg Tablet 25 mg nightly. Yes cholecalciferol, Vitamin D3, 50 mcg (2,000 unit) Capsule Daily. Yes omeprazole (PriLOSEC) 40 mg Capsule, Delayed Release(E.C.) 40 mg Daily. Yes ibuprofen (Motrin) 400 mg Tablet Take 400 mg by mouth every 6 hours as needed for Pain. Yes escitalopram (LEXAPRO) 20 mg Tablet Take 20 mg by mouth daily. Yes nystatin (MYCOSTATIN) Powder Apply topically as needed. Yes levothyroxine (SYNTHROID) 75 mcg Tablet take 1 tablet by mouth once daily Yes FAMILY HISTORY: No family history on file. [...] on file Housing Stability: Not on file ROS: Patient denies recent fevers, chills, infections, wounds, hospitalizations, ED visits or antibiotics use PHYSICAL EXAM: BP 119/84 Pulse 67 Resp 15 Ht 152.4 cm (5') Wt 90.7 kg (200 lb) SpO2 95% BMI 39.06 kg/m?? CV: RRR Pulm: CTA B Skin: No concerning infection, erythema or warmth near the procedure site ASSESSMENT: Assessment Lumbar spondylosis Tamia Casarez is a 66 y.o. female who presents today for the above procedure. Risks and benefits were discussed with the patient and all questions answered. There are no contraindications to proceed. PLAN: Proceed with procedure as planned. Giovanny Isidro MD documented in this encounter Miscellaneous Notes * Op Note - Giovanny Isidro MD - 05/23/2021 9:24 AM EST Pain Management Operative Note Patient Name: Tamia Casarez : [id number] MR#: [id number] Case Date: 05/23/2021 Surgeon: Surgeon(s) and Role: * Giovanny Isidro MD - Primary * Abraham Rae MD - Fellow Present on Admission: ??? Lumbar spondylosis Postoperative diagnosis: Same Procedure(s) (LRB): DESTRUCTI BY LYTIC AGENT, FACET JOINT NERVE(S); LUMBAR OR SACRAL, SNGL (WRVU 3.78) (Bilateral) DESTRUCT BY LYTIC AGENT, FACET JNT NERVE(S), LUMBAR OR SACRAL, EA ADD (WRVU 1.16) (Bilateral) LUMBAR/SACRAL MEDIAL BRANCH RADIOFREQUENCY Date of Service: 05/09/2021 Patient: Tamia Casarez Provider: Abraham Rae MD Tamia Casarez has been referred to the Pain Management Center for radiofrequency treatment of chronic axial back pain. Ms. Casarez has had long standing back pain thought to be facet joint generated and which has been refractory to other therapies. Local anesthetic medial branch blocks or intra- articular facet joint injections resulted in Ms. Casarze reporting a greater than 50% reduction of the usual axial component of pain for at least the duration of the local anesthetic effect. Ms. Casarez was interviewed and the medical record reviewed. There were no medical, pharmacologic,radiographic or other structural contraindications to attempting fluoroscopically guided radiofrequency treatment. Risks and expected side effects as well as potential benefit of the procedure were reviewed with Ms. Casarez, and she voiced concerns addressed. The printed consent form was signed and witnessed. Standard time-out procedure was performed. Ms. aCsarez was placed in the prone position on the fluoroscopy table and automated blood pressurecuff and pulse oximeter applied. The skin entry points for approaching the anatomic target points of the segmental medial branches ofbilaterally L3, L4 and L5-DR were identified with fluoroscopy and marked. Following thorough Chlorhexidine preparation of the skin and draping and 1% lidocaine infiltration of the skin entry points and subcutaneous tissues, a single 18 gauge curved 15 cm 10mm activetip radiofrequency cannula was placed under fluoroscopic guidance along or across the anatomic course of each respective segmental medial branch. Each placement was stimulated at 50Hz and less then 0.5V for medial branch sensory localization and the at 2Hz and up to 3 times the sensory voltage without any evidence of distal myotomal stimulation. 1cc of 2% lidocaine was injected at each site. At each placement a continuous mode radiofrequency treatment was done at 80 degrees C for 90secs and then rotated 180degrees and then repeated. Post-RFA, each level was injected with 0.20 cc of depo 40 followed by 1cc of Lidocaine 1% . This radiofrequency treatment should result in the denervation of the bilaterally L4-L5 and L5-S1. A total of 4 facets were expected to be denervated from today's treatment. Ms. Casarez's vital signs were stable throughout the procedure and were as recorded in the docflowsheet by the nursing staff. If given, dosages of intravenous drugs for anxiolysis and analgesia weredocumented in the Medication Administration Record (MAR). Follow up plans and appointments were discussed with Tamia Casarez. Post procedure instruction was given as documented in the nursing documentation and having met discharge criteria, she was discharged from the Pain Management Center. Comments: Patient noted to have some numbness of her right foot post ablation. 5/5 strength in bilateral lower extremities. Abraham Rae MD Pain Medicine Fellow [address] [address] / [email or web address] I have seen and examined the patient and reviewed the fellow's above history and agree with the details as written. The assessment and plan were formulated in discussion with me, and I agree with them as documented. Giovanny Isidro MD, MS [employer] Anesthes[employer] [facility] CC: Yariel Hackett MD [facility] [address] [facility] [place] [address] documented in this encounter Plan of Treatment Not on file documented as of this encounter Procedures Procedure Name Priority Date/Time Associated Diagnosis Comments Dstr Paravertebral Fct Jnt Nrves Lumbar or Sacral Addl 05/23/2021 9:17 AM EST Lumbar spondylosis Dstr Paravertebral Fct Jnt Nrves Lumbar or Sacral Single 05/23/2021 9:17 AM EST Lumbar spondylosis DESTRUCT BY LYTIC AGENT, FACET JNT NERVE(S), LUMBAR OR SACRAL, EA ADD Routine 05/23/2021 8:06 AM EST Lumbar spondylosis DESTRUCTI BY LYTIC AGENT, FACET JOINT NERVE(S); LUMBAR OR SACRAL, SNGL Routine 05/23/2021 8:06 AM EST Lumbar spondylosis documented in this encounter Visit Diagnoses Diagnosis Lumbar spondylosis- Primary Lumbosacral spondylosis without myelopathy documented in this encounter Active and Recently Administered Medications Times are shown in EST. PRN Medication Order 05/21/2021 05/22/2021 05/23/2021 lidocaine (pf) (Xylocaine) (10 mg/mL) 1% injection (CANCELED) ONCE PRN, Starting on Sat05/23/21 at 0940, Until Sat05/23/21 at 1207, Intra-Operative (Intra-Procedure), Routine 0940 (Given - Provid er: Abraham Rae MD - Comment: rfa) lidocaine (pf) (Xylocaine) (20 mg/mL) 2% injection (CANCELED) ONCE PRN, Starting on 05/23/21 at 0940, Until Tu05/23/21 at 1207, Intra-Operative (Intra-Procedure), Routine 0940 (Given - Provid er: Abraham Rae MD - Comment: rfa) methylPREDNISolone acetate (DEPO-Medrol) (40 mg/mL) injection (CANCELED) ONCE PRN, Starting on Sat05/23/21 at 0939, Until Sat05/23/21 at 1207, Intra-Operative (Intra-Procedure), Routine 0939 (Given - Provid er: Abraham Rae MD - Comment: rfa) midazolam (pf) (Versed) (1 mg/mL) injection (CANCELED) ONCE PRN, Starting on Sat05/23/21 at 0923, Until Sat05/23/21 at 1207, Intra-Operative (Intra-Procedure), Routine 09 (Given - Provid er: Anastasia Kramer RN)0928 (Given - Provider: Anastasia Kramer RN) documented in this encounter Care Teams Plastics And Composites Inspector Relationship Specialty Start Date End Date Yariel Hackett MD [address] [place] [address] PCP - General 08/21/16 documented as of this encounter
--- OUTSIDE RECORDS SUMMARY | 2023-11-14 01:02 | XMS_ITS | Encounter Summary ---
Author Organization [facility] [place] [address] [place] [address] Care Team Providers Care Computer Forensic Specialist Name Role Phone Yariel Hackett MD Primary Care Provider [phone] Encounter Details Date Type Department Care Team (Late st Contact Info) Description 03/29/2021 [place] [phone] Ion Johnson LNA Social History Tobacco Use Types Packs/Day Years Used Date Smoking Tobacco: Never Smokeless Tobacco: Never Sex and Gender Information Value Date Recorded Sex Assigned at Not on file Gender Identity Not on file Sexual Orientation Not on file documented as of this encounter Miscellaneous Notes * Telephone Encounter - Ion Johnson LNA - 03/29/2021 8:54 AM EST Contact made with patient or patient service representative as identified in contacts 1. Patient instructed to arrive at 0930 on 04/04/21 with their warehouse delivery driver for their Lumbar Medial Branch Block procedure. Please plan to spend about 2 hours at the center. (3 hours for RFA) 2. Has pt started any new medications or supplements in the past two weeks? No 3. Have any of the following occurred within the two weeks before the procedure date? a. Patient is having a Covid vaccine or other vaccine No b. Patient has been exposed to anybody with a contagious illness such as Covid, flu, No c. Patient is taking antibiotics to treat an infection No d. Patient has any skin rashes, breakdown, blisters or open wounds No e. Patient has had any hospitalizations, ED visits, surgery, other procedure, dental procedure No f. Patient has taken oral steroids or had a steroid injection No g. Does patient have any of the following symptoms that are NEW and NOT explained by another healthcondition: fever or chills, cough, shortness of breath or difficulty breathing, fatigue, muscle or body aches, headache, new loss of taste or smell, sore throat, congestion or runny nose, nausea or vo miting, diarrhea. No If yes, the patient has been directed to the covid hotline for testing prior to their procedure. (route telephone note to: [facility] covid 19 nurse triage with routing comment stating pt needs covid test prior to procedure and give date of procedure, add name and MRN to tracking tool). h. Has the patient's pain resolved or significantly improved such as a rating of 3/10 or less? No 4. Was patient instructed to stop any medications? No if yes: a. Name of medication(s): b. Confirm date of last dose: 5. Is patient having a nerve block: Yes a. If yes instructed to not take any pain medication for 12 hours before your procedure. 6. Patient instructed to take any prescribed medications that they were not told to stop, especially blood pressure medication, because their procedure may be cancelled if their blood pressure is toohigh. 7. Was patient instructed to follow NPO guidelines: No if yes, the following instructions were reviewed: a. You may eat up to 6 hours before your procedure b. You may have clear liquids only up to 2 hours before your procedure: water, apple juice, patrizia amparo, sprite, popsicles, broth, tea or coffee plain or with sweetener, absolutely no dairy products, no milk including soy, oat, almond. Patient expressed understanding and agreement with instructions Yes Patient denies further questions Yes documented in this encounter Plan of Treatment Not on file documented as of this encounter Visit Diagnoses Not on filedocumented in this encounter Care Teams Computer Forensic Specialist Relationship Specialty Start Date End Date Yariel Hackett MD [address] [place] [address] PCP - General 08/21/16 documented as of this encounter
--- OUTSIDE RECORDS SUMMARY | 2023-11-14 01:02 | XMS_ITS | Encounter Summary ---
[place] [address] Care Team Providers Care Sustainability Manager Name Role Phone Yariel Hackett MD Primary Care Provider [phone] Encounter Details Date Type Department Care Team (Late st Contact Info) Description 02/28/2021 Orders Only [facility] [place] [address] Zana Orourke LNA Social History Tobacco Use Types Packs/Day [...] on filedocumented in this encounter Care Teams Sustainability Manager Relationship Specialty Start Date End Date Yariel Hackett MD [facility] [place] [address] PCP - General 08/21/16 documented as of this encounter
--- OUTSIDE RECORDS SUMMARY | 2023-11-14 01:02 | XMS_ITS | Encounter Summary ---
[place] [address] Care Team Providers Care Shark Biologist Name Role Phone Yariel Hackett MD Primary Care Provider [phone] Reason for Visit * Auth/Cert Specialty Diagnoses / Procedures Referred By Contac t Referred To Contact Diagnoses SI joint dysfunction Procedures PRO INJECTION, SACROILIAC JOINT INJECTION PROCEDURE, SACROILIAC JOINT (WRVU 1.48) Referral ID Status Reason Start Date Expiration Date Visits Re quested Visits Authorized [id number] 1 1 Encounter Details Date Type Department Care Team (Latest Contact Info) Description 01/03/2021 9:21 AM EDT - 01/03/2021 10:20 AM EDT Hospital Encounter [place] [phone] Giovanny Isidro MD [facility] [place] [address] Sacroiliac joint dysfunction of both sides; Sacroiliac joint pain Discharge Disposition: Home Social History Tobacco Use Types Packs/Day Years Used Date Smoking Tobacco: Never Smokeless Tobacco: Never Sex and Gender Information Value Date Recorded Sex Assigned at Not on file Gender Identity Not on file Sexual Orientation Not on file documented as of this encounter Last Filed Vital Signs Vital Sign Reading Time Taken Comments Blood Pressure 156/71 01/03/2021 10:10 AM EDT Pulse 74 01/03/2021 9:28 AM EDT Temperature - - Respiratory Rate - - Oxygen Saturation 99% 01/03/2021 10:10 AM EDT Inhaled Oxygen Concentration - - Weight 90.7 kg (200 lb) 01/03/2021 9:28 AM EDT Height 152.4 cm (5') 01/03/2021 9:28 AM EDT Body Mass Index 39.06 01/03/2021 9:28 AM EDT documented in this encounter Discharge Instructions * Discharge Instructions* Yareli Looney H - 01/03/2021 10:09 AM EDT Pain Management Center Discharge Instructions: You were seen today by Surgeon(s): Giovanny Isidro MD Krause, Jeffrey A, MD The following was performed: Procedure(s) (LRB): INJECTION PROCEDURE, SACROILIAC JOINT (WRVU 1.48) (Bilateral) It is normal that the injection [...] 20 minutes. Do not apply heat today. Attempt to empty your bladder 4-6 hours after your procedure. {CHECK BOX SELECTION:44870} If you have diabetes, monitor your blood sugars frequently. If your blood sugar increases and is of concern, contact your Primary Care Provider. You received the following medications: Medications Given During Procedure Date/Time Order Dose Route Action 01/03/2021 1005 BUpivacaine (pf) (Marcaine) (2.5 mg/mL) 0.25% injection 3 mL Intra-articular Given 01/03/2021 1005 iohexoL (Omnipaque) (240 mg/mL) injection solution 1 mL Intra- articular Given 01/03/2021 1005 methylPREDNISolone acetate (DEPO-Medrol) (80 mg/mL) injection 80 mg Intra-articularGiven During regular business hours, please phone the [...] tablet by mouth once daily 0 10/04/2016 UNABLE TO FIND daily. Med Name: iron tablet 09/26/2021 ibuprofen (Motrin) 400 mg Tablet Take 400 mg by mouth every 6 hours as needed for Pain. 09/26/2021 clotrimazole-betamethas one (LOTRISONE) 1-0.05 % Cream Apply topically 2 times daily. 01/25/2021 documented as of this encounter H&P Notes * Giovanny Isidro MD - 01/02/2021 8:50 AM EDT Patient Name: Tamia Casarez Patient Age: 65 y.o. Birthdate: 1955 Admit date: 01/03/2021 Attending Physician: Giovanny Isidro MD PREPROCEDURE HISTORY AND PHYSICAL Date of Visit: January 03, 2021 Chief Complaint: Low back and b/l hip pain HPI: Tamia Casarez is a 65 y.o. female who presents today for B/L SIJ injections with a diagnosis of 1. Sacroiliac joint dysfunction of both sides resulting in symptoms of low back and b/l hip pain. The history is obtained from the patient, and I have reviewed medical records provided by the referring physician and located in the electronic medical record to fill in gaps in the patient's recollection of events, treatments and outcomes. LOCATION: right gluteal area, left gluteal area, across the lower back and b/l hips. PAIN LEVEL AT REST 6/10 PAST MEDICAL HISTORY: No past medical history on file. There are no medical history contraindications to this procedure. PAST SURGICAL HISTORY: No past surgical history on file. There are no past surgical contraindications to [...] Social Determinants of Health Financial Resource Strain: ??? Difficulty of Paying Living Expenses: Not on file Food Insecurity: ??? Worried About Running Out of Food in the Last Year: Not on file ??? Ran Out of Food in the Last Year: Not on file Transportation Needs: ??? Lack of Transportation (Medical): Not on file ??? Lack of Transportation (Non-Medical): Not on file Physical Activity: ??? Days of Exercise per Week: Not on file ??? Minutes of Exercise per Session: Not on file There are no social history contraindications to this procedure. ROS: Review of Systems Constitutional: Negative for fever, chills, or recent infection. Respiratory: Negative for shortness of breath. Cardiovascular: Negative for chest pain. Musculoskeletal: Positive for b/l low back and hip pain. Psychiatric/Behavioral: Negative for agitation and behavioral problems. PHYSICAL EXAM: BP 113/67 (Patient Position: Sitting) Pulse 74 Ht 152.4 cm (5') Wt 90.7 kg (200 lb) SpO2 100% BMI 39.06 kg/m?? Physical Exam Constitutional: She appears well-developed and well-nourished. No distress. Cardiovascular: Normal heart rate. Pulmonary/Chest: Effort normal and breath sounds normal. Skin: She is not diaphoretic. This is no rash, apparent infection, or other abnormality to the areaof the proposed injection. No LMP recorded. There are no physical examination findings which would preclude this procedure. LABS: No results for input(s): WBC, RBC, HGB, HCT, MCV, MCH, MCHC, PLATELET, RDWCV in the last 168 hours. No results for input(s): PT, PTT, INR in the last 168 hours. ASSESSMENT: 1. Sacroiliac joint dysfunction of both sides PLAN: Proceed with procedure as planned. Thank you for the opportunity to participate in Tamia Casarez's care. Please feel free to contact me with any questions. Sincerely, Francisco Moore MD Pain Medicine Fellow [place] [phone] / [facility] I have seen and examined the patient and reviewed the fellow's above history and agree with the details as written. The assessment and plan were formulated in discussion with me, and I agree with them as documented. Giovanny Isidro MD, MS Spar Machine Operator of Anesthesiology [facility] [address] [phone] / [facility].org CC: Unknown None documented in this encounter Miscellaneous Notes * Op Note - Giovanny Isidro MD - 01/03/2021 10:00 AM EDT Pain Management Operative Note Patient Name: Tamia Casarez : [id number] MR#: [id number] Case Date: 01/03/2021 Surgeon: Surgeon(s) and Role: * Giovanny Isidro MD - Primary * Francisco Moore MD - Fellow Present on Admission: ??? Sacroiliac joint dysfunction of both sides Postoperative diagnosis: same Procedure(s) (LRB): INJECTION PROCEDURE, SACROILIAC JOINT (WRVU 1.48) (Bilateral) BILATERAL INTRA-ARTICULAR SI JOINT INJECTION Date of Service: 12/16/2020 Patient: Tamia Casarez Provider: Giovanny Isidro MD Tamia Casarez has been referred to the Pain Management Center for intra- articular SI joint injection. Ms. Casarez was interviewed and the medical record reviewed. There were no medical, pharmacologic,radiographic or other structural contraindications to attempting fluoroscopically guided intra-articular SI joint injection. Risks and expected side effects as well as potential benefit of the procedure were reviewed with Ms. Casarez, and her voiced concerns were addressed. The printed consent form was signed and witnessed. Standard time-out procedure was performed. Ms. Casarez was placed in the prone position on the fluoroscopy table and automated blood pressurecuff and pulse oximeter applied. The skin entry point for approaching the bilateral sacroiliac joint was identified under the most advantageous fluoroscopic view and marked. Following thorough Chlorhexadine preparation of the skin and draping and 1% lidocaine infiltration of the skin entry point and subcutaneous tissues, a 22 gauge, 5 spinal needle was placed under fluoroscopic guidance into thebilateral sacroiliac joint. Intra-articular placement was confirmed by a clear arthrogram resultingfrom the injection of 0.25ml Omnipaque 240.1.5 ml 0.25% Bupivacaine and 40 mg Depomedrol were injected intra-articularily per side (3 mL 0.25% Bupivacaine and 80 mg Depomedrol total). pain. The needle was removed without difficulty. Ms. Casarez's vital signs were stable throughout the procedure and were as recorded in the docflowsheet by the nursing staff. If given, dosages of intravenous drugs for anxiolysis and analgesia weredocumented in JUN. Follow up plans and appointments were discussed with the Ms. Casarez. Post procedure instruction was given as documented in nursing documentation and having met discharge criteria, she was discharged from the Pain Management Center. COMMENTS: No complications. F/U with Dr. Sanna Moore MD Pain Medicine Fellow [address] [phone] / [facility] I have seen and examined the patient and reviewed the fellow's above history and agree with the details as written. The assessment and plan were formulated in discussion with me, and I agree with them as documented. Giovanny Isidro MD, MS Spar Machine Operator of Anesthesiology [facility] [address] [phone] / [facility] CC: Unknown None documented in this encounter Plan of Treatment Scheduled Orders Name Type Priority Associated Diagnoses Orde r Schedule INJECTION PROCEDURE, SACROILIAC JOINT Procedures Routine Sacroiliac joint pain One Time for 1 Occurrences starting 01/03/2021 until 01/03/2021 documented as of this encounter Visit Diagnoses Diagnosis Sacroiliac joint dysfunction of both sides Disorders of sacrum Sacroiliac joint pain Disorders of sacrum Sacroiliac joint dysfunction of both sides Disorders of sacrum documented in this encounter Active and Recently Administered Medications Times are shown in EDT. PRN Medication Order 01/01/2021 01/02/2021 01/03/2021 BUpivacaine (pf) (Marcaine) (2.5 mg/mL) 0.25% injection (CANCELED) ONCE PRN, Starting on Sat01/03/21 at 1005, Until Sat01/03/21 at 1221, Intra-Operative (Intra-Procedure), Routine 1005 (Given - Provid er: Giovanny Isidro MD) iohexoL (Omnipaque) (240 mg/mL) injection solution (CANCELED) ONCE PRN, Starting on Sat01/03/21 at 1005, Until Sat01/03/21 at 1221, Intra-Operative (Intra-Procedure), Routine 1005 (Given - Provid er: Giovanny Isidro MD) methylPREDNISolone acetate (DEPO-Medrol) (80 mg/mL) injection (CANCELED) ONCE PRN, Starting on Sat01/03/21 at 1005, Until Sat01/03/21 at 1221, Intra-Operative (Intra-Procedure), Routine 1005 (Given - Provid er: Giovanny Isidro MD) documented in this encounter Care Teams Shark Biologist Relationship Specialty Start Date End Date Yariel Hackett MD [facility] [place] [phone] PCP - General 08/21/16 documented as of this encounter
--- OUTSIDE RECORDS SUMMARY | 2023-11-14 01:02 | XMS_ITS | Encounter Summary ---
Author Organization [facility] [place] [address] Care Team Providers Care Shearer Helper Name Role Phone Yariel Hackett MD Primary Care Provider Reason for Visit * Reason Comments Follow-up Encounter Details Date Type Department Care Team (Late st Contact Info) Description 05/09/2021 3:40 PM EST Office Visit [facility] [place] [address] Estelita Kitchen CAN DR[facility]ER [facility] [place] [address] Lumbar spondylosis (Primary Dx) Social History Tobacco Use Types Packs/Day Years Used Date Smoking Tobacco: Never Smokeless Tobacco: Never Sex and Gender Information Value Date Recorded Sex Assigned at Not on file Gender Identity Not on file Sexual Orientation Not on file documented as of this encounter Last Filed Vital Signs Vital Sign Reading Time Taken Comments Blood Pressure 136/75 05/09/2021 3:25 PM EST Pulse 72 05/09/2021 3:25 PM EST Temperature - - Respiratory Rate - - Oxygen Saturation 97% 05/09/2021 3:25 PM EST Inhaled Oxygen Concentration - - Weight 97.5 kg (215 lb) 05/09/2021 3:25 PM EST Height 152.4 cm (5') 05/09/2021 3:25 PM EST Body Mass Index 41.99 05/09/2021 3:25 PM EST documented in this encounter Patient Instructions * Patient Instructions* Estelita Kitchen APRN - 05/09/2021 3:40 PM EST Proceed to RFA L3-5 bilateral documented in this encounter Progress Notes * Estelita Kitchen APRN - 05/09/2021 3:40 PM EST Images from the original note were not included. [facility] FOLLOW UP Date of Consultation: May 08, 2021 Referring Provider: Yariel Hackett Reason for request of consultation: Discuss suggestions for low back pain Chief Complaint: Alternating low back pain History of Present Illness: Ms. Casarez is a 66 y.o. year-old female who presents to the pain clinic with chief complaint of recurrent bad back and sciatica. The patient reports a history of back pain and reports that when she lived in [facility] she got SI joint injections every 3 to 4 months. 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 She hasseen physical therapy and has been taped like athletes do. She has been going to physical therapyfor about 2 weeks. The taping has helped her lateral leg pain which she defines as sciatica but is a ctually in the lateral leg and hip area over the trochanteric bursa. She reports she was having to shuffle and could not put her weight on her leg after working. She reports that she is no longer shuffling but does feel pretty tired after work and is not able to really do much of anything. She and her are trying to buy a house which is why she went back to work. She had a gastric bypass surgery in 2009 and lost 150 pounds afterwards. She has had a bone densitybut was it was remotely several years ago and she cannot recall when her last bone density was. Interval history 01/26/2021: Shanelle had a steroid injection done here at this institution by Dr. Schwarz on 01/03/2021. This was a bilateral steroid injection into the SI joints. She reports that she had these many many times over the years with good results but unfortunately these injections did not help her at all. She continues to have back pain. We had a telephone visit today at her request to discuss her response. She continues to do what sounds like at least 50% modality based physical therapy locally. I had sent her for activity based therapy. She finds that this is minimally helpful. Updated interval history 02/28/2021: I followed up with the patient because I had had a telehealth visit with her and unfortunately while it appeared that she may have facet arthropathy and lumbar spondylosis which might be causing her symptoms it was not entirely clear to me. She scheduled her appointment today so we could repeat visit her physical exam. She continues to have low back pain. Updated interval history 05/09/2021: I am following up with Shanelle today regarding her second medial branch block done by Dr. Schwarz on 04/04/2021 Shanelle had 100% relief from her first set of medial branch blocks and is progressed to the second set on 04/04/2021 the patient had initially 100% results from this but when she spoke to the nurse she tells me today she misunderstood what the nurse was asking her on for her follow-up call. The patient reports that she had just gone back to work for her first day and while she initially had 2 days of almost 100% relief of her symptoms when she went backto work her symptoms started to creep back up a little bit. She then reported the symptoms that arerecorded by the nurse in her previous note. The patient reports quite adamantly to me that she had very good response and as a matter fact her left side is still not bothersome for her at all even now at the right side did flareup after she returned to work on the . She by my calculation does meet the criteria to go forward with the radiofrequency lesioning procedure. And placing the order for that. The patient also tells me that her primary care provider did order a bone density and she was osteoporotic and has ordered Reclast infusions for her which I am happy to hear. PAIN ASSESSMENT: Description: Low back alternates side ,had some radiation to left lateral leg now resolved Weakness, numbness, tingling: was shuffling , better now Saddle Anesthesia: no Other associated symptoms: no Alleviating factors: lying down, mw]edication ( motrin and amitriptyline) Aggravating factors:beding over, on knees, walking Pain today:8/10 Best in past week:3/10 Worst in past week:10/10 No flowsheet data found. PAST THERAPIES: Motrin amitryptyline PT with [facility] in [place] in the past. Salon pas and injections Functional Status Work--home health aid ADL's---none but once I sit, I have a hard time getting up Lives at home , 5 dogs ( ahsan) Current Medications: No outpatient medications have been marked as taking for the 05/09/21 encounter (Appointment) with Estelita Kitchen APRN. Allergies & Adverse Reactions: Valium [diazepam] Problem List: Patient Active Problem List Diagnosis Code ??? Nevus D22.9 ??? Solar lentigo L81.4 ??? Sacroiliac joint dysfunction of both sides M53.3 ??? Lumbar spondylosis M47.816 Social History: Social History Socioeconomic History ??? [...] on file Housing Stability: Not on file Family History No family history on file. Past Medical History: No past medical history on file. Past Surgical History: Past Surgical History: Procedure Laterality Date ??? PRO INJ PARAVERTEBRAL FACET JT W/IMAGE GUID, LUMBAR/SACRAL, 3RD OR ADDL LEVEL Bilateral 04/04/2021 INJECTION, FACET JOINT, W\FLUORO, LUMBAR, 3RD LEVEL (WRVU 1) performed by Giovanny Isidro MD at [facility] PAIN MG[facility] ??? PRO INJECTION PV FACET JOINT LUMBAR/SACRAL SECOND LEVEL Bilateral 03/14/2021 INJECTION, FACET JOINT, W\FLUORO, LUMBAR, 2ND LEVEL (WRVU 1) performed by Giovanny Isidro MD at [facility] PAIN [facility] ??? PRO INJECTION PV FACET JOINT LUMBAR/SACRAL SECOND LEVEL Bilateral 04/04/2021 INJECTION, FACET JOINT, W\FLUORO, LUMBAR, 2ND LEVEL (WRVU 1) performed by Giovanny Isidro MD at [facility] PAIN [facility] ??? PRO INJECTION PV FACET JOINT LUMBAR/SACRAL SINGLE LEVEL Bilateral 03/14/2021 INJECTION, FACET JOINT, W\FLUORO, LUMBAR, SINGLE (WRVU 1.52) performed by Giovanny Isidro MD at [facility] PAIN [facility] ??? PRO INJECTION PV FACET JOINT LUMBAR/SACRAL SINGLE LEVEL Bilateral 04/04/2021 INJECTION, FACET JOINT, W\FLUORO, LUMBAR, SINGLE (WRVU 1.52) performed by Giovanny Isidro MD at [facility] PAIN [facility] Review of Systems: Denies fever, chills, weight loss, SOB, abdominal pain, leg weakness/numbnes, arm weakness/numbness, bowel or bladder incontinence, balance issues RISK ASSESSMENT: Smoking:no Alcohol:no Physical Exam: We had her produce Kemps maneuver bilaterally and it does seem to increase her symptoms. This is consistent with her imaging which does show some facet arthropathy in the lower 2 levels of her lumbarspine. Imaging & Other Studies: Assessment: Ms. Casarez is a 66 y.o. year-old female who presents to the [facility] alternating low back pain an order was placed for L4-5 and L5-S1 medial branch blocks with progression to radiofrequency as appropriate. There was some initial confusion when she talked to the nurse after the procedure about how she responded but she tells me that she had excellent response 100% for 2 days after the last second medial branch block and as a matter fact her left sideof her back is still not giving her any pain. She meets the criteria for a radiofrequency lesioningprocedure and I placed that order for her. I will follow-up with her as needed. Thank you Mr. Hackett for allowing my participation in Tamia Casarez's care. Estelita Kitchen, MS, ADULT EDUCATION MANAGER-BC, CAN DRYER Nurse practitioner Pain management [facility] documented in this encounter Plan of Treatment Not on file documented as of this encounter Visit Diagnoses Diagnosis Lumbar spondylosis- Primary Lumbosacral spondylosis without myelopathy documented in this encounter Care Teams Shearer Helper Relationship Specialty Start Date End Date Yariel Hackett MD [address] [place] [phone] PCP - General 08/21/16 documented as of this encounter
--- OUTSIDE RECORDS SUMMARY | 2023-11-14 01:02 | XMS_ITS | Encounter Summary ---
[place] [address] Care Team Providers Care Automatic Outsole Cutter Name Role Phone Yariel Hackett MD Primary Care Provider Encounter Details Date Type Department Care Team (Late st Contact Info) Description 11/04/2020 Ancillary Procedure [place] [address] Yariel Hackett MD [address] [place], [place] [address] [phone] Social History Tobacco Use Types Packs/Day Years [...] Associated Diagnosis Comments FILM LIBRARY STORAGE ONLY DX HIP Routine 11/04/2020 12:00 AM EDT documented in this encounter Results * Film Library- Storage Only DX Hip (11/04/2020 12:00 AM EDT) Narrative EARLENE - 12/15/2020 3:38 PM EDT This exam is auto-finalizing. It's purpose is for storage only. Yariel Hackett MD G FILM LIBRARY ORD ERABLES [place], [place] documented in this encounter Visit Diagnoses Not on filedocumented in this encounter Care Teams Automatic Outsole Cutter Relationship Specialty Start Date End Date Yariel Hackett MD [address] [place] [id number] PCP - General 08/21/16 documented as of this encounter
--- OUTSIDE RECORDS SUMMARY | 2023-11-14 01:02 | XMS_ITS | Encounter Summary ---
[place] [address] Care Team Providers Care Copy Lathe Operator Name Role Phone Yariel Hackett MD Primary Care Provider [phone] Reason for Visit * Auth/Cert Specialty Diagnoses / Procedures Referred By Contac t Referred To Contact Diagnoses L4-5 and L5-S1 spodylosis Procedures PRO INJECTION PV FACET JOINT LUMBAR/SACRAL SECOND LEVEL PRO INJECTION PV FACET JOINT LUMBAR/SACRAL SINGLE LEVEL INJECTION, FACET JOINT, W\FLUORO, LUMBAR, 2ND LEVEL (WRVU 1) INJECTION, FACET JOINT, W\FLUORO, LUMBAR, SINGLE (WRVU 1.52) Referral ID Status Reason Start Date Expiration Date Visits Re quested Visits Authorized [id number] 1 1 Encounter Details Date Type Department Care Team (Late st Contact Info) Description 03/14/2021 3:30 PM EST - 03/14/2021 4:00 PM EST [place] [address] Giovanny Isidro MD [facility] [place] [address] INJECTION, FACET JOINT, W\FLUORO, LUMBAR, 2ND LEVEL (WRVU 1) Social History Tobacco Use Types Packs/Day Years Used Date Smoking Tobacco: Never Smokeless Tobacco: Never Sex and Gender Information Value Date Recorded Sex Assigned at Not on file Gender Identity Not on file Sexual Orientation Not on file documented as of this encounter Last Filed Vital Signs Vital Sign Reading Time Taken Comments Blood Pressure 144/90 03/14/2021 4:00 PM EST Pulse 87 03/14/2021 2:33 PM EST Temperature - - Respiratory Rate - - Oxygen Saturation 99% 03/14/2021 4:00 PM EST Inhaled Oxygen Concentration - - Weight 90.7 kg (200 lb) 03/14/2021 2:33 PM EST Height 152.4 cm (5') 03/14/2021 2:33 PM EST Body Mass Index 39.06 03/14/2021 2:33 PM EST documented in this encounter Discharge Instructions * Discharge Instructions* Denton Funk - 03/14/2021 4:26 PM EST Pain Management Center Discharge Instructions: You were seen today by Surgeon(s): Michael Hamilton MD Vrooman, Bruce M, MD Conroy, Taylor J, MD The following was performed: Procedure(s) (LRB): INJECTION, FACET JOINT, W\FLUORO, LUMBAR, 2ND LEVEL (WRVU 1) (Bilateral) INJECTION, FACET JOINT, W\FLUORO, LUMBAR, SINGLE (WRVU 1.52) (Bilateral) It is normal that the injection site will be sore for up to 48 hours. {CHECK BOX SELECTION:20029} You may also experience mild stiffness in the joint near the injection site. You may resume your normal activities: {Time; today/tomorrow:13392}. You may shower today. DO NOT tub [...] Do not apply heat today. {CHECK BOX SELECTION:44222} You received medication through an intravenous line to lessen the anxiety/pain of your procedure. DO NOT operate heavy or dangerous equipment/tools, or sign important papers today. Attempt to empty your bladder 4-6 hours after your procedure. {CHECK BOX SELECTION:13800} If you have diabetes, monitor your blood sugars frequently. If your blood sugar increases and is of concern, contact your Primary Care Provider. You received the following medications: Medications Given During Procedure Date/Time Order Dose Route Action 03/14/2021 1551 BUpivacaine (pf) (Marcaine) (5 mg/mL) 0.5% injection 3 mL Intra- articular Given 03/14/2021 1550 iohexoL (Omnipaque) (240 mg/mL) solution 2 mL Intra-articular Given During regular business hours, please phone [...] Post -Procedure Pain Log Patient: Tamia Casarez [id number] It is important for you to keep track of your pain after your procedure that took place today. Thisinformation will help your Provider to determine how to help reduce your pain. Today you had a procedure for pain in your back. Your pain level before the procedure in this area was 8/10. Your pain level immediately after your procedure was 0/10. Time Pain Score # Comments % pain relief 1 hour 5:15 pm 2 hours 6:15 pm 3 hours 7:15 pm 4 hours 8:15 pm Please call the nurse in the Pain [...] H&P Notes * Giovanny Isidro MD - 03/14/2021 3:30 PM EST PREPROCEDURE HISTORY AND PHYSICAL Date of Visit: March 14, 2021 Chief Complaint: Low back pain HPI: Tamia Casarez is a 66 y.o. female who presents today for L4-S1 LMBB with a diagnosis of 1. Lumbar spondylosis resulting in symptoms of alternating low back pain. The history is obtained from the patient, and I have reviewed medical records provided by the referring physician and located in the electronic medical record to fill in gaps in the patient's recollection of events, treatments and outcomes. LOCATION: right lumbar area or left lumbar area. (R > L) PAIN LEVEL AT REST 8/10 PAST MEDICAL HISTORY: No past medical history [...] Negative for chest pain. Musculoskeletal: Positive for back pain. Psychiatric/Behavioral: Negative for agitation and behavioral problems. PHYSICAL EXAM: BP 134/69 Pulse 87 Ht 152.4 cm (5') Wt 90.7 kg [...] this procedure. ASSESSMENT: 1. Lumbar spondylosis PLAN: Proceed with procedure as planned. Thank you for the opportunity to participate in Tamia Casarez's care. Please feel free to contact me with any questions. Sincerely, Johanne Garcia MD Anesthesiology CA-2 / PGY-3 03/14/2021 I have seen and examined the patient and reviewed the fellow's above history and agree with the details as written. The assessment and plan were formulated in discussion with me, and I agree with them as documented. Giovanny Isidro MD, MS Special Education Professional of Anesthesiology [facility] [address] [address] / [facility] documented in this encounter Miscellaneous Notes * Op Note - Giovanny Isidro MD - 03/14/2021 3:50 PM EST Pain Management Operative Note Patient Name: Tamia Casarez : [id number] MR#: [id number] Case Date: 03/14/2021 Surgeon: Surgeon(s) and Role: * Giovanny Isidro MD - Primary * Michael Hamilton MD - Fellow * Johanne Garcia MD - Resident Present on admission diagnosis: 1. Lumbar spondylosis Postoperative diagnosis: same Procedure(s) (LRB): INJECTION, FACET JOINT, W\FLUORO, LUMBAR, 2ND LEVEL (WRVU 1) (Bilateral) INJECTION, FACET JOINT, W\FLUORO, LUMBAR, SINGLE (WRVU 1.52) (Bilateral) PROCEDURE NOTE LUMBAR MEDIAL BRANCH DIAGNOSTIC BLOCKS Date of Service: 02/28/2021 Patient: Tamia Casarez Referring Physician: Estelita Kitchen Aprn [facility] [place] [address] Diagnosis: 1. Lumbar spondylosis Today's Operative Note [...] target point for each respective segmental medial branch. Position was confirmed in A/P, oblique and lateral views at 0.25 cc of Omnipaque-240 at each segmental nerve. At each level we injected 0.5ml of Bupivacaine 0.5%. (49 cc of Omnipaque was wasted) Ms. Casarez's vital signs were stable throughout the procedure and were as recorded in the docflowsheet by the nursing staff. Postoperatively, today patient demonstrates the following changes with hyperextension and with tenderness over the suspected joint(s). Provacative testing using the Terrell's facet loading test Right side Left side Directly before the block VAS (0-10) = 8 VAS (0-10) = 8 5 minutes after the block VAS (0-10) = 0 VAS (0-10) = 0 Percentage relief obtained with this diagnostic block 100% 100% Any improved physical functioning directly after the blocks? Improved lumbar extension Next, she was asked to recordher percent [...] 0-4 hour post-procedure pain scores. Michael Hamilton MD I have seen and examined the patient and reviewed the fellow's above history and I agree with the details as written. I was the attending physician supervising the fellow in the above care and I was present with the fellow for the entire procedure. Giovanny Isidro MD, MS Special Education Professional of Anesthesiology [employer] [address] [address] / [facility] CC: Estelita Kitchen APRN [facility] [place] [address] documented in this encounter Plan of Treatment Not on file documented as of this encounter Procedures Procedure Name Priority Date/Time Associated Diagnosis Comments Injection Pv Facet Joint Lumbar/Sacral Single Level (99651) 03/14/2021 3:38 PM EST Lumbar spondylosis Injection Pv Facet Joint Lumbar/Sacral Second Level (76904) 03/14/2021 3:38 PM EST Lumbar spondylosis INJECTION, FACET JOINT,W\FLUORO, LUMBAR, SINGLE Routine 03/14/2021 2:30 PM EST Lumbar spondylosis INJECTION, FACET JOINT,W\FLUORO, LUMBAR, 2ND LEVEL Routine 03/14/2021 2:30 PM EST Lumbar spondylosis documented in this encounter Visit Diagnoses Diagnosis Lumbar spondylosis- Primary Lumbosacral spondylosis without myelopathy Lumbar facet arthropathy Lumbosacral spondylosis without myelopathy Lumbar spondylosis Lumbosacral spondylosis without myelopathy documented in this encounter Administered Medications Inactive Administered Medications - up to 3 most recent administrations Medication Order MAR Action Action Date Dose Rate Site BUpivacaine (pf) (Marcaine) (5 mg/mL) 0.5% injection ONCE PRN, Starting on 03/14/21 at 1551, Until 03/14/21 at 1830, Intra-Operative (Intra-Procedure), Routine Given 03/14/2021 3:51 PM EST 3 mLs iohexoL (Omnipaque) (240 mg/mL) solution ONCE PRN, Starting on 03/14/21 at 1550, Until 03/14/21 at 1830, Intra-Operative (Intra-Procedure), Routine Given 03/14/2021 3:50 PM EST 2 mLs documented in this encounter Active and Recently Administered Medications Times are shown in EST. PRN Medication Order 03/12/2021 03/13/2021 03/14/2021 BUpivacaine (pf) (Marcaine) (5 mg/mL) 0.5% injection (CANCELED) ONCE PRN, Starting on 03/14/21 at 1551, Until 03/14/21 at 1830, Intra-Operative (Intra-Procedure), Routine 1551 (Given - Provid er: Giovanny Isidro MD - Comment: carolyn SO) iohexoL (Omnipaque) (240 mg/mL) solution (CANCELED) ONCE PRN, Starting on 03/14/21 at 1550, Until 03/14/21 at 1830, Intra-Operative (Intra-Procedure), Routine 1550 (Given - Provid er: Giovanny Isidro MD - Comment: carolyn SO) documented in this encounter Care Teams Copy Lathe Operator Relationship Specialty Start Date End Date Yariel Hackett MD [address] [place] [address] PCP - General 08/21/16 documented as of this encounter
--- OUTSIDE RECORDS SUMMARY | 2023-11-14 01:02 | XMS_ITS | Referral Summary ---
Author Organization [facility] Address [address] [place] [address] Care Team Providers Care Hand Woven Carpet And Rug Mender Name Role Phone Unavailable Primary Care Provider Unavailabl e Social History Tobacco Use Types Packs/Day Years Used Date Smoking Tobacco: Never Assessed Interpersonal Safety Answer Date Record ed Physically Hurt Never 03/01/2020 Verbally Threaten Not on file 03/01/2020 Sex and Gender Information Value Date Recorded Sex Assigned at Not on file Gender Identity Not on file Sexual Orientation Not on file Plan of Treatment Not on file
--- OUTSIDE RECORDS SUMMARY | 2023-11-14 01:02 | XMS_ITS | Encounter Summary ---
[place] [address] Care Team Providers Care Chorus Master Name Role Phone Yariel Hackett MD Primary Care Provider [phone] Reason for Visit * Auth/Cert Specialty Diagnoses / Procedures Referred By Contac t Referred To Contact Diagnoses SI joint dysfunction Procedures PRO INJECTION, SACROILIAC JOINT INJECTION PROCEDURE, SACROILIAC JOINT (WRVU 1.48) Referral ID Status Reason Start Date Expiration Date Visits Re quested Visits Authorized [id number] 1 1 Encounter Details Date Type Department Care Team (Late st Contact Info) Description 01/03/2021 9:45 AM EDT - 01/03/2021 10:15 AM [place]T [place] [phone] Giovanny Isidro MD [facility] [place] [address] INJECTION PROCEDURE, SACROILIAC JOINT (WRVU 1.48) Social History Tobacco Use Types Packs/Day Years [...] 4-6 hours after your procedure. {CHECK BOX SELECTION:69967} If you have diabetes, monitor your blood [...] Sincerely, Francisco Moore MD Pain Medicine Fellow [place] [phone] / [facility] I have seen and examined the patient and reviewed the fellow's above history and agree with the details as written. The assessment and plan were formulated in discussion with me, and I agree with them as documented. Giovanny Isidro MD, MS Classified Advertising Clerk of Anesthesiology [facility] [address] [address] / [facility].org CC: Unknown None documented in this encounter Miscellaneous Notes * Op Note - Giovanny Isidro MD - 01/03/2021 10:00 AM EDT Pain Management Operative Note Patient Name: Tamia Casarez : [id number] MR#: [id number] Case Date: 01/03/2021 Surgeon: Surgeon(s) and Role: [...] Dr. Sanna Moore MD Pain Medicine Fellow [address] [address] / [facility] I have seen and examined the patient and reviewed the fellow's above history and agree with the details as written. The assessment and plan were formulated in discussion with me, and I agree with them as documented. Giovanny Isidro MD, MS Classified Advertising Clerk of Anesthesiology [facility] [address] [phone] / [facility] CC: Unknown None documented in this encounter [...] sacrum Sacroiliac joint pain Disorders of sacrum documented in this encounter Administered Medications Inactive Administered Medications - up to 3 most recent administrations Medication Order MAR Action Action Date Dose Rate Site BUpivacaine (pf) (Marcaine) (2.5 mg/mL) 0.25% injection ONCE PRN, Starting on Sat01/03/21 at 1005, Until Sat01/03/21 at 1221, Intra-Operative (Intra-Procedure), Routine Given 01/03/2021 10:05 AM EDT 3 mLs iohexoL (Omnipaque) (240 mg/mL) injection solution ONCE PRN, Starting on Sat01/03/21 at 1005, Until Sat01/03/21 at 1221, Intra-Operative (Intra-Procedure), Routine Given 01/03/2021 10:05 AM EDT 1 mL methylPREDNISolone acetate (DEPO-Medrol) (80 mg/mL) injection ONCE PRN, Starting on Sat01/03/21 at 1005, Until Sat01/03/21 at 1221, Intra-Operative (Intra-Procedure), Routine Given 01/03/2021 10:05 AM EDT 80 mg documented in this encounter Active and Recently [...] MD) documented in this encounter Care Teams Chorus Master Relationship Specialty Start Date End Date Yariel Hackett MD [address] [place] [address] PCP - General 08/21/16 documented as of this encounter
--- OUTSIDE RECORDS SUMMARY | 2023-11-14 01:02 | XMS_ITS | Encounter Summary ---
[place] [address] Care Team Providers Care Exchange Engineer Name Role Phone Yariel Hackett MD Primary Care Provider [phone] Reason for Visit * Auth/Cert Specialty Diagnoses [...] Expiration Date Visits Re quested Visits Authorized [id number] 1 1 Encounter Details Date Type Department Care Team (Late st Contact Info) Description 03/14/2021 3:30 PM EST Ancillary [place] [address] Giovanny Isidro MD [facility] [place] [address] Pain Social History Tobacco Use Types Packs/Day Years [...] STORAGE ONLY PAIN CLINIC C ARM Routine 03/14/2021 4:35 PM EST Pain documented in this encounter Results * Film Library- Storage Only pain Clinic C-Arm (03/14/2021 4:35 PM EST) Narrative RAD - 03/14/2021 4:35 PM EST See PACS for result report. Giovanny Isidro MD IMG FILM LIBRARY ORD ERABLES [place], [place] documented in this encounter Visit Diagnoses Diagnosis Pain Generalized pain documented in this encounter Care Teams Exchange Engineer Relationship Specialty Start Date End Date Yariel Hackett MD [address] [place] [address] PCP - General 08/21/16 documented as of this encounter
--- OUTSIDE RECORDS SUMMARY | 2023-11-14 01:02 | XMS_ITS | Encounter Summary ---
[place] [address] Care Team Providers Care Er Registrar Name Role Phone Yariel Hackett MD Primary Care Provider [phone] Encounter Details Date Type Department Care Team (Late st Contact Info) Description 04/06/2021 Telephone [place] [address] Sofy Orourke RN Social History Tobacco Use Types Packs/Day Years Used Date Smoking Tobacco: Never Smokeless Tobacco: Never Sex and Gender Information Value Date Recorded Sex Assigned at Not on file Gender Identity Not on file Sexual Orientation Not on file documented as of this encounter Miscellaneous Notes * Telephone Encounter - Sofy Orourke RN - 04/06/2021 8:53 AM EST Post-procedure phone call from patient to report their response to the lumbar medial branch block procedure performed on 04/04/21 in the Pain Management Center by Giovanny Isidro MD. This is patient's: second medial branch block Patient reports that after the procedure they experienced: 5, 5, 3, 3 _x_ Patient reported post-block numeric pain scale: 4 /10 (average pain since procedure) _x_ Post-procedure pain has been reduced by 30%. (> 80% Medicare/MVP/Medicaid) __ If relief > 80% with ability to perform painful maneuvers; schedule 2nd MBB: no _x_ Pain relief: minimal __ Increased pain __ Confused or unable to differential between procedure pain and regular pain If pain is reduced, it lasted: Yes 4 hours or greater Changes in functional status post procedure: Pt states not much relief following the procedure. Shestill had pain, especially with sitting, in the hours following the procedure. Based on the information provided above and after discussion with the patient, the following actions will be taken: _x_ Patient does not meet criteria to proceed to next procedure: pt directed to follow up as identified in operative note plan with Ed Kitchen APRN. Patient denies further questions at this time and expressed understanding of plan. Encouraged patient to call pain clinic RN for future questions or concerns. Lorena RN documented in this encounter Plan of Treatment Not on file documented as of this encounter Visit Diagnoses Not on filedocumented in this encounter Care Teams Er Registrar Relationship Specialty Start Date End Date Yariel Hackett MD [address] [place] [address] PCP - General 08/21/16 documented as of this encounter
--- OUTSIDE RECORDS SUMMARY | 2023-11-14 01:02 | XMS_ITS | Encounter Summary ---
Author Organization [facility] [address] [place] [address] Care Team Providers Care Material Clerk Name Role Phone Yariel Hackett MD Primary Care Provider [phone] Reason for Visit * Reason Comments Pain Management f/u Encounter Details Date Type Department Care Team (Late st Contact Info) Description 02/28/2021 12:40 PM EST Office Visit [facility] [place] [address] Estelita Kitchen WINDOW COVERING SALES CONSULTANT [facility] [place] [address] Lumbar spondylosis (Primary Dx) Social History Tobacco Use Types Packs/Day Years Used Date Smoking Tobacco: Never Smokeless Tobacco: Never Sex and Gender Information Value Date Recorded Sex Assigned at Not on file Gender Identity Not on file Sexual Orientation Not on file documented as of this encounter Last Filed Vital Signs Vital Sign Reading Time Taken Comments Blood Pressure 118/68 02/28/2021 12:47 PM EST Pulse 99 02/28/2021 12:47 PM EST Temperature - - Respiratory Rate - - Oxygen Saturation 98% 02/28/2021 12:47 PM EST Inhaled Oxygen Concentration - - Weight 90.7 kg (200 lb) 02/28/2021 12:47 PM EST Height - - Body Mass Index 39.06 01/25/2021 10:14 AM EDT documented in this encounter Progress Notes * Estelita Kitchen APRN - 02/28/2021 12:40 PM EST Images from the original note were not included. [facility] Date of Consultation: February 27, 2021 Referring Provider: Luther Buck Reason for request of consultation: Discuss suggestions for low back pain Chief Complaint: Alternating low back pain History of Present Illness: Ms. Casarez is a 66 y.o. year-old female who presents to the pain clinic with chief complaint of recurrent bad back and sciatica. The patient reports a history of back pain and reports that when she lived in [facility] she got SI joint injections every 3 [...] She continues to have low back pain. PAIN ASSESSMENT: Description: Low back alternates side [...] found. PAST THERAPIES: Motrin amitryptyline PT with [facility] in [place] in the past. 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 Allergies & Adverse Reactions: Valium [diazepam] Problem List: Patient Active Problem List Diagnosis Code ??? Nevus D22.9 ??? Solar lentigo L81.4 ??? Sacroiliac joint dysfunction of both sides M53.3 Social History: Social History Socioeconomic History ??? [...] medical history on file. Past Surgical History: No past surgical history on file. Review of Systems: Denies fever, chills, weight [...] y.o. year-old female who presents to the [facility] alternating low back pain an order was placed for L4-5 and L5-S1 medial branch blocks with progression to radiofrequency as appropriate. I will follow-up with her after her last injecti on. If she is doing well she can follow-up with me via telehealth and if not. which she understandswe may need to repeat her physical exam and she will follow-up in person. All questions were answered today. Thank you Mr. Buck for allowing my participation in Tamia Casarez's care. Estelita Kitchen, , MAKE UP WORKER-BC, WINDOW COVERING SALES CONSULTANT Nurse practitioner Pain management [facility] documented in this encounter Plan of Treatment Not on file documented as of this encounter Visit Diagnoses Diagnosis Lumbar spondylosis- Primary Lumbosacral spondylosis without myelopathy documented in this encounter Care Teams Material Clerk Relationship Specialty Start Date End Date Yariel Hackett MD [address] [place] [address] PCP - General 08/21/16 documented as of this encounter
--- OUTSIDE RECORDS SUMMARY | 2023-11-14 01:02 | XMS_ITS | Encounter Summary ---
Author Organization [facility] [place] [address] Care Team Providers Care Florist'S Decorator Name Role Phone Yariel Hackett MD Primary Care Provider [phone] Reason for Visit * Auth/Cert Specialty Diagnoses / Procedures Referred By Contac t Referred To Contact Diagnoses SI joint dysfunction Procedures PRO INJECTION, SACROILIAC JOINT INJECTION PROCEDURE, SACROILIAC JOINT (WRVU 1.48) Referral ID Status Reason Start Date Expiration Date Visits Re quested Visits Authorized [id number] 1 1 Encounter Details Date Type Department Care Team (Late st Contact Info) Description 01/03/2021 9:45 AM EDT Ancillary [place] [phone] Giovanny Isidro MD [facility] [place] [address] Pain Social History Tobacco Use Types Packs/Day Years Used Date Smoking Tobacco: Never Smokeless Tobacco: Never Sex and Gender Information Value Date Recorded Sex Assigned at Not on file Gender Identity Not on file Sexual Orientation Not on file documented as of this encounter Plan of Treatment Pending Results Name Type Priority Associated Diagnoses Date /Time Film Library- Storage Only pain Clinic C-Arm Imaging Storage Only Routine Pain 01/02/2021 4:27 PM EDT documented as of this encounter Visit Diagnoses Diagnosis Pain Generalized pain documented in this encounter Care Teams Florist'S Decorator Relationship Specialty Start Date End Date Yariel Hakcett MD [facility] [place] [address] PCP - General 08/21/16 documented as of this encounter
--- OUTSIDE RECORDS SUMMARY | 2023-11-14 01:02 | XMS_ITS | Encounter Summary ---
[place] [address] Care Team Providers Care Hide Sorter Name Role Phone Yariel Hackett MD Primary Care Provider Encounter Details Date Type Department Care Team (Late st Contact Info) Description 11/04/2020 12:05 AM EDT Ancillary Procedure [place] [address] Yariel Hackett MD [address] [place] [address] [place] [phone] Social History Tobacco Use Types Packs/Day Years [...] Diagnosis Comments FILM LIBRARY STORAGE ONLY DX SPINE Routine 11/04/2020 12:05 AM EDT documented in this encounter Results * Film Library- Storage Only DX Spine (11/04/2020 12:05 AM EDT) Narrative EARLEEN - 12/15/2020 3:41 PM EDT This exam is auto-finalizing. It's purpose is for storage only. Yariel Hackett MD [facility] FILM LIBRARY ORD ERABLES [place], [place] documented in this encounter Visit Diagnoses Not on filedocumented in this encounter Care Teams Hide Sorter Relationship Specialty Start Date End Date Yariel Hackett MD [address] [place] [address] PCP - General 08/21/16 documented as of this encounter
--- OUTSIDE RECORDS SUMMARY | 2023-11-14 01:02 | XMS_ITS | Encounter Summary ---
[place] [address] Care Team Providers Care Organizational Effectiveness Director Name Role Phone Yariel Hackett MD Primary Care Provider [phone] Encounter Details Date Type Department Care Team (Late st Contact Info) Description 12/30/2020 Telephone [facility] [place] [phone] Sofy Orourke RN Social History Tobacco Use Types Packs/Day Years Used Date Smoking Tobacco: Never Smokeless Tobacco: Never Sex and Gender Information Value Date Recorded Sex Assigned at Not on file Gender Identity Not on file Sexual Orientation Not on file documented as of this encounter Miscellaneous Notes * Telephone Encounter - Sofy Orourke RN - 12/30/2020 3:28 PM EDT Reached voicemail and left message as identified in contacts Identified myself and provided callback number: [phone]. 1. Patient instructed to arrive at 0915 on 01/03/21 with their lumber stacker driver for their B/L SIJ Injection procedure. Please plan to spend about 2 hours at the center (3 hours for RFA) 2. Bring Updated list of medications including dosage and reason for taking. 3. Call the Pain Clinic Nurse at for any of the following situations that occur within 2 weeks of your procedure date: a. Any questions about your procedure b. You are having a Covid vaccine or other vaccine c. You have been exposed to anybody with a contagious illness such as Covid, flu, d. You are taking antibiotics to treat an infection e. You have any skin rashes, breakdown, blisters or open wounds f. You have had any hospitalizations, ED visit, surgery, other procedure, dental procedure g. You have taken oral steroids, or had a steroid injection. 4. If you have any of the following symptoms that are NEW and NOT explained by another health condition you need to call the [employer] hotline to arrange for testing prior to your procedure: fever or chills, cough, shortness of breath or difficulty breathing, fatigue, muscle or body aches, headache, new loss of taste or smell, sore throat, congestion or runny nose, nausea or vomiting, diarrhea. The [employer] number is: [phone] 5. If your pain has resolved or significantly improved such as a rating of 3 out of 10 or less, youmay need to cancel your procedure because it will likely be of little benefit to you and it is likely that your insurance will not cover it. Please call the Pain clinic nurse to discuss. 6. Was patient instructed to stop any medications? No a. If yes, instructions reviewed as follows: b. Name, date of last dose. c. Please call to reschedule your procedure if you did not stop this medication as directed. 7. Is patient having a nerve block: No a. If yes, instructed to not take any pain medication for 12 hours before the procedure time. 8. Please continue to take any prescribed medications that you were not told to stop, especially blood pressure medication because your procedure may be cancelled if your blood pressure is too high. 9. You were instructed to follow NPO guidelines: No if yes the following instructions were reviewed: a. You may eat up to 6 hours before your procedure b. You may have clear liquids only up to 2 hours before your procedure: water, apple juice, patrizia amparo, sprite, popsicles, broth, tea or coffee plain or with sweetener, absolutely no dairy products, no milk including soy, oat, almond. Lorena WEBBER documented in this encounter Plan of Treatment Not on file documented as of this encounter Visit Diagnoses Not on filedocumented in this encounter Care Teams Organizational Effectiveness Director Relationship Specialty Start Date End Date Yariel Hackett MD [facility] [place] [address] [address] PCP - General 08/21/16 documented as of this encounter
--- OUTSIDE RECORDS SUMMARY | 2023-11-14 01:02 | XMS_ITS | Encounter Summary ---
Author Organization [facility] [place] [address] Care Team Providers Care Publisher Assistant Name Role Phone Yariel Hackett MD Primary Care Provider [phone] Reason for Visit * Reason Comments Back Pain * Consultation (Routine) - Closed Specialty Diagnoses / Procedures Referred By Contac t Referred To Contact Pain and Spine Center Diagnoses Low back pain Pain- low back pain/ XR @ [facility]/ ? pain mgmt options Luther Buck PA [address] [address] [facility] [place] [address] Referral ID Status Reason Start Date Expiration Date V isits Requested Visits Authorized [id number] Closed Consult, Test & Treat Connection Center PCP Updated and/or Approved 11/08/2020 05/11/2021 6 6 Encounter Details Date Type Department Care Team (Late Contact Info) Description 12/16/2020 8:30 AM EDT Office Visit [place] [address] Estelita Kitchen, ERGONOMICS ENGINEER [facility] [place] [address] Sacroiliac joint pain (Primary Dx) Social History Tobacco Use Types Packs/Day Years Used Date Smoking Tobacco: Never Smokeless Tobacco: Never Sex and Gender Information Value Date Recorded Sex Assigned at Not on file Gender Identity Not on file Sexual Orientation Not on file documented as of this encounter Last Filed Vital Signs Vital Sign Reading Time Taken Comments Blood Pressure 128/90 12/16/2020 8:49 AM EDT Pulse 71 12/16/2020 8:49 AM EDT Temperature - - Respiratory Rate - - Oxygen Saturation 100% 12/16/2020 8:49 AM EDT Inhaled Oxygen Concentration - - Weight 95.3 kg (210 lb) 12/16/2020 8:49 AM EDT Height 152.4 cm (5') 12/16/2020 8:49 AM EDT Body Mass Index 41.01 12/16/2020 8:49 AM EDT documented in this encounter Patient Instructions * Patient Instructions* Estelita Kitchen APRN - 12/16/2020 8:30 AM EDT SI joint injection FU with me telephone documented in this encounter Progress Notes * Estelita Kitchen APRN - 12/16/2020 8:30 AM EDT Images from the original note were not included. [facility] Date of Consultation: December 15, 2020 Referring Provider: Luther Buck Reason for request of consultation: Discuss suggestions for low back pain Chief Complaint: Alternating low back pain History of Present Illness: Ms. Casarez is a 65 y.o. year-old female who presents to the pain clinic with chief complaint of recurrent bad back and sciatica. The patient reports a history of back pain and reports that when she lived in [facility] she got SI joint injections [...] recall when her last bone density was. PAIN ASSESSMENT: Description: Low back alternates side [...] found. PAST THERAPIES: Motrin amitryptyline PT with [facility] in [place] in the past. 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 Allergies & Adverse Reactions: Valium [diazepam] Problem List: Patient Active Problem List Diagnosis Code ??? Nevus D22.9 ??? Solar lentigo L81.4 Social History: Social History Socioeconomic History ??? [...] of Exercise per Session: Not on file Family History No family history on file. Past Medical History: No past medical history on file. Past Surgical History: No past surgical history on file. Review of Systems: Denies fever, chills, weight loss, SOB, abdominal pain, leg weakness/numbnes, arm weakness/numbness, bowel or bladder incontinence, balance issues RISK ASSESSMENT: Smoking:no Alcohol:no Physical Exam: No data found. Appearance/ Behavior Well groomed, good eye contact, relaxed, cooperative, normal speech, no acute distress, no involuntary movements Lungs Respirations unlabored Cardiovascular Bilateral extremities warm and dry, pulses present and symmetrical Skin No rash, asymmetric hair loss, bruises, scars, swelling Musckuloskeletal Inspection/Palpation/ Range of Motion/Facet Loading maneuvers Gait: Nonantalgic Assistive device: None Heel, toe, heel to toe: Without difficulty, they can balance on each leg without hip drop. Inspection: good alignment, no excessive curvature, shoulder and hip levels equal bilaterally; no skin breakdown ROM: Reduced in the lumbar spine Palpation SI tenderness. No tenderness over the ischial bursa, , positive pain with Kemps maneuver on the left. Positive sacroiliac joint dysfunction tests: Shon, shear, compression, Gaenslen's, negative weakness with abduction. Symmetrical reflexes at the patella absent at the Achilles, no Maycol, no clonus, Imaging & Other Studies: Assessment: Ms. Casarez is a 65 y.o. year-old female who presents to the [facility] clinic alternating low back pain currently worse on the right. Her symptoms are improving slightly with physical therapy. She is interested in an SI joint injection and there is evidence of SI joint dysfunction present. She has difficulty with mounting steps, rolling over in bed, getting inand out of the car which is consistent as is her physical exam and her imaging. I have reviewed therisks and benefits of an SI joint injection and she would like to try that and I will follow-up with her via telephone. If her symptoms are not improved or increased however or change in any way have asked her to change to the follow-up visit from a telephone visit to a in person visit. All questions were answered today. Thank you Mr. Buck for allowing my participation in Tamia Casarez's care. Estelita Kitchen, MS, AIRPLANE PILOT CROP DUSTING-BC, ERGONOMICS ENGINEER Nurse practitioner Pain management [facility] documented in this encounter Plan of Treatment Not on file documented as of this encounter Visit Diagnoses Diagnosis Sacroiliac joint pain- Primary Disorders of sacrum documented in this encounter Care Teams Publisher Assistant Relationship Specialty Start Date End Date Yariel Hackett MD [address] [place] [address] [place] [address] PCP - General 08/21/16 documented as of this encounter
--- OUTSIDE RECORDS SUMMARY | 2023-11-14 01:02 | XMS_ITS | Encounter Summary ---
[place] [address] Care Team Providers Care Plasterer Spray Gun Name Role Phone Yariel Hackett MD Primary Care Provider [phone] Encounter Details Date Type Department Care Team (Late st Contact Info) Description 03/09/2021 Telephone [facility] [place] [phone] Aysha Yanes RN Social History Tobacco Use Types Packs/Day Years Used Date Smoking Tobacco: Never Smokeless Tobacco: Never Sex and Gender Information Value Date Recorded Sex Assigned at Not on file Gender Identity Not on file Sexual Orientation Not on file documented as of this encounter Miscellaneous Notes * Telephone Encounter - Aysha Yanes RN - 03/09/2021 10:47 AM EST Contact made with patient or business office representative as identified in contacts 1. Patient instructed to arrive at 15:00 on 03/14/21 with their hazmat cdl a driver for their bilateral LMBB procedure. Please plan to spend about 2 [...] to their procedure. (route telephone note to: [facility] Public Health covid 19 nurse triage [...] products, no milk including soy, oat, almond. 8. IF RFA: Does patient have a pacemaker? No a. If yes, document that cardiology was called and notified. 9. Additional notes if applicable: Patient expressed understanding and agreement with instructions Yes Patient denies further questions Yes documented in this encounter Plan of Treatment Not on file documented as of this encounter Visit Diagnoses Not on filedocumented in this encounter Care Teams Plasterer Spray Gun Relationship Specialty Start Date End Date Yariel Hackett MD [facility] [place] [address] [address] PCP - General 08/21/16 documented as of this encounter
--- OUTSIDE RECORDS SUMMARY | 2023-11-14 01:02 | XMS_ITS | Encounter Summary ---
[place] [address] Care Team Providers Care Treatment Plant Operator Name Role Phone Yariel Hackett MD Primary Care Provider [phone] Encounter Details Date Type Department Care Team (Late st Contact Info) Description 05/18/2021 Telephone [place] [phone] Aysha Yanes RN Social History Tobacco Use Types Packs/Day Years Used Date Smoking Tobacco: Never Smokeless Tobacco: Never Sex and Gender Information Value Date Recorded Sex Assigned at Not on file Gender Identity Not on file Sexual Orientation Not on file documented as of this encounter Miscellaneous Notes * Telephone Encounter - Aysha Yanes RN - 05/18/2021 8:52 AM EST Reached voicemail and left message as identified in contacts Identified myself and provided callback number: [phone]. 1. Patient instructed to arrive at 08:30 on 05/23/21 with their delivery route driver for their lumbar RFA procedure. Please plan to spend about 2 [...] health condition you need to call the [employer] hotline to arrange for testing prior to your procedure: fever or chills, cough, shortness of breath or difficulty breathing, fatigue, muscle or body aches, headache, new loss of taste or smell, sore throat, congestion or runny nose, nausea or vomiting, diarrhea. The [employer] number is: [phone] 5. If your pain has resolved or [...] You were instructed to follow NPO guidelines: Yes if yes the following instructions were reviewed: a. You may eat up to 6 hours before your procedure b. You may have clear liquids only up to 2 hours before your procedure: water, apple juice, patrizia amparo, sprite, popsicles, broth, tea or coffee plain or with sweetener, absolutely no dairy products, no milk including soy, oat, almond. 10. If RFA: Does patient have a pacemaker? No If yes, document that cardiology was called and notified. documented in this encounter Plan of Treatment Not on file documented as of this encounter Visit Diagnoses Not on filedocumented in this encounter Care Teams Treatment Plant Operator Relationship Specialty Start Date End Date Yariel Hackett MD [facility] [address] [place] [address] PCP - General 08/21/16 documented as of this encounter
--- OUTSIDE RECORDS SUMMARY | 2023-11-14 01:02 | XMS_ITS | Encounter Summary ---
[place] [address] Care Team Providers Care Dairy Technologist Name Role Phone Yariel Hackett MD Primary Care Provider [phone] Encounter Details Date Type Department Care Team (Late st Contact Info) Description 03/15/2021 Telephone [place] [phone] Anastasia Kramer RN Social History Tobacco Use Types Packs/Day Years Used Date Smoking Tobacco: Never Smokeless Tobacco: Never Sex and Gender Information Value Date Recorded Sex Assigned at Not on file Gender Identity Not on file Sexual Orientation Not on file documented as of this encounter Miscellaneous Notes * Telephone Encounter - Anastasia Kramer RN - 03/15/2021 3:59 PM EST Post-procedure phone call from patient to report their response to the lumbar medial branch block procedure performed on 03/14/21 in the Pain Management Center by Giovanny Isidro MD. This is patient's: first medial branch block Patient reports that after the procedure they experienced: _x_ Patient reported post-block numeric pain scale: 3 /10 (average pain since procedure) _x_ Post-procedure pain has been reduced by 80%. (> 80% Medicare/MVP/Medicaid) _x_ If relief > 80% with ability to perform painful maneuvers; schedule 2nd MBB: yes _x_ Pain relief: moderate __ Increased pain __ Confused or unable to differential between procedure pain and regular pain If pain is reduced, it lasted: No less than 4 hours Yes 4 hours or greater No 24 hours or greater Changes in functional status post procedure: Pertinent recent trauma or surgery? no If yes; consult w referring provider If No, proceed Review of Pertinent Medical History for changes since last MBB: - h/o Thrombocytopenia/bleeding tendency/platelet dysfunction: no - h/o Liver disease; abnormal liver function: no - h/o Chronic kidney disease (CKD); abnormal kidney function: no - Patient on dialysis? no -Patient has pacemaker/defibrillator: no Is patient taking an anticoagulant? None Is patient taking any NSAIDS/supplements? None Is patient taking aspirin? no If yes, is it prescribed? no If yes, what reason is it prescribed? Is patient taking Antibiotics? No Has patient been on greater than 40mg of steroid 14 days or longer? No Has patient had any steroid injections anywhere in his/her body within the last two weeks? No Does patient request sedation? no Does patient need NPO guidelines? no Does patient have allergies to contrast/local anesthetic/steroid? No Any changes? no Based on the information provided above and after discussion with the patient, the following actions will be taken: _X_ Patient meets criteria to proceed to second Bilateral at L3, L4 and L5- lumbar medial branch block, order will be pended to Estelita Kitchen APRN and this encounter will be routed to Estelita Kitchen APRN and the schedulers. Patient denies further questions at this time and expressed understanding of plan. Encouraged patient to call pain clinic RN for future questions or concerns. documented in this encounter Plan of Treatment Not on file documented as of this encounter Visit Diagnoses Not on filedocumented in this encounter Care Teams Dairy Technologist Relationship Specialty Start Date End Date Yariel Hackett MD [address] [place] [address] PCP - General 08/21/16 documented as of this encounter
--- OUTSIDE RECORDS SUMMARY | 2023-11-14 01:02 | XMS_ITS | Encounter Summary ---
Author Organization [facility] [place] [address] Care Team Providers Care Production Line Solderer Name Role Phone Yariel Hackett MD Primary Care Provider [phone] Reason for Visit * Auth/Cert Specialty Diagnoses [...] Expiration Date Visits Re quested Visits Authorized [id number] 1 1 Encounter Details Date Type Department Care Team (Latest Contact Info) Description 04/04/2021 9:29 AM EST - 04/04/2021 11:26 AM [facility] Hospital [place] [address] Giovanny Isidro MD [facility] [place] [address] Lumbar spondylosis Discharge Disposition: Home Social History Tobacco Use Types Packs/Day Years Used Date Smoking Tobacco: Never Smokeless Tobacco: Never Sex and Gender Information Value Date Recorded Sex Assigned at Not on file Gender Identity Not on file Sexual Orientation Not on file documented as of this encounter Last Filed Vital Signs Vital Sign Reading Time Taken Comments Blood Pressure 142/86 04/04/2021 11:10 AM EST Pulse 69 04/04/2021 9:47 AM EST Temperature - - Respiratory Rate - - Oxygen Saturation 100% 04/04/2021 11:10 AM EST Inhaled Oxygen Concentration - - [...] for up to 48 hours. {CHECK BOX SELECTION:31122} You may also experience mild stiffness in the joint near the injection site. You may resume your normal activities: {Time; today/tomorrow:08898}. You may shower today. DO NOT tub [...] Do not apply heat today. {CHECK BOX SELECTION:67375} You received medication through an intravenous line to lessen the anxiety/pain of your procedure. DO NOT operate heavy or dangerous equipment/tools, or sign important papers today. Attempt to empty your bladder 4-6 hours after your procedure. {CHECK BOX SELECTION:40058} If you have diabetes, monitor your blood [...] Post -Procedure Pain Log Patient: Tamia Casarez [id number] It is important for you to keep [...] 1.52) performed by Giovanny Isidro MD at [facility] ??? PRO INJ, PARAVERTEBRAL FACET JT, W/IMAGE GUID, LUMBAR/SACRAL, SECOND LEVEL Bilateral 03/14/2021 INJECTION, FACET JOINT, W\FLUORO, LUMBAR, 2ND LEVEL (WRVU 1) performed by Giovanny Isidro MD at [facility] There are no past surgical contraindications to [...] them as documented. Giovanny Isidro MD, MS Endless Track Vehicle Supervisor of Anesthesiology [facility] [address] [address] [email or web address] documented in this encounter Miscellaneous Notes * Op Note - Giovanny Isidro MD - 04/04/2021 10:57 AM EST Pain Management Operative Note Patient Name: Tamia Casarez : [id number] MR#: [id number] Case Date: 04/04/2021 Surgeon: Surgeon(s) and Role: [...] Yariel Hackett Md [address] [place] [address] Diagnosis: 1. Lumbar spondylosis Today's Operative Note [...] Medicine Fellow [facility] I have seen and examined the patient and reviewed the fellow's above history and I agree with the details as written. I was the attending physician supervising the fellow in the above care and I was present with the fellow for the entire procedure. Giovanny Isidro MD, MS Endless Track Vehicle Supervisor of Anesthesiology [facility] [address] [address] / [email or web address] CC: Yariel Hackett MD [address] [place] [address] [place] [address] documented in this encounter Plan of Treatment Not on file documented as of this encounter Procedures Procedure Name Priority Date/Time Associated Diagnosis Comments Injection Pv Facet Joint Lumbar/Sacral Second Level (30370) 04/04/2021 10:44 AM EST Lumbar spondylosis Injection Pv Facet Joint Lumbar/Sacral Single Level (75205) 04/04/2021 10:44 AM EST Lumbar spondylosis Inj//Paravertebral Facet Jt W/Image Guid, Lumbar/Sacral, 3Rd Or Addl Level (68939) 04/04/2021 10:44 AM EST Lumbar spondylosis INJECTION, [...] mg/mL) solution (CANCELED) ONCE PRN, Starting on Sat04/04/21 at 1057, Until Sat04/04/21 at 1326, Intra-Operative (Intra-Procedure), Routine 1057 (Given - Provid er: Michael Hamilton MD - Comment: biljasper lumbar MBB) lidocaine (pf) (Xylocaine) (20 mg/mL) 2% injection (CANCELED) ONCE PRN, Starting on Sat04/04/21 at 1058, Until Sat04/04/21 at 1326, Intra-Operative (Intra-Procedure), Routine 1058 (Given - Provid er: Michael Hamilton MD - Comment: carolyn lumbar MBB) documented in this encounter Care Teams Production Line Solderer Relationship Specialty Start Date End Date Yariel Hackett MD [address] [place] [address] PCP - General 08/21/16 documented as of this encounter
--- OUTSIDE RECORDS SUMMARY | 2023-11-14 01:02 | XMS_ITS | Encounter Summary ---
Author Organization [facility] [place] [address] Care Team Providers Care Pick Up Driver Name Role Phone Yariel Hackett MD Primary Care Provider [phone] Reason for Visit * Reason Comments Advice Only discuss panni * Consultation (Routine) - Specialty Diagnoses / Procedures Referred By Contsyd t Referred To Contact Plastic Surgery Diagnoses Dermatitis, unspecified Dermatitis Yariel Hackett MD [address] [place] [address] [place] [address] [facility] Surg [address] [address] Referral ID Status Reason Start Date Expiration Date V isits Requested Visits Authorized [id number] Consult, Test & Treat Connection Center PCP Updated and/or Approved 07/03/2017 10/03/2017 6 6 Encounter Details Date Type Department Care Team (Late st Contact Info) Description 07/31/2017 8:30 AM EDT Office Visit [place] [address] Emre Jean MD [facility] [place] [address] Abdominal pannus; Intertrigo; Nevus Social History Tobacco Use Types Packs/Day Years Used Date Smoking Tobacco: Never Smokeless Tobacco: Never Sex and Gender Information Value Date Recorded Sex Assigned at Not on file Gender Identity Not on file Sexual Orientation Not on file documented as of this encounter Last Filed Vital Signs Vital Sign Reading Time Taken Comments Blood Pressure - - Pulse - - Temperature - - Respiratory Rate - - Oxygen Saturation - - Inhaled Oxygen Concentration - - Weight 91.1 kg (200 lb 12.8 oz) 07/31/2017 8:12 AM EDT Height 152.4 cm (5') 07/31/2017 8:12 AM EDT Body Mass Index 39.22 07/31/2017 8:12 AM EDT documented in this encounter Patient Instructions * Patient Instructions* Funmilayo Martinez RN - 07/31/2017 8:30 AM EDT You were given written and verbal preoperative instructions today. Patient was advised to 1 month prior to surgery: _X_ Schedule a pre op physical with your primary care doctor 2 weeks prior to surgery: _X_ Stop taking aspirin & ibuprofen type products. Stop vitamin E, Garlic supplements, Ginseng,fish oil tablets, Ginkgo and Campbell Wort. May resume 48 hours after Surgery. 3 days before surgery: X__ Do not shave near your surgical site 1 day before surgery: X__ Shower the night before and the morning of your surgery using an antibacterial soap or Hibiclens that was provided. To prepare for your upcoming surgery, please also review the Pre-Operative Instruction brochure that you were given at today's appointment. Feel free to call our office [phone] if you have any questions or concerns. We monitor the phones from 8-5 Saturday through Saturday. For questions pertaining to your surgery date or time please call [facility] at [phone]. documented in this encounter Progress Notes * Emre Jean MD - 07/31/2017 8:30 AM EDT Plastic Surgery Consultation Note Emre Jean MD PCP: Yariel Hackett MD CC: Abdominal pannus HPI: Tamia Casarez is a 62 y.o. female seen in my office today for consideration for abdominal panniculectomy. Her PCP, Yariel Hackett MD has requested the consultation. She has lost over 100 lbs after bariatric surgery. She now weighs 200 lbs. Her current weight has been stable for the past few years. She has lost weight after a gastric bypass which was performed [id number]. She presents today because of increasing difficulty with keeping the fold under her pannus free of rashes and infection, and clean, and odor free. She has tried over the counter creams and powders with no relief. She encounters discomfort and perspiration beneath her pannus when she exercisesand goes about daily activities. She reports her pannus is often malodorous. She reports she has had a breast reduction which she encountered no healing issues. No past medical history on file. No past surgical history on file. Social History Social History ??? Marital status: Spouse name: N/A ??? Number of children: N/A ??? Years of education: N/A Occupational History ??? Not on file. Social History Main Topics ??? Smoking status: Never Smoker ??? Smokeless tobacco: Never Used ??? Alcohol use Not on file ??? Drug use: Not on file ??? Sexual activity: Not on file Other Topics Concern ??? Not on file Social History Narrative ROS: System Constitutional neg Eye neg ENT neg CV neg Resp neg GI neg neg Skin neg Allergy neg Endocrine neg Neurologic neg Musculoskeletal neg Lymph neg Psych neg Y N All other systems reviewed and negative. x Examination: Ht 152.4 cm (5') Wt 91.1 kg (200 lb 12.8 oz) BMI 39.22 kg/m2 female in no acute distress, comfortable. She was well oriented and asked appropriate questions throughout the visit. HEENT: MMM, normocephalic, sclera: white, no facial abrasions Neuro: Pupils equal, round, and reactive to light, extra ocular muscles in tact, tongue midline Resp: No stridor, no wheezes, regular rate Extrem: no cyanosis/clubbing/or edema, no rashes Muscuskeletal: gross full ROM x 4 extrem, ambulating, no lesions Abdomen: 2 tiered pannus Grade 3: Panniculus extends to cover the upper thigh Hernia palpable no Active rash or intertrigo yes Impression: Tamia Casarez is a suitable candidate for panniculectomy which would likely correcther physical symptomatology including intertriginous rash. We talked about the scars and risks frompanniculectomy. She is aware that infection, delayed wound healing, seroma and numbness are possibilities. She has been provided with the [facility] patient information brochure, as well as their standard informed consent documents on both abdominoplasty, and panniculectomy. She has expressed a desire toproceed with surgical correction. I feel strongly that she will gain significant symptom relief andavoid further intertrigo following surgery. Indication for surgery: The patient has requested a medical abdominoplasty/panniculectomy. Patient is undergone significantweight loss secondary to gastric restrictive procedure/diet and weight loss of 100 pounds. The patient has been troubled by excess abdominal skin, abdominal lipodystrophy, and intertriginous rash andwe feel this is medically necessary and indicated. They requested a abdominoplasty/panniculectomy. The risks benefits and comp occasions of the procedure including potential for infection, bleeding, scarring, hematoma, poor aesthetic result, asymmetry, wound dehiscence, seroma, infection, umbilical scarring, umbilical stenosis and need for surgery or revision for all of the above as well as general surgical risks including the possibility of DVT pulmonary embolus, myocardial infarction and evendeath were discussed in detail with the patient. Patient understands the above and wishes to proceed. We have obtained photographs today. A surgical consent form was signed today. Insurance Guidelines [x ] Pannus grade 2 or higher [x ] Rashes; prescribed and documented treatment for any rashes that don???t respond to 3 - 6 months of treatment. [x ] If the weight has been lost due to gastric bypass, it must be 18 months s/p bariatric surgery [ ] Patient must be at goal weight and stable 6 months Based on this, we will request insurance pre-determination . I will communicate my recommendations to Yariel Hackett MD. Surgical Grid: Surgeon: Dr. Jean Duration: 2 hours + 1 night over Timeframe: Elective Coordinated with: None Procedure: Panniculectomy CPT: 55802 Surgical site: Abdomen Side: N/a Anesthesia: General Follow up: 7-10 days with NSO when JS in clinic H&P: With PCP I, Tri Markham, have performed the documentation for this encounter in the presence of and actingas a scribe for EMRE JEAN MD. I performed the services which were documented by the scribe, and I agree with the accuracy of the documentation in this encounter. EMRE JEAN MD * Funmilayo Martinez RN - 07/31/2017 8:30 AM EDT Pre-Op Teaching for Surgery Surgery: Kp Written and verbal pre-operative instructions were given and reviewed with patient. Patient was advised to 1 month prior to surgery: X__ Schedule a pre op physical with your primary care doctor 2 weeks prior to surgery: _X_ Stop taking aspirin & ibuprofen type products. Stop vitamin E, Garlic supplements, Ginseng,fish oil tablets, Ginkgo and Campbell Wort. May resume 48 hours after Surgery. 3 days before surgery: X__ Do not shave near your surgical site 1 day before surgery: X__ Shower the night before and the morning of your surgery using an antibacterial soap or Hibiclens that was provided. Photos were taken via camera and or IPAD. Patient was told to call the clinic for any questions or concerns prior to surgery. documented in this encounter Plan of Treatment Not on file documented as of this encounter Visit Diagnoses Diagnosis Abdominal pannus Localized adiposity Intertrigo Other specified erythematous condition Nevus Benign neoplasm of skin, site unspecified documented in this encounter Care Teams Pick Up Driver Relationship Specialty Start Date End Date Yariel Hackett MD [address] [place] [address] PCP - General 08/21/16 documented as of this encounter
--- OUTSIDE RECORDS SUMMARY | 2023-11-14 01:02 | XMS_ITS | Encounter Summary ---
[place] [address] Care Team Providers Care Petrol Tanker Driver Name Role Phone Yariel Hackett MD Primary Care Provider [phone] Encounter Details Date Type Department Care Team (Late st Contact Info) Description 05/18/2021 Telephone [place] [phone] Telma Humphries RN Social History Tobacco Use Types Packs/Day Years Used Date Smoking Tobacco: Never Smokeless Tobacco: Never Sex and Gender Information Value Date Recorded Sex Assigned at Not on file Gender Identity Not on file Sexual Orientation Not on file documented as of this encounter Miscellaneous Notes * Telephone Encounter - Telma Humphries RN - 05/18/2021 9:00 AM EST Incoming call from patient wanting to let us know that she received the reminder call about her upcoming procedure. She denied having any questions. LAWANDA Yancey documented in this encounter Plan of Treatment Not on file documented as of this encounter Visit Diagnoses Not on filedocumented in this encounter Care Teams Petrol Tanker Driver Relationship Specialty Start Date End Date Yariel Hackett MD [facility] [place] [address] PCP - General 08/21/16 documented as of this encounter
--- OUTSIDE RECORDS SUMMARY | 2023-11-14 01:02 | XMS_ITS | Encounter Summary ---
[place] [address] Care Team Providers Care Rib Cloth Knitter Name Role Phone Yariel Hackett MD Primary Care Provider [phone] Reason for Visit * Auth/Cert Specialty Diagnoses [...] Expiration Date Visits Re quested Visits Authorized [id number] 1 1 Encounter Details Date Type Department Care Team (Latest Contact Info) Description 03/14/2021 2:18 PM EST - 03/14/2021 4:29 PM EST Hospital [place] [address] Giovanny Isidro MD [facility] [place] [address] Lumbar spondylosis Discharge Disposition: Home Social History Tobacco Use Types Packs/Day Years Used Date Smoking Tobacco: Never Smokeless Tobacco: Never Sex and Gender Information Value Date Recorded Sex Assigned at Not on file Gender Identity Not on file Sexual Orientation Not on file documented as of this encounter Last Filed Vital Signs Vital Sign Reading Time Taken Comments Blood Pressure 156/87 03/14/2021 4:20 PM EST Pulse 87 03/14/2021 2:33 PM EST Temperature - - Respiratory Rate - - Oxygen Saturation 100% 03/14/2021 4:25 PM EST Inhaled Oxygen Concentration - - [...] Hamilton MD Vrooman, Bruce M, MD Conroy, Johanne Santiago MD The following was performed: Procedure(s) (LRB): INJECTION, FACET JOINT, W\FLUORO, LUMBAR, 2ND LEVEL (WRVU 1) (Bilateral) INJECTION, FACET JOINT, W\FLUORO, LUMBAR, SINGLE (WRVU 1.52) (Bilateral) It is normal that the injection site will be sore for up to 48 hours. {CHECK BOX SELECTION:32333} You may also experience mild stiffness in the joint near the injection site. You may resume your normal activities: {Time; today/tomorrow:18838}. You may shower today. DO NOT tub [...] Do not apply heat today. {CHECK BOX SELECTION:46131} You received medication through an intravenous line to lessen the anxiety/pain of your procedure. DO NOT operate heavy or dangerous equipment/tools, or sign important papers today. Attempt to empty your bladder 4-6 hours after your procedure. {CHECK BOX SELECTION:21453} If you have diabetes, monitor your blood [...] Post -Procedure Pain Log Patient: Tamia Casarez [id number] It is important for you to keep [...] them as documented. Giovanny Isidro MD, MS Adoption Coordinator of Anesthesiology [facility] [employer] [address] [address] / [facility] documented in this encounter Miscellaneous Notes * Op Note - Giovanny Isidro MD - 03/14/2021 3:50 PM EST Pain Management Operative Note Patient Name: Tamia Casarez : [id number] MR#: [id number] Case Date: 03/14/2021 Surgeon: Surgeon(s) and Role: [...] Tamia Casarez Referring Physician: Estelita Kitchen Aprn [facility] Dr Pain Medicine [place] [id number] Diagnosis: 1. Lumbar spondylosis Today's Operative Note [...] the entire procedure. Giovanny Isidro MD, MS Adoption Coordinator of Anesthesiology [facility] [employer] [address] [address] / [facility] CC: Estelita Kitchen APRN [facility] [place] [address] documented in this encounter Plan of Treatment Not on file documented as of this encounter Procedures Procedure Name Priority Date/Time Associated Diagnosis Comments Injection Pv Facet Joint Lumbar/Sacral Single Level (50492) 03/14/2021 3:38 PM EST Lumbar spondylosis Injection Pv Facet Joint Lumbar/Sacral Second Level (42033) 03/14/2021 3:38 PM EST Lumbar spondylosis INJECTION, FACET JOINT,W\FLUORO, LUMBAR, SINGLE Routine 03/14/2021 2:30 PM EST Lumbar spondylosis INJECTION, FACET JOINT,W\FLUORO, LUMBAR, 2ND LEVEL Routine 03/14/2021 2:30 PM EST Lumbar spondylosis documented in this encounter Visit Diagnoses Diagnosis Lumbar spondylosis- Primary Lumbosacral spondylosis without myelopathy Lumbar facet arthropathy Lumbosacral spondylosis without myelopathy documented in this encounter Active and Recently Administered Medications Times are shown in EST. PRN Medication Order 03/12/2021 03/13/2021 03/14/2021 BUpivacaine (pf) (Marcaine) (5 mg/mL) 0.5% injection (CANCELED) ONCE PRN, Starting on 03/14/21 at 1551, Until 03/14/21 at 1830, Intra-Operative (Intra-Procedure), Routine 1551 (Given - Provid er: Giovanny Isidro MD - Comment: biljasper lumbar MBB) iohexoL (Omnipaque) (240 mg/mL) solution (CANCELED) ONCE PRN, Starting on 03/14/21 at 1550, Until 03/14/21 at 1830, Intra-Operative (Intra-Procedure), Routine 1550 (Given - Provid er: Giovanny Isidro MD - Comment: carolyn lumbar MBB) documented in this encounter Care Teams Rib Cloth Knitter Relationship Specialty Start Date End Date Yariel Hackett MD [address] [place] [address] PCP - General 08/21/16 documented as of this encounter
--- OUTSIDE RECORDS SUMMARY | 2023-11-14 01:02 | XMS_ITS | Encounter Summary ---
Author Organization [facility] Address [address] [place] [address] Care Team Providers Care Muck Operator Name Role Phone Unavailable Primary Care Provider Unavailabl e Encounter Details Date Type Department Care Team (Late st Contact Info) Description 08/11/2019 Lab Requisition [facility] Pathology & Laboratory Medicine - [facility] [address] [place] [address] Outr Resulting Lab, Provider Social History Tobacco Use Types Packs/Day Years Used Date Smoking Tobacco: Never Assessed Sex and Gender Information Value Date Recorded Sex Assigned at Not on file Gender Identity Not on file Sexual Orientation Not on file documented as of this encounter Plan of Treatment Not on file documented as of this encounter Procedures Procedure Name Priority Date/Time Associated Diagnosis Comments ZZCOVID-19 TEST [facility] PCR Today 08/11/2019 14:10 EDT COVID-19 TESTING Routine 08/11/2019 14:1 0 EDT documented in this encounter Results * COVID-19 TEST [facility] PCR (08/11/2019 14:10 EDT) Swab ENTIRE NASOPHARYNX / Unknown 08/11/2019 14:10 EDT 08/11/2019 20:51 EDT Provider Outr Resulting Lab MICROBIOLOGY - GENERAL ORDERABLES [facility] [address] [place] [address] * COVID-19 TESTING (08/11/2019 14:10 EDT) COVID-19 rt-PCR Result Negative Negative 08/12/2019 13:05 EDT [facility] Comment: Negative results do not preclude 2019-nCoV infection and should not be used as the sole basis for treatment or other patient management decisions. Negative results must be combined with clinical observations, patient history, and epidemiological information. This test was developed and its performance characteristics determined by [facility]. It has not been cleared or approved by the US Food and Drug Administration. FDA does not require this test to go through premarket FDA review. This test is used for clinical purposes. It should not be regarded as investigational or for research. This laboratory is certified under the Clinical Laboratory Improvement Amendments (CLIA) as qualified to perform high complexity clinical laboratory testing. This test is based on the CDC COVID-19 Emergency Use Authorization (EUA) assay, with minor modification as defined by the FDA Performed on the [employer]. Performing Lab [facility] Hospital Lab 08/12/2019 13:05 EDT [facility] Swab ENTIRE NASOPHARYNX / Unknown 08/11/2019 14:10 EDT 08/11/2019 20:51 EDT Provider Outr Resulting Lab MICROBIOLOGY - GENERAL ORDERABLES [facility] [address] [place] [address] documented in this encounter Visit Diagnoses Not on filedocumented in this encounter
--- OUTSIDE RECORDS SUMMARY | 2023-11-14 01:02 | XMS_ITS | Clinical Summary ---
Author Organization [facility] Address [address] [place] [address] Care Team Providers Care Liaison Inspection Laboratory Assistant Name Role Phone Unavailable Primary Care Provider [...] Orientation Not on file Plan of Treatment Health Maintenance Due Date Last Done Comments Hepatitis C Screen 1955 RSV Immunization ( o r 60+ Years) (1 - 1-dose 60+ series) 2016 Fall Risk Screening 01/30/2021 COVID-19 Vaccine ( season) 2022
--- OUTSIDE RECORDS SUMMARY | 2023-11-14 01:02 | XMS_ITS | Encounter Summary ---
Author Organization [facility] [place] [address] Care Team Providers Care Academic Administrator Name Role Phone Yariel Hackett MD Primary Care Provider [phone] Reason for Visit * Reason Comments Follow-up S/P SIJ injection * Consultation (Routine) - Closed Specialty Diagnoses / Procedures Referred By Contac t Referred To Contact Pain and Spine Center Diagnoses Low back pain Pain- low back pain/ XR @ [facility]/ ? pain mgmt options Luther Buck PA [address] [place] [address] [facility] [place] [address] Referral ID Status Reason Start Date Expiration Date V isits Requested Visits Authorized [id number] Closed Consult, Test & Treat Connection Center PCP Updated and/or Approved 11/08/2020 05/11/2021 6 6 Encounter Details Date Type Department Care Team (Latest Contact Info) Description 01/26/2021 10:00 AM EDT TH Visit (TeleHealth) [place] [address] Estelita Kitchen, BOILER OPERATOR HELPER [facility] [place] [address] Low back pain, non-specific Social History Tobacco Use Types Packs/Day Years [...] - Inhaled Oxygen Concentration - - Weight 90.7 kg (200 lb) 01/25/2021 10:14 AM EDT Height 152.4 cm (5') 01/25/2021 10:14 AM EDT Body Mass Index 39.06 01/25/2021 10:14 AM EDT documented in this encounter Progress Notes * Estelita Kitchen, BOILER OPERATOR HELPER - 01/26/2021 10:00 AM EDT Images from the original note were not included. [facility] Date of Consultation: January 24, 2021 Referring Provider: Luther Buck Reason for [...] and reports that when she lived in [facility] she got SI joint injections every [...] She finds that this is minimally helpful. PAIN ASSESSMENT: Description: Low back alternates side [...] found. PAST THERAPIES: Motrin amitryptyline PT with [facility] in [place] in the past. 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 Allergies [...] of Exercise per Session: Not on file Housing Stability: ??? Unable to Pay for Housing in the Last Year: Not on file ??? Number of Places Lived in the Last Year: Not on file ??? Unstable Housing in the Last Year: Not on file Family History No family history on file. Past Medical History: No past medical history on file. Past Surgical History: No past surgical history on file. Review of Systems: Denies fever, chills, weight loss, SOB, abdominal pain, leg weakness/numbnes, arm weakness/numbness, bowel or bladder incontinence, balance issues RISK ASSESSMENT: Smoking:no Alcohol:no Physical Exam: No data found. This was a telephone visit I did ask her stand, rotate her pelvis and extend bilaterally this seemed to reproduce her symptoms it is called Kemps maneuver. I was not able to facilitate myself and view her however she did tell me that it reproduced her symptoms. Imaging & Other Studies: Assessment: Ms. Casarez is a 65 y.o. year-old female who presents to the [facility] for [facility] Spine clinic alternating low back pain currently worse on the right. Her symptoms are improving slightly with physical therapy. She did not respond to a SI joint injection bilaterally which has helped her in the past. It does appear from her imaging that she has some facet arthropathy in the low lower lumbar spine. It appears from our discussion that she may have a positive Kemps maneuver. I have sent her some information about medial branch blocks and radiofrequency and if she is interested in this procedure of her, I would have her come in we can do a physical exam and schedule her for the injection on the same day. I would need nursing staff answer the questions regarding the safety questions for a repeat injection prior to any order. Thank you Mr. Buck for allowing my participation in Tamia Casarez's care. Estelita Kitchen, MS, CHIEF CONSOLE OPERATOR-BC, BOILER OPERATOR HELPER Nurse practitioner Pain management [facility] documented in this encounter Plan of Treatment Not on file documented as of this encounter Visit Diagnoses Diagnosis Low back pain, non-specific documented in this encounter Care Teams Academic Administrator Relationship Specialty Start Date End Date Yariel Hackett MD [employer] [place] [address] PCP - General 08/21/16 documented as of this encounter
--- OUTSIDE RECORDS SUMMARY | 2023-11-14 01:02 | XMS_ITS | Encounter Summary ---
Author Organization [facility] Address [facility] [place] [address] Care Team Providers Care Road Mechanic Name Role Phone Yariel Hackett MD Primary Care Provider [phone] Encounter Details Date Type Department Care Team (Late st Contact Info) Description 03/15/2021 Orders Only [facility] [place] [address] Estelita Kitchen APRN [facility] [place] [address] Lumbar spondylosis Social History Tobacco Use Types [...] Procedure Name Priority Date/Time Associated Diagnosis Comments ECHOCARDIOGRAM TRANSTHORACIC Routine 09/24/2021 9:44 PM EDT documented in this encounter Results * Echocardiogram Transthoracic (09/24/2021 9:44 PM EDT) Anatomical Region Laterality Modality Cardiac Other 09/24/2021 9:44 PM EDT Narrative 09/25/2021 8:19 AM EDT ?[facility] ? Medical Center ?[address] ? [place] [address] ?Voice: ?Fax: ? Echocardiogram Report Name: CATRACHO VICKERS L ?Study Date: 09/24/2021 09:44 PM ? HR: 90 : 1955 ? Height: 152 cm Age: 66 yrs ? Weight: 91 kg Gender: Female ?BSA: 1.9 m2 Performed By: Nemesio Barragan MD History: Pulmonary embolism Interpreting Fellow: Nemesio Barragan. Exam Location: [facility]. Interpretation Summary 1. Limited echocardiogram performed [...] There is no prior study for comparison. Left Ventricle Left ventricle is of normal size. Wall thickness is mildly increased. Left ventricular size and systolic function is normal. Left ventricular ejection fraction is estimated visually at 65%. There are no segmental wall motion abnormalities. Right Ventricle Right ventricle is moderately dilated. Right ventricular systolic function is mildly decreased. The pulmonary artery systolic pressure is estimated at 57 mmHg. Álvarez's sign is present. Left Atrium The left atrium is not well visualized. Right Atrium The right atrium is not well visualized. Aortic Valve The aortic valve is tricuspid. The aortic valve is moderately thickened. There is mild aortic stenosis. The peak instantaneous gradient across the aortic valve is 26 mmHg. The mean gradient across the aortic valve is 15 mmHg. The aortic valve area calculated using the continuity equation is 1.7 cm2. SVI 39.7. The dimensionless index is 0.51. There is no aortic regurgitation. Mitral Valve The mitral valve is structurally and functionally normal. There is no mitral stenosis. There is trace mitral regurgitation. Tricuspid Valve The tricuspid valve is structurally normal. There is severe tricuspid regurgitation. Tricuspid regurgitation may be due to annular dilatation. Pulmonic Valve The pulmonic valve is not well visualized. Great Arteries The aortic root is of normal size. No abnormalities are identified. The ascending aorta is not well visualized. Venous Inferior vena cava is normal in size. Inferior vena cava collapse less than 50% with respiration. Pericardium/Pleural The pericardium appears normal. Hemodynamics The estimated right atrial pressure is 8mmHg. ? 2D Measurements ? Volumes ?IVSd: 1.3 cm ? SV(LVOT): 74.4 ml ?LVIDd: 3.2 cm ?LVPWd: 0.86 cm ? SI(LVOT): 39.7 ml/m2 ?LV mass(C)d: 97.5 grams ?LV mass(C)dI: 52.1 grams/m2 ?Ao root diam: 3.3 cm ?Ao root diam index: 1.7 ?LVOT diam: 2.0 cm ?TAPSE_phl: 2.3 cm Doppler Ao V2 VTI: 44.6 cm Ao valve max: 26.1 mmHg Ao valve mean: 14.9 mmHg MV E max irene: 51.8 cm/sec MV A max irene: 103.6 cm/sec MV E/A: 0.50 ELIZABETH(I,D): 1.7 cm2 Dimensionless index Aov: 0.51 I ?WMSI = 1.00 ? % Normal = 100 ?Segments ??Size X - Cannot ?2 - ?4 - ?1-2 ? small Interpret ?1 - Normal ?? Hypokinetic 3 - Akinetic Dyskinetic ?? 3-5 ? moderate 5 - ? 6-14 ?large Aneurysmal ?15-16 ?? diffuse Procedure Note Raad Khan MD - 09/25/2021 [place] [address] Un[address] [place] [id number] Voice: Fax: Echocardiogram Report Name: CATRACHO VICKERS Study Date: 209:44 PM HR: 90 : 1955 Height: 152 cm Age: 66 yrs Weight: 91 kg Gender: Female BSA: 1.9 m2 Performed By: Nemesio Barragan MD History: Pulmonary embolism Interpreting Fellow: Nemesio Barragan. Exam Location: [facility]. Interpretation Summary 1. Limited echocardiogram performed by on-call fellow to assess LV/RVfunction. 2. The right ventricle is moderately dilated and function is mildlyyreduced. Álvarez's sign (apical sparing) is present. Moderate pulmonary artery hypertension is present. The pulmonary artery systolic pressure isestimated to be 57 mmHg (assuming a right atrial pressure of 8 mmHg). 3. The left ventricle is normal in size and function. The leftventricular ejection fraction is estimated to be 65%. There are no regional wallmotion abnormalities. 4. The atria are not well visualized. 5. The aortic valve appears tricuspid and is moderately thickened. Thereis mild aortic stenosis present (peak velocity 2.5 m/s). There is no aorticregurgitation. 6. There is moderate to severe tricuspid valve regurgitation likely due toannular dilation. 7. There is no prior study for comparison. Left Ventricle Left ventricle is of normal size. Wall thickness is mildly increased.Left ventricular size and systolic function is normal. Left ventricularejection fraction is estimated visually at 65%. There are no segmental wallmotion abnormalities. Right Ventricle Right ventricle is moderately dilated. Right ventricular systolic functionis mildly decreased. The pulmonary artery systolic pressure is estimated at57 mmHg. Álvarez's sign is present. Left Atrium The left atrium is not well visualized. Right Atrium The right atrium is not well visualized. Aortic Valve The aortic valve is tricuspid. The aortic valve is moderately thickened.There is mild aortic stenosis. The peak instantaneous gradient across the aorticvalve is 26 mmHg. The mean gradient across the aortic valve is 15 mmHg. The aorticvalve area calculated using the continuity equation is 1.7 cm2. SVI 39.7. The dimensionless index is 0.51. There is no aortic regurgitation. Mitral Valve The mitral valve is structurally and functionally normal. There is nomitral stenosis. There is trace mitral regurgitation. Tricuspid Valve The tricuspid valve is structurally normal. There is severe tricuspid regurgitation. Tricuspid regurgitation may be due to annular dilatation. Pulmonic Valve The pulmonic valve is not well visualized. Great Arteries The aortic root is of normal size. No abnormalities are identified. Theascending aorta is not well visualized. Venous Inferior vena cava is normal in size. Inferior vena cava collapse lessthan 50% with respiration. Pericardium/Pleural The pericardium appears normal. Hemodynamics The estimated right atrial pressure is 8mmHg. 2D Measurements Volumes IVSd: 1.3 cm SV(LVOT): 74.4ml LVIDd: 3.2 cm LVPWd: 0.86 cm SI(LVOT): 39.7ml/m2 LV mass(C)d: 97.5 grams LV mass(C)dI: 52.1 grams/m2 Ao root diam: 3.3 cm Ao root diam index: 1.7 LVOT diam: 2.0 cm TAPSE_phl: 2.3 cm Doppler Ao V2 VTI: 44.6 cm Ao valve max: 26.1 mmHg Ao valve mean: 14.9 mmHg MV E max irene: 51.8 cm/sec MV A max irene: 103.6 cm/sec MV E/A: 0.50 ELIZABETH(I,D): 1.7 cm2 Dimensionless index Aov: 0.51 I WMSI = 1.00 % Normal = 100 SegmentsSize X - Cannot 2 - 4 - 1-2small Interpret 1 - Normal Hypokinetic 3 - Akinetic Dyskinetic 3-5moderate 5 - 6-14large Aneurysmal 15-16diffuse Unknown ECHO ORDERABLES documented in this encounter Visit Diagnoses Diagnosis Lumbar spondylosis Lumbosacral spondylosis without myelopathy documented in this encounter Care Teams Road Mechanic Relationship Specialty Start Date End Date Yariel Hackett MD [address] [place] [address] [place] [address] PCP - General 08/21/16 documented as of this encounter
--- OUTSIDE RECORDS SUMMARY | 2023-11-14 01:02 | XMS_ITS | Encounter Summary ---
Author Organization [facility] [place] [address] Care Team Providers Care Corporate Compliance Manager Name Role Phone Yariel Hackett MD Primary Care Provider [phone] Reason for Visit * Auth/Cert Specialty Diagnoses [...] Expiration Date Visits Re quested Visits Authorized [id number] 1 1 Encounter Details Date Type Department Care Team (Late st Contact Info) Description 05/23/2021 8:45 AM EST - 05/23/2021 9:30 AM EST [place] [address] Giovanny Isidro MD [facility] [place] [address] DESTRUCTI BY LYTIC AGENT, FACET JOINT NERVE(S); LUMBAR OR SACRAL, SNGL (WRVU 3.32) Social History Tobacco Use Types Packs/Day Years [...] AM EST Temperature - - Respiratory Rate 14 05/23/2021 9:30 AM EST Oxygen Saturation 95% 05/23/2021 9:30 [...] Birthdate: 1955 Admit date: 05/23/2021 Attending Physician: Michela att. providers found PREPROCEDURE HISTORY AND PHYSICAL [...] 1) performed by Giovanny Isidro MD at [facility] MSO ??? PRO INJECTION PV FACET JOINT LUMBAR/SACRAL SECOND LEVEL Bilateral 03/14/2021 INJECTION, FACET JOINT, W\FLUORO, LUMBAR, 2ND LEVEL (WRVU 1) performed by Giovanny Isidro MD at [facility] MSO ??? PRO INJECTION PV FACET JOINT LUMBAR/SACRAL SECOND LEVEL Bilateral 04/04/2021 INJECTION, FACET JOINT, W\FLUORO, LUMBAR, 2ND LEVEL (WRVU 1) performed by Giovanny Isidro MD at [facility] MSO ??? PRO INJECTION PV FACET JOINT LUMBAR/SACRAL SINGLE LEVEL Bilateral 03/14/2021 INJECTION, FACET JOINT, W\FLUORO, LUMBAR, SINGLE (WRVU 1.52) performed by Giovanny Isidro MD at [facility] MSO ??? PRO INJECTION PV FACET JOINT LUMBAR/SACRAL SINGLE LEVEL Bilateral 04/04/2021 INJECTION, FACET JOINT, W\FLUORO, LUMBAR, SINGLE (WRVU 1.52) performed by Giovanny Isidro MD at [facility] MSO ALLERGIES: Valium [diazepam] MEDICATIONS: [...] Operative Note Patient Name: Tamia Casarez : [id number] MR#: [id number] Case Date: 05/23/2021 Surgeon: Surgeon(s) and Role: [...] Patient: Tamia Casarez Provider: Abraham Rae MD aTmia Casarez has been referred to the [facility] for radiofrequency treatment of chronic axial back pain. Ms. Casarez has had long standing back pain thought to be facet joint generated and which has been refractory to other therapies. Local anesthetic medial branch blocks or intra- articular facet joint injections resulted in Ms. Casarez reporting a greater than 50% reduction of [...] extremities. Abraham Rae MD Pain Medicine Fellow [address] [address] / [facility] I have seen and examined the patient and reviewed the fellow's above history and agree with the details as written. The assessment and plan were formulated in discussion with me, and I agree with them as documented. Giovanny Isidro MD, MS Window Maker of Anesthesiology [facility] of [facility] CC: Yariel Hackett MD [address] [place] [address] [place] [address] documented in this encounter Plan of Treatment [...] MAR Action Action Date Dose Rate Site lidocaine (pf) (Xylocaine) (10 mg/mL) 1% injection ONCE PRN, Starting on Sat05/23/21 at 0940, Until Sat05/23/21 at 1207, Intra-Operative (Intra-Procedure), Routine Given 05/23/2021 9:40 AM EST 3 mLs lidocaine (pf) (Xylocaine) (20 mg/mL) 2% injection ONCE PRN, Starting on Sat05/23/21 at 0940, Until Sat05/23/21 at 1207, Intra-Operative (Intra-Procedure), Routine Given 05/23/2021 9:40 AM EST 6 mLs methylPREDNISolone acetate (DEPO-Medrol) (40 mg/mL) injection ONCE PRN, Starting on 05/23/21 at 0939, Until 05/23/21 at 1207, Intra-Operative (Intra-Procedure), Routine Given 05/23/2021 9:39 AM EST 40 mg midazolam (pf) (Versed) (1 mg/mL) injection ONCE PRN, Starting on 05/23/21 at 0923, Until 05/23/21 at 1207, Intra-Operative (Intra-Procedure), Routine Given 05/23/2021 9:28 AM EST 1 mg Given 05/23/2021 9:23 AM EST 1 mg documented in this encounter Active and Recently Administered Medications Times are shown in EST. PRN Medication Order 05/21/2021 05/22/2021 05/23/2021 lidocaine (pf) (Xylocaine) (10 mg/mL) 1% injection (CANCELED) ONCE PRN, Starting on e 05/23/21 at 0940, Until Sat05/23/21 at 1207, Intra-Operative (Intra-Procedure), Routine 09 (Given - Provid er: Abraham Rae MD - Comment: rfa) lidocaine (pf) (Xylocaine) (20 mg/mL) 2% injection (CANCELED) ONCE PRN, Starting on e 05/23/21 at 0940, Until 05/23/21 at 1207, Intra-Operative (Intra-Procedure), Routine 09 (Given - Provid er: Abraham Rae MD - Comment: rfa) methylPREDNISolone acetate (DEPO-Medrol) (40 mg/mL) injection (CANCELED) ONCE PRN, Starting on e 05/23/21 at 0939, Until 05/23/21 at 1207, Intra-Operative (Intra-Procedure), Routine 09 (Given - Provid er: Abraham Rae MD - Comment: rfa) midazolam (pf) (Versed) (1 mg/mL) injection (CANCELED) ONCE PRN, Starting on 05/23/21 at 0923, Until 05/23/21 at 1207, Intra-Operative (Intra-Procedure), Routine 922 (Given - Provid er: Anastasia Kramer RN)09 (Given - Provider: Anastasia Kramer RN) documented in this encounter Care Teams Corporate Compliance Manager Relationship Specialty Start Date End Date Yariel Hackett MD [address] [place] [address] PCP - General 08/21/16 documented as of this encounter
--- OUTSIDE RECORDS SUMMARY | 2023-11-14 01:02 | XMS_ITS | Encounter Summary ---
Author Organization [facility] Address [address] [place] [address] Care Team Providers Care Orthotist Prosthetist Name Role Phone Unavailable Primary Care Provider Unavailabl e Encounter Details Date Type Department Care Team (Late st Contact Info) Description 01/05/2020 Lab Requisition [facility] Pathology & Laboratory Medicine - [facility] [address] [place] [address] Izabella Saucedo, DISTRIBUTOR ADVERTISING MATERIAL [address] [place] [address] Encounter for other general examination Social History Tobacco Use Types Packs/Day Years Used Date Smoking Tobacco: Never Assessed Sex and Gender Information Value Date Recorded Sex Assigned at Not on file Gender Identity Not on file Sexual Orientation Not on file documented as of this encounter Plan of Treatment Not on file documented as of this encounter Procedures Procedure Name Priority Date/Time Associated Diagnosis Comments PAP TEST Today 01/04/2020 8:45 EDT Encounter for other general examination HPV DNA DETECTION WITH GENOTYPING, PCR Today 01/04/2020 8:45 EDT Encounter for other general examination documented in this encounter Results * HUMAN PAPILLOMAVIRUS (HPV) DETECTION-HIGH RISK TYPES (01/04/2020 8:45 EDT) HPV other High Risk types, PCR Negative Negative 01/12/2020 15:36 EDT [facility] Comment:No E6 or E7 mRNA is detected from HPV types 16,18,31,33,35,39,45,51,52,56,58,59,66, and 68 by supervisor cigar making machine mediated amplification. Papanicolaou smear specimen (specimen) CERVIX UTERI STRUCTURE / Unknown 01/04/2020 8:45 EDT 01/11/2020 16:13 EDT Izabella Saucedo DISTRIBUTOR ADVERTISING MATERIAL MICROBIOLOGY - GE NERAL ORDERABLES Performing Organization Address City/[facility]/ZIP Co de Phone Number [facility] [address] [place] [address] * PAP TEST (01/04/2020 8:45 EDT) Specimens A. Cervix and/or Endocervix , ThinPrep Imaging System with Manual Evaluation 01/12/2020 15:36 EDT [facility] Specimen Adequacy Satisfactory for Evaluation - transformation zone component absent 01/12/2020 15:36 EDT [facility] General Categorization Negative for intraepithelial lesion or malignancy 01/12/2020 15:36 EDT [facility] Attestation . 01/12/2020 15:36 T [facility] at 1536 Clinical History See below 01/12/20 20 15:36 T [facility] HPV The result for the Human Papillomavirus (HPV) Detection-High Risk Types is Negative. No E6 or E7 mRNA is detected from HPV types 16,18,31,33,35,39 ,45,51,52,56,58,5 9,66, and 68 by supervisor cigar making machine mediated amplification.Flores ting was performed on specimen [id number] and was resulted on 01/12/2020 1532 EDT by LAST, LAB INSTRUMENT RESULTS IN 01/12/2020 15:36 EDT [facility] Performing Lab [facility] 01/12/2020 15:36 EDT [facility] Scanned Images 01/12/2020 15:36 T [facility] Papanicolaou smear specimen (specimen) CERVIX UTERI STRUCTURE / Unknown 01/04/2020 8:45 EDT 01/05/2020 15:05 EDT Izabella Saucedo DISTRIBUTOR ADVERTISING MATERIAL PATHOLOGY ORDERAB LES Performing Organization Address City/[facility]/ZIP Co de Phone Number [facility] [address] [place] [address] documented in this encounter Visit Diagnoses Diagnosis Encounter for other general examination documented in this encounter
--- NOTE | 2024-01-09 | DI.NM_ITS ---
APPROVED REPORT Exam: Exercise Treadmill Patient Location: Out-Patient Room/Bed: Stress Nurse: Davida Escalante RN Ordering Provider:YEN AG, Contact Number: [phone] BMI: 38.94 Baseline Rhythm: Sinus Bradycardia Indications: SANTIAGO Medical History Medical History: GERD, prediabetes, hypothyroidism, HLD, depression, PE Cardiac Medications: Pantoprazole, reclast, omeprazole, hydrochlorothiazide, lexapro, levothyroxine Allergies: Pineapple, diazepam, citrus Cardiac Risk Factors: Family hx, HLD, obesity Previous Cardiac Procedures: None Pretest Chest Pain Characteristics: None Exercise History: Indeterminate Physical Disabilities: Artificial joint Lung Sounds: Diminished throughout Heart Sounds: Regular Stress Test Details Test: Pharmacologic stress was paired with low level exercise. Reason for pharmacologic stress test: physical limitation. Nuclear Acquisition: Rest Tc-99m/Stress Tc-99m 1 day Rest Isotope: Tc-99m Sestamibi. Dose: 10.0 Date: 01/09/2024 Injection Time: 0840 Stress Isotope: Tc-99m Sestamibi. Dose: 30.0 Date: 01/09/2024 Injection Time: 1005 HR Resting HR Supine: 58 bpm Max Heart Rate (APMHR): 153.117742 bpm Resting HR Standin bpm Target HR (85% APMHR): 130.803018 bpm Max HR Achieved: 97 bpm % of APMHR: 63.40 Recovery HR: 67 bpm BP Resting BP Supine: 134/70 mmHg Resting BP Standin/76 mmHg Max BP: 138/70 mmHg Recovery BP: 130/70 mmHg ECG Resting ECG: Sinus Bradycardia Ectopy: None Stress ECG: Sinus Rhythm ST Change: Nondiagnostic low heart rate Arrhythmia: None Recovery ECG: Sinus Rhythm Recovery ST Change: Nondiagnostic low heart rate Recovery Arrhythmia: None Clinical Stress Symptoms: None Angina Score: None Rate Pressure Product: [id number] Stress ECG Conclusion 1. Resting electrocardiogram was normal 2. Patient underwent testing using low-level exercise combined with pharmacologic stress with regaden oson 3. Peak heart rate achieved was 63% of maximal predicted for age 4. The electrocardiographic portion of the test was nondiagnostic 5. See MPI report Stress Test Summary STAGE HR BP SpO2 Symptoms NOTES Supine 58 134/70 96% Standing 67 130/76 1 min post Lexiscan injection 85 128/82 3 min post Lexiscan injection 87 138/82 6 min post Lexiscan injection 67 122/68 96% 9 min post Lexiscan injection 67 130/70 98% MPI Conclusion Myocardial perfusion is normal. There is no ischemia or evidence of prior infarction Ejection fraction is 63% with normal wall motion Radiologist Interpretation Radiologist agrees with Forming Process Worker's Interpretation. Radiologist Interpretation by: Lore Powell MD Interpretation Date/Time: 01/10/2024 16:08:22
[2024-01-09] MEDS: Regadenoson 0.4 MG/5 ML SYR IVP (10:16)
== END 2024-01-09 01:16 ==
PROVIDERS: PCP Family Medicine; Visit Provider Student in an Organized Health Care Education/Training Program
DX: R06.89 Other abnormalities of breathing (principal)
CPT/HCPCS: 78452; 93017; J2785

== ENCOUNTER 2024-06-26 13:42 | Outpatient (REF) | payer MEDICARE, SELFPAY ==
[2024-06-26 15:31] LABS: Abs Immature Grans 0.01 10^3/uL (0.0-0.06); Absolute Basophil Count 0.04 10^3/uL (0.0-0.2); Absolute Eosinophil Count 0.28 10^3/uL (0.0-0.7); Absolute Lymphocyte Count 2.18 10^3/uL (1.2-3.4); Absolute Monocyte Count 0.51 10^3/uL (0.1-0.8); Absolute Neutrophil Count 2.75 10^3/uL (1.2-6.7); Basophils % 0.7 %; Eosinophils % 4.9 %; HCT 39.3 % (36.0-46.0); HGB 12.4 g/dL (11.2-15.7); Immature Grans % 0.2 %; Lymphocytes % 37.8 %; MCH 29.4 pg (27.0-33.0); MCHC 31.6 % (32.0-36.0); MCV 93 fL (80-95); Monocytes % 8.8 %; Neutrophils % 47.6 %; Platelet Count 279 10^3/uL (130-400); RBC 4.22 10^6/uL (3.93-5.22); RDW 13.5 % (11.7-14.6); WBC 5.77 10^3/uL (4.4-10.8)
[2024-06-26 16:00] LABS: ALT 23 U/L (14-59); AST 20 U/L (15-37); Albumin 3.4 g/dL (3.4-5.0); Alkaline Phosphatase 91 U/L (46-116); Anion Gap 1.9 mmol/L (3-11); BUN 15 mg/dL (7-18); Bilirubin, Total 0.6 mg/dL (0.2-1.0); CO2 30.1 mmol/L (21.0-32.0); CREATININE 0.8 mg/dL (0.55-1.02); Chloride 105 mmol/L (98-107); Estimated GFR 80.21 (mL/min/1.73m2); Glucose 97 mg/dL (74-106); NT-proBNP 285 pg/mL (<300); Potassium 4.7 mmol/L (3.5-5.1); Sodium 137 mmol/L (136-145); TSH (W/Ref FT4) 2.36 uIU/mL (0.36-3.74); Total Protein 6.4 g/dL (6.4-8.2)
== END 2024-06-26 13:43 | disposition home or self-care (01) ==
LOC: NCHCN 13:42
PROVIDERS: PCP Student in an Organized Health Care Education/Training Program; Visit Provider Student in an Organized Health Care Education/Training Program
DX: E03.9 Hypothyroidism, unspecified (principal); R06.09 Other forms of dyspnea
CPT/HCPCS: 80053; 83880; 84443; 85025

== ENCOUNTER 2024-07-06 00:23 | Outpatient (CLI) | payer SELFPAY ==
--- NOTE | 2024-07-06 | DI.US_ITS ---
Exam(s) US LOWER EXTREMITY VENOUS LT EXAM: US LOWER EXTREMITY VENOUS LT CLINICAL HISTORY: EDEMA LT LOWER LIMB, R60.0, PAST HX DVT/PE TECHNIQUE: Left lower extremity venous ultrasound performed using grayscale, color-flow, and spectra l Doppler analysis. COMPARISON: No exams were available for comparison FINDINGS: The left common femoral, femoral and popliteal veins demonstrate normal compressibility, augmentation , and color Doppler. The posterior tibial and peroneal veins are patent. The saphenofemoral junction is unremarkable. There is no evidence of a Ortiz cyst. The soft tissues are unremarkable. IMPRESSION: No evidence of a left lower extremity DVT. DATA REPOSITORY:
--- NOTE | 2024-07-06 11:55 | DI.RAD_ITS ---
Exam(s) XR CHEST 2V PA LATERAL EXAM: XR CHEST 2V PA LATERAL CLINICAL HISTORY: JACK, R06.09, chronic perceived; non-smoker; TECHNIQUE: 2D digital imaging was performed of the chest. Two images were obtained. PA and lateral views were obtained. COMPARISON: CR XR CHEST 2V PA LATERAL from 02/14/2021 CR,XR XR PORTABLE CHEST AP from 09/09/2021 FINDINGS: MEDIASTINUM: Normal. HEART: Normal. PULMONARY VASCULATURE: Normal. LUNGS: The lungs are clear. No focal consolidating infiltrates are seen. PLEURAL SPACE: No pleural effusion or pneumothorax. BONE:Within normal limits for the patient's age. The patient has a right reverse total shoulder arth roplasty. OTHER FINDINGS:Normal. IMPRESSION: No acute pulmonary findings. DATA REPOSITORY: RADIATION DOSE DELIVERED:
== END 2024-07-06 00:43 ==
LOC: DI 00:24
PROVIDERS: PCP Student in an Organized Health Care Education/Training Program; Visit Provider Student in an Organized Health Care Education/Training Program
DX: R06.09 Other forms of dyspnea (principal)
CPT/HCPCS: 71046; 93971

== ENCOUNTER 2024-07-06 02:09 | Outpatient (CLI) | payer SELFPAY ==
--- NOTE | 2024-07-06 15:05 | W.NUTRFU ---
Date of service: 07/06/24 Time of Service: 14:00 Nutrition Note NOTE: Tamia came in for nutrition visit today with her . She had gastric bypass surgery in 2011 with successful weight loss. However she has had a recent rebound of 30 pounds gained over the last 16 months per provider referral. 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 She also has experienced broken teeth in the back of her mouth with molars gone and finds meat and other foods hard to manage many times. She takes an iron supplement every other day, D3 (recently ran out and needs to get refilled) and B12. She does not participate in exercise and activity is limited, although she mentions a lot of used to activities that are seasonal and not considered exercise. I emphasized strength training in any way shape or form - can even do bicep burls with can of veggies if she does to the point of fatigue. I asked what she had eaten today and seems just 1 slice of toast with coffee (cream only) and a very small piece of fish. I noted that she will have a hard time meeting fiber and protein needs with this type of eating frequency. Suggested 6 small meals per day with protein and veggies at each. Reviewed protein choices and easy to eat types like canned beans , cottage cheese, nut butter, protein powder and tender meats cooked long and slow like slow cooker/pressure cooker and soups. Typical diet tends to be low in fiber as well. We reviewed 5 general guidelines - eat real food/avoid processed food, try to meet fiber goal, try to limit added sugar, try to meet protein goal, exercise with focus on strength training. We discussed numbers for these (at least 20g fiber, 70g protein and no more than 15 g added sugar) We looked at menu planning resource with AI to help her navigate her limitations with tougher meats and veggies. Given my card to contact with questions or if would like to go over diet recalls that she may have for feedback. Time Spent in Nutritional Counseling and Treatment: 30 minutes
== END 2024-07-06 02:10 | disposition home or self-care (01) ==
PROVIDERS: PCP Student in an Organized Health Care Education/Training Program; Visit Provider Dietitian, Registered
DX: Z71.3 Dietary counseling and surveillance (principal)
CPT/HCPCS: 00123; 97802

== ENCOUNTER 2024-08-07 03:24 | Outpatient (CLI) | payer SELFPAY ==
[2024-08-07] MEDS: Levalbuterol HFA 15 GM INH 4 PUFF IH (11:15)
[2024-08-07] MEDS: Inhaler, Assist Device 1 EACH MC (11:15)
--- NOTE | 2024-08-27 11:23 | W.PFT ---
Date of service: 08/07/24 Time of Service: 10:11 Pulmonary Function Test Result Indications: Dyspnea on exertion Interpretation Spirometry: No airflow obstruction. No significant bronchodilator response. Lung Volumes: Normal lung volumes. Diffusion Capacity: Normal diffusion Airway Pressure: Normal airways resistance Impression Normal pulmonary function testing Clinical Correlation therefore is recommended.
== END 2024-08-07 03:25 | disposition home or self-care (01) ==
PROVIDERS: PCP Student in an Organized Health Care Education/Training Program; Visit Provider Student in an Organized Health Care Education/Training Program
DX: R06.02 Shortness of breath (principal); R06.09 Other forms of dyspnea
CPT/HCPCS: 94060; 94726; 94729

== ENCOUNTER 2024-09-01 01:08 | Outpatient (CLI) | payer MEDICARE, SELFPAY ==
--- NOTE | 2024-09-01 | DI.US_ITS ---
APPROVED REPORT EXAM: Comprehensive 2D, Doppler, and color-flow Echocardiogram Patient Location: Out-Patient Founding Partner: Charlotte Gerard RDCS (AE) Indications: SOB, Other Information Study Quality: Adequate. Technically limited study due to body habitus. Conclusion Mild concentric left ventricular hypertrophy. Ejection fraction is 55 to 60%. Wall motion is normal Normal right ventricular size and function Left atrium is mildly dilated. Normal right atrial size The aortic valve is calcified. There is severe aortic stenosis. Peak gradient is 63, mean 42 mmHg. Calculated aortic valve area 0.8 cm??. There is trace aortic regurgitation Normal mitral valve with mild to moderate regurgitation Estimated right ventricular systolic pressure is 24 mmHg Borderline dilated ascending aorta 3.36 cm Wall motion Left Ventricle The left ventricle is normal size. The left ventricular systolic function is normal. The left ventric ular ejection fraction is within the normal range. Mild concentric left ventricular hypertrophy. Ther e is normal LV segmental wall motion. There is no ventricular septal defect visualized. LVEF is 58%. Right Ventricle The right ventricle is normal size. The right ventricular systolic function is normal. Atria Left atrium is mildly dilated. The right atrium size is normal. The interatrial septum is intact with no evidence for an atrial septal defect. Aortic Valve Aortic valve is calcified. Severe aortic stenosis. Highest mean aortic valve gradient is 41.6mmHg. Pe ak aortic valve gradient is 63.52mmHg._ Calculated ELIZABETH by the continuity equation is .8cm2. Trace aor tic regurgitation. Mitral Valve The mitral valve is normal in structure. No evidence of mitral valve stenosis. Mild to moderate mitr al regurgitation. Tricuspid Valve The tricuspid valve is normal in structure. There is no tricuspid valve stenosis. Trace tricuspid reg urgitation. The RVSP is 24.5 mmHg. Pulmonic Valve The pulmonary valve is normal in structure. There is no pulmonic valvular stenosis. There is no pulmo whit valvular regurgitation. Great Vessels The aortic root is normal in size. The ascending aorta is mildly dilated. Aortic arch is normal in ca liber. IVC is normal in size and collapses >50% with inspiration. Pericardium There is no pericardial effusion. 2D Dimensions IVSD d PLAX 1.20 cm F: 0.6-1.0 Ao Root d 2.92 cm F: 2.7 - 3.3 LVPW d PLAX 1.20 cm F: 0.6 - 1.0 Ao Asc Diam d 3.36 cm F: 2.3 - 3.1 LVID d PLAX 4.20 cm F: 3.8 - 5.2 LVDs 2.91 cm F: 2.2 - 3.5 LV EF Teichholz 57.6 % FS 29.94 % LV EDV (Teich) 76.5 mL LV ESV (Teich) 32.5 mL M-Mode TAPSE 2.71 cm (M/F) >1.7 Auto EF LV EDV A4C 99.5 mL LV EDV A2C 83.0 mL LV EDV BP 92.2 mL LV ESV A4C 44.6 mL LV ESV A2C 33.4 mL LV ESV BP 39.2 mL LVEF(%) A4C 55.2 % LVEF(%) A2C 59.8 % LVEF(%) BP 57.5 % LV SV A4C 54.9 ml LV SV A2C 49.6 ml LV SV BP 53.0 ml LV CO A4C 3.3 L/min LV CO A2C 2.7 L/min LV CO BP 3.0 L/min HR A4C 60.61 BPM HR A2C 53.89 BPM LV EDV Index (BP) LA Volume LA Length A4C 5.4 cm LA Length A2C 5.4 cm LA Area A4C s 22.54 cm2 LA Area A2C s 19.41 cm2 LA Vol A4C A-L 80.34 mL LA Vol A2C A-L 58.72 mL LA Vol Biplane A-L 69.2 mL LA Vol/BSA A4C A-L LA Vol/BSA A2C A-L LA Vol/BSA BP A-L 37.4 mL/m2 LA Vol A4C MOD 75.5 mL LA Vol A2C MOD 55.0 mL LA Vol BP MOD 64.8 mL RA Volume RA Area A4C 9.2 cm2 RA ESV A4C (A-L) 19.9mL RA Vol/BSA A4C A-L RA Length A4C 3.6 cm RA ESV A4C (MOD) 18.7mL LV Diastology MV E' medial 0.097 (>0.07 m/s) MV E Vmax 0.90 (0.4-1.3 m/s) MV E/E' MED 9.30 (<14) MV A Vmax 0.90 (0.4-1.3 m/s) MV E' lateral 0.077 (>0.1 m/s) E/A Ratio 1.0 MV E/E' LAT 11.79 (<14) MV E' Average 0.087 m/s MV E/E'(average) 10.40 Aortic Valve AoV Vmax 3.98 m/s LVOT Vmax 0.96 m/s AoV Peak Grad 63.5 mmHg LVOT Peak Grad 3.7 mmHg AoV Area (Vmax) 0.75 cm2 LVOT VTI 0.288 m AoV VTI 1.180 m LVOT Mean Grad 2.1 mmHg AoV Mean Christian. 3.08 m/s LVOT SV 90.38 mL AoV Mean Grad 41.6 mmHg LVOT Diam s 1.95 cm AoV Area (VTI) 0.77 cm2 AV Regurg Peak Gr. 63.52 mmHg Velocity Ratio 0.24 Mitral Valve MV DT 225 (160-240 msec) MV Vmax TIPS 0.80 m/s MV Mean Grad 1.0 (<2mmHg) MV VTI 0.307 m Pulmonary Valve PV Vmax 0.77 (0.5-1.5 m/s) RVOT Vmax 0.57 m/s PV Peak Grad 2.4 mmHg RVOT Peak Gr. 1.3 mmHg PV Mean Christian 0.52 m/s RVOT VTI 0.163 m PV Mean Grad 1.2 mmHg RVOT Mean Gr. 0.8 mmHg Tricuspid Valve RA Pressure 3.00 mmHg TR Vmax 2.32 m/s TV S' 0.13 m/s TR Peak Grad 21.4 mmHg RVSP (TR) 24.5 mmHg
== END 2024-09-01 01:28 ==
LOC: DI 01:08
PROVIDERS: PCP Student in an Organized Health Care Education/Training Program; Visit Provider Internal Medicine Cardiovascular Disease
DX: R06.02 Shortness of breath (principal); I51.7 Cardiomegaly
CPT/HCPCS: 93306

== ENCOUNTER 2024-10-13 01:33 | Outpatient (CLI) | payer MEDICARE, SELFPAY ==
--- NOTE | 2024-10-13 08:56 | DI.DEXA_ITS ---
Exam(s) XR DEXA BONE DENSITY W/WO HAILEY EXAM: XR DEXA BONE DENSITY W/WO HAILEY CLINICAL HISTORY: SENILE OSTEOPOROSIS, M81.0 OSTEOPOROSIS WITHOUT CURRENT PATHOLOGICAL FX TECHNIQUE: Routine DEXA evaluation of the lumbar spine, hip, or forearm. COMPARISON: Prior DEXA scan March 2021. FINDINGS: Performed on a [employer] unit. Lateral image: No compression fracture evident. Lumbar Spine total T-score: -0.7 which is within normal range. This represents significant improvement when compared to the prior reading of -2.2 in the March 2021. Hip total T-score:-3.5 which is osteoporosis range. Prior reading in March 2021 was -3.7 Independent reading at the level of the femoral neck yields T-score of -4.1 which is also osteoporosis range. Forearm total T-score: -4.1 which is osteoporosis range. This is identical to the reading of March 2021. IMPRESSION: Bone mineral density measures in the osteoporosis range for the hip and wrist/forearm. Fracture risk is high. The reading in the lumbar spine is somewhat improved when compared to 2020. Note: Any spine fracture indicates 5x risk for subsequent spine fracture and 2x risk for subsequent hip fracture. World Health Organization criteria for BMD interpretation classify patients: Normal...... T- Score at or above -1.0 Osteopenic... T- Score between -1.0 and -2.5 Osteoporosis... T-Score at or below -2.5
== END 2024-10-13 01:53 ==
LOC: DI 01:34
PROVIDERS: PCP Student in an Organized Health Care Education/Training Program; Visit Provider Student in an Organized Health Care Education/Training Program
DX: M81.0 Age-related osteoporosis without current pathological fracture (principal)
CPT/HCPCS: 77080

== ENCOUNTER 2025-01-21 16:16 | Outpatient (REF) | payer MEDICARE, MEDICAID, SELFPAY ==
[2025-01-21 19:54] LABS: Folate 15.7 ng/mL (8.6-20.0); TSH (W/Ref FT4) 2.38 uIU/mL (0.36-3.74); Vitamin B12 319 pg/mL (193-986); Vitamin D 25 Total 27 ng/mL (30-100)
== END 2025-01-21 16:17 | disposition home or self-care (01) ==
LOC: NCHCN 16:16
PROVIDERS: PCP Student in an Organized Health Care Education/Training Program; Visit Provider Student in an Organized Health Care Education/Training Program
DX: Z98.84 Bariatric surgery status (principal); E03.9 Hypothyroidism, unspecified
CPT/HCPCS: 82306; 82607; 82746; 84443